=== PATIENT | male | born 1945 | race Caucasian/White ===

== ENCOUNTER 2021-11-24 12:44 | Outpatient (CLI) | payer MEDICARE, SELFPAY ==
--- NOTE | 2021-11-24 15:01 | W.ANESCHARGE ---
Anesthesia Charges Start Date/Time Anesthesia Start Date: 11/24/21 Anesthesia Start Time: 14:18 Stop Date/Time Anesthesia Stop Date: 11/24/21 Anesthesia Stop Time: 14:58 Summary Emergency: No Extremes of Age: Over 68-CPT 13149
--- NOTE | 2021-11-24 15:03 | W.ANESCHARGE ---
Anesthesia Charges Start Date/Time Anesthesia Start Date: 11/24/21 Anesthesia Start Time: 14:18 Stop Date/Time Anesthesia Stop Date: 11/24/21 Anesthesia Stop Time: 14:58 Summary Emergency: No Extremes of Age: Over 68-CPT 04116
== END 2021-11-24 12:45 | disposition home or self-care (01) ==
LOC: OP CLINIC 12:45
PROVIDERS: PCP Family Medicine; Visit Provider Surgery
DX: Z12.11 Encounter for screening for malignant neoplasm of colon (principal); C18.0 Malignant neoplasm of cecum; K63.5 Polyp of colon; Z86.010 Personal history of colon polyps
CPT/HCPCS: 00811; 45380; 81210; 88305; 88341; 88342; 99100; J2704

== ENCOUNTER 2021-12-02 10:08 | Outpatient (CLI) | payer MEDICARE, SELFPAY ==
--- NOTE | 2021-12-02 11:00 | CRLHL7_ITS ---
For Patients: As a result of the Century Cures Act, medical imaging exams and procedure reports are released immediately into your electronic medical record. You may view this report before your referring provider. If you have questions, please contact your health care provider. Indication: DISEASE OF INTESTINE. MASS SEEN ON COLONOSCOPY Technique: Postcontrast CT chest, abdomen and pelvis. 133 cc Isovue 370 intravenous contrast. Please note that all CT scans at this facility use dose modulation, iterative reconstruction, and/or weight-based dosing when appropriate to reduce radiation dose to as low as reasonably achievable. Comparison: 12/12/2020 CT chest Findings: In the chest, abdomen and right subclavian artery noted, an incidental finding. No pulmonary embolism or aortic dissection. No pleural or pericardial effusion. No enlarged mediastinal, hilar or axillary lymph nodes. Stable pulmonary nodules. In the abdomen, there is no intrahepatic mass. Focal fat deposition adjacent to the falciform ligament. Multiple bilateral simple renal cysts are present measuring up to 8.7 cm. Ectopic position of the left kidney with nonobstructing stone involving the left kidney measuring 4 millimeters. No solid renal mass. The adrenal glands are normal. Mild pancreatic atrophy. Spleen is unremarkable. Mild aneurysmal dilation of the abdominal aorta is present measuring up to 3.3 cm. No enlarged retroperitoneal or mesenteric lymph nodes. In the pelvis, bladder is normal. Prostate calcifications are present. Colonic diverticulosis. No diverticulitis. Appendix normal. No pelvic or inguinal adenopathy. Chronic hamstring calcific tendinitis. Chondrocalcinosis at the symphysis pubis and both hip joints. No fracture. Postoperative changes of posterior decompression laminectomy at L4 and L5. Impression: Colonic diverticulosis without diverticulitis. No bowel obstruction. There is stool throughout the colon which may obscure an underlying lesion. No focal colonic wall thickening or adjacent mesenteric stranding. No adenopathy. Stable benign pulmonary nodules. Multiple bilateral simple renal cysts with chronic ectasia of the left kidney and nonobstructing left renal stone. 3.3 cm abdominal aortic aneurysm. Please note that all CT scans at this facility use dose modulation, iterative reconstruction, and/or weight-based dosing when appropriate to reduce radiation dose to as low as reasonably achievable. Dictated by Dong Liu MD @ 12/02/2021 1:12:52 PM (Electronically Signed)
== END 2021-12-02 10:09 | disposition home or self-care (01) ==
LOC: CT 10:08
PROVIDERS: PCP Family Medicine; Visit Provider Surgery
DX: K63.89 Other specified diseases of intestine (principal); R91.8 Other nonspecific abnormal finding of lung field; I71.4 Abdominal aortic aneurysm, without rupture; N28.1 Cyst of kidney, acquired
CPT/HCPCS: 71260; 74177; Q9967

== ENCOUNTER 2021-12-03 14:53 | Outpatient (CLI) | payer MEDICARE, SELFPAY ==
[2021-12-05 15:23] LABS: Carcinoembryonic Antigen 4.1 ng/mL
== END 2021-12-03 14:54 | disposition home or self-care (01) ==
LOC: NFLDREF 15:00
PROVIDERS: PCP Family Medicine; Visit Provider Surgery
DX: C18.9 Malignant neoplasm of colon, unspecified (principal)
CPT/HCPCS: 82378

== ENCOUNTER 2021-12-08 12:40 | Outpatient (RCR) | payer MEDICARE, SELFPAY ==
--- NOTE | 2022-02-27 15:25 | ONC.NURNOTE ---
patient is seeing oncology at [facility] in [place] no follow up planned with [place] except pt prefers annual colonoscopy in [place]
== END 2022-06-06 23:59 | disposition home or self-care (01) ==
LOC: CCIC 12:40
PROVIDERS: PCP Family Medicine; Visit Provider Internal Medicine Medical Oncology
DX: C18.9 Malignant neoplasm of colon, unspecified (principal); K63.89 Other specified diseases of intestine
CPT/HCPCS: 99204; 99212

== ENCOUNTER 2022-01-12 11:12 | Outpatient (CLI) | payer MEDICARE, SELFPAY ==
--- OUTSIDE RECORDS SUMMARY | 2022-01-12 11:15 | XMS_ITS | Encounter Summary ---
:1945 Author Organization [place] Address [address] [place] [address]. [place] [address] Care Team Providers Name Role Phone Hawa Razo Primary Care Provider Reason for Visit Rehab Therapy Cardiac Therapy (Routine) - Closed Specialty Diagnoses / Procedures Referred By Contact Refer red To Contact CARDIAC REHAB Diagnoses COPD (chronic obstructive pulmonary disease) (H) Kelvin BAEZA [facility] [address] [place] [address] Phone: Fax: Referral ID Status Reason Start Date Expiration Date Visits Requ ested Visits Authorized [id number] Closed 07/04/2020 04/25/2021 72 72 Encounter Details Date Type Department Care Team Description 07/[facility] [facility] [address] [place] [address] Cardiac and Pulmonary 1, Rh Pul[facility] [place] [id number] [place] [address] [address] [place] [address] Social History Tobacco Use Types Packs/Day Years Used Date Current Every Day Smoker Alcohol Use Standard Drinks/Week Comments Yes 0 (1 standard drink = 0.6 oz pure alcoho l) Sex Assigned at Date Recorded Not on file COVID-19 Exposure Response Date Recorded In the last month, have you been in contact with No / Unsure 07/30/2020 10:30 AM CDT someone who was confirmed or suspected to have Coronavirus / COVID-19? documented as of this encounter Medications at Time of Discharge Medication Sig Dispensed Refills Start Date End Date ASPIRIN PO Take 81 mg by mouth 0 Cholecalciferol (VITAMIN D3 Take by mouth daily 0 PO) ciprofloxacin (CILOXAN) 0.3 Instill 1-2 drops in 1 Bottle 0 11/28/2012 % ophthalmic solution the affected eye(s) every 2 hours while awake for 2 days then 1-2 drops every 4 hours while awake for the next 5 days. LISINOPRIL PO 0 Multiple Vitamins-Minerals Take 1 tablet by 0 (CENTRUM SILVER) per tablet mouth daily [place]-3 Fatty Acids 0 (OMEGA-3 FISH OIL PO) Saw [place], [place] 0 repens, (SAW PALMETTO EXTRACT PO) SUMAtriptan (IMITREX) 50 MG Take 1 tablet (50 8 tablet 0 0 11/28/2012 tablet mg) by mouth at onset of headache for migraine May repeat dose in 2 hours. Do not exceed 200 mg in 24 hours SUMATRIPTAN SUCCINATE PO Take 50 mg by mouth 0 VITAMIN E MTC PO Take 400 Units by 0 mouth documented as of this encounter Plan of Treatment Upcoming Encounters Date Type Specialty Care Team Description 01/14/2022 Hospital Encounter Surgery Melissa Stern MD [facility] [address] [place] [id number] (Wo rk) 01/14/2022 Surgery Surgery Melissa Stern ROBOTI C RIGHT COLECTOMY [facility] [address] [place] [phone] (Wo rk) Scheduled Procedures Name Priority Associated Diagnoses Date/Time COLECTOMY, Malignant neoplasm of colon, 7:30 AM CDT ROBOT-ASSISTED unspecified part of colon (H) documented as of this encounter Visit Diagnoses Not on filedocumented in this encounter Care Teams Vp Clinical Relationship Specialty Start Date End Date Hawa Razo PCP - General Family Practice 05/04/13 12/23/21 documented as of this encounter
--- OUTSIDE RECORDS SUMMARY | 2022-01-12 11:15 | XMS_ITS | Encounter Summary ---
:1945 Author Organization [place] Address [address] [place] [address]. [place] [address] Care Team Providers Name Role Phone Hawa Razo Primary Care Provider Reason for Visit Rehab Therapy Cardiac Therapy (Routine) - Closed Specialty Diagnoses / Procedures Referred By Contact Refer red To Contact CARDIAC REHAB Diagnoses COPD (chronic obstructive pulmonary disease) (H) Kelvin BAEZA [facility] [address] [place] [address] Phone: Fax: Referral ID Status Reason Start Date Expiration Date Visits Requ ested Visits Authorized [id number] Closed 07/04/2020 04/25/2021 72 72 Encounter Details Date Type Department Care Team Description 07/18/2020 [facility] [address] [place], [place] [id number] Cardiac and Pulmonary 1, Rh Pulmonary Re[facility] [place] [id number] [place] [address] [address] [place] [address] Social History Tobacco Use Types Packs/Day Years Used Date Current Every Day Smoker Alcohol Use Standard Drinks/Week Comments Yes 0 (1 standard drink = 0.6 oz pure alcoho l) Sex Assigned at Date Recorded Not on file COVID-19 Exposure Response Date Recorded In the last month, have you been in contact with No / Unsure 07/18/2020 2:28 PM CDT someone who was confirmed or suspected [...] 0 (CENTRUM SILVER) per tablet mouth daily [place]-3 Fatty Acids 0 (OMEGA-3 FISH OIL PO) Saw [place], [place] 0 repens, (SAW PALMETTO EXTRACT PO) [...] [address] [phone] (Wo rk) 01/14/2022 Surgery Surgery Melissa Stern ROBOTI C RIGHT COLECTOMY [facility] [address] [phone] (Wo rk) Scheduled Procedures Name Priority Associated Diagnoses Date/Time COLECTOMY, Malignant neoplasm of colon, 7:30 AM CDT ROBOT-ASSISTED unspecified part of colon (H) documented as of this encounter Visit Diagnoses Not on filedocumented in this encounter Care Teams National Expansion Recruiter Relationship Specialty Start Date End Date Hawa Razo PCP - General Family Practice 05/04/13 12/23/21 documented as of this encounter
--- OUTSIDE RECORDS SUMMARY | 2022-01-12 11:15 | XMS_ITS | Encounter Summary ---
:1945 Author Organization [place] Address formerly [facility] [place] [address] Care Team Providers Name Role Phone Hawa Razo Ann Primary Care Provider Reason for Referral Rehab Therapy Cardiac Therapy (Routine) - Closed Specialty Diagnoses / Procedures Referred By Contact Refer red To Contact CARDIAC REHAB Diagnoses COPD (chronic obstructive pulmonary disease) (H) [facility] [address] [place] [address] Phone: Fax: Referral ID Status Reason Start Date Expiration Date Visits Requ ested Visits Authorized [id number] Closed 07/04/2020 04/25/2021 72 72 PULLER Reason for Visit Rehab Therapy Cardiac Therapy (Routine) - Closed Specialty Diagnoses / Procedures Referred By Contact Refer red To Contact CARDIAC REHAB Diagnoses COPD (chronic obstructive pulmonary disease) (H) [facility] [address] [place] [address] Phone: Fax: Referral ID Status Reason Start Date Expiration Date Visits Requ ested Visits Authorized [id number] Closed 07/04/2020 04/25/2021 72 72 Encounter Details Date Type Department Care Team Description 07/04/2020 [facility] CL[facility] [address] [place] [address] COPD (chronic Encounter Cardiac and Pulmonary 1, Rh Pulmonary Rehab obstructive Rehabilitation pulmonary dis ease) [place] (H) [address] [facility] [address] [place] [address] Social History Tobacco Use Types Packs/Day Years Used Date Current Every Day Smoker Alcohol Use Standard Drinks/Week Comments Yes 0 (1 standard drink = 0.6 oz pure alcoho l) Sex Assigned at Date Recorded Not on file COVID-19 Exposure Response Date Recorded In the last month, have you been in contact with No / Unsure 07/04/2020 3:51 PM SHOE PULLER someone who was confirmed or suspected to [...] 0 (CENTRUM SILVER) per tablet mouth daily [place]-3 Fatty Acids 0 (OMEGA-3 FISH OIL PO) Saw [place], [place] 0 repens, (SAW PALMETTO EXTRACT PO) [...] Stern MD [facility] [address] [phone] (Wo rk) 01/14/2022 Surgery Surgery Melissa Stern ROBOTI C RIGHT COLECTOMY [facility] [address] [phone] (Wo rk) Scheduled Procedures Name Priority Associated Diagnoses Date/Time COLECTOMY, Malignant neoplasm of colon, 7:30 AM CDT ROBOT-ASSISTED unspecified part of colon (H) Scheduled Referrals Name Type Priority Associated Diagnoses Order S chedule PULMONARY REHAB Referral Routine COPD (chronic 1 Occurrenc es starting REFERRAL obstructive pulmonary 2020 until disease) (H) 07/04/2020 documented as of this encounter Procedures Procedure Name Priority Date/Time Associated Diagnosis Comme nts OXIMETRY - HIM SCAN 07/04/2020 12:00 AM SHOE PULLER documented in this encounter Results OXIMETRY - HIM SCAN (07/04/2020 12:00 AM SHOE PULLER) Specimen (Source) Anatomical Location Collection Method / Collectio n Time Received Time / Laterality Volume 07/04/2020 Narrative This result has an attachment that is no t available. Provider Scan PFT ORDERABLES documented in this encounter Visit Diagnoses Diagnosis COPD (chronic obstructive pulmonary dise ase) (H) Chronic airway obstruction, not elsewher e classified Malignant neoplasm of colon, unspecified part of colon (H) documented in this encounter Care Teams Control Room Technician Relationship Specialty Start Date End Date Hawa Razo PCP - General Family Practice 05/04/13 12/23/21 documented as of this encounter
--- OUTSIDE RECORDS SUMMARY | 2022-01-12 11:15 | XMS_ITS | Encounter Summary ---
:1945 Author Organization [place] Address [address] [facility] [place] [address] Care Team Providers Name Role Phone Hawa Razo Primary Care Provider Encounter Details Date Type Department Care Team Description 07/30/2020 Travel Social History Tobacco Use Types Packs/Day Years [...] / COVID-19? documented as of this encounter Plan of Treatment Upcoming Encounters Date Type Specialty Care Team Description 01/14/2022 Hospital Encounter Surgery Melissa Stern MD [facility] [address] [phone] (Wo rk) 01/14/2022 Surgery Surgery Melissa Stern ROBOTI C RIGHT COLECTOMY [facility] [address] [phone] (Wo rk) Scheduled Procedures Name Priority Associated Diagnoses Date/Time COLECTOMY, Malignant neoplasm of colon, 7:30 AM CDT ROBOT-ASSISTED unspecified part of colon (H) documented as of this encounter Visit Diagnoses Not on filedocumented in this encounter Care Teams Plate Straightener Relationship Specialty Start Date End Date Hawa Razo PCP - General Family Practice 1/9/14 8/30/22 documented as of this encounter
--- OUTSIDE RECORDS SUMMARY | 2022-01-12 11:15 | XMS_ITS | Encounter Summary ---
:1945 Author Organization [place] Address [address] [place] [address]. [place] [address] Care Team Providers Name Role Phone Hawa Razo Primary Care Provider Reason for Visit Rehab Therapy Cardiac Therapy (Routine) - Closed Specialty Diagnoses / Procedures Referred By Contact Refer red To Contact CARDIAC REHAB Diagnoses COPD (chronic obstructive pulmonary disease) (H) Kelvin BAEZA [facility] [address] [place] [address] Phone: Fax: Referral ID Status Reason Start Date Expiration Date Visits Requ ested Visits Authorized [id number] Closed 07/04/2020 04/25/2021 72 72 Encounter Details Date Type Department Care Team Description 07/15/[address] [facility] [address] [place], [place] [id number] Cardiac and Pulmonary 2, Rh Pulmonary Rehab Rehabilitation [place] [id number] [place] [address] [address] [place] [address] Social History Tobacco Use Types Packs/Day Years Used Date Current Every Day Smoker Alcohol Use Standard Drinks/Week Comments Yes 0 (1 standard drink = 0.6 oz pure alcoho l) Sex Assigned at Date Recorded Not on file COVID-19 Exposure Response Date Recorded In the last month, have you been in contact with No / Unsure 07/15/2020 10:15 AM CDT someone who was confirmed or [...] 0 (CENTRUM SILVER) per tablet mouth daily [place]-3 Fatty Acids 0 (OMEGA-3 FISH OIL PO) Saw [place], [place] 0 repens, (SAW PALMETTO EXTRACT PO) [...] [address] [id number] (Wo rk) 01/14/2022 Surgery Surgery Melissa Stern ROBOTI C RIGHT COLECTOMY [facility] [address] [phone] (Wo rk) Scheduled Procedures Name Priority Associated Diagnoses Date/Time COLECTOMY, Malignant neoplasm of colon, 7:30 AM CDT ROBOT-ASSISTED unspecified part of colon (H) documented as of this encounter Visit Diagnoses Not on filedocumented in this encounter Care Teams Vb Net Developer Relationship Specialty Start Date End Date Hawa Razo PCP - General Family Practice 05/04/13 12/23/21 documented as of this encounter
--- OUTSIDE RECORDS SUMMARY | 2022-01-12 11:15 | XMS_ITS | Clinical Summary ---
:1945 Author Organization [facility] [place] [address] Care Team Providers Name Role Phone Gibson Calix MD Primary Care Provider Allergies No known active allergies Medications Medication Sig Dispensed Refills Start Date End Date Status TYLENOL ARTHRITIS ORAL Take 650 mg by 0 Active mouth every 4 hours if needed. CPAPIndications: autoCPAP, heated 1 Device 0 04/09/2014 Active Obstructive sleep apnea humidifier, mask, (adult) (pediatric) headgear, filters and tubing. Pressure: 4-15cm/H2O Length of Need: 99 aspirin (ECOTRIN) 81 mg Take 1 tablet by 0 9 Active enteric coated tablet mouth once daily with a meal. lisinopril (PRINIVIL; Take 1 tablet by 30 tablet 1 03/03/2019 Active ZESTRIL) 20 mg mouth once daily. tabletIndications: HTN (hypertension) albuterol-ipratropium USE 1 AMPULE IN 0 08/15/2019 Active (DUONEB) (2.5-0.5 mg) NEBULIZER TWICE in 3 mL NEBULIZATION DAILY TO THREE solution TIMES DAILY SPACED 4 HOURS OR MORE APART MAY USE UP TO 4 TIMES DAILY MAXIMUM NEEDED colchicine 0.6 mg Take 0.6 mg by 0 06/17/2020 Active tablet mouth once daily. cyanocobalamin (VITAMIN Take 500 mcg by 0 08/21/2020 Active B12) 500 mcg tablet mouth once daily. finasteride (PROSCAR) 5 Take 5 mg by 0 09/09/2020 Active mg tablet mouth once daily. Trelegy Ellipta INHALE 1 PUFF 0 09/09/2020 Active 200-62.5-25 mcg dsdv ONCE DAILY tadalafiL (CIALIS) 5 mg Take 5 mg by 0 09/02/2020 Active tablet mouth once daily. furosemide (LASIX) 20 Take 1 Tablet by 0 Active mg tablet mouth once daily. predniSONE (DELTASONE) Take 1 Tablet by 0 Active 10 mg tablet mouth once daily with a meal. Emqqn-0-RVN-EPA-Fish Take 1 Capsule by 0 Active Oil (Fish Oil) 1,000 mg mouth once daily. (120 mg-180 mg) cap gluc mcconnell/chondro mcconnell Take 1 Tablet by 0 Active A/vit C/Mn (GLUCOSAMINE mouth once daily. 1500 COMPLEX ORAL) Cholecalciferol, Take 400 units by 0 Active Vitamin D3, (Vitamin mouth once daily. D-3) 400 unit capsule ASCORBIC ACID MM Take 1 Tablet by 0 Active mouth once daily. polyethylene glycoL Mix 1 scoop in 0 Active (Miralax) 17 gram/dose liquid then take powder by mouth once daily. alfuzosin (UroxatraL) Take 10 mg by 0 Active 10 mg Sustained-Release mouth once daily tablet with a meal. Active Problems Problem Noted Date S/P TURP (status post transurethral resection of prost ate) 07/15/2021 BPH (benign prostatic hyperplasia) 07/15/2021 Chronic heart failure with preserved ejection fraction (HFpEF) 03/03/2019 Hypertension, essential, benign 03/03/2019 Ascending aortic aneurysm 03/03/2019 Dyslipidemia 03/03/2019 Urinary frequency 03/13/2015 Nocturia 03/13/2015 Benign prostatic hypertrophy (BPH) with nocturia 03/13 LYN 03/29/2014 AHI-5.2, 12 in REM 04/02/2014 Encounters Date Type Specialty Care Team Description 11/24/2021 Lab Requisition Roxana Mendoza MD 11/19/2021 Office Visit Mele Decker, Follow Up (Urinary MD frequency) 11/19/2021 Travel from Last 3 Months Social History Tobacco Use Types Packs/Day Years Used Date Former Smoker Cigarettes 0.75 50 Quit: 05/18/19 17 Smokeless Tobacco: Never Used Tobacco Cessation: Counseling Given: Yes Alcohol Use Standard Drinks/Week Comments Yes 1 (1 standard drink = 0.6 oz pure alcoho l) occasional Alcohol Habits Answer Date Recorded How often do you have a drink containing alcohol? Monthly or less 01/29/2020 How many drinks containing alcohol do you have on a 1 or 2 01/29/2020 typical day when you are drinking? How often do you have six or more drinks on one Never 01/29/2020 occasion? Comment: occasional 10/09/2020 Sex Assigned at Date Recorded Not on file Obstetrics History Last Filed Vital Signs Vital Sign Reading Time Taken Comments Blood Pressure 103/65 11/19/2021 10:11 AM CDT Pulse 59 11/19/2021 10:11 AM CDT Temperature 36.4 ??C (97.6 ??F) 07/17/2021 8:58 AM CDT Respiratory Rate 16 07/17/2021 8:58 AM CDT Oxygen Saturation 97% 11/19/2021 10:11 AM CDT Inhaled Oxygen Concentration - - Weight 124.9 kg (275 lb 6.4 oz) 11/19/2021 10:11 AM CDT Height 180.3 cm (5' 11) 07/15/2021 11:16 AM CDT Body Mass Index 38.41 07/15/2021 11:16 AM CDT Plan of Treatment Health Maintenance Due Date Last Done Comments Pneumococcal series for age 65+ (1 - 12/29/1949 PCV) Tdap 12/29/1954 Depression screening for age 12+ 1955 Hepatitis C screening for age 18-79 12/29/1961 Tetanus booster 1963 Zoster (shingles) series for age 50+ 12/29/1993 (1 of 2) Medicare Wellness for age 65+ 12/29/2008 BMI (ht and wt on same day) for age 0610/15/2020 10/16/2019, 02/23/2019, 18+ 08/03/2016 COVID-19 vaccine series (4 - Booster 09/20/2021 05/23/2021, 12/09/2020, for Pfizer series) 11/18/2020 Influenza for age 65+ 12/25/2021 Procedures Procedure Name Priority Date/Time Associated Diagnosis Comme nts LAB TRACKING EVENT Routine 11/24/2021 2:45 PM CDT PATH TISSUE EXAM Routine 11/24/2021 2:45 PM Resul ts for this CDT procedure are i n the results section. BRAF V600 MUTATION Routine 11/24/2021 2:45 PM Res ults for this ANALYSIS CDT procedure are i n the results section. from Last 3 Months Results LAB TRACKING EVENT (11/24/2021 2:45 PM CDT) Specimen Anatomical Collection Method Collection Time Receive d Time (Source) Location / / Volume Laterality Other (Other) Client Collect / 11/24/2021 2:45 PM 08/0 04/2021 9:46 Unknown CDT PM CDT Roxana Mendoza MD LAB BILL ONLY Performing Organization Address City/State/ZIP Code Phon e Number [facility] [address] [place] [address] LABORATORY-CENTRAL 2000 LABORATORY BRAF V600 MUTATION ANALYSIS (11/24/2021 2:45 PM CDT) Patholo gist Method Time Signature RESULT See Anatomic 12/02/2021 [facility] COMMENT Pathology 1:36 PM CDT LABORATORY-ABBY case TRAL LABORATORY Specimen Anatomical Collection Method Collection Time Receive d Time (Source) Location / / Volume Laterality Other BLOOD SPECIMEN / 11/24/2021 2:45 PM 11/26 4:00 Unknown CDT PM CDT Roxana Mendoza MD LABORATORY Performing Organization Address City/State/RUST Code Phon e Number [facility] [address] [place] [address] LABORATORY-CENTRAL 2000 LABORATORY PATH TISSUE EXAM (11/24/2021 2:45 PM CDT) Component Value Ref Test Analysis Performed Pathologis t Range Method Time At Signature Case Report Pathology Report ?Case: [id number] ? [facility] Authorizing Provider: ??Roxana Mix MD ??Collected: ? 11/24/2021 1445 ? 2 1:39 PM HEALTH Ordering Location: ? [facility] CENTRAL LAB ?Received: ?11/25/2021 0602 ? CDT [facility] BORATORY- Pathologist: ? Abiodun Vance MD ? CENTRAL Specimens: ?? A) - mass ? LABORATORY ? B) - poly p ? Amendment 11/26/2021 3 PM - Report updat ed to incorporate DNA mismatch repair enzyme immunohistochemistry and initiate BRAF testing, see final diagnosis and synoptic sections. [facility] 12/02/2021 - Report updated to incorporate BRAF testing, see synoptic section and updated diagnosis. ÁNGEL 2 1:39 PM HEALTH CDT LABORATORY- CENTRAL LABORATORY Final A) COLON, CECUM, MASS, BIOPSY: [facility] Amendment Diagnosis 1. Adenocarcinoma, low grade (moderately differentiated) 2 1:39 PM HEALTH electronically 2. Background adenoma is not present CDT LABORATORY- signed by 3. Please order CEA level an d CT imaging (chest/abdomen/pelvis) prior to treatment CENTRAL Abiodun Vance 4. Ancillary Testing: KYLAH Milner MD on ? a. 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 b. Positive for BRAF mutation 1:39 PM ? c. See comment and synoptic sections below Amendment electronic ally B) COLON, SPLENIC FLEXURE, POLYPECTOMY: signed by 1. Tubular adenoma João Godinez 2. Negative for high grade dysplasia MD Ashwin on 3. Per the colonoscopy report: 11/26/2021 at ?? a. Polyp size: 2 mm 3:03 PM ?? b. Resection: Complete Electronically ?? c. Retrieval: Complete signed by Hamzah Damico MD for João Sims Pe, MD on 2021 at 9:07 AM Comment A)Dr. Sims discussed the ca se with Dr. Roxana Mendoza on 11/26/2021 at 8:25 AM. This case was seen in consultation with Dr. Damico. [facility] 2 1:39 PM HEALTH Please contact us with any questions ([facility] GI pat hology service [phone]). CDT LABORATORY- CENTRAL Formalin-fixed, paraffin-emb edded tissue is available for ancillary studies, to request please contact the [facility] Pathology [facility] ([phone]). Neoplastic tissue available for ancillary studies: FFPE block A1. LABORATORY Ancillary Testing Comment The immunohistochemical find ings indicate defective mismatch repair enzyme function within this tumor likely due to acquired hypermethylation-related suppression of MLH1, which tends to be more common i n older individuals and serr ated neoplasia background. Microsatellite instability (MSI) is present in all such cases, so PCR testing would be redundant. Roberto Syndrome is essentially excluded; however, if there is high clinical mcconnell spicion or if patient is younger than 50, consideration should be given to additional testing for other inherited colon cancer syndromes. Please contact us if you have questions ([facility] GI Pathology Service [phone]). Clinical Mr. Curran is a 75 [facility] Information y.o. who undergoes 2 1:39 PM HEALTH surveillance CDT LABORATORY- colonoscopy which CENTRAL revealed a likely LABORATORY malignant tumor in the cecum and an additional polypectomy was performed. Gross A) Received in formalin are 7 reed mucosal fragments averaging 2 mm in greatest dimension, which are entirely submitted in one cassette. It is labeled with the patient's name and designated cecal mass biopsy. [facility] Description 2 1:39 PM HEALTH B) Received in formalin is a reed mucosal fragment measuring 3 mm in greatest dimension, which is entirely submitted in one cassette. It is labeled with the patient's name and designated splenic flexure polyp. CDT LABORATORY- CENTRAL Rose Carreno 11/25/2021 12:07 PM LABORATORY Microscopic The final diagnosis is [facility] A Description based on microscopic 2 1:39 PM HEALTH examination of CDT LABORATORY- appropriate sections CENTRAL of all specimens. LABORATORY Molecular BRAF V600 Mutation Analysis [facility] Diagnostics 2 1:39 PM HEALTH Summary Result: ?? CDT LABORATORY- Positive for BRAF V600 mutation (codon 600, exon 15) CENTRAL LABORATORY BRAF Methods: DNA is extract ed from FFPE sections using the beroncia?? DNA Sample Preparation kit after a corresponding H&E stained slide is evaluated by a pathologist. Sample is macrodissected to [facility] for tumor if section cont ains less than 50% tumor. Extracted DNA is then tested using the beronica?? 4800 BRAF V600 Test. Specimen Assessment: ?? H&E slide reviewed by Janiya Washington M.D. and determined adequate for analysis. The beronica?? 4800 BRAF V600 M utation Test is an in vitro diagnostic device intended for the qualitative detection of BRAF V600 mutation in DNA extracted from formalin-fixed, paraffin-embedded human tissu e. The beronica?? 4800 BRAF V60 0 Mutation Test is a real-time PCR test on the beronica?? 4800 systemIn addition to the most common V600E mutations, in data submitted to the FDA the BRAF V600 mutation assay wa s also able to detect V600K, V600E2, and V600D mutations (Lisset package insert BRAF V600 assay). FDA required disclaimer: ??T his test was developed and its performance characteristics determined by the [facility]. It has not been cleared or approved by the FDA. T he FDA has determined, howev er, that in most cases, such approval is not necessary. This test is used for clinical purposes. It should not be regarded as investigational or for research. SYNOPTIC Colon and Rectum Biomarker Reporting Template [facility] [email or web address].Bmk - All Specimens 2 1:39 PM HEALTH Protocol posted: 06/22/2018 CDT LAB ORATORY- CENTRAL RESULTS LABORATORY ?? Mismatch Repair: ? Immunohistochemistry (IHC) Testing for Mismatch Repair (MMR) Proteins: ? MLH1 Result: ?Loss of nuclear expression ? Immunohistochemistry (IHC) Testing for Mismatch Repair (MMR) Proteins: ? MSH2 Result: ?Intact nuclear expression ? Immunohistochemistry (IHC) Testing for Mismatch Repair (MMR) Proteins: ? MSH6 Result: ? Cannot be determined: largely intact, with focal loss ? Immunohistochemistry (IHC) Testing for Mismatch Repair (MMR) Proteins: ? PMS2 Result: ?Loss of nuclear expression ? Immunohistochemistry (IHC) Testing for Mismatch Repair (MMR) Proteins: ?Background nonneoplastic tissue / internal control with intact nuclear expression ? IHC Interpretation #: ?Loss of nuclear expression of MLH1 and PMS2: testing for methylation of the MLH1 promoter and / or mutation of BRAF is indicated (the presence of a BRAF V600E mutatio n and / or MLH1 methylation suggests that the tumor is sporadic and germline evaluation is probably not indicated; absence of both MLH1 methylation and of BRAF V600E mutation suggests the possibility of Roberto syndrome and sequenci ng and / or large deletion / duplication testing of germline MLH1 may be indicated) Colon and Rectum Biomarker Reporting Template BRAF - A Protocol posted: 06/22/2018 RESULTS ?? BRAF: ? BRAF Mutational Analysis: ?BRAF V600E (c.1799 T>A ) mutation METHODS ?? Dissection Method(s)#: ?Whole tissue section - no tumor enrichment procedure employed (test name): BRAF ?? BRAF Testing Method(s): ?Real-time PCR Additional [facility] Information Interpreted at [facility] ULTRA Testing Laboratory, Central Laboratory - [address] [place], [place] [address] 2 1:39 PM HEALTH CDT LABORATORY- CENTRAL LABORATORY Specimen Anatomical Collection Method Collection Time Receive d Time (Source) Location / / Volume Laterality Other 11/24/2021 2:45 PM 2 6:02 CDT AM CDT Specimen 11/24/2021 2:45 PM 2 6:02 (specimen) CDT AM CDT Roxana Mendoza MD PATHOLOGY/CYTOLOGY Performing Organization Address City/State/ZIP Code Phon e Number [facility] [address] [place] [address] LABORATORY-CENTRAL 2000 LABORATORY from Last 3 Months Insurance Payer Benefit Plan / Subscriber ID Effective Dates Phone Addre ss Type Group MEDICARE PART A - MEDICARE PART A [id number] 2008-Presen ATTN: CLAIMS HB USE ONLY HB ONLY t [address] [place] [address] [facility] MR [id number] 2021-Presen [address] [address] [place] [address] Advance Directives Latest Code Status on File Code Status Date Activated Date Inactivated Comments Full Code 07/16/2021 8:18 AM 07/17/2021 6:43 PM Code Status Discussion: Reviewed Preferences Full Code 07/15/2021 11:06 AM 07/16/2021 8:18 AM Code Status Discussion: Unable to Assess Preferences, Provid er to review later Full Code 03/02/2019 3:01 PM 03/02/2019 7:23 PM Full Code 01/07/2007 6:54 AM 01/07/2007 1:28 PM Care Teams Reaming Machine Operator Relationship Specialty Start Date End Date Gibson Calix MD PCP - General Family Practice 10/09/20 [address] [place] [address]
--- OUTSIDE RECORDS SUMMARY | 2022-01-12 11:15 | XMS_ITS | Encounter Summary ---
:1945 Author Organization [place] Address [address] [facility] [address] Care Team Providers Name Role Phone Hawa Razo Primary Care Provider Encounter Details Date Type Department Care Team Description 07/04/2020 Travel Social History Tobacco Use Types Packs/Day Years Used Date Current Every Day Smoker Alcohol Use Standard Drinks/Week Comments Yes 0 (1 standard drink = 0.6 oz pure alcoho l) Sex Assigned at Date Recorded Not on file COVID-19 Exposure Response Date Recorded In the last month, have you been in contact with No / Unsure 07/04/2020 3:51 PM [employer] someone who was confirmed or suspected to have Coronavirus / COVID-19? documented as of this encounter Plan of Treatment Upcoming Encounters Date Type Specialty Care Team Description 01/14/2022 Hospital Encounter Surgery Melissa Stern MD [facility] [address] [place] [phone] (Wo rk) 01/14/2022 Surgery Surgery Melissa Stern ROBOTI C RIGHT COLECTOMY [facility] [address] [place] [phone] (Wo rk) Scheduled Procedures Name Priority Associated Diagnoses Date/Time COLECTOMY, Malignant neoplasm of colon, 7:30 AM CDT ROBOT-ASSISTED unspecified part of colon (H) documented as of this encounter Visit Diagnoses Not on filedocumented in this encounter Care Teams Direct Service Professional Relationship Specialty Start Date End Date Hawa Razo PCP - General Family Practice 05/04/13 12/23/21 documented as of this encounter
--- OUTSIDE RECORDS SUMMARY | 2022-01-12 11:15 | XMS_ITS | Encounter Summary ---
:1945 Author Organization [place] Address [address] [facility] [address] Care Team Providers Name Role Phone Hawa Razo Primary Care Provider Encounter Details Date Type Department Care Team Description 07/25/2020 Travel Social History Tobacco Use Types Packs/Day Years Used Date Current Every Day Smoker Alcohol Use Standard Drinks/Week Comments Yes 0 (1 standard drink = 0.6 oz pure alcoho l) Sex Assigned at Date Recorded Not on file COVID-19 Exposure Response Date Recorded In the last month, have you been in contact with No / Unsure 07/25/2020 10:19 AM CDT someone who was confirmed or suspected to have Coronavirus / COVID-19? documented as of this encounter Plan of Treatment Upcoming Encounters Date Type Specialty Care Team Description 01/14/2022 Hospital Encounter Surgery Melissa Stern MD [facility] [address] [place] [phone] (Wo rk) 01/14/2022 Surgery Surgery Melissa Stern ROBOTI C RIGHT COLECTOMY [facility] [address] [place] [phone] (Wo rk) Scheduled Procedures Name Priority Associated Diagnoses Date/Time COLECTOMY, Malignant neoplasm of colon, 7:30 AM CDT ROBOT-ASSISTED unspecified part of colon (H) documented as of this encounter Visit Diagnoses Not on filedocumented in this encounter Care Teams Vp Ancillary Relationship Specialty Start Date End Date Hawa Razo PCP - General Family Practice 1/9/14 8/30/22 documented as of this encounter
--- OUTSIDE RECORDS SUMMARY | 2022-01-12 11:15 | XMS_ITS | Encounter Summary ---
:1945 Author Organization [place] Address [address] [facility] [place] [address] Care Team Providers Name Role Phone Hawa Razo Primary Care Provider Encounter Details Date Type Department Care Team Description 07/06/[address] [facility] Alonso Eli, Carpal t unnel syndrome, right (Primary Dx); Neurology Outreach MD Carpal tunnel syndrome, left [address] [place] [address] Social History Tobacco Use Types Packs/Day Years Used Date Current Every Day Smoker Alcohol Use Standard Drinks/Week Comments Yes 0 (1 standard drink = 0.6 oz pure alcoho l) Sex Assigned at Date Recorded Not on file documented as of this encounter Progress Notes Alonso Eli MD - 07/11/2013 6:56 AM CDT [facility] Alonso Eli MD - 07/11/2013 6:42 AM CDT [facility] [address] [address] RE: MELE HARRISON : 1945 VANITA: 07/06/2013 REFERRING: Hawa Razo MD, [facility] RIGHT AND LEFT UPPER EXTREMITY EMG EXAMINATION RIGHT UPPER EXTREMITY CONDUCTION VELOCITIES STIM. LATENCY MS AMPLITUDE DISTANCE CM NCV NORMAL Right Median Nerve Above Elbow 11.2 6 mV Record / APB 30 AE-W 50 M/sec >50 F-Wave : Wrist 5.2 6 mV Right Ulnar Nerve Above Elbow 9.3 10 mV Record / ADM 34 AE-W 55 M/sec >50 F-Wave: Below Elbow - - mV - BE-W - M/sec >50 Wrist 3.1 10 mV Right Sensory Median Nerve 4.3 10 micro Right Sensory Ulnar 3.2 15 micro NEEDLE ELECTRODE EXAMINATION (EMG) MUSCLE POS. POT. FIBS. FASCIC. MOTOR UNIT ACTION POTENTIALS Right Abductor Pollicis Brevis 0 0 0 Mild decreased recruitment Right 1st Dorsal Interosseous 0 0 0 Normal Right Pronator Teres 0 0 0 Normal Right Biceps 0 0 0 Normal LEFT UPPER EXTREMITY CONDUCTION VELOCITIES STIM. LATENCY MS AMPLITUDE DISTANCE CM NCV NORMAL Left Median Motor Nerve Above Elbow 10.2 6 mV Record / APB 29.5 AE-W 54 M/sec >50 F-Wave : Wrist 4.8 6 mV Left Sensory Median Nerve 4.0 12 micro Left Sensory Ulnar 3.1 15 micro NEEDLE ELECTRODE EXAMINATION (EMG) MUSCLE POS. POT. FIBS. FASCIC. MOTOR UNIT ACTION POTENTIALS Left Abductor Pollicis Brevis 0 0 0 Mild decreased recruitment Left 1st Dorsal Interosseous 0 0 0 Normal Left Pronator Teres 0 0 0 Normal Left Biceps 0 0 0 Normal CLINICAL NOTE: Bilateral upper extremity testing is requested for evaluation of hand numbness and paresthesias. REPORT: Right median motor terminal latency is prolonged with a normal amplitude response. Motor conduction along the forearm segment is low normal. Right median sensory terminal latency is prolonged with a reduced amplitude response. Right ulnar motor and sensory conduction velocity studies are normal. Left median motor terminal latency is prolonged with a normal amplitude response. Motor conduction velocity along the forearm segment is within normal limits. Left median sensory terminal latency is prolonged with a slightly reduced amplitude response. Left ulnar sensory response is normal. Right and left upper extremity needle electrode examination is notable for a mild decrease in motor unit potential recruitment recorded from both abductor pollicis brevis muscles. No active or chronic denervation is appreciated. IMPRESSION: 1. Moderately severe right carpal tunnel syndrome. 2. Moderately severe left carpal tunnel syndrome. Alonso Eli MD [facility] Department of Neurology Hawa Razo MD [address] [address] [place]: Name: MELE HARRISON MRN: [id number] Account: [id number] : 1945 Service Date: 07/06/2013 Document: [id number] documented in this encounter Plan of Treatment Upcoming Encounters Date Type Specialty Care Team Description 01/14/2022 Hospital Encounter Surgery Melissa Stern MD [facility] [address] [place], [place] [phone] (Wo rk) 01/14/2022 Surgery Surgery Melissa Stern ROBOTI C RIGHT COLECTOMY [facility] [address] [place], [place] [phone] (Wo rk) Scheduled Procedures Name Priority Associated Diagnoses Date/Time COLECTOMY, Malignant neoplasm of colon, 7:30 AM CDT ROBOT-ASSISTED unspecified part of colon (H) documented as of this encounter Procedures Procedure Name Priority Date/Time Associated Diagnosis Comme nts HC NCS MOTOR W OR W/O Routine 07/06/2013 12:51 PM Carpal tunne l syndrome, F-WAVE, 7 OR 8 CDT right Carpal tunnel syndrome, left HC NEEDLE EMG EA Routine 07/06/2013 12:51 PM Carpal tunnel syn drome, EXTREMITY W/PARASPINAL CDT right AREA LIMITED Carpal tunnel syndrome, left documented in this encounter Visit Diagnoses Diagnosis Carpal tunnel syndrome, right - Primary Carpal tunnel syndrome Carpal tunnel syndrome, left Carpal tunnel syndrome Malignant neoplasm of colon, unspecified part of colon (H) documented in this encounter Care Teams Physician Compensation Analyst Relationship Specialty Start Date End Date Hawa Razo PCP - General Family Practice 05/04/13 12/23/21 documented as of this encounter
--- OUTSIDE RECORDS SUMMARY | 2022-01-12 11:15 | XMS_ITS | Encounter Summary ---
:1945 Author Organization [facility] Address [address] [place] [address]. [place] [address] Care Team Providers Name Role Phone Hawa Razo Primary Care Provider Reason for Visit Rehab Therapy Cardiac Therapy (Routine) - Closed Specialty Diagnoses / Procedures Referred By Contact Refer red To Contact CARDIAC REHAB Diagnoses COPD (chronic obstructive pulmonary disease) (H) Kelvin [facility]AE[facility] [address] [place] [address] Phone: Fax: Referral ID Status Reason Start Date Expiration Date Visits Requ ested Visits Authorized [id number] Closed 07/04/2020 04/25/2021 72 72 Encounter Details Date Type Department Care Team Description 08/01/2020 [facility] [address] [place] [address] Cardiac and Pulmonary 1, [facility] [place] [id number] [place] [address] [address] [place] [address] Social History Tobacco Use Types Packs/Day Years Used Date Current Every Day Smoker Alcohol Use Standard Drinks/Week Comments Yes 0 (1 standard drink = 0.6 oz pure alcoho l) Sex Assigned at Date Recorded Not on file COVID-19 Exposure Response Date Recorded In the last month, have you been in contact with No / Unsure 08/01/2020 10:21 AM CDT someone who was confirmed or [...] 0 (CENTRUM SILVER) per tablet mouth daily [place]-3 Fatty Acids 0 (OMEGA-3 FISH OIL PO) Saw [place], [place] 0 repens, (SAW PALMETTO EXTRACT PO) [...] CEC[address] [id number] (Wo rk) 01/14/2022 Surgery Surgery Melissa Stern ROBOTI C RIGHT COLECTOMY COLO & RECTAL OSCAR RG[facility] [address] [id number] (Wo rk) Scheduled Procedures Name Priority Associated Diagnoses Date/Time COLECTOMY, Malignant neoplasm of colon, 7:30 AM CDT ROBOT-ASSISTED unspecified part of colon (H) documented as of this encounter Visit Diagnoses Not on filedocumented in this encounter Care Teams Sizing Sponger Relationship Specialty Start Date End Date Hawa Razo PCP - General Family Practice 05/04/13 12/23/21 documented as of this encounter
--- OUTSIDE RECORDS SUMMARY | 2022-01-12 11:15 | XMS_ITS | Encounter Summary ---
:1945 Author Organization [facility] Address [address] [facility] [address] Care Team Providers Name Role Phone Hawa Razo Primary Care Provider Encounter Details Date Type Department Care Team Description 07/15/2020 Travel Social History Tobacco Use Types Packs/Day [...] Stern MD [facility]O [facility] RECTAL [facility] [address] [phone] (Wo rk) 01/14/2022 Surgery Surgery Melissa Stern ROBOTI C RIGHT COLECTOMY COLO & RECTAL OSCAR RGERY [address] [id number] (Wo rk) Scheduled Procedures Name Priority Associated Diagnoses Date/Time COLECTOMY, Malignant neoplasm of colon, 7:30 AM CDT ROBOT-ASSISTED unspecified part of colon (H) documented as of this encounter Visit Diagnoses Not on filedocumented in this encounter Care Teams Assurance Services Manager Health Care Relationship Specialty Start Date End Date Hawa Razo PCP - General Family Practice 1/9/14 8/30/22 documented as of this encounter
--- OUTSIDE RECORDS SUMMARY | 2022-01-12 11:15 | XMS_ITS | Encounter Summary ---
:1945 Author Organization [facility] Address [address] [place] [address] Care Team Providers Name Role Phone Hawa Razo Primary Care Provider Encounter Details Date Type Department Care Team Description 05/23/2013 Hospital Encounter [facility] [address] [place] [phone] Social History Tobacco Use Types Packs/Day Years Used Date Current Every Day Smoker Alcohol Use Standard Drinks/Week Comments Yes 0 (1 standard drink = 0.6 oz pure alcoho l) Sex Assigned at Date Recorded Not on file documented as of this encounter Medications at [...] 0 (CENTRUM SILVER) per tablet mouth daily [place]-3 Fatty Acids 0 (OMEGA-3 FISH OIL PO) Saw [place], [place] 0 repens, (SAW PALMETTO EXTRACT PO) [...] MD COLO & RECTAL [facility]AR [facility] [address] [phone] (Wo rk) 01/14/2022 Surgery Surgery Melissa Stern ROBOTI C RIGHT COLECTOMY COLO & RECTAL OSCAR RGERY [address] [phone] (Wo rk) Scheduled Procedures Name Priority Associated Diagnoses Date/Time COLECTOMY, Malignant neoplasm of colon, 7:30 AM CDT ROBOT-ASSISTED unspecified part of colon (H) documented as of this encounter Procedures Procedure Name Priority Date/Time Associated Diagnosis Comme nts CT EXTERNAL IMAGING Routine 05/23/2013 3:25 PM Re sults for this ABDOMEN CUSTOMER ENGAGEMENT ANALYST procedure are i n the results section. documented in this encounter Results CT Digital Archive-Non [facility] (05/23/2013 3:25 PM CUSTOMER ENGAGEMENT ANALYST) Anatomical Region Laterality Modality Computed Radiography Specimen (Source) Anatomical Location Collection Method / Collectio n Time Received Time / Laterality Volume Narrative 05/23/2013 3:25 PM CUSTOMER ENGAGEMENT ANALYST <!--EPICS-->Digitized exam for comparison only; no results available<!--EPICE--> Procedure Note Sg Ignacia - 05/23/2013 <!--EPICS-->Digitized exam for compariso n only; no results available<!--EPICE--> Radiology Non-Fv Credentialed Provider IMG EXTERNAL IM AGING ORDERABLES documented in this encounter Visit Diagnoses Not on filedocumented in this encounter Care Teams Wool Hat Hydraulicker Relationship Specialty Start Date End Date Hawa Razo PCP - General Family Practice 05/04/13 12/23/21 documented as of this encounter
--- OUTSIDE RECORDS SUMMARY | 2022-01-12 11:15 | XMS_ITS | Encounter Summary ---
:1945 Author Organization [facility] Address [address] [place] [address]. [place] [address] Care Team Providers Name Role Phone Clinic, [facility] Primary Care Provider [phone] Reason for Visit Reason Comments Eye Problem Headache Encounter Details Date Type Department Care Team Description 11/28[facility]2012 [facility] Emergency Dep brian Oneal MD Chalazion of left upper eyelid [address] [facility] [id number] [address] [facility] [phone] [place], [place] [address] (Wo rk) Social History Tobacco Use Types Packs/Day Years Used Date Current Every Day Smoker Alcohol Use Standard Drinks/Week Comments Yes 0 (1 standard drink = 0.6 oz pure alcoho l) Sex Assigned at Date Recorded Not on file documented as of this encounter Last Filed Vital Signs Vital Sign Reading Time Taken Comments Blood Pressure 128/81 11/28/2012 2:30 PM CDT Pulse - - Temperature 36.3 ??C (97.3 ??F) 11/28/2012 12:29 PM CDT Respiratory Rate 16 11/28/2012 2:30 PM CDT Oxygen Saturation 96% 11/28/2012 2:30 PM CDT Inhaled Oxygen Concentration - - Weight - - Height - - Body Mass Index - - documented in this encounter Discharge Instructions Discharge InstructionsPhil Rushing MD - 11/28/2012 2:30 PM CDT Discharge Instructions Migraine You were seen today for a headache that your doctor thinks is a migraine. At this time your doctor does not find that your headache is a sign of anything dangerous or life-threatening. However, sometimes the signs of serious illness do not show up right away. If you have new or worse symptoms, you mayneed to be seen again in the emergency department or by your primary doctor. Follow up with your regular doctor as directed today, or within the next week. Return to the Emergency Department if: You get a fever of 101 F or higher. Your headache gets much worse. You get a stiff neck with your headache. You get a new headache that is different or worse than headaches you have had before. You are vomiting and can???t keep food or water down You have blurry or double vision or other problems with your eyes. You have a new weakness on one side of your body. You have difficulty with balance which is new. You or your family thinks you are confused. You have a seizure or convulsion Treatment: Often, treatment for your migraine will take some time to make you headache stop. Going home to sleep can be very effective. Use your medications as directed because overuse can actually cause headaches. Once your headache has gone away, avoid triggers such as certain foods, skipping meals, bright lights, changes in sleep, exercise and stress. Migraine headaches can have symptoms before the pain starts, like vision changes, funny smells/tastes, dizziness or other symptoms. Treating a headache as soon as the first symptoms come on is very important and gives the best chance of stopping the headache. If headaches are severe or frequent you may need to start daily medication to prevent the headaches. Carbon monoxide can cause headaches, so not burning things in your home is important. Also get a carbon monoxide detector. Some medications for migraines may raise your blood pressure, so use with caution if you have high blood pressure or heart problems. Remember that you can always come back to the Emergency Department if you are not able to see your regular doctor in the amount of time listed above, if you get any new symptoms, or if there is anything that worries you. AttachmentsThe following attachments cannot be sent through Care Everywhere. CHALAZION (CROATIAN)documented in this encounter Medications at Time of Discharge [...] 0 (CENTRUM SILVER) per tablet mouth daily [place]-3 Fatty Acids 0 (OMEGA-3 FISH OIL PO) Saw Spencer, Serenoa 0 repens, (SAW PALMETTO EXTRACT PO) [...] 0 mouth documented as of this encounter ED Notes Phil Rushing MD - 11/28/2012 12:37 PM CDT History Chief Complaint: Eye Problem and Headache HPI Siddhartha Curran is a 66 year old male with a history of migraines and hypertension who presents with headache and eye problem. The patient states that on Wednesday he began to feel as though there was sand in his L eye. 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 The patient states there was crusty, sticky discharge coming out of the L eye, especially when he would wake up in the morning for the past several days. The patient also complains of a headache with photophobia. He has a history of migraines, but the headache is now localized over the region of his L eye which he states is atypical for his migraines. The patient took sumatriptan for his headache this morning, and it is slowly fading in severity. The patient complains of some nausea. The patient presented to his primary care provider this morning who recommended presentation to the ED for further evaluation and treatment. The patient denies any fever, chills, dizziness, vision changes, speech difficulty, neck pain or stiffness, vomiting, or numbness, tingling, orweakness to the extremities. He reports no recent head trauma. Allergies: No Known Allergies Medications: Aspirin Lisinopril Vitamin D3 Multivitamins Vitamin E [place]-3 Sumatriptan Succinate Past Medical History: Hypertension Migraines Past Surgical History: Back surgery Orthopedic surgery Family History: The patient denies any relevant family history. Social History: Current everyday smoker The patient uses alcohol. Review of Systems Constitutional: Negative for fever and chills. Eyes: Positive for photophobia and discharge (L). Negative for visual disturbance. 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 Cardiovascular: Negative for chest pain. Gastrointestinal: Positive for nausea. Neurological: Positive for headaches. Negative for dizziness, syncope, weakness, light-headedness and numbness. All other systems reviewed and are negative. Physical Exam First Vitals: BP: 128/87 mmHg Heart Rate: 58 Temp: 97.3 ??F (36.3 ??C) Resp: 20 SpO2: 99 % Physical Exam Constitutional: He is oriented to person, place, and time. He appears well- developed and well-nourished. No distress. HENT: Mouth/Throat: Oropharynx is clear and moist. No obvious visible trauma Eyes: Pupils are equal, round, and reactive to light. Slit lamp exam: The left eye shows no corneal flare, no corneal ulcer, no foreign body, no hyphema, no hypopyon, nofluorescein uptake and no anterior chamber bulge. Diffusely mild injection left conjunctiva, right conjunctiva normal. 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 Pressure left eye 14,16, and 13 on 3 assessments. No FB left eye. 1 mm chalazion left upper midline eyelid palpebral conjunctiva approximately 8 mm from lid edge seen with eversion. No lesions to lower lid with eversion. No eyelid edema on left. No current discharge bilaterally. Neck: Normal range of motion. No tracheal deviation present. Cardiovascular: Normal rate, regular rhythm and normal heart sounds. Exam reveals no friction rub. No murmur heard. Pulmonary/Chest: Effort normal. No stridor. No respiratory distress. Musculoskeletal: Normal range of motion. He exhibits no edema. Neurological: He is alert and oriented to person, place, and time. No cranial nerve deficit. Normal strength and sensation all extremities Skin: Skin is warm and dry. No rash noted. No erythema. Psychiatric: He has a normal mood and affect. Judgment normal. Emergency Department Course Laboratory: CBC: WBC 5.7 (wnl), HGB 14.9 (wnl), PLT 168 (wnl), o/w WNL BMP: Creatinine: 0.99 (wnl), NA 145 (H), glucose 104 (H), o/w WNL Sed rate: 8 INR: 1.05 Interventions: Alcaine 0.5% opthalmic solution Toradol injection 20 mg Decadron injection 20 mg Imitrex injection 6 mg Compazine injection 10 mg Benadryl injection 25 mg Normal Saline 1L IV injection Emergency Department Course: I examined the patient. Plan of care discussed. The patient agrees with this plan. IV inserted and blood drawn. Recheck. I discussed the laboratory and radiology results with the patient and he understands. The patient felt improved after the above interventions. The patient will be discharged home to follow upwith primary care doctor per discharge instructions. Indications for return to the ED were discussedand the patient understands. All questions were answered prior to discharge. Impression & Plan Medical Decision Makin yo male who presents today with complaints of L eye discomfort. Found to have no evidence of optic neuritis, iritis, or definite corneal abrasion, foreign body, or glaucoma on examination at this time. Low suspicion for retinal issue as he appears to have a chalazion on the upper eyelid and will have him do warm compresses to his eye, we will start him on cipro eye drops for what appears to be a related mild conjunctivitis. No evidence for giant cell arteritis as his ESR is normal. He is otherwise neurologically intact. We will have him follow up with his primary care provider in 2-3 days, and at [facility] in 2-3 days if he continues to have symptoms. Diagnosis: 1. Migraine 2. Chalazion of upper L eyelid IClarita, am serving as a scribe at 12:37 PM on 11/28/2012 to document services personally performed by Phil Rushing MD, based on my observations and the provider's statements to me. Clarita Sal 11/28/2012 [facility] EMERGENCY DEPARTMENT Phil Rushing MD 11/30/12 0218 Juanita Leung RN - 11/28/2012 12:33 PM CDT Pt has a migraine and feels like there is something in his left eye. Sent from clinic for further work up. documented in this encounter Plan of Treatment Upcoming Encounters Date Type Specialty Care Team Description 01/14/2022 Hospital Encounter Surgery Melissa Stern MD [facility] [address] [place], [place] [phone] (Wo rk) 01/14/2022 Surgery Surgery Melissa Stern ROBOTI C RIGHT COLECTOMY [facility] [address] [place], [place] [phone] (Wo rk) Scheduled Procedures Name Priority Associated Diagnoses Date/Time COLECTOMY, Malignant neoplasm of colon, 7:30 AM CDT ROBOT-ASSISTED unspecified part of colon (H) documented as of this encounter Procedures Procedure Name Priority Date/Time Associated Comments Diagnosis CBC WITH PLATELETS & STAT 11/28/2012 1:30 PM R esults for this DIFFERENTIAL CDT procedure are i n the results section. INR STAT 11/28/2012 1:30 PM Results f or this CDT procedure are i n the results section. ERYTHROCYTE STAT 11/28/2012 1:30 PM Results f or this SEDIMENTATION RATE CDT procedure are in AUTO the results section. BASIC METABOLIC PANEL STAT 11/28/2012 1:30 PM Results for this CDT procedure are i n the results section. documented in this encounter Results INR (11/28/2012 1:30 PM CDT) P athologist Signature INR 1.05 0.86 - 1.14 [facility] Specimen Anatomical Collection Method Collection Time Receive d Time (Source) Location / / Volume Laterality Blood specimen 11/28/2012 1:30 PM 013 1:58 (specimen) CDT PM CDT Phil Rushing MD LAB - BLOOD ORDERABLES Performing Organization Address City/State/ZIP Code Phon e Number [facility] [address] [place], [place] [address] [facility] Erythrocyte sedimentation rate auto (11/28/2012 1:30 PM CDT) P athologist Signature Sed Rate 8 0 - 20 mm/h [facility] Specimen Anatomical Collection Method Collection Time Receive d Time (Source) Location / / Volume Laterality Blood specimen 11/28/2012 1:30 PM 013 1:58 (specimen) CDT PM CDT Phil Rushing MD LAB - BLOOD ORDERABLES Performing Organization Address City/State/ZIP Code Phon e Number [facility] [address] [place], [place] [address] [facility] CBC with platelets differential (11/28/2012 1:30 PM CDT) Patholo gist Method Time Signature WBC 5.7 4.0 - [place] 11.0 [facility] 10e9/[facility] RBC Count 5.03 4.4 - 5.9 [place] 10e12/L [facility] Hemoglobin 14.9 13.3 - [place] 17.7 g/dL [facility] Hematocrit 44.4 40.0 - [place] 53.0 % [facility] MCV 88 78 - 100 [facility] MCH 29.6 26.5 - [facility] 33.0 pg [facility] MCHC 33.6 31.5 - [place] 36.5 g/dL [facility] RDW 14.0 10.0 - [place] 15.0 % [facility] Platelet Count 168 150 - 450 [place] 10e9/L [facility] Diff Method Automated [facility] % Neutrophils 57.5 % [facility] % Lymphocytes 30.6 % [facility] % Monocytes 7.6 % [facility] % Eosinophils 3.7 % [facility] % Basophils 0.4 % [facility] % Immature 0.2 % [place] Granulocytes [facility] Absolute 3.3 1.6 - 8.3 [place] Neutrophil 10e9/L [facility] Absolute 1.7 0.8 - 5.3 [facility] Lymphocytes 10e9/L [facility] Absolute 0.4 0.0 - 1.3 [place] Monocytes 10e9/L [facility] Absolute 0.2 0.0 - 0.7 [place] Eosinophils 10e9/L [facility] Absolute 0.0 0.0 - 0.2 [place] Basophils 10e9/L [facility] Abs Immature 0.0 0 - 0.4 [place] Granulocytes 10e9/L [facility] Specimen Anatomical Collection Method Collection Time Receive d Time (Source) Location / / Volume Laterality Blood specimen 11/28/2012 1:30 PM 013 1:58 (specimen) CDT PM CDT Phil Rushing MD LAB - BLOOD ORDERABLES Performing Organization Address City/State/ZIP Code Phon e Number [place] [address], [place] [address] [facility] (ABNORMAL) Basic metabolic panel (11/28/2012 1:30 PM CDT) [facility] gist Method Time Signature Sodium 145 (H) 133 - 144 [place] mmol/L [facility] Potassium 4.3 3.4 - 5.3 [place] mmol/L [facility] Chloride 107 94 - 109 [place] mmol/L [facility] Carbon Dioxide 25 20 - 32 [place] mmol/L [facility] Anion Gap 13 6 - 17 [place] mmol/L [facility] Glucose 104 (H) 60 - 99 [place] mg/dL [facility] Urea Nitrogen 16 7 - 30 [place] mg/dL [facility] Creatinine 0.99 0.66 - [facility] 1.25 [facility] mg/dL [facility] GFR Estimate Not Calculated >60 [place] mL/min/[address] [place] [address] LAB GFR Estimate Not Calculated >60 [place] If Black mL/min/[address] LAB Calcium 9.6 8.5 - [facility] 10.4 [facility] mg/dL [facility] Specimen Anatomical Collection Method Collection Time Receive d Time (Source) Location / / Volume Laterality Blood specimen 11/28/2012 1:30 PM 013 1:58 (specimen) CDT PM CDT Phil Rushing MD LAB - BLOOD ORDERABLES Performing Organization Address City/State/ZIP Code Phon e Number M [facility] [address] [place], [place] [address] [facility] documented in this encounter Visit Diagnoses Diagnosis Migraine - Primary Chalazion of left upper eyelid Chalazion Malignant neoplasm of colon, unspecified part of colon (H) documented in this encounter Administered Medications Inactive Administered Medications - up to 3 most recent administrations Medication Order MAR Action Action Date Dose Rate Site 0.9 % sodium chloride IV New Bag 11/28/2012 2:10 PM CDT 1,000 mLs 125 mL/hr solution at 125 mL/hr, Intravenous, CONTINUOUS, Administer after the bolus., Starting on Wed11/28/12 at 1315, Until Wed11/28/12 at 1641 dexamethasone (DECADRON) injection 20 mg Given 11/28/2012 1:47 PM CDT 20 mg 20 mg, Intravenous, ONCE, On Wed11/28/12 at 1315, For 1 dose, Give IV Push over 2 to 4 minutes. diphenhydrAMINE (BENADRYL) injection 25 mg Given 11/28/2012 1:41 PM CDT 25 mg 25 mg, Intravenous, ONCE, On Wed11/28/12 at 1315, For 1 dose ketorolac (TORADOL) injection 15 mg Given 11/28/2012 1:44 PM CDT 15 mg 15 mg, Intravenous, ONCE, On Wed11/28/12 at 1315, For 1 dose, Do not give within 6 hours of Ibuprofen. prochlorperazine (COMPAZINE) injection 1 0 mg Given 11/28/2012 1:52 PM CDT 10 mg 10 mg, Intravenous, ONCE, On Wed11/28/12 at 1315, For 1 dose, Give IV push over 5 minutes. sodium chloride 0.9 % BOLUS 500 mL New Bag 11/28/2012 1:40 PM CDT 500 mLs 500 mL/hr Intravenous, 500 mL, ONCE, at 500 mL/hr, Administer over 1 Hours, On Wed11/28/12 at 1315, For 1 dose SUMAtriptan (IMITREX) injection 6 mg Given 11/28/2012 1:58 PM CDT 6 mg Right Arm 6 mg, Subcutaneous, ONCE, On Wed11/28/12 at 1315, For 1 dose, Do NOT give within 24 hours of DHE or another triptan medication.) documented in this encounter Active and Recently Administered Medications Times are shown in CDT. Scheduled Medication Order 11/26/2012 11/27/2012 11/28/2012 dexamethasone (DECADRON) injection 20 mg (COMPLETED) 1347 (Given - Provider: Hortencia Boerne) 20 mg, Intravenous, ONCE, 11/28/12 at 1315, For 1 dose, Give IV Push over 2 to 4 minutes. diphenhydrAMINE (BENADRYL) injection 25 mg (COMPLETED) 1341 (Given - Provider: Hortencia Boerne) 25 mg, Intravenous, ONCE, 11/28/12 at 1315, For 1 dose ketorolac (TORADOL) injection 15 mg (COMPLETED) 1344 (Given - Provider: Hortencia Boerne) 15 mg, Intravenous, ONCE, 11/28/12 at 1315, For 1 dose, Do not give within 6 hours of Ibuprofen. prochlorperazine (COMPAZINE) injection 10 mg (COMPLETED) 1352 (Given - Provider: Hortencia Boerne) 10 mg, Intravenous, ONCE, 11/28/12 at 1315, For 1 dose, Give IV push over 5 minutes. sodium chloride 0.9 % BOLUS 500 mL (COMPLETED) 1340 (New Bag - Provider: Hortencia Boerne)1410 (Stopped - Provider: Hortencia Boerne) Intravenous, 500 mL, ONCE, at 500 mL/hr, for 1 Hours, 11/28/12 at 1315, For 1 dose SUMAtriptan (IMITREX) injection 6 mg (COMPLETED) 1358 (Given - Provider: Hortencia Boerne) 6 mg, Subcutaneous, ONCE, 11/28/12 at 1315, For 1 dose, Do NOT give within 24 hours of DHE or another triptan medication.) Continuous Medication Order 11/26/2012 11/27/2012 11/28/2012 0.9 % sodium chloride IV solution (CANCELED) 1410 (New Bag - Provider: Hortencia Boerne) at 125 mL/hr, Intravenous, CONTINUOUS, Administer after the bolu s. documented in this encounter Care Teams Abattoir Supervisor Relationship Specialty Start Date End Date [facility], [facility] PCP - General 11/28/12 05/03/[id number] [place] [id number] documented as of this encounter
--- OUTSIDE RECORDS SUMMARY | 2022-01-12 11:15 | XMS_ITS | Encounter Summary ---
:1945 Author Organization [facility] Address [address] [place] [address]. [place] [address] Care Team Providers Name Role Phone Hawa Razo Primary Care Provider Reason for Visit Rehab Therapy Cardiac Therapy (Routine) - Closed Specialty Diagnoses / Procedures Referred By Contact Refer red To Contact CARDIAC REHAB Diagnoses COPD (chronic obstructive pulmonary disease) (H) Kelvin [facility] [address] [place] [address] Phone: Fax: Referral ID Status Reason Start Date Expiration Date Visits Requ ested Visits Authorized [id number] Closed 07/04/2020 04/25/2021 72 72 Encounter Details Date Type Department Care Team Description [facility] [address] [place] [address] Cardiac and Pulmonary 1, Rh [facility] [place] [id number] [place] [address] [address] [place] [address] Social History Tobacco Use Types [...] 0 (CENTRUM SILVER) per tablet mouth daily [place]-3 Fatty Acids 0 (OME[place]-3 FISH OIL PO) Saw [place], Seren[place] 0 repens, (SAW [place]METTO EXTRACT PO) [...] [address] [place] [id number] (Wo rk) 01/14/2022 Surgery Surgery Melissa Stern ROBOTI C RIGHT COLECTOMY COLO & RECTAL [facility]SC[facility] [address] [place] [id number] (Wo rk) Scheduled Procedures Name Priority Associated Diagnoses Date/Time COLECTOMY, Malignant neoplasm of colon, 7:30 AM CDT ROBOT-ASSISTED unspecified part of colon (H) documented as of this encounter Visit Diagnoses Not on filedocumented in this encounter Care Teams Wellness Coach Relationship Specialty Start Date End Date Hawa Razo PCP - General Family Practice 05/04/13 12/23/21 documented as of this encounter
--- OUTSIDE RECORDS SUMMARY | 2022-01-12 11:15 | XMS_ITS | Clinical Summary ---
:1945 Author Organization [place] Address [address] [place] [address] Care Team Providers Name Role Phone Clinic, [facility] Primary Care Provider [phone] Allergies No known active allergies Medications Medication Sig Dispensed Refills Start Date End Date Status ASPIRIN PO Take 81 mg by 0 Activ e mouth LISINOPRIL PO 0 Active Saw [place], [place] 0 Active repens, (SAW PALMETTO EXTRACT PO) Cholecalciferol (VITAMIN Take by mouth 0 Active D3 PO) daily Multiple Take 1 tablet by 0 Act zack Vitamins-Minerals mouth daily (CENTRUM SILVER) per tablet VITAMIN E MTC PO Take 400 Units 0 Active by mouth [place]-3 Fatty Acids 0 Active (OMEGA-3 FISH OIL PO) SUMATRIPTAN SUCCINATE PO Take 50 mg by 0 Active mouth SUMAtriptan (IMITREX) 50 Take 1 tablet 8 tablet 0 11/28/2012 Active MG tablet (50 mg) by mouth at onset of headache for migraine May repeat dose in 2 hours. Do not exceed 200 mg in 24 hours ciprofloxacin (CILOXAN) Instill 1-2 1 Bottle 0 11/28/2012 Active 0.3 % ophthalmic drops in the solution affected eye(s) every 2 hours while awake for 2 days then 1-2 drops every 4 hours while awake for the next 5 days. Social History Tobacco Use Types Packs/Day Years Used Date Current Every Day Smoker Alcohol Use Standard Drinks/Week Comments Yes 0 (1 standard drink = 0.6 oz pure alcoho l) Sex Assigned at Date Recorded Not on file Last Filed Vital Signs Vital Sign Reading Time Taken Comments Blood Pressure 128/81 11/28/2012 2:30 PM CDT Pulse - - Temperature 36.3 ??C (97.3 ??F) 11/28/2012 12:29 PM CDT Respiratory Rate 16 11/28/2012 2:30 PM CDT Oxygen Saturation 96% 11/28/2012 2:30 PM CDT Inhaled Oxygen Concentration - - Weight - - Height - - Body Mass Index - - Plan of Treatment Upcoming Encounters Date Type Specialty Care Team Description 01/14/2022 Hospital Encounter Surgery Melissa Stern MD [facility] [address] [place], [place] [id number] (Wo rk) 01/14/2022 Surgery Surgery Melissa Stern ROBOTI C RIGHT COLECTOMY [facility] [address] [place] [id number] (Wo rk) Scheduled Procedures Name Priority Associated Diagnoses Date/Time COLECTOMY, Malignant neoplasm of colon, 7:30 AM CDT ROBOT-ASSISTED unspecified part of colon (H) Health Maintenance Due Date Last Done Comments ADVANCE CARE PLANNING 1945 ANNUAL REVIEW OF HM ORDERS 1945 COVID-19 Vaccine (#1) 06/28/1944 HEPATITIS C SCREENING 12/29/1961 LIPID 12/29/1978 LUNG CANCER SCREENING 12/29/1993 ZOSTER IMMUNIZATION (1 of 2) 12/29/1993 FALL RISK ASSESSMENT 12/29/2008 MEDICARE ANNUAL WELLNESS 12/29/2008 VISIT DTAP/TDAP/TD IMMUNIZATION (1 04/23/2011 04/22/2011, - Tdap) 12/10/2000, 05/19/1996 PHQ-2 (once per calendar 04/26/2021 year) INFLUENZA VACCINE (#1) 2021 03/16/2013, 05/12/2012 Pneumococcal Vaccine: 65+ Completed 05/13/2016, Years 12/07/2014, 11/11/2009 HEPATITIS B IMMUNIZATION Aged Out No long er eligible based on patient's age to complete this to pic IPV IMMUNIZATION Aged Out No longer eligi ble based on patient's age to complete this to pic MENINGITIS IMMUNIZATION Aged Out No longe r eligible based on patient's age to complete this to pic Insurance Payer Benefit Plan / Subscriber ID Effective Phone Address T ype Group Dates [employer] [id number] 2021-Pres [phone] [facility] [facility] HE[facility]ARE ent [phone] [place] [address] MEDICARE MEDICARE [id number] 2008-Pres [phone] ATTN CLAIM S Medicare ent 340 [address] [place] [address] Care Teams Manager Corporate Responsibility Relationship Specialty Start Date End Date Clinic, [facility] PCP - General 12/24/[address] [place] [id number]
--- OUTSIDE RECORDS SUMMARY | 2022-01-12 11:15 | XMS_ITS | Encounter Summary ---
:1945 Author Organization [place] Address [address] [facility] [place] [address] Care Team Providers Name Role Phone Hawa Razo Primary Care Provider Encounter Details Date Type Department Care Team Description 07/18/2020 Travel Social History Tobacco Use Types Packs/Day [...] Stern MD [facility] [address] [place] [id number] (Wo rk) 01/14/2022 Surgery Surgery Melissa Stern ROBOTI C RIGHT COLECTOMY [facility] [address] [place] [id number] (Wo rk) Scheduled Procedures Name Priority Associated Diagnoses Date/Time COLECTOMY, Malignant neoplasm of colon, 7:30 AM CDT ROBOT-ASSISTED unspecified part of colon (H) documented as of this encounter Visit Diagnoses Not on filedocumented in this encounter Care Teams Engineer Technical Staff Relationship Specialty Start Date End Date Hawa Razo PCP - General Family Practice 1/9/14 8/30/22 documented as of this encounter
--- OUTSIDE RECORDS SUMMARY | 2022-01-12 11:15 | XMS_ITS | Encounter Summary ---
:1945 Author Organization [place] Address [address] [facility] [place] [address] Care Team Providers Name Role Phone Hawa Razo Ann Primary Care Provider [facility] Primary Care Provider [phone] Reason for Referral Rehab Therapy Cardiac Therapy (Routine) - Closed Specialty Diagnoses / Procedures Referred By Contact Refer red To Contact CARDIAC REHAB Diagnoses COPD (chronic obstructive pulmonary disease) (H) [facility]vin [facility] [address] [place] [address] Phone: Fax: Referral ID Status Reason Start Date Expiration Date Visits Requ ested Visits Authorized [id number] Closed 07/04/2020 04/25/2021 72 72 H SCIENTIST Encounter Details Date Type Department Care Team Description 06/17/2020 Transcribe Orders GENERIC EXTERNAL DATA Gibson Calix COPD (chronic [facility] [place] [facility]) (H) (Primary [id number] [place] [address] Social History Tobacco Use Types Packs/Day Years Used Date Current Every Day Smoker Alcohol Use Standard Drinks/Week Comments Yes 0 (1 standard drink = 0.6 oz pure alcoho l) Sex Assigned at Date Recorded Not on file documented as of this encounter Plan of Treatment Upcoming Encounters Date Type Specialty Care Team Description 01/14/2022 Hospital Encounter Surgery Melissa Stern MD [facility] [address] [place] [id number] (Wo rk) 01/14/2022 Surgery Surgery Melissa Stern ROBOTI C RIGHT COLECTOMY [facility] [address] [place] [phone] (Wo rk) Scheduled Procedures Name Priority Associated Diagnoses Date/Time COLECTOMY, Malignant neoplasm of colon, 7:30 AM CDT ROBOT-ASSISTED unspecified part of colon (H) Scheduled Referrals Name Type Priority Associated Diagnoses Order S chedule PULMONARY REHAB Referral Routine COPD (chronic Expected: 0 06/17/2020, REFERRAL obstructive pulmonary s: 06/17/2021 disease) (H) documented as of this encounter Visit Diagnoses Diagnosis COPD (chronic obstructive pulmonary dise ase) (H) - Primary Chronic airway obstruction, not elsewher e classified Malignant neoplasm of colon, unspecified part of colon (H) documented in this encounter Care Teams Parts Analyst Relationship Specialty Start Date End Date Hawa Razo PCP - General Family Practice 05/04/13 12/23/21 [facility] PCP - General 12/24/[address] [place] [id number] documented as of this encounter
--- OUTSIDE RECORDS SUMMARY | 2022-01-12 11:16 | XMS_ITS ---
:1945 Author Care Team Providers Name Role Phone Mele Decker Primary Care Provider Unavailable Allergies Code Code System Name Reaction Severity Status Onset NKDA ? Medications Name Status Start Date Stop Date ? ? acetaminophen 300 mg-codeine 30 mg tablet Completed ? 08/28/2021 TAKE 1 TO 2 TABLETS BY MOUTH EVERY 6 HOURS NEEDED alfuzosin ER 10 mg tablet,extended release 24 hr Completed ? 08/28/2021 TAKE 1 TABLET BY MOUTH ONCE DAILY AFTER THE SAME MEAL EACH DAY. betamethasone, augmented 0.05 % topical ointment Active ? Not available APPLY OINTMENT TOPICALLY TWICE DAILY FOR 2 4 WEEKS cephalexin 500 mg capsule Completed ? 2021 colchicine 0.6 mg tablet Active ? Not ainsley ilable TAKE 1 TABLET BY MOUTH ONCE DAILY cyanocobalamin (vit B-12) 500 mcg tablet Active ? Not available TAKE 1 TABLET BY MOUTH ONCE DAILY doxycycline hyclate 100 mg capsule Completed ? 08/28/2021 TAKE 1 CAPSULE BY MOUTH TWICE DAILY finasteride 5 mg tablet Completed ? 08/29/19 TAKE 1 TABLET BY MOUTH ONCE DAILY furosemide 20 mg tablet Active ? Not avai lable TAKE 1 TABLET BY MOUTH ONCE DAILY NEEDED hydrocodone 5 mg-acetaminophen 325 mg tablet Completed ? 01/07/2021 TAKE 1 TO 2 TABLETS BY MOUTH EVERY 6 HOURS NEEDED ipratropium 0.5 mg-albuterol 3 mg (2.5 mg base)/3 mL nebulizatio n soln Active ? Not available USE 1 VIAL IN NEBULIZER TWICE DAILY lisinopril 20 mg tablet Active ? Not avai lable TAKE 1 TABLET BY MOUTH ONCE DAILY mometasone 0.1 % topical cream Active ? N ot available APPLY CREAM TOPICALLY TWICE DAILY TO HANDS nabumetone 500 mg tablet Active ? Not ainsley ilable TAKE 1 TABLET BY MOUTH TWICE DAILY NEEDED oxybutynin chloride ER 10 mg tablet,extended release 24 Active ? Not available hr prednisone 10 mg tablet Active ? Not avai lable TAKE 1 TABLET BY MOUTH ONCE DAILY prednisone 20 mg tablet Completed ? 08/29/19 22 TAKE 2 TABLETS BY MOUTH DAILY FOR 3 DAY S THEN 1 TABLET DAILY FOR 3 DAYS AND THEN RESUME 10 MG TABLETS prednisone 50 mg tablet Completed ? 08/29/19 22 TAKE 1 TABLET BY MOUTH ONCE DAILY sulfamethoxazole 800 mg-trimethoprim 160 mg tablet Completed ? 01/07/2021 TAKE 1 TABLET BY MOUTH TWICE DAILY tadalafil 5 mg tablet Active ? Not availa ble TAKE 1 TABLET BY MOUTH ONCE DAILY tizanidine 4 mg tablet Active ? Not avail able TAKE 1 TABLET BY MOUTH EVERY 8 HOURS NEEDED Trelegy Ellipta 200 mcg-62.5 mcg-25 mcg powder for inhalation Ac tive ? Not available INHALE 1 PUFF INTO LUNGS ONCE DAILY triamcinolone acetonide 0.1 % topical cream Active ? Not available APPLY CREAM EXTERNALLY TO AFFECTED AREA TWICE DAILY NEEDED Problems None recorded. Procedures Date Name Performed by ? 07/15/2021 Transurethral Resection of Prostate (Ruby g) Information not available ? Orthopedic Surgery Information not avai trevon Notes: KNEES ? Primary Laminectomy Excision of Lumbar I ntervertebral Disc Information not available Notes: 2002 Results Lab Results Date Name Specimen Result Interpretation Description Value Range Status Address ? ? Urinalysis, Dipstick ? Color-Status Yellow ? Clarity-Status Clear ? pH-Status 5.0 ? ? Past Encounters 08/28/2021 Lower Urinary Tract Symptoms Due to [place] Prostatic Hypertrophy; Nocturia; Increased Frequency of Urination; Urgent Desire to Urinate Mele Decker MD: [address] [place] [address], Ph. 01/07/2021 Lower Urinary Tract Symptoms Due to [place] Prostatic Hypertrophy; Nocturia; Increased Frequency of Urination; Urgent Desire to Urinate Mele Decker MD: [address] [place] [address], Ph. 12/19/2020 Increased Frequency of Urination Mele Decker MD: [address] [place] [address], Ph. Social History Tobacco Smoking Status Former Smoker Notes: QUIT: Vaccine List None recorded. Plan of Care Reminders Provider Appointments None recorded. ? ? Lab None recorded. ? ? Referral None recorded. ? ? Procedures None recorded. ? ? Surgeries None recorded. ? ? Imaging None recorded. ? ? Vitals 08/28/2021 01:20PM POST OP 10 Height Weight BMI 5 ft 11 in 260 lbs 36.3 kg/m2 01/07/2021 09:10AM ESTABLISHED PHONE VISIT 20 Height Weight BMI 5 ft 11 in 260 lbs 36.3 kg/m2
[2022-01-12 22:08] LABS: Chloride* 110 mmol/L (96-114)
[2022-01-12 22:09] LABS: Sodium* 142 mmol/L (135-149)
[2022-01-12 22:11] LABS: Aspartate Amino Transferase* 28 U/L (12-35); Bilirubin Total* 0.7 mg/dL (0.1-1.5); Carbon Dioxide* 26 mmol/L (20-32); Creatinine* 1.3 mg/dL (0.5-1.5); Estimated Glomerular Filt Rate 56 ml/min; Total Protein* 6.4 g/dL (6.0-8.3)
[2022-01-12 22:12] LABS: Alanine Aminotransferase* 29 U/L (4-50); Alkaline Phosphatase* 78 U/L (40-150); Blood Urea Nitrogen* 24 mg/dL (7-30); Calcium* 9.9 mg/dL (8.4-10.6); Glucose* 107 mg/dL (60-115); Potassium* 3.9 mmol/L (3.6-5.1)
== END 2022-01-12 11:13 | disposition home or self-care (01) ==
LOC: LKVREF 11:13
PROVIDERS: PCP Family Medicine; Visit Provider Family Medicine
DX: Z01.818 Encounter for other preprocedural examination (principal); C18.9 Malignant neoplasm of colon, unspecified; G47.33 Obstructive sleep apnea (adult) (pediatric); I10 Essential (primary) hypertension; N28.9 Disorder of kidney and ureter, unspecified
CPT/HCPCS: 80053

== ENCOUNTER 2022-03-17 10:29 | Outpatient (CLI) | payer MEDICARE, SELFPAY ==
--- OUTSIDE RECORDS SUMMARY | 2022-03-17 11:46 | XMS_ITS | Encounter Summary ---
:1945 Author Organization [facility] Address [address] [place] [address] Care Team Providers Name Role Phone Clinic, [facility] Primary Care Provider [phone] Reason for Referral Genomics (Routine) - Authorized Specialty Diagnoses / Procedures Referred By Contact Refer red To Contact Procedures Melissa Bustos MD [id number] Promoter Methylation COLO & RECTAL SURGERY Tumor [address] [facility] [address] [place] [id number] Referral ID Status Reason Start Date Expiration Date Visits V isits Requested Authorized [id number] Authorized 01/20/2022 01/20/2023 1 1 Reason for Visit Auth/Cert Specialty Diagnoses / Procedures Referred By Contact Refer red To Contact Surgery Diagnoses Malignant neoplasm of colon, unspecified part of colon (H) Malignant neoplasm of colon, unspecified part of colon (H) [C18.9] Periop Services Procedures [facility] LAP,SURG,COLECTOMY, PARTIAL, W/ANAST [facility] LAP,SURG,COLECTOMY,W/END COLOST & CLOSUR [facility] LAP,SURG,COLECTOMY,W/ANAST [facility] LAP,SURG,COLECTOMY,W/ANAST,W/COLOSTOMY [facility] LAP,SURG,COLECTOMY,TOTAL,W/O PROCTECTOMY [address] [facility] LAP,SURG,COLECTOMY,TOTAL ,W/PROCTECTOMY [facility] LAP,SURG,COLECT,TOT,W/PROCTECT,W/ILEOST ROBOTIC RIGHT COLECTOMY LL2 [place], [place] [address] Phone: Referral ID Status Reason Start Date Expiration Date Visits Requ ested Visits Authorized [id number] 1 1 Encounter Details Date Type Department Care Team Description 01/14/2022 - Hospital Encounter [facility] Aleta Bustos MD COLO & RECTAL SURGERY [address] [place] [address] Malignant [facility] [address] [address] of ascending colon Surgery (H) (Primary Dx) [address] [address] Social History Tobacco Use Types Packs/Day Years Used Date Smoking Tobacco: Former Alcohol Use Standard Drinks/Week Comments Yes 0 (1 standard drink = 0.6 oz pure alcoho l) rare Sex Assigned at Date Recorded Not on file COVID-19 Exposure Response Date Recorded In the last 10 days, have you been in contact with No / Unsu re 01/14/2022 5:39 AM CDT someone who was confirmed or suspected to have Coronavirus/COVID-19? documented as of this encounter Last Filed Vital Signs Vital Sign Reading Time Taken Comments Blood Pressure 118/55 01/19/2022 7:46 AM CDT Pulse 73 01/19/2022 7:46 AM CDT Temperature 36.4 ??C (97.5 ??F) 01/19/2022 7:46 AM CDT Respiratory Rate 16 01/19/2022 7:46 AM CDT Oxygen Saturation 94% 01/19/2022 7:46 AM CDT Inhaled Oxygen Concentration - - Weight 120.1 kg (264 lb 11.2 oz) 01/14/2022 7:00 AM CDT Height 180.3 cm (5' 11) 01/14/2022 7:00 AM CDT Body Mass Index 36.92 01/14/2022 7:00 AM CDT documented in this encounter Discharge Summaries Jason VillarealRUBY - 01/19/2022 12:19 PM CDT Images from the original note were not included. [facility] Discharge Summary Mele Curran Age: [age] year old Date of : 1945 Date of Admission: 01/14/2022 Date of Discharge:: 01/19/2022 Admitting Physician: Melissa Bustos MD Discharge Physician: Melissa Bustos MD [facility] Disposition: Patient discharged from [facility] to home in stable condition. Primary Diagnosis: Colon cancer Discharge Medications: Current Discharge Medication List START taking these medications Details enoxaparin ANTICOAGULANT (LOVENOX) 40 MG/0.4ML syringe Inject 0.4 mLs (40 mg) Subcutaneous daily for26 days Qty: 10.4 mL, Refills: 0 Associated Diagnoses: Malignant neoplasm of ascending colon (H) CONTINUE these medications which have NOT CHANGED Details acetaminophen (TYLENOL 8 HOUR ARTHRITIS PAIN) 650 MG CR tablet Take 650 mg by mouth 2 times daily asneeded for mild pain or fever alfuzosin ER (UROXATRAL) 10 MG 24 hr tablet Take 10 mg by mouth daily aspirin 81 MG EC tablet Take 81 mg by mouth daily atorvastatin (LIPITOR) 40 MG tablet Take 40 mg by mouth daily ciprofloxacin (CILOXAN) 0.3 % ophthalmic solution Instill 1-2 drops in the affected eye(s) every 2 hours while awake for 2 days then 1-2 drops every 4 hours while awake for the next 5 days. Qty: 1 Bottle, Refills: 0 fish oil-omega-3 fatty acids 1000 MG capsule Take 1 g by mouth daily Nmclqtnnsau-Qmvfbptpl-Ogtgzbdhrg (TRELEGY ELLIPTA) 100-62.5-25 MCG/INH oral inhaler Inhale 1 puff into the lungs daily ipratropium - albuterol 0.5 mg/2.5 mg/3 mL (DUONEB) 0.5-2.5 (3) MG/3ML neb solution Take 1 vial by nebulization every 6 hours as needed for shortness of breath / dyspnea or wheezing lisinopril (ZESTRIL) 20 MG tablet Take 20 mg by mouth daily [place], [place]renoa repens, (SAW PALMETTO EXTRACT PO) Take 450 mg by mouth daily SUMAtriptan (IMITREX) 50 MG tablet Take 50 mg by mouth at onset of headache for migraine triamcinolone (KENALOG) 0.1 % external cream Apply topically 2 times daily vitamin D3 (CHOLECALCIFEROL) 50 mcg (2000 units) tablet Take 1 tablet by mouth daily vitamin E (TOCOPHEROL) 400 units (180 mg) capsule Take 400 Units by mouth daily Follow Up, Special Instructions: Discharge diet: Low residue Discharge activity: Lifting restricted to <15 pounds for 6 weeks Discharge follow-up: Follow up with Dr. Bustos in 4 weeks Wound care: May get incision wet in shower but do not soak or scrub Procedures: Procedure(s): Robotic right colectomy Consultations: [facility] health, PT Brief Hospital Summary: Patient is a 76 year old male who underwent a Robotic right colectomy on 01/14/[address] Busots. There were no immediate complications during this procedure. Please refer to the full operative summary for details. He did have a postoperative ileus that resolved with bowel rest. He had some musculoskeletal pain in the lower extremities and transient right thigh numbness. Symptoms and exam were not consistent with DVT so US was not done. The patient's hospital course was otherwise unremarkable. Pain was controlled on oral pain regimen. He was tolerating a low fiber diet. Bowel function had returned prior to discharge. He recovered as anticipated and experienced no post-operative complications. Attestation: I have reviewed today's vital signs, notes, medications, labs and imaging. Jason Villareal PA-C Colorectal Physician American History Teacher [facility] [address] [address] T: [phone] F: [phone] ADDENDUM: Length of stay: 5 days Indicate Y or N for the following: UTI No C diff No PNA No SSI No DVT No PE No CVA No NV No Enterocutaneous fistula No Peripheral nerve injury No Abscess (not adjacent to anastomosis) No Leak No within 30 days No Reintubation No Reoperation No FOR CANCER CASES: T stage: 2 N stage: 0 Total number of nodes: 12 Total positive: 0 M stage: 0 R: Negative TME grade, if known (1,2,3): Unknown MSI (pos, neg): Positive Associated attestation - Melissa Bustos MD - 01/20/2022 7:08 AM CDT Physician Attestation I personally saw and evaluated Mele Curran as part of a shared visit. I have reviewed and discussed with the advanced practice provider their discharge plan. My holloway history or physical exam findings from the day of discharge: Doing well. Has had return of bowel function. Pain controlled. Holloway management decisions made by me: Discharge to home. Melissa Bustos MD Date of Service (when I saw the patient): 01/19/22 documented in this encounter Medications at Time of Discharge Medication Sig Dispensed Refills Start Date End Date acetaminophen (TYLENOL Take 650 mg by mouth 2 0 8 HOUR ARTHRITIS PAIN) times daily as needed 650 MG CR tablet for mild pain or fever alfuzosin ER Take 10 mg by mouth 0 (UROXATRAL) 10 MG 24 hr daily tablet aspirin 81 MG EC tablet Take 81 mg by mouth 0 daily atorvastatin (LIPITOR) Take 40 mg by mouth 0 40 MG tablet daily ciprofloxacin (CILOXAN) Instill 1-2 drops in 1 Bottle 0 0.3 % ophthalmic the affected eye(s) solution every 2 hours while awake for 2 days then 1-2 drops every 4 hours while awake for the next 5 days. fish oil-omega-3 fatty Take 1 g by mouth 0 acids 1000 MG capsule daily Jzaifriumfb-Vkncztoyn-T Inhale 1 puff into the 0 ilanterol (TRELEGY lungs daily ELLIPTA) 100-62.5-25 MCG/INH oral inhaler ipratropium - albuterol Take 1 vial by 0 0.5 mg/2.5 mg/3 mL nebulization every 6 (DUONEB) 0.5-2.5 (3) hours as needed for MG/3ML neb solution shortness of breath / dyspnea or wheezing lisinopril (ZESTRIL) 20 Take 20 mg by mouth 0 MG tablet daily [place], [place]renoa Take 450 mg by mouth 0 repens, (SAW PALMETTO daily EXTRACT PO) SUMAtriptan (IMITREX) Take 50 mg by mouth at 0 50 MG tablet onset of headache for migraine triamcinolone (KENALOG) Apply topically 2 0 0.1 % external cream times daily vitamin D3 Take 1 tablet by mouth 0 (CHOLECALCIFEROL) 50 daily mcg (2000 units) tablet vitamin E (TOCOPHEROL) Take 400 Units by 0 400 units (180 mg) mouth daily capsule enoxaparin Inject 0.4 mLs (40 mg) 10.4 mL 0 01/16/2022 ANTICOAGULANT (LOVENOX) Subcutaneous daily for 40 MG/0.4ML 26 days syringeIndications: Malignant neoplasm of ascending colon (H) documented as of this encounter Progress Notes Andrea York RN - 01/19/2022 2:47 PM CDT Discharge criteria met. Discharge order received. All discharge instructions reviewed with pt. Pt verbalized understanding. All questions answered. PIVs removed. Rx filled and given to pt. All personalbelongs returned to pt. Pt left the unit via W/C in stable condition accompanied with staff. Eben Salazar, PT - 01/19/2022 2:47 PM CDT 01/19/22 1600 Quick Adds Type of Visit Initial PT Evaluation Living Environment People in Home spouse Current Living Arrangements house Home Accessibility stairs within home Number of Stairs, Main Entrance none Stair Railings, Main Entrance railings safe and in good condition Number of Stairs, Within Home, Primary greater than 10 stairs Stair Railings, Within Home, Primary railing on left side (ascending) Transportation Anticipated car, drives self Living Environment Comments pt lives in house with . IND with all mobility and ADLs at baseline Self-Care Usual Activity Tolerance good Current Activity Tolerance good Regular Exercise No Equipment Currently Used at Home none Fall history within last six months no Activity/Exercise/Self-Care Comment has FWW at home he can use General Information Onset of Illness/Injury or Date of Surgery 01/18/22 Referring Physician Isabell Azar PA-C Patient/Family Therapy Goals Statement (PT) return home Pertinent History of Current Problem (include personal factors and/or comorbidities that impact the POC) 76 yo M s/p robotic right colectomy for cecal cancer. AVSS. Having bowel function. Existing Precautions/Restrictions abdominal Cognition Affect/Mental Status (Cognition) WNL Orientation Status (Cognition) oriented x 4 Posture Posture Kyphosis Range of Motion (ROM) Range of Motion ROM is WNL Strength (Manual Muscle Testing) Strength (Manual Muscle Testing) strength is WNL Bed Mobility Comment, (Bed Mobility) not assessed Transfers Comment, (Transfers) STS with FWW and SBAx1 Gait/Stairs (Locomotion) Comment, (Gait/Stairs) Ambulates 10 ft with CGAx1 and FWW Clinical Impression Criteria for Skilled Therapeutic Intervention Yes, treatment indicated PT Diagnosis (PT) impaired gait Influenced by the following impairments B thigh burning pain, R ankle pain Clinical Presentation (PT Evaluation Complexity) Stable/Uncomplicated Clinical Presentation Rationale clinical judgement Clinical Decision Making (Complexity) low complexity Planned Therapy Interventions (PT) balance training;gait training;stair training Risk & Benefits of therapy have been explained evaluation/treatment results reviewed;care plan/treatment goals reviewed;risks/benefits reviewed;current/potential barriers reviewed;participants voiced agreement with care plan;participants included;patient PT Discharge Planning PT Discharge Recommendation (DC Rec) home PT Rationale for DC Rec Pt safe to d/c home at baseline PLOF. 2/2 impaired gait, pt will need OP PT in order to improve balance despite R ankle pain and B thigh pain. PT Brief overview of current status SBA for all gait with FWW Plan of Care Review Plan of Care Reviewed With patient Physical Therapy Goals PT Frequency 5x/week PT Predicted Duration/Target Date for Goal Attainment 01/21/22 PT Goals Gait;Stairs PT: Gait Modified independent;Rolling walker;150 feet PT: Stairs Modified independent;Greater than 10 stairs Chelsea Angela - 01/19/2022 10:52 AM CDT [facility] Progress Note [facility] General Surgery Saw ptnt per follow-up request. Visit was short; he's hoping to be discharged soon. services remain available. [facility] Work[facility] [phone] Maia, Isabell Zapata PA-C - 01/19/2022 8:46 AM CDT Images from the original note were not included. COLON & RECTAL SURGERY PROGRESS NOTE January 19, 2022 Post-op Day #5 SUBJECTIVE: Complains of bilateral hip pain and right ankle pain. Icing right ankle currently. Denies fall or trauma. Passing flatus and tolerating low fiber diet. Minimal pain. Abdominal binder in place. OBJECTIVE: Temp: [97.5 ??F (36.4 ??C)-97.9 ??F (36.6 ??C)] 97.5 ??F (36.4 ??C) Pulse: [73-96] 73 Resp: [16] 16 BP: (118-133)/(55-76) 118/55 SpO2: [93 %-97 %] 94 % Intake/Output Summary (Last 24 hours) at 01/19/2022 0846 Last data filed at 01/18/2022 1815 Gross per 24 hour Intake 600 ml Output 50 ml Net 550 ml GENERAL: Awake, alert, no acute distress HEAD: Normocephalic atraumatic SCLERA: Anicteric EXTREMITIES: Warm and well perfused ABDOMEN: Soft, appropriately tender, non-distended. No guarding, rigidity, or peritoneal signs. INCISION: C/d/i LABS: Lab Results Component Value Date WBC 7.4 01/15/2022 WBC 5.7 11/28/2012 Lab Results Component Value Date HGB 12.5 01/15/2022 HGB 14.9 11/28/2012 Lab Results Component Value Date HCT 39.0 01/15/2022 HCT 44.4 11/28/2012 Lab Results Component Value Date PLT 141 01/17/2022 PLT 168 11/28/2012 Last Basic Metabolic Panel: Lab Results Component Value Date NA 141 01/18/2022 NA 145 11/28/2012 Lab Results Component Value Date POTASSIUM 3.8 01/18/2022 POTASSIUM 4.3 11/28/2012 Lab Results Component Value Date CHLORIDE 109 01/18/2022 CHLORIDE 107 11/28/2012 Lab Results Component Value Date HORACIO 9.6 01/18/2022 HORACIO 9.6 11/28/2012 Lab Results Component Value Date CO2 26 01/18/2022 CO2 25 11/28/2012 Lab Results Component Value Date BUN 14 01/18/2022 BUN 16 11/28/2012 Lab Results Component Value Date CR 1.34 01/18/2022 CR 0.99 11/28/2012 Lab Results Component Value Date GLC 105 01/19/2022 GLC 112 01/18/2022 GLC 104 11/28/2012 ASSESSMENT/PLAN: 76 yo M s/p robotic right colectomy for cecal cancer. AVSS. Having bowel function. 1. Low fiber diet 2. PRN PO pain meds 3. OOB, ambulate 4. PT - consult for assessment for ambulation given hip and ankle pain 5. Dr. Bustos will review final path with patient this afternoon 6. Lovenox for ppx at discharge 7. Plan for discharge this afternoon after discussion with Dr. Bustos and PT assessment For questions/paging, please contact the CRS office at [phone]. Isabell Azar PA-C Colorectal Physician American History Teacher [facility] [address] [address] T: [phone] F: [phone] Andrea York RN - 01/18/2022 10:32 PM CDT A&Ox4. Pleasant. Slightly LIME. Pain well managed with PRN PO APAP. Ph 2.6. K 3.8. Ambulated multiple times in the halls. Steady with a walker. Voiding. Tolerated LFD well. No N/V/D. Hoping to discharge to home in the morning. No fever. AVSS. Latest Vitals: Blood pressure 124/76, pulse 96, temperature 97.8 ??F (36.6 ??C), temperature source Oral, resp. rate 16, height 1.803 m (5' 11), weight 120.1 kg (264 lb 11.2 oz), SpO2 97 %. Phil Whitten MD - 01/18/2022 8:22 AM CDT Colon and Rectal Surgery Note Assessment and Plan: POD#4 Rt gissell Interval History: Bryan is doing much better today and started passing gas and some stool late yesterday. He is still somewhat bloated however anxious to advance his diet. No other new concerns. Physical Exam: Temp: [97.5 ??F (36.4 ??C)-98.3 ??F (36.8 ??C)] 97.5 ??F (36.4 ??C) Pulse: [77-90] 77 Resp: [16-18] 18 BP: (102-129)/(56-69) 114/69 SpO2: [92 %-94 %] 92 % General: Pleasant, alert. In no acute distress. Chest clear CV reg Abdomen: less distended,wounds dry, BS+ Data: I/O last 3 completed shifts: In: - Out: 650 [Urine:650] Lab Results Component Value Date WBC 7.4 01/15/2022 WBC 5.7 11/28/2012 Lab Results Component Value Date HGB 12.5 01/15/2022 HGB 14.9 11/28/2012 Lab Results Component Value Date NA 141 01/18/2022 NA 145 11/28/2012 Lab Results Component Value Date POTASSIUM 3.8 01/18/2022 POTASSIUM 4.3 11/28/2012 Lab Results Component Value Date CHLORIDE 109 01/18/2022 CHLORIDE 107 11/28/2012 Lab Results Component Value Date CO2 26 01/18/2022 CO2 25 11/28/2012 Lab Results Component Value Date GLC 109 01/18/2022 GLC 112 01/18/2022 GLC 104 11/28/2012 Lab Results Component Value Date BUN 14 01/18/2022 BUN 16 11/28/2012 Lab Results Component Value Date CR 1.34 01/18/2022 CR 0.99 11/28/2012 Lab Results Component Value Date HORACIO 9.6 01/18/2022 HORACIO 9.6 11/28/2012 Imp/plan Ileus resolving, will advance his diet and look to discontinue Wednesday. Phil Whitten MD Phil Whitten MD - 01/17/2022 7:35 AM CDT Colon and Rectal Surgery Note Assessment and Plan: POD#3 Rt Gissell Interval History: Patient is feeling even more bloated this morning and does not feel like taking anything PO. Good pain control but some nausea and no bowel function as yet. Physical Exam: Temp: [98 ??F (36.7 ??C)-99.7 ??F (37.6 ??C)] 99 ??F (37.2 ??C) Pulse: [69-80] 80 Resp: [16-18] 16 BP: (137-160)/(75-96) 137/96 SpO2: [93 %-94 %] 93 % General: Pleasant, alert. In no acute distress. Chest clear CV reg Abdomen distended with few BS, wounds fine minimal tenderness Data: I/O last 3 completed shifts: In: 720 [P.O.:720] Out: 850 [Urine:850] Lab Results Component Value Date WBC 7.4 01/15/2022 WBC 5.7 11/28/2012 Lab Results Component Value Date HGB 12.5 01/15/2022 HGB 14.9 11/28/2012 Lab Results Component Value Date NA 140 01/16/2022 NA 145 11/28/2012 Lab Results Component Value Date POTASSIUM 3.6 01/16/2022 POTASSIUM 4.3 11/28/2012 Lab Results Component Value Date CHLORIDE 109 01/16/2022 CHLORIDE 107 11/28/2012 Lab Results Component Value Date CO2 24 01/16/2022 CO2 25 11/28/2012 Lab Results Component Value Date GLC 113 01/16/2022 GLC 115 01/16/2022 GLC 104 11/28/2012 Lab Results Component Value Date BUN 13 01/16/2022 BUN 16 11/28/2012 Lab Results Component Value Date CR 1.23 01/16/2022 CR 0.99 11/28/2012 Lab Results Component Value Date HORACIO 9.5 01/16/2022 HORACIO 9.6 11/28/2012 Imp/plan 76 yr old status post Rt hemicolectomy, no bowel function as yet patient advised to hold POintake this morning (sips&chips) and see if the bloating and nausea resolve. If the ileus continues we will need to restart his IV fluids. Phil Whitten MD Chelsea Angela - 01/16/2022 11:43 AM CDT SPIRITUAL HEALTH SERVICES Progress Note [facility] General Surgery Saw pt per epic request. Ptnt expressed interest in watching a Gnosticist mass, asked for what channels to find them on. I got a list of channels for him frm the nurse's station and highlighted which ones have mass. He did not have any other spiritual health requests. SH remain available. [facility] Worker [phone] Isabell Azar PA-C - 01/16/2022 9:02 AM CDT Images from the original note were not included. COLON & RECTAL SURGERY PROGRESS NOTE January 16, 2022 Post-op Day # 2 SUBJECTIVE: No flatus yet, up in chair. Tolerating fulls. No n/v. Ambulating. Pain controlled with Tylenol. OBJECTIVE: Temp: [98 ??F (36.7 ??C)-98.3 ??F (36.8 ??C)] 98 ??F (36.7 ??C) Pulse: [65-69] 69 Resp: [16-18] 18 BP: (135-153)/(76-79) 153/79 SpO2: [94 %] 94 % Intake/Output Summary (Last 24 hours) at 01/16/2022 0902 Last data filed at 01/16/2022 0700 Gross per 24 hour Intake 360 ml Output 1425 ml Net -1065 ml GENERAL: Awake, alert, no acute distress HEAD: Normocephalic atraumatic SCLERA: Anicteric EXTREMITIES: Warm and well perfused ABDOMEN: Soft, appropriately tender, non-distended. No guarding, rigidity, or peritoneal signs. INCISION: C/d/i, abdominal binder in place LABS: Lab Results Component Value Date WBC 7.4 01/15/2022 WBC 5.7 11/28/2012 Lab Results Component Value Date HGB 12.5 01/15/2022 HGB 14.9 11/28/2012 Lab Results Component Value Date HCT 39.0 01/15/2022 HCT 44.4 11/28/2012 Lab Results Component Value Date PLT 152 01/15/2022 PLT 168 11/28/2012 Last Basic Metabolic Panel: Lab Results Component Value Date NA 140 01/16/2022 NA 145 11/28/2012 Lab Results Component Value Date POTASSIUM 3.6 01/16/2022 POTASSIUM 4.3 11/28/2012 Lab Results Component Value Date CHLORIDE 109 01/16/2022 CHLORIDE 107 11/28/2012 Lab Results Component Value Date HORACIO 9.5 01/16/2022 HORACIO 9.6 11/28/2012 Lab Results Component Value Date CO2 24 01/16/2022 CO2 25 11/28/2012 Lab Results Component Value Date BUN 13 01/16/2022 BUN 16 11/28/2012 Lab Results Component Value Date CR 1.23 01/16/2022 CR 0.99 11/28/2012 Lab Results Component Value Date GLC 115 01/16/2022 GLC 121 01/16/2022 GLC 104 11/28/2012 ASSESSMENT/PLAN: 76 yo M with cecal cancer s/p robotic right colectomy. AVSS. Awaiting return of bowel function. 1. Full liquid diet, advance to low fiber once passing flatus. 2. PRN PO pain meds 3. Discontinue IVF 4. OOB, ambulate 5. Await path 6. SQH for ppx, will need Lovenox for 28 days post op at discharge. Will discuss with Dr. Bustos. For questions/paging, please contact the CRS office at [phone]. Isabell Azar PA-C Colorectal Physician American History Teacher [facility] [address] [address] T: [phone] F: [phone] Norm Valentin RN - 01/15/2022 6:02 PM CDT Reason for admission: ROBOTIC RIGHT COLECTOMY Dx: Malignant neoplasm of colon POD#: 1 Mental Status: x4 Activity: SBA Diet: FLD Pain: Controlled w/t Dilaudid and Tylenol Urination: Continent, uses the urinal Tele/Restraints/Iso: NA LDA: PIV SL Expected D/C Date: Pending meeting discharge criteria Other Info: Ambulated today and tolerated. Uses abd binder for comfort. Complaint of Intermittent right thigh pain after receiving heparin shot on the abdomen. Tenderness focal in lateral right thigh, no edema or erythema. Per provider low suspicion for DVT, and would hold off on US. Await pathology re sult. ?? Melissa Bustos MD - 01/15/2022 8:26 AM CDT Images from the original note were not included. COLON & RECTAL SURGERY PROGRESS NOTE January 15, 2022 Post-op Day # 1 robotic right colectomy SUBJECTIVE: Pain minimal at rest but has a lot of pain with movement. Small amount of flatus, no BM.Tolerating CLD. Ambulated to bathroom. Good UOP. Reports feeling warm and lightheaded after lovenox shot. Has a fear of needles. Also having some intermittent right thigh pain, feels like he is being stabbed by a hot poker. Bradycardic overnight, HTN, otherwise AVSS. Cr 1.26 (1.3 on preop labs). Hgb12.5. OBJECTIVE: Temp: [97.2 ??F (36.2 ??C)-98.4 ??F (36.9 ??C)] 98.4 ??F (36.9 ??C) Pulse: [43-419] 53 Resp: [10-24] 16 BP: (138-160)/(70-94) 156/76 SpO2: [94 %-99 %] 96 % Intake/Output Summary (Last 24 hours) at 01/15/2022 0830 Last data filed at 01/15/2022 0349 Gross per 24 hour Intake 1700 ml Output 1665 ml Net 35 ml GENERAL: Awake, alert, no acute distress HEAD: Normocephalic atraumatic SCLERA: Anicteric EXTREMITIES: Warm and well perfused. Some tenderness to lateral right thigh. Muscles feel tight. No erythema or edema. ABDOMEN: Soft, appropriately tender, mildly distended. No guarding, rigidity, or peritoneal signs. INCISION: C/d/i LABS: Lab Results Component Value Date WBC 7.4 01/15/2022 WBC 5.7 11/28/2012 Lab Results Component Value Date HGB 12.5 01/15/2022 HGB 14.9 11/28/2012 Lab Results Component Value Date HCT 39.0 01/15/2022 HCT 44.4 11/28/2012 Lab Results Component Value Date PLT 152 01/15/2022 PLT 168 11/28/2012 Last Basic Metabolic Panel: Lab Results Component Value Date NA 139 01/15/2022 NA 145 11/28/2012 Lab Results Component Value Date POTASSIUM 3.8 01/15/2022 POTASSIUM 4.3 11/28/2012 Lab Results Component Value Date CHLORIDE 109 01/15/2022 CHLORIDE 107 11/28/2012 Lab Results Component Value Date HORACIO 9.5 01/15/2022 HORACIO 9.6 11/28/2012 Lab Results Component Value Date CO2 25 01/15/2022 CO2 25 11/28/2012 Lab Results Component Value Date BUN 14 01/15/2022 BUN 16 11/28/2012 Lab Results Component Value Date CR 1.26 01/15/2022 CR 0.99 11/28/2012 Lab Results Component Value Date GLC 98 01/15/2022 GLC 100 01/15/2022 GLC 104 11/28/2012 ASSESSMENT/PLAN: 76 yo M with colon cancer now POD#1 s/p robotic right colectomy. Stable. 1. Full liquid diet 2. PRN pain meds 3. Continue IVF 4. Remove Sanon today 5. OOB, ambulate. Please give pt an abdominal binder to wear when getting in/out of bed. 6. Intermittent right thigh pain - Focal tenderness in lateral right thigh, muscles feel tight, no edema or erythema. Sounds like cramping. Low suspicion for DVT, will hold off on US. 7. Await pathology 8. SQH for ppx. Will need to transition to Lovenox at discharge for total of 28 days post op. May have had vasovagal response to shot this morning. Monitor. Will discuss with Dr. Bustos. For questions/paging, please contact the CRS office at [phone]. Jason Villareal PA-C Colorectal Physician American History Teacher [facility] [address] [place] [address] T: F: [phone] Colon [facility] Rect[facility] Surgery Staff I performed a history and physical examination of the patient and discussed their management with the physician special ed assistant. I reviewed the physician assistants note and agree with the documented findings and plan of care. Overall doing well. Reports new right lateral thigh pain after receiving heparin injection this am. Tolerating diet. Denies n/v. abd soft, distended, ttp per incisons Incisions c/d/i Plan: Ok for fulls Cont IVFs IV/PO pain meds Heparin for DVT ppx Monitor leg pain. Joanne Bsutos MD, FACS [facility] [address] [place] [id number] T: F: Shiloh Garner M - 01/13/2022 11:55 AM CDT INFANT ROOM TEACHER medications updated by Medication Scribe prior to surgery via phone call with patient??(last doses completed by Nurse) Medication history sources: Patient, Patient's family/friend (SPOUSE) and H&P In the past week, patient estimated taking medication this percent of the time: Greater than 90% Adherence assessment: N/A Not Observed Significant changes made to the medication list: Patient reports no longer taking the following meds (med scribe removed from INFANT ROOM TEACHER med list): CHLORTHALIDONE 25MG QD Additional medication history information: Patient was advised to bring: ALEXA GUO & JAVI RENDON SOLCaroline Medication reconciliation completed by provider prior to medication history? No Time spent in this activity: 35 MINUTES The information provided in this note is only as accurate as the sources available at the time of update(s) Prior to Admission medications Medication Sig Last Dose Taking? Auth Provider Driver Trainee End Date acetaminophen (TYLENOL 8 HOUR ARTHRITIS PAIN) 650 MG CR tablet Take 650 mg by mouth 2 times daily asneeded for mild pain or fever at PM Yes Reported, Patient alfuzosin ER (UROXATRAL) 10 MG 24 hr tablet Take 10 mg by mouth daily at AM Yes Reported, Patient aspirin 81 MG EC tablet Take 81 mg by mouth daily at AM Yes Reported, Patient atorvastatin (LIPITOR) 40 MG tablet Take 40 mg by mouth daily at AM Yes Reported, Patient Yes ciprofloxacin (CILOXAN) 0.3 % ophthalmic solution Instill 1-2 drops in the affected eye(s) every 2 hours while awake for 2 days then 1-2 drops every 4 hours while awake for the next 5 days. at PM Yes Phil Rushing MD fish oil-omega-3 fatty acids 1000 MG capsule Take 1 g by mouth daily at AM Yes Reported, Patient Rnhwarxfxfy-Ibivrwxyb-Tvhohwbpmu (TRELEGY ELLIPTA) 100-62.5-25 MCG/INH oral inhaler Inhale 1 puff into the lungs daily at AM Yes Reported, Patient ipratropium - albuterol 0.5 mg/2.5 mg/3 mL (DUONEB) 0.5-2.5 (3) MG/3ML neb solution Take 1 vial by nebulization every 6 hours as needed for shortness of breath / dyspnea or wheezing at PRN Yes Reported, Patient Yes lisinopril (ZESTRIL) 20 MG tablet Take 20 mg by mouth daily at AM Yes Reported, Patient Yes [place], Serenoa repens, (SAW PALMETTO EXTRACT PO) Take 450 mg by mouth daily at AM Yes Reported, Patient SUMAtriptan (IMITREX) 50 MG tablet Take 50 mg by mouth at onset of headache for migraine at PRN Yes Reported, Patient triamcinolone (KENALOG) 0.1 % external cream Apply topically 2 times daily at PRN Yes Reported, Patient vitamin D3 (CHOLECALCIFEROL) 50 mcg (2000 units) tablet Take 1 tablet by mouth daily at AM Yes Reported, Patient vitamin E (TOCOPHEROL) 400 units (180 mg) capsule Take 400 Units by mouth daily at AM Yes Reported, Patient documented in this encounter H&P Notes Phil Jenkins MD - 01/14/2022 7:24 AM CDT I have reviewed the surgical (or preoperative) H&P that is linked to this encounter, and examined the patient. There are no significant changes Source Note - Christopher, Provider - 01/13/2022 11:40 AM CDT documented in this encounter Consult Notes Lin Ladd - 01/16/2022 3:12 PM CDTAssociated Order(s): PHARMACY LIAISON FOR MEDICATION COVERAGE CONSULT Summary: Lovenox coverage check Patient has Medicare D through [employer]. Enoxaparin 40mg x 28 syringes: $40. -Neal Ladd, Molding Machine Operator Helper/Liaison, Discharge Pharmacy [phone] documented in this encounter Miscellaneous Notes Plan of Care - Judie Teresa RN - 01/19/2022 6:54 AM CDT A&Ox4, VSS on CPAP overnight, tolerating full liquid diet, up SBA/GB/W. PIV SL. denies nausea. Pain managed with tylenol. Abd lap sites DCI. Pt passing gas, BS audible. Abd binder on for comfort. Voiding in BR. Possibly go home today. Plan of Care - Aida Ly RN - 01/18/2022 6:30 AM CDT Goal Outcome Evaluation: Plan of Care Reviewed With: patient A&Ox4, VSS on CPAP overnight, tolerating full liquid diet, up SBA/GB/W. PIV w/ Lrs @50mL/hr. Denies pain, no nausea. R thigh numbness, MD aware. Abd lap sites w/ some erythema, CDI. Pt passing gas,BS audible. Abd binder on for comfort. Voiding in BR. Continue plan of care. Plan of Care - Charu Garcia RN - 01/17/2022 6:21 PM CDT Goal Outcome Evaluation: Plan of Care Reviewed With: patient, spouse VSS. Pt's abdominal lap sites are C/D/I with skin glue. Pt ambulating in the hallways with a gait belt, walker and staff multiple times this shift. This evening pt passed a lot of gas and a small stool. Pt stated his abdomen felt a lot better now and he didn't feel as bloated now. Pt c/o of abdominal discomfort, Tylenol was administered per MD orders and relief noted. Pt tolerating a full liquid diet s nausea. Plan of Care - Francia Thompson RN - 01/17/2022 6:22 AM CDT A&O x4. VSS. Up with SBA/GB/W. Tolerating full liquid diet. IV SL. Dressing CDI. Pt denies pain.Pt denies passing gas overnight. Plan to continue to wait for bowel function to return. Continue to monitor. Plan of Care - Destiny Sheffield RN - 01/16/2022 11:01 PM CDT Pt A&OX4 on RA. Pt is AX1 w/walker and gait belt. Pt still not passing gas or having BM, voidingadequately in bedside urinal. Pt denies SOB, took tylenol for pain. Pt has abdominal binder for comfort. Pt tolerating full liquid diet. Pt continues to report right thigh numbness. Will continue to monitor. Plan of Care - Charu Garcia RN - 01/16/2022 3:49 PM CDT Goal Outcome Evaluation: Plan of Care Reviewed With: patient VSS. Pt's lap sites to his abdomen are C/D/I with skin glue. Positive BS noted, pt denies passing gas, pt denies having a BM. Pt tolerating a full liquid diet s nausea or vomiting. Pt ambulating in thehallways SBA x 1 with gait belt and a walker. Pt c/o (R) thigh numbness, Jason SIERRA aware and no new orders received or noted. Provider Notification - Charu Garcia RN - 01/16/2022 1:31 PM CDT Call placed to Isabell SIERRA regarding the pt's numb (R) thigh, pt denies (R) foot numbness and (R) foot pedal pulse intact. Jason SIERRA called back no new orders received or noted. Will continue to monitor. Plan of Care - GREG WILLS - 01/16/2022 4:24 AM CDT Goal Outcome Evaluation: POD#2 ROBOTIC RIGHT COLECTOMY. Pt is A&Ox4, SBA, VSS on RA, tolerating full liquid diet, pain managed with scheduled tylenol, abdominal binder in place for comfort, reports that R thigh pain is improving, hypoactive BS, denies passing flatus, abd is distended, using home c-pap, voiding adequately in bedside urinal, discharge pending. Plan of Care - Bita Delong RN - 01/15/2022 6:36 AM CDT POD 1 robotic R colectomy. A&Ox4, VSS on CPAP to sleep. PIV infusing LR at 100 ml/hr with int abx. Tolerating clear liquid diet. SBA, up to the bathroom. Abd and lower, transverse incisions site CDI. Sanon intact with adequate yellow clear output. Pain managed with scheduled tylenol x2 and PRN PO dilaudid x1. Denies N/V. Discharge pending. Continue plan of care. Plan of Care - Kike Ceballos RN - 01/14/2022 7:14 PM CDT Goal Outcome Evaluation: Pt came up from PACU around 1500. POD #0 of robotic right colectomy, incision sites CDI. Pt is A/O x4. VSS, on 2L NC, using home cpap when sleeping. C/o abdominal/incisional pain, prn IV dilaudid givenwith relied. Had a small emesis and c/o nausea afterwards, prn IV zofran given with relief. Tolerating sips of CLD. BS active, passing flatus, no BM. Sanon patent with adequate clear yellow OP. Plan toget pt up and ambulate this evening when nausea/pain is under control. Brief Op Note - Isabell Azar PA-C - 01/14/2022 12:06 PM CDT [facility] Brief Operative Note Pre-operative diagnosis: Malignant neoplasm of colon, unspecified part of colon (H) [C18.9] Post-operative diagnosis Same as pre-operative diagnosis Procedure: Procedure(s): ROBOTIC RIGHT COLECTOMY Surgeon: Surgeon(s) and Role: * Melissa Bustos MD - Primary * Isabell Azar PA-C - Assisting * Hussain Barney MD - Assisting Anesthesia: General Estimated Blood Loss: 20mL Drains: None Specimens: ID Type Source Tests Collected by Time Destination 1 : RIGHT COLON AND TERMINAL ILEUM Tissue Large Intestine, Colon SURGICAL PATHOLOGY EXAM Melissa Bustos MD 01/14/2022 11:21 AM Findings: tumor in cecum. Complications: None. Implants: * No implants in log * Condition on discharge from OR: Satisfactory ISABELL AZAR PA-C [facility] [phone]. ADDENDUM: PATIENT DATA Indicate Y or N: Home O2 No Hemodialysis No Transplant patient No Cirrhosis No Steroids in last 30 days No Immunomodulators in last 30 days No Anticoagulation at time of surgery No List medication n/a Prior abdominal surgery No Pelvic irradiation No Albumin within 30 days if known No results found for: ALBUMIN Hgb within 30 days if known Hemoglobin Date Value Ref Range Status 11/28/2012 14.9 13.3 - 17.7 g/dL Final ] Cr within 30 days if known Creatinine Date Value Ref Range Status 11/28/2012 0.99 0.66 - 1.25 mg/dL Final ] Body mass index is 36.92 kg/m??. OR DATA Emergent No <24 hours No <1 week No Bowel Prep Yes Antibiotics Yes DVT prophylaxis Heparin Yes SCD Yes None No Drain No ASA (1,2,3,4) 3 OR time (min) 215 Stents No Transfuse >/= 2U No Anastomosis Stapled Yes Handsewn No Leak Test Positive No Negative No Not done Yes FOR CANCER ALSO COMPLETE: Preoperative treatment (Y or N) Chemo No Radiation No Diversion No Preoperative Stage CT Yes MRI No US No Clinical Yes Unknown Yes T stage (1,2,3,4) 5 N stage (0,1,2) 3 M stage (0,1) 0 CEA unknown Metastatic disease at time of operation No Op Note - Melissa Bustos MD - 01/14/2022 8:24 AM CDT PREOPERATIVE DIAGNOSIS: Cecal colon cancer POSTOPERATIVE DIAGNOSIS: same PROCEDURE: 1. Robotic assisted laparoscopic right hemicolectomy with intracorporeal anastomosis SURGEON: Joanne Bustos MD BLEDSOE: Hussain Barney MD CONFLICT RESOLUTION PROFESSIONAL: Isabell Azar PA-C [place] COUNSEL: Elke Wyatt MD, [facility] Colorectal Surgery Fellow ANESTHESIA: General. ESTIMATED BLOOD LOSS: 20 mL. SPECIMENS: Right colon. INDICATIONS: Mele Curran is a 76 year old male who has a history of a recently diagnosed with acecal colon cancer. He has undergone a colonoscopy with biopsy. Workup included a colonoscopy and CTscan of the chest abdomen and pelvis and there is no evidence of metastatic disease. He was advised of the risks and benefits or surgery. The risks discussed include but are not limited to the risk of bleeding, anastomotic leak, wound infection, injury to adjacent structures, development of a hernia, need for further surgery including creating a stoma, and even more serious complications. We discussed expectations regarding recovery. He wishes to proceed. FINDINGS: There was a mass in the cecum near the appendix. There was no evidence of metastatic disease. A side to side isoperistaltic ileocolic anastomosis was created without tension and with excellent blood supply. DESCRIPTION OF PROCEDURE: After obtaining informed consent, the patient was brought to the operatingroom, general anesthesia was induced and the patient intubated by the Anesthesia service without difficulty. He was placed in the supine position on the operating table. His arms were tucked at his side. A Sanon catheter was placed under sterile conditions. He was secured to the table with tape acrossthe chest and straps across the legs. The abdomen was shaved, prepped and draped in the usual sterile fashion. A timeout was undertaken, which identified the patient and correct procedure. We began by making a stab incision in the left upper quadrant. A Veress needle was used to establishpneumoperitoneum. We then planned out our robotic trocars from the pubic symphysis to the left upperquadrant. We placed an 8 mm trocar in the left upper quadrant and then surveyed the abdomen with a robotic camera. There was no evidence of injury to underlying viscera. The Veress needle was removed. We performed a laparoscopic-assisted tap block with a total of 30 mL of 0.5% Marcaine with dilute epinephrine. This was injected as four aliquots injected into the four quadrants of the abdomen. We placed a 8 mm trocar in the left upper quadrant for robotic arm number 4, an 8 mm trocar in the left lower abdomen for robotic arm number 2 and an 8 mm trocar just above the pubic symphysis at the spot where we planned to perform a Pfannenstiel incision for extraction site for robotic arm number 1.We switched our camera trocar to a 12 mm trocar for robotic arm number 3. We then placed a 5 mm AirSeal trocar in the left lower quadrant. The patient was placed with his right side up slightly and in slight Trendelenburg position. The small bowel was identified utilizing the robotic camera as a laparoscope. The abdomen was surveyed and there was no evidence of metastatic disease. Therefore, the robot was docked over the patient's right side and centered on the ileocolic pedicle. With the robot docked, we utilized the tip up grasper in arm #1, a camera in arm #2, the monopolar scissors in arm #3, which was changed out to a vessel sealing, a herbie SutureCut, or a robotic stapler device when needed. A small grasping retractor wasplaced in arm #4. Through this instrumentation, we performed a medial to lateral mobilization of theright colon. The ileocolic pedicle was placed on stretch. The peritoneum was incised medial to elevate the ileocolic pedicle off of the retroperitoneum. The duodenum was identified and swept posteriorly. We continued in a medial to lateral fashion out to the lateral sidewall up to the hepatic flexure and then to the iliac fossa. The ileocolic pedicle was then isolated with a combination of the monopolar scissors and the vessel sealing device. The pedicle was sealed and transected with the vessel sealing device. We then turned our attention to mobilize laterally. The peritoneum was incised laterallyto connect our inferior mobilization and our lateral mobilization to our medial mobilization, up to the level of the hepatic flexure. We then turned our attention to the transverse colon. The omentum was retracted cephalad and the omentum was liberated off the transverse colon utilizing a combination of sharp and blunt dissection. This allowed us to use the vessel sealing device to transect the attachments of the hepatic flexure to expose the duodenum. The remaining attachments were also taken with the vessel sealing device to openup the lesser sac. The posterior wall of the stomach was identified. A point for proximal and distal transection was chosen. The mesentery of the terminal ileum was sealed and transected with the vessel sealing device along the ileocolic pedical up to the level of the small bowel. We then transected the terminal ileum a few centimeters proximal to the ileocecal valve with a single firing of a blue load robotic 60 mm SLIM stapler. The transverse mesocolon was then exposed and the right branch of the middle colic artery was ligated and transected with the vessel sealingdevice. The remaining mesentery was ligated and transected up to the level of the transverse colon to isolate the bowel. With the bowel isolated, it was then transected with a single firing of a blue load robotic 60 mmGIA stapler. The specimen was placed up over the liver. We then lined up the small bowel for anastomosis. The cut edge of the mesentery was inspected in itsentirety and found to be fully hemostatic. The bowel was then lined up for a smfr-yr-kahe zhdekihbmbogv-kj-hwe isoperistaltic anastomosis. A stay suture of 3-0 Vicryl was placed on the proximal colon side. Antimesenteric enterotomies were made. This allowed us to fashion a 60 mm blue load robotic GIAstapler within the lumen to create a uazk-wn-xczn functional end-to-end anastomosis. The common enterotomy was then closed with a 2-0 suture of Stratafix as a self-retaining suture, which was secured to itself. A second layer of the anastomosis was placed with interrupted 3-0 Vicryl sutures. The anastomosis was found to be widely patent, fully intact and without any tension and with excellent blood supply. I elected to perform the fluorescence angiography. Three mL of dilute indocyanine green was injectedby the Anesthesia Service and we utilized the Firefly technology and assessed the bowel and found itto be well perfused throughout the anastomosis. We then closed the 12 mm trocar site after the instruments were fully removed and the robot was undocked. We utilized the robotic camera as a laparoscope. We closed the 12 mm trocar site with a Zaki-Jeanne device with 0 Vicryl tie. Pneumoperitoneum was evacuated. I should note that a grasper had been placed on the specimen through one of the 8 mm trocar sites. The suprapubic incision was extendedand dissection was taken down with electrocautery. The fascia was incised in a transverse fashion, elevated up off the rectus muscles superiorly and inferiorly. The peritoneum was incised in the midline with great care to avoid injury to the bladder. A medium Yovany wound retractor was placed here for excellent exposure and allowed us to extract the specimen. We then copiously irrigated out the abdomen. I inspected the specimen on the back table. The specimen was then sent off in formalin to Pathology for routine examination. We then closed the abdomen by closing the peritoneum with a running suture of 2- 0 Vicryl. The fasciawas closed with 2 running sutures of looped 0 PDS. Skin and subcutaneous fat was irrigated at all sites and closed with 4-0 Monocryl in a subcuticular fashion. Dermabond was placed as a dressing. Lap, sponge and needle counts correct at the end of the case x2. JOANNE BUSTOS MD documented in this encounter Plan of Treatment Not on filedocumented as of this encounter Procedures Procedure Name Priority Date/Time Associated Diagnosis Comme nts MLH1 PROMOTER Routine 01/20/2022 9:30 AM Results for this METHYLATION TUMOR CDT procedure are in the results section. PHOSPHORUS Routine 01/19/2022 7:05 AM Results f or this CDT procedure are i n the results section. GLUCOSE BY METER Routine 01/19/2022 5:56 AM Resul ts for this CDT procedure are i n the results section. GLUCOSE BY METER Routine 01/18/2022 8:03 AM Resul ts for this CDT procedure are i n the results section. RENAL PANEL Routine 01/18/2022 6:01 AM Results f or this CDT procedure are i n the results section. MAGNESIUM Routine 01/18/2022 6:01 AM Results f or this CDT procedure are i n the results section. PLATELET COUNT Routine 01/17/2022 6:17 AM Results for this CDT procedure are i n the results section. PHOSPHORUS Timed 01/17/2022 12:33 Results for this AM CDT procedure are i n the results section. GLUCOSE BY METER Routine 01/16/2022 5:19 PM Resul ts for this CDT procedure are i n the results section. PHOSPHORUS Timed 01/16/2022 4:21 PM Results f or this CDT procedure are i n the results section. PHOSPHORUS Routine 01/16/2022 6:52 AM Results f or this CDT procedure are i n the results section. BASIC METABOLIC Routine 01/16/2022 6:52 AM Result s for this PANEL CDT procedure are i n the results section. GLUCOSE BY METER Routine 01/16/2022 6:03 AM Resul ts for this CDT procedure are i n the results section. GLUCOSE BY METER Routine 01/15/2022 5:51 PM Resul ts for this CDT procedure are i n the results section. PHOSPHORUS Routine 01/15/2022 7:05 AM Results f or this CDT procedure are i n the results section. MAGNESIUM Routine 01/15/2022 7:05 AM Results f or this CDT procedure are i n the results section. BASIC METABOLIC Routine 01/15/2022 7:05 AM Result s for this PANEL CDT procedure are i n the results section. CBC WITH PLATELETS Routine 01/15/2022 7:05 AM Res ults for this CDT procedure are i n the results section. GLUCOSE BY METER Routine 01/15/2022 5:50 AM Resul ts for this CDT procedure are i n the results section. PLATELET COUNT Routine 01/14/2022 6:01 PM Results for this CDT procedure are i n the results section. SURGICAL PATHOLOGY Routine 01/14/2022 11:21 Resul ts for this EXAM AM CDT procedure are i n the results section. COLECTOMY, 01/14/2022 7:40 AM Malignant neoplasm ROBOT-ASSISTED CDT of colon, unspecified part of colon (H) POTASSIUM STAT 01/14/2022 6:28 AM Results f or this CDT procedure are i n the results section. EKG C[facility]AC - [facility] 01/12/2022 12:07 SCAN PM CDT EKG CARDIAC - [facility] 01/12/2022 12:07 SCAN PM CDT LAB RESULT - [facility] 01/12/2022 11:34 SCAN AM CDT LAB RESULT - [facility] 01/12/2022 11:34 SCAN AM CDT LAB RESULT - [facility] 01/12/2022 11:09 SCAN AM CDT LAB RESULT - [facility] 01/12/2022 11:09 SCAN AM CDT documented in this encounter Results (ABNORMAL) MLH1 Promoter Methylation Tumor (01/20/2022 9:30 AM CDT) Component Value Ref Test Analysis Performed At [facility] gist Range Method Time Signature RESULTS MLH1 promoter 01/20/2022 [facility] methylation: 9:30 AM DIAGNOSTICS POSITIVE (A) CDT (LDL) METHODOLOGY Tumor is macroenriched from paraffin slides, DNA is extracted, quantitated, and treated with bisulfite. Quantitative PCR amplification of MLH1 is compared to the internal control COL2A1 in the patient's 01/20/2022 [facility] sample and a known methylat ed DNA control. Quantification of methylated MLH1 is accomplished through generation of a standard curve and calculation of a Percent Methylation Ratio (PMR) following the pu 9:30 AM DIAGNOSTICS blished MethyLight procedure . PMR values greater than or equal to 4 are interpreted as positive, and PMR = 0 is interpreted as negative. PMR values of 0.1-3.9 are equivocal and require further workup. CDT (LDL) LIMITATIONS: The test is designed to dete ct methylation only in the areas covered by the primers utilized in this assay. Adjacent genomic regions may contain abnormalities that would not be detected. The assay requi res 10-20% tumor cellularity and the analytic sensitivity will be diminished in cases with suboptimal tumor percentage. Tumor heterogeneity may contribute to variability in the detected methylation stat us, and non-tumor cellular c omponents may falsely depress the methylation status results. This test does not define malignancy nor can it be used as a means to detect minimal residual disease. 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 01/20/2022 MOLECULAR (Electronically signed by: Berny Arauz MD January 27, 2022 2:19 PM) 9:30 AM DIAGNOSTICS CDT (LDL) COMMENTS MLH1 promoter 01/20/2022 MOLECULAR methylation is 9:30 AM DIAGNOSTICS typically CDT (LDL) associated with sporadic microsatellite unstable tumors of the colon/rectum or endometrium. MLH1 promoter methylation is distinctly uncommon in Roberto Syndrome-associate d cancers, although rare cases of MLH1 methylation in patients with Roberto Syndrome have been reported. Therefore, the diagnosis of Roberto syndrome cannot be entirely excluded by the presence of MLH1 promoter hypermethylation in an individual meeting stringent [place] criteria. Clinical correlation is recommended. DISCLAIMER This test was developed and its performance characteristics determined by [facility]. It has not been cleared or approved by the FDA. The laboratory is regulated 01/20/2022 MOLECULAR under CLIA as qualified to perform high-complexity testing. This test is used for clinical purposes. It should not be regarded as investigational or for research. 9:30 AM DIAGNOSTICS CDT (LDL) A resident/fellow in an accr edited training program was involved in the selection of testing, review of laboratory data, and/or interpretation of this case. I, as the senior physician, attest that I: (i ) confirmed appropriate test ing, (ii) examined the relevant raw data for the specimen(s); and (iii) rendered or confirmed the interpretation(s). Specimen Tissue: Fixed slides-Collect ed 01/14/22, Large Intestine, Colon, [id number] 01/20/2022 MOLECULAR Description [id number] 9:30 AM DIAGNOSTICS CDT (LDL) Specimen Anatomical Collection Method Collection Time Receive d Time (Source) Location / / Volume Laterality Fixed Tissue TOPOGRAPHY UNKNOWN Non-blood 01/20/2022 9:30 AM 4:05 / Unknown Collection / CDT PM CDT Unknown Melissa Bustos MD LAB - GENOMICS Performing Organization Address City/State/ZIP Code Phon e Number MOLECULAR [place] [address] (LDL) Diagnostics [address], Room 3-580 (ABNORMAL) Phosphorus (01/19/2022 7:05 AM CDT) athologist Signature Phosphorus 2.0 (L) 2.5 - 4.5 01/19/2022 LABORATORY mg/dL 7:48 AM CDT Specimen Anatomical Collection Method / Collection Time Recei richard Time (Source) Location / Volume Laterality Blood STRUCTURE OF RIGHT Venipuncture / 01/19/2022 7:05 12/26 7:17 UPPER LIMB / Unknown AM CDT AM CDT Unknown Melissa Bustos MD LAB - BLOOD ORDERABLES Performing Organization Address City/State/ZIP Code Phon e Number LABORATORY [facility] [place] [address] Care Lab [address] 1[address] floor, Room 20B (ABNORMAL) Glucose by meter (01/19/2022 5:56 AM CDT) athologist Signature GLUCOSE BY 105 (H) 70 - 99 01/19/2022 LABORATORY METER POCT mg/dL 6:03 AM CDT POC Specimen (Source) Anatomical Collection Method Collection Time Re ceived Time Location / / Volume Laterality Blood, Capillary BLOOD SPECIMEN / 01/19/2022 5:56 /09/2021 6:03 Unknown AM CDT AM CDT Melissa Bustos MD LAB - BEAKER POCT Performing Organization Address City/State/ZIP Code Phon e Number LABORATORY POC [facility] [place] [phone] Care Lab [address] 1[address] floor, Room 20B (ABNORMAL) Glucose by meter (01/18/2022 8:03 AM CDT) athologist Signature GLUCOSE BY 109 (H) 70 - 99 01/18/2022 LABORATORY METER POCT mg/dL 8:15 AM CDT POC Specimen (Source) Anatomical Collection Method Collection Time Re ceived Time Location / / Volume Laterality Blood, Capillary BLOOD SPECIMEN / 01/18/2022 8:03 09/2 08/2021 8:15 Unknown AM CDT AM CDT Melissa Bustos MD LAB - BEAKER POCT Performing Organization Address City/State/ZIP Code Phon e Number LABORATORY POC [facility] [place] [address] Care Lab [address] 1[address] floor, Room [address]B Magnesium (01/18/2022 6:01 AM CDT) athologist Signature Magnesium 1.9 1.6 - 2.3 01/18/2022 LABORATORY mg/dL 7:03 AM CDT Specimen Anatomical Collection Method / Collection Time Recei richard Time (Source) Location / Volume Laterality Blood STRUCTURE OF LEFT Venipuncture / 01/18/2022 6:01 01/18 6:33 UPPER LIMB / Unknown AM CDT AM CDT Unknown Zahira Wyatt MD LAB - BLOOD ORDERABLES Performing Organization Address City/[facility]/ZIP Code Phon e Number LABORATORY [place] [address] Care Lab [address], Room 20B (ABNORMAL) Renal panel (01/18/2022 6:01 AM CDT) [facility] gist Method Time Signature Sodium 141 133 - 144 01/18/2022 LABORATORY mmol/L 7:03 AM CDT Potassium 3.8 3.4 - 5.3 01/18/2022 LABORATORY mmol/L 7:03 AM CDT Chloride 109 94 - 109 01/18/2022 LABORATORY mmol/L 7:03 AM CDT Carbon Dioxide 26 20 - 32 01/18/2022 LABORATORY (CO2) mmol/L 7:03 AM CDT Anion Gap 6 3 - 14 01/18/2022 LABORATORY mmol/L 7:03 AM CDT Urea Nitrogen 14 7 - 30 01/18/2022 LABORATORY mg/dL 7:03 AM CDT Creatinine 1.34 (H) 0.66 - 01/18/2022 LABORATORY 1.25 mg/dL 7:03 AM CDT Calcium 9.6 8.5 - 10.1 01/18/2022 LABORATORY mg/dL 7:03 AM CDT Glucose 112 (H) 70 - 99 01/18/2022 LABORATORY mg/dL 7:03 AM CDT Albumin 2.9 (L) 3.4 - 5.0 01/18/2022 LABORATORY g/dL 7:03 AM CDT Phosphorus 2.6 2.5 - 4.5 01/18/2022 LABORATORY mg/dL 7:03 AM CDT GFR Estimate 54 (L) >60 01/18/2022 LABORATORY mL/min/1.7 7:03 AM CDT 3m2 Comment: Effective April 15, 2021 eGF Rcr in adults is calculated using the 2020 CKD-EPI creatinine equation which includ es age and gender (Yamilex et al., NEJM, DOI: 10.1056/XMLJwb2990388) Specimen Anatomical Collection Method / Collection Time Recei richard Time (Source) Location / Volume Laterality Blood STRUCTURE OF LEFT Venipuncture / 01/18/2022 6:01 01/18 6:33 UPPER LIMB / Unknown AM CDT AM CDT Unknown Zahira Wyatt MD LAB - BLOOD ORDERABLES Performing Organization Address City/State/ZIP Code Phon e Number LABORATORY [facility] [place] [address] Care Lab [address] 1[address], Room 20B (ABNORMAL) Platelet count (01/17/2022 6:17 AM CDT) athologist Signature Platelet Count 141 (L) 150 - 450 01/17/2022 LABORATORY 10e3/uL 6:47 AM CDT Specimen Anatomical Collection Method / Collection Time Recei richard Time (Source) Location / Volume Laterality Blood STRUCTURE OF RIGHT Venipuncture / 01/17/2022 6:17 12/26 6:30 UPPER LIMB / Unknown AM CDT AM CDT Unknown Melissa Bustos MD LAB - BLOOD ORDERABLES Performing Organization Address City/State/ZIP Code Phon e Number LABORATORY [facility] [place] [address] [phone] Care Lab [address] 1[address], Room 20B (ABNORMAL) Phosphorus (01/17/2022 12:33 AM CDT) athologist Signature Phosphorus 2.0 (L) 2.5 - 4.5 01/17/2022 LABORATORY mg/dL 2:18 AM CDT Specimen Anatomical Collection Method / Collection Time Recei richard Time (Source) Location / Volume Laterality Blood STRUCTURE OF RIGHT Venipuncture / 01/17/2022 12:33 1:59 UPPER LIMB / Unknown AM CDT AM CDT Unknown Melissa Bustos MD LAB - BLOOD ORDERABLES Performing Organization Address City/[facility]/ZIP Code Phon e Number LABORATORY [facility] [place] [address] Care Lab [address] 1[address], Room 20B (ABNORMAL) Glucose by meter (01/16/2022 5:19 PM CDT) athologist Signature GLUCOSE BY 113 (H) 70 - 99 01/16/2022 LABORATORY METER POCT mg/dL 5:26 PM CDT POC Comment: /RN Notified Specimen (Source) Anatomical Collection Method Collection Time Re ceived Time Location / / Volume Laterality Blood, Capillary BLOOD SPECIMEN / 01/16/2022 5:19 12/26 5:26 Unknown PM CDT PM CDT Melissa Bustos MD LAB - BEAKER POCT Performing Organization Address City/State/ZIP Code Phon e Number LABORATORY [place] [facility] [place] [address] Care Lab [address] 1[address], Room 20B (ABNORMAL) Phosphorus (01/16/2022 4:21 PM CDT) athologist Signature Phosphorus 2.2 (L) 2.5 - 4.5 01/16/2022 LABORATORY mg/dL 4:49 PM CDT Specimen Anatomical Collection Method / Collection Time Recei richard Time (Source) Location / Volume Laterality Blood STRUCTURE OF RIGHT Venipuncture / 01/16/2022 4:21 09/2 06/2021 4:25 UPPER LIMB / Unknown PM CDT PM CDT Unknown Melissa Bustos MD LAB - BLOOD ORDERABLES Performing Organization Address City/State/ZIP Code Phon e Number LABORATORY [facility] [place] [address] Care Lab [address] 1[address], Room 20B (ABNORMAL) Phosphorus (01/16/2022 6:52 AM CDT) athologist Signature Phosphorus 2.4 (L) 2.5 - 4.5 01/16/2022 LABORATORY mg/dL 7:43 AM CDT Specimen Anatomical Collection Method / Collection Time Recei richard Time (Source) Location / Volume Laterality Blood STRUCTURE OF LEFT Venipuncture / 01/16/2022 6:52 01/16 7:12 UPPER LIMB / Unknown AM CDT AM CDT Unknown Ras Flores MD LAB - BLOOD ORDERABLES Performing Organization Address City/State/ZIP Code Phon e Number LABORATORY [facility] [place] [address] Care Lab [address] 1[address], Room 20B (ABNORMAL) Basic metabolic panel (01/16/2022 6:52 AM CDT) Analysis Performed At Patho logist Time Signature Sodium 140 133 - 144 01/16/2022 LABORATORY mmol/L 7:43 AM CDT Potassium 3.6 3.4 - 5.3 01/16/2022 LABORATORY mmol/L 7:43 AM CDT Chloride 109 94 - 109 01/16/2022 LABORATORY mmol/L 7:43 AM CDT Carbon Dioxide 24 20 - 32 01/16/2022 LABORATORY (CO2) mmol/L 7:43 AM CDT Anion Gap 7 3 - 14 01/16/2022 LABORATORY mmol/L 7:43 AM CDT Urea Nitrogen 13 7 - 30 01/16/2022 LABORATORY mg/dL 7:43 AM CDT Creatinine 1.23 0.66 - 01/16/2022 LABORATORY 1.25 mg/dL 7:43 AM CDT Calcium 9.5 8.5 - 10.1 01/16/2022 LABORATORY mg/dL 7:43 AM CDT Glucose 115 (H) 70 - 99 01/16/2022 LABORATORY mg/dL 7:43 AM CDT GFR Estimate 60 (L) >60 01/16/2022 LABORATORY mL/min/1.7 7:43 AM CDT 3m2 Comment: Effective April 15, 2021 eGF Rcr in adults is calculated using the 2020 CKD-EPI creatinine equation which includ es age and gender (Yamilex et al., NE, DOI: 10.1056/TUHNys2982320) Specimen Anatomical Collection Method / Collection Time Recei richard Time (Source) Location / Volume Laterality Blood STRUCTURE OF LEFT Venipuncture / 01/16/2022 6:52 01/16 7:12 UPPER LIMB / Unknown AM CDT AM CDT Unknown Jason Villareal PA-C LAB - BLOOD ORDERABLES Performing Organization Address City/State/ZIP Code Phon e Number LABORATORY [facility] [place] [phone] Care Lab [address], Room 20B (ABNORMAL) Glucose by meter (01/16/2022 6:03 AM CDT) P athologist Signature GLUCOSE BY 121 (H) 70 - 99 01/16/2022 LABORATORY METER POCT mg/dL 6:10 AM CDT POC Specimen (Source) Anatomical Collection Method Collection Time Re ceived Time Location / / Volume Laterality Blood, Capillary BLOOD SPECIMEN / 01/16/2022 6:03 09/06/2021 6:10 Unknown AM CDT AM CDT Melissa Bustos MD LAB - BEAKER POCT Performing Organization Address City/State/ZIP Code Phon e Number LABORATORY [place] [facility] [place] [phone] Care Lab [address] 1[address], Room 20B (ABNORMAL) Glucose by meter (01/15/2022 5:51 PM CDT) athologist Signature GLUCOSE BY 109 (H) 70 - 99 01/15/2022 LABORATORY METER POCT mg/dL 5:58 PM CDT POC Specimen (Source) Anatomical Collection Method Collection Time Re ceived Time Location / / Volume Laterality Blood, Capillary BLOOD SPECIMEN / 01/15/2022 5:51 092 05/2021 5:58 Unknown PM CDT PM CDT Melissa Bustos MD LAB - BEAKER POCT Performing Organization Address City/State/ZIP Code Phon e Number LABORATORY [place] [facility] [place] [phone] Care Lab [address] 1[address], Room 20B Magnesium (01/15/2022 7:05 AM CDT) athologist Signature Magnesium 2.0 1.6 - 2.3 01/15/2022 LABORATORY mg/dL 8:10 AM CDT Specimen Anatomical Collection Method / Collection Time Recei richard Time (Source) Location / Volume Laterality Blood STRUCTURE OF LEFT Venipuncture / 01/15/2022 7:05 01/15 7:48 UPPER LIMB / Unknown AM CDT AM CDT Unknown Melissa Bustos MD LAB - BLOOD ORDERABLES Performing Organization Address City/State/ZIP Code Phon e Number LABORATORY [facility] [place] [address] Care Lab [address] 1[address], Room 20B (ABNORMAL) Phosphorus (01/15/2022 7:05 AM CDT) athologist Signature Phosphorus 2.3 (L) 2.5 - 4.5 01/15/2022 LABORATORY mg/dL 8:10 AM CDT Specimen Anatomical Collection Method / Collection Time Recei richard Time (Source) Location / Volume Laterality Blood STRUCTURE OF LEFT Venipuncture / 01/15/2022 7:05 01/15 7:48 UPPER LIMB / Unknown AM CDT AM CDT Unknown Melissa Bustos MD LAB - BLOOD ORDERABLES Performing Organization Address City/State/ZIP Code Phon e Number LABORATORY [facility] [place] [address] [phone] Care Lab [address], Room 20B (ABNORMAL) CBC with platelets (01/15/2022 7:05 AM CDT) [facility] Method Time Signature WBC Count 7.4 4.0 - 11.0 01/15/2022 LABORATORY 10e3/uL 7:53 AM CDT RBC Count 4.31 (L) 4.40 - 01/15/2022 LABORATORY 5.90 7:53 AM CDT 10e6/uL Hemoglobin 12.5 (L) 13.3 - 01/15/2022 LABORATORY 17.7 g/dL 7:53 AM CDT Hematocrit 39.0 (L) 40.0 - 01/15/2022 LABORATORY 53.0 % 7:53 AM CDT MCV 91 78 - 100 01/15/2022 LABORATORY fL 7:53 AM CDT MCH 29.0 26.5 - 01/15/2022 LABORATORY 33.0 pg 7:53 AM CDT MCHC 32.1 31.5 - 01/15/2022 LABORATORY 36.5 g/dL 7:53 AM CDT RDW 13.7 10.0 - 01/15/2022 LABORATORY 15.0 % 7:53 AM CDT Platelet Count 152 150 - 450 01/15/2022 LABORATORY 10e3/uL 7:53 AM CDT Specimen Anatomical Collection Method / Collection Time Recei richard Time (Source) Location / Volume Laterality Blood STRUCTURE OF LEFT Venipuncture / 01/15/2022 7:05 01/15 7:48 UPPER LIMB / Unknown AM CDT AM CDT Unknown Melissa Bustos MD LAB - BLOOD ORDERABLES Performing Organization Address City/State/ZIP Code Phon e Number LABORATORY [facility] [place] [phone] Care Lab [address], Room [address]B (ABNORMAL) Basic metabolic panel (01/15/2022 7:05 AM CDT) [facility] Method Time Signature Sodium 139 133 - 144 01/15/2022 LABORATORY mmol/L 8:10 AM CDT Potassium 3.8 3.4 - 5.3 01/15/2022 LABORATORY mmol/L 8:10 AM CDT Chloride 109 94 - 109 01/15/2022 LABORATORY mmol/L 8:10 AM CDT Carbon Dioxide 25 20 - 32 01/15/2022 LABORATORY (CO2) mmol/L 8:10 AM CDT Anion Gap 5 3 - 14 01/15/2022 LABORATORY mmol/L 8:10 AM CDT Urea Nitrogen 14 7 - 30 01/15/2022 LABORATORY mg/dL 8:10 AM CDT Creatinine 1.26 (H) 0.66 - 01/15/2022 LABORATORY 1.25 mg/dL 8:10 AM CDT Calcium 9.5 8.5 - 10.1 01/15/2022 LABORATORY mg/dL 8:10 AM CDT Glucose 98 70 - 99 01/15/2022 LABORATORY mg/dL 8:10 AM CDT GFR Estimate 58 (L) >60 01/15/2022 LABORATORY mL/min/1.7 8:10 AM CDT 3m2 Comment: Effective April 15, 2021 eGF Rcr in adults is calculated using the 2020 CKD-EPI creatinine equation which includ es age and gender (Yamilex et al., NEJ, DOI: 10.1056/KBXAph4840676) Specimen Anatomical Collection Method / Collection Time Recei richard Time (Source) Location / Volume Laterality Blood STRUCTURE OF LEFT Venipuncture / 01/15/2022 7:05 01/15 7:48 UPPER LIMB / Unknown AM CDT AM CDT Unknown Melissa Bustos MD LAB - BLOOD ORDERABLES Performing Organization Address City/State/ZIP Code Phon e Number [facility] [phone] Care Lab [address] 1[address] floor, Room 20B (ABNORMAL) Glucose by meter (01/15/2022 5:50 AM CDT) athologist Signature GLUCOSE BY 100 (H) 70 - 99 01/15/2022 LABORATORY METER POCT mg/dL 5:57 AM CDT POC Specimen (Source) Anatomical Collection Method Collection Time Re ceived Time Location / / Volume Laterality Blood, Capillary BLOOD SPECIMEN / 01/15/2022 5:50 12/26 5:57 Unknown AM CDT AM CDT Melissa Bustos MD LAB - BEAKER POCT Performing Organization Address City/State/ZIP Code Phon e Number LABORATORY [place] [facility] [address] Care Lab [address] 1[address], Room 20B (ABNORMAL) Platelet count (01/14/2022 6:01 PM CDT) athologist Signature Platelet Count 147 (L) 150 - 450 01/14/2022 LABORATORY 10e3/uL 6:31 PM CDT Specimen Anatomical Collection Method / Collection Time Recei richard Time (Source) Location / Volume Laterality Blood STRUCTURE OF RIGHT Venipuncture / 01/14/2022 6:01 12/26 6:21 UPPER LIMB / Unknown PM CDT PM CDT Unknown Melissa Bustos MD LAB - BLOOD ORDERABLES Performing Organization Address City/[facility]/ZIP Code Phon e Number LABORATORY [place] [phone] Care Lab [address] 1[address], Room 20B (ABNORMAL) Surgical Pathology Exam (01/14/2022 11:21 AM CDT) Component Value Ref Test Analysis Performed Pathologis t Range Method Time At Signature Case Report Surgical Pathology Report ? Case: [id number] ? Authorizing Provider: ??Melissa Luo MD ?? Collected: ? 01/14/2022 11:21 AM ? 2 9:12 AM LABORATOR Y Ordering Location: ? [facility] [place] ?Received: ?01/14/2022 12:24 PM ? CDT ? [facility] ? Pathologist: ? Mary Vegas MD PhD ? Specimen: ?Large Intesti ne, Colon, RIGHT COLON AND TERMINAL ILEUM ? Final A(1). 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 CDT signed by -See synoptic report for further details Mary Vegas MD PhD on 01/20/2022 at 9:12 AM Electronic ally signed by Freddy Vegas MD PhD on 01/17/2022 at 7:00 PM Synoptic COLON AND RECTUM: Resection, Including Transanal Disk Excision of Rectal Neoplasms RH Checklist COLON AND RECTUM: RESECTION - All Specimens 2 9:12 AM LABORATORY 8th Edition - Protocol posted: 04/11/2021 CDT SPECIMEN ?? Procedure: ?Right hemicolectomy TUMOR ?? Tumor Site: ?Cecum ?? Histologic Type: ?Adenocarcinoma ?? Histologic Grade: ?G2, moderately differentiated ?? Tumor Size: ?Greatest dimension (Centimeters): 4.5 c m ?? Tumor Extent: ?Invades into muscularis propria ?? Macroscopic Tumor Perforation: ?Not identified ?? Lymphovascular Invasion: ?Not identified ?? Perineural Invasion: ?Present ?? Number of Tumor Buds: ?11 per 'hotspot' field ?? Tumor Chandler Score: ?High (10 or more) ?? Type of Polyp in which Invasive Carcinoma Arose: ?Tu bular adenoma ?? Treatment Effect: ?No known presurgical therapy MARGINS ?? Margin Status for Invasi ve Carcinoma: ?All margins negative for invasive carcinoma ? Closest Margin(s) to Invasive Carcinoma: ?Proxima l ? Distance from Invasive Carcinoma to Closest Margin: ?6 cm ?? Margin Status for Non-In vasive Tumor: ?All margins negative for high- grade dysplasia / intramucosal carcinoma and low-grade dysplasia REGIONAL LYMPH NODES ?? Regional Lymph Node Status: ? : ?All regional lymph nodes negative for tumor ? Number of Lymph Nodes Examined: ?12 ?? Tumor Deposits: ?Not identified PATHOLOGIC STAGE CLASSIFICATION (pTNM, AJCC 8th Edition) ?? Reporting of pT, pN, and (when applicable) pM categories is based on information available to the pathologist at the time the report is issued. As per the AJCC (Chapter 1, 8th Ed.) it is the managin g physician? s responsibility to establish the final pathologic stage based upon all pertinent information, including but potentially not limited to this pathology report. ?? pT Category: ?pT2 ?? pN Category: ?pN0 Colon and Rectum Biomarker Reporting Template (Added in Addendum) COLON AN D RECTUM: BIOMARKER REPORTING TEMPLATE - All Specimens Protocol posted: 10/23/2020 RESULTS ?? Mismatch Repair: ? Immunohistochemistry (IHC) Testing for Mismatch Repair (MMR) Proteins: ? MLH1 Result: ?Loss of nuclear expression ? Immunohistochemistry (IHC) Testing for Mismatch Repair (MMR) Proteins: ? MSH2 Result: ?Intact nuclear expression ? Immunohistochemistry (IHC) Testing for Mismatch Repair (MMR) Proteins: ? MSH6 Result: ?Intact nuclear expression ? Immunohistochemistry (IHC) Testing for Mismatch Repair (MMR) Proteins: ? PMS2 Result: ?Loss of nuclear expression ? Immunohistochemistry (IHC) Testing for Mismatch Repair (MMR) Proteins: ?Background nonneoplastic tissue / internal control with intact nuclear expression ? IHC Interpretation : ?Loss of nuclear expression of MLH1 and PMS2: testing for methylation of the MLH1 promoter and / or mutation of BRAF is indicated (the presence of a BRAF V600E mutation and / or MLH1 methylation s uggests that the tumor is sporadic and germline evaluation is probably not indicated; absence of both MLH1 methylation and of BRAF V600E mutation suggests the possibility of Roberto syndrome and sequencin g and / or large deletion / duplication testing of germline MLH1 may be indicated) Clinical Procedure: Information ROBOTIC RIGHT COLECTOMY - Right 2 9:12 AM LABORATORY Pre-op Diagnosis: Malignant neoplasm of colon, unspecified part of colon (H) [C18.9] CDT Post-op Diagnosis: C18.9 - M alignant neoplasm of colon, unspecified part of colon (H) [ICD-10-CM] Gross A(1). Large Intestine, Colon, RIGHT COLON AND TERMINAL ILE UM: Description The specimen is received in formalin, labeled with the patient's name, medical record number and other identifying information designated right colon and terminal ileum. It consists of a 5.0 x 2.0 cm 2 9:12 AM LABORATORY portion of distal ileum whic h attached to a 16.5 x 3.0 cm portion of cecum and ascending colon with surrounding pericolonic fat with an attached 11.5 x 0.1-0.4 cm appendix. The serosa is reed-pink, predo CDT minantly smooth with a focal area of disruption (inked black). The specimen is opened, displays a 4.5 x 3.0 cm reed-pink, annular mass located adjacent to the cecum (near the focal area of disruption (in ked black)) which is 6.0 cm from proximal resection margin, 16.0 cm from the distal resection margin, and 12.0 cm from the mesenteric margin (inked blue). Sectioning the mass reveals it focally blurs, p ossibly obliterates the musc ularis propria, overlies an intact serosa without extension into the pericolonic fat. The remainder of the specimen displays a pale-reed, redundantly folded mucosa without obv ious nodularities. Sectionin g the appendix reveals a pale-reed mucosa, and a pinpoint lumen. Sectioning of the pericolonic fat reveals 8, 0.2-1.0 x 0.7 x 0.5 cm pale-reed possible lymph nodes. The specimens is representatively sampled as follows: A1-proximal resection margin A2-distal resection margin A3-mesenteric margin (inked blue) [id number]-tibu, submitted entirely A 13-parts sales representative sections of appendix A 14-3 possible lymph nodes, intact A 15-1 possible lymph node, bisected A 16-1 possible lymph node, bisected A 17-1 possible lymph node, bisected A18-1 possible lymph node, bisected A 19-A 20-1 possible lymph node, bisected A 21-A 35-adipose tissue ([place]) Microscopic Microscopic Description examination was 2 9:12 AM LABORATORY performed. CDT MCRS Yes (A) N/A 2 9:12 AM LABORATORY CDT Performing The technical Labs component of this 2 9:12 AM LABORATORY testing was completed CDT at [facility] Case Images 2 9:12 AM LABORATORY CDT Specimen Anatomical Collection Method Collection Time Receive d Time (Source) Location / / Volume Laterality Tissue COLON STRUCTURE / 01/14/2022 11:21 2021 Unknown AM CDT 12:24 PM CDT Melissa HERNANDEZ - GUIDO MCPHERSON Performing Organization Address City/State/ZIP Code Phon [place] [phone] [facility] Lab [address] [facility] Lab (1st floor, no room number) [place] [address], [facility] [phone] Acute Care Lab [address], Room [address] Potassium (01/14/2022 6:28 AM CDT) P athologist Signature Potassium 3.7 3.4 - 5.3 01/14/2022 LABORATORY mmol/L 7:04 AM CDT Comment: Specimen slightly hemolyzed, po tassium may be falsely elevated. Specimen Anatomical Collection Method / Collection Time Recei richard Time (Source) Location / Volume Laterality Blood BLOOD SPECIMEN / Venipuncture / 01/14/2022 6:28 2021 6:36 Unknown Unknown AM CDT AM CDT Xochitl Benton LAB - BLOOD ORDERABLES Performing Organization Address City/State/ZIP Code Phon e Number LABORATORY [facility] [phone] [facility] [address] 1st floor, Room 20B EKG CARDIAC - HIM SCAN (01/12/2022 12:07 PM CDT) Specimen (Source) Anatomical Collection Method Collection Time Re ceived Time Location / / Volume Laterality 01/12/2022 12:07 PM CDT Narrative This result has an attachment that is no t available. Provider Outside ECG ORDERABLES EKG CARDIAC - HIM SCAN (01/12/2022 12:07 PM CDT) Specimen (Source) Anatomical Collection Method Collection Time Re ceived Time Location / / Volume Laterality 01/12/2022 12:07 PM CDT Narrative This result has an attachment that is no t available. Provider Outside ECG ORDERABLES LAB RESULT - HIM SCAN (01/12/2022 11:34 AM CDT) Specimen (Source) Anatomical Collection Method Collection Time Re ceived Time Location / / Volume Laterality 01/12/2022 11:34 AM CDT Narrative This result has an attachment that is no t available. Provider Outside [facility] NON-BEAKER LAB TESTING LAB RESULT - HIM SCAN (01/12/2022 11:34 AM CDT) Specimen (Source) Anatomical Collection Method Collection Time Re ceived Time Location / / Volume Laterality 01/12/2022 11:34 AM CDT Narrative This result has an attachment that is no t available. Provider Outside NON-BEAKER LAB TESTING LAB RESULT - HIM SCAN (01/12/2022 11:09 AM CDT) Specimen (Source) Anatomical Collection Method Collection Time Re ceived Time Location / / Volume Laterality 01/12/2022 11:09 AM CDT Narrative This result has an attachment that is no t available. Provider Outside NON-BEAKER LAB TESTING LAB RESULT - HIM SCAN (01/12/2022 11:09 AM CDT) Specimen (Source) Anatomical Collection Method Collection Time Re ceived Time Location / / Volume Laterality 01/12/2022 11:09 AM CDT Narrative This result has an attachment that is no t available. Provider Outside NON-BEAKER LAB TESTING documented in this encounter Visit Diagnoses Diagnosis Malignant neoplasm of ascending colon (H ) - Primary Malignant neoplasm of ascending colon Colon cancer (H) Malignant neoplasm of colon, unspecified site documented in this encounter Admitting Diagnoses Diagnosis Colon cancer (H) Malignant neoplasm of colon, unspecified site documented in this encounter Administered Medications Inactive Administered Medications - up to 3 most recent administrations Medication Order MAR Action Action Date Dose Rate Site acetaminophen (TYLENOL) tablet Given 01/19/2022 10:40 AM CDT 650 mg 650 mg 650 mg, Oral, EVERY 4 HOURS PRN, other, For optimal non-opioid multimodal pain management to improve pain control., Starting on 01/17/22 at 0000, May give first dose 4 hours after last scheduled dose of acetaminophen (TYLENOL). Maximum acetaminophen dose from all sources = 75 mg/kg/day not to exceed 4 grams/day. Given 01/19/2022 6:15 AM CDT 650 mg Given 01/18/2022 8:26 PM CDT 650 mg acetaminophen (TYLENOL) tablet 975 mg Given 01/14/2022 6:32 AM CDT 975 mg 975 mg, Oral, ONCE, On Wed01/14/22 at 0600, For 1 dose, IF acetaminophen (TYLENOL) not already order by Anesthesia. Maximum acetaminophen dose from all sources = 75 mg/kg/day not to exceed 4 grams/day., Pre-procedure acetaminophen (TYLENOL) tablet 975 mg Given 01/17/2022 6:47 AM CDT 975 mg 975 mg, Oral, EVERY 8 HOURS, First dose on Wed01/14/22 at 1430, For 3 days, Administer for multimodal surgical pain management. Maximum acetaminophen dose from all sources = 75 mg/kg/day not to exceed 4 grams/day. Given 01/16/2022 7:50 PM CDT 975 mg Given 01/16/2022 2:18 PM CDT 975 mg alfuzosin ER (UROXATRAL) 24 hr tablet 10 mg Given 01/19/2022 8:24 AM CDT 10 mg 10 mg, Oral, DAILY, First dose on Trinity 01/15/22 at 0900, DO NOT CRUSH. Given 01/18/2022 8:12 AM CDT 10 mg Given 01/17/2022 7:53 AM CDT 10 mg atorvastatin (LIPITOR) tablet 40 mg Given 01/19/2022 8:24 AM CDT 40 mg 40 mg, Oral, DAILY, First dose on Trinity 01/15/22 at 0900 Given 01/18/2022 8:12 AM CDT 40 mg Given 01/17/2022 7:53 AM CDT 40 mg ceFAZolin (ANCEF) intermittent New Bag 01/15/2022 1:43 PM CDT 2 g 200 mL/hr infusion 2 g in 100 mL dextrose PRE-MIX Routine, 2 g, Intravenous, EVERY 8 HOURS, First dose on Wed01/14/22 at 2000, For 3 doses, Indications: Perioperative Pharmacoprophylaxis New Bag 01/15/2022 3:33 AM CDT 2 g 200 mL/hr New Bag 01/14/2022 8:07 PM CDT 2 g 200 mL/hr fentaNYL (PF) (SUBLIMAZE) injection 25 m cg Given 01/14/2022 1:41 PM CDT 25 mcg 25 mcg, Intravenous, EVERY 5 MIN PRN, moderate to severe pain, Starting on Wed01/14/22 at 1157, Administer fentaNYL (SUBLIMAZE) for acute pain control. Move to HYDROmorphone (DILAUDID): - IF patient has received up to 4 doses (100 mcg) of fentaNYL (SUBLIMAZE), OR - IF severe pain (pain score greater than or equal to seven (7) or inability of patient to participate in post op recovery due to pain) AFTER 2 doses fentaNYL (SUBLIMAZE). WAIT 5 minutes AFTER last fentaNYL (SUBLIMAZE) dose before administering HYDROmorphone (DILAUDID). Postop Anesthesia Phase I only. Notify Provider to assess for uncontrolled pain or analgesic side effects. Do NOT revert back to fentanyl (SUBLIMAZE) after moving to HYDROmorphone (DILAUDID)., PACU Given 01/14/2022 1:34 PM CDT 25 mcg fluticasone-vilanterol (BREO ELLIPTA) 100-25 Given 8:24 AM CDT 1 puff MCG/INH inhaler 1 puff 1 puff, Inhalation, DAILY, First dose on Wed01/14/22 at 1500, *Do not use more frequently than once daily.* Rinse mouth after use. Therapeutic interchange for Trelegy Ellipta 100/62.5/25 mcg 1 puff daily when given w/ Inruse Ellipta 62.6 mcg 1 puff daily. Check the dose counter on the inhaler to ensure there are doses remaining before administering. Given 01/18/2022 8:13 AM CDT 1 puff Given 01/17/2022 7:57 AM CDT 1 puff heparin ANTICOAGULANT injection 5,000 Given 01/14/2022 7:08 AM C DT 5,000 Units Units 5,000 Units, Subcutaneous, PRE-OP/PRE-PROCEDURE, Starting on Wed01/14/22 at 0558, For 1 dose, IF Nerve Block is planned, DELAY SubQ Heparin administration until AFTER Block is placed. IMPORTANT: IF Patient ONLY receiving a TAP Block, Nursing does NOT need to verify order with Anesthesia, and can proceed with medication administration. High concentration heparin. Not for line flush or cath care., Pre-procedure heparin ANTICOAGULANT injection 5,000 Given 01/19/2022 1:10 PM C DT 5,000 Units Units 5,000 Units, Subcutaneous, EVERY 8 HOURS, First dose on Trinity 01/15/22 at 0600, Check to make sure start date/time is 12-24 hours post op unless documented complication. Continue until discharge to home. HOLD if platelet count falls below 50% of baseline or less than 100,000/??L and notify provider. High concentration heparin. Not for line flush or cath care. Given 01/19/2022 6:15 AM CDT 5,000 Units Given 01/18/2022 8:27 PM CDT 5,000 Units HYDROmorphone (DILAUDID) injection 0.2 m g Given 01/14/2022 2:39 PM CDT 0.2 mg 0.2 mg, Intravenous, EVERY 2 HOURS PRN, other, moderate pain (pain rating 4-6) IF patient unable to take oral pain medication or pain not controlled with oral analgesics, Starting on Wed01/14/22 at 1416, Hold IV PRN opioid dose for analgesic side effects. Notify provider to assess for uncontrolled pain or analgesic side effects. HYDROmorphone (DILAUDID) injection 0.4 m g 0.4 mg, Intravenous, EVERY 2 HOURS PRN, other, severe pain (pain rating 7-10) IF patient unable to take oral pain medication or pain no t controlled with oral analgesics, Starting on Wed01/14/22 at 1 416, Hold IV PRN opioid dose for analgesic side effects. Notify provider to assess for uncontroll ed pain or analgesic side effects. HYDROmorphone (DILAUDID) tablet 2 mg Given 01/19/2022 1:08 PM CDT 2 mg 2 mg, Oral, EVERY 4 HOURS PRN, other, moderate pain (pain rating 4-6)., Starting on Wed01/14/22 at 1416, Hold oral PRN dose for analgesic side effects. Notify provider to assess for uncontrolled pain or analgesic side effects. Hold while on IV TOBACCO CUTTER or with regular IV opioid dosing. Given 01/19/2022 8:45 AM CDT 2 mg Given 01/15/2022 3:38 AM CDT 2 mg HYDROmorphone (DILAUDID) tablet 4 mg Given 01/15/2022 8:52 AM CDT 4 mg 4 mg, Oral, EVERY 4 HOURS PRN, severe pain (7-10), (pain rating 7-10)., Starting on Wed01/14/22 at 1416, Hold oral PRN dose for analgesic side effects. Notify provider to assess for uncontrolled pain or analgesic side effects. Hold while on IV TOBACCO CUTTER or with regular IV opioid dosing. ipratropium - albuterol 0.5 mg/2.5 mg/3 mL Given 01/14/2022 7:08 AM CDT 3 mLs (DUONEB) neb solution 3 mL 3 mL, Nebulization, ONCE, On Wed01/14/22 at 0730, For 1 dose lactated ringers infusion Restarted 01/14/2022 10:34 AM CDT at 25 mL/hr, Intravenous, CONTINUOUS, IF patient NOT on dialysis., Starting on Wed01/14/22 at 0600, Until Wed01/14/22 at 1426 New Bag 01/14/2022 9:47 AM CDT 1000 mL/hr Restarted 01/14/2022 7:40 AM CDT lactated ringers infusion Rate/Dose Verify 01/14/2022 1:37 PM CDT 100 mL/hr at 100 mL/hr, Intravenous, CONTINUOUS, Continue until IV catheter is weaned, PACU, Starting on Wed01/14/22 at 1200, Until Wed01/14/22 at 1401 lactated ringers infusion New Bag 01/14/2022 6:23 PM CDT 100 mL/hr at 100 mL/hr, Intravenous, CONTINUOUS, Change to saline lock when well tolerated., Starting on Wed01/14/22 at 1430, Until Wed01/15/22 at 1250 New Bag 01/14/2022 2:40 PM CDT 100 mL/hr lactated ringers infusion Rate/Dose Verify 01/17/2022 8:56 PM CDT 50 mL/hr at 50 mL/hr, Intravenous, CONTINUOUS, Starting on Wed01/17/22 at 1300, Until Wed01/18/22 at 0949 New Bag 01/17/2022 1:07 PM CDT 50 mL/hr lisinopril (ZESTRIL) tablet 20 mg Given 01/19/2022 8:24 AM CDT 20 mg 20 mg, Oral, DAILY, First dose on Wed01/15/22 at 0900 Given 01/18/2022 8:12 AM CDT 20 mg Given 01/17/2022 7:54 AM CDT 20 mg metroNIDAZOLE (FLAGYL) infusion 500 mg New Bag 01/14/2022 6:32 AM CDT 500 mg Routine, 500 mg, Intravenous, PRE-OP/PRE-PROCEDURE, Starting on Wed01/14/22 at 0558, For 1 dose, Do not refrigerate., Indications: Perioperative Pharmacoprophylaxis, Pre-procedure metroNIDAZOLE (FLAGYL) infusion 500 mg New Bag 01/15/2022 5:41 AM CDT 500 mg Routine, 500 mg, Intravenous, EVERY 12 HOURS, First dose on Wed01/14/22 at 1830, For 2 doses, Do not refrigerate., Indications: Perioperative Pharmacoprophylaxis New Bag 01/14/2022 6:22 PM CDT 500 mg naloxone (NARCAN) injection 0.2 mg 0.2 mg, Intravenous, EVERY 2 MIN PRN, op ioid reversal, Starting on Wed01/14/22 at 1427, Administer intravenous route when available and notify provider when administered. For unintended sedation or respiratory depression if all of the below criteria are met: ~ respiratory rate LES S than or EQUAL to 8. ~SaO2 less than 92% and or/end-tidal CO2 is greater than 50. ~ the patient is receiving an opioid, has unintended sedations assessed as RASS (-3), and is cur rently not on mechanical ventilation. RASS scale moderate (-3) is movement or eye opening to voice but no eye contact. Patient Monitoring Once the patient has demonstrated a response to the naloxone, continue to monitor respiratory rate, depth, oxygen saturation and end-tidal CO2 (if available) every 15 mi nutes x 2, then every 30 minutes x 2, then every 1 hour x 1 after each naloxone dose. Consider tr ansfer to ICU if patient respiratory parameters have not improved after 4 nalox one doses. naloxone (NARCAN) injection 0.2 mg 0.2 mg, Intramuscular, EVERY 2 MIN PRN, opioid reversal, Starting on Wed01/14/22 at 1427, Administer intramuscular if an int ravenous route is not available and notify provider when administered. For unintend ed sedation or respiratory depression if all of the below criteria are met: ~ respiratory rate LESS than or EQUAL to 8. ~SaO2 less than 92% and or/end-tidal CO2 is greater th an 50. ~ the patient is receiving an opioid, has unintended sedations assessed as RASS (-3), and is currently not on mechanical ventilation. RASS scale moderate (-3) is movement or eye opening to voice but no eye contact. Patient Monitoring Once the patient has demonstrated a response to the naloxone, continue to m onitor respiratory rate, depth, oxygen saturation and end-tidal CO2 (if availab le) every 15 minutes x 2, then every 30 minutes x 2, then every 1 hour x 1 after each naloxone dose. Consider transfer to ICU if patient respiratory parameters have not improved after 4 naloxone doses. naloxone (NARCAN) injection 0.4 mg 0.4 mg, Intravenous, EVERY 2 MIN PRN, op ioid reversal, Starting on Wed01/14/22 at 1427, Administer intravenous route when available and notify provider when administered. For unintended sedation or respiratory depression if all of the below criteria are met: ~ respiratory rate LES S than or EQUAL to 8. ~ SaO2 less than 92% and or/end-tidal CO2 is greater than 50. ~ the patient is receiving an opioid, has unintended sedation assessed as RASS (-4 ) or (-5) and patient is currently not on mechanical ventilation. RASS scale (-4) is deep sedation with no response to voice but movement or eye opening to physical stimulation. R ASS scale (-5) is unarousable. Patient Monitoring Once the patient has demonstrated a response to the naloxone, continue to monitor respiratory rate, depth, oxygen saturation and end-tidal CO2 (if available) every 15 mi nutes x 2, then every 30 minutes x 2, then every 1 hour x 1 after each naloxone dose. Consider tr ansfer to ICU if patient respiratory parameters have not improved after 4 nalox one doses. naloxone (NARCAN) injection 0.4 mg 0.4 mg, Intramuscular, EVERY 2 MIN PRN, opioid reversal, Starting on Wed01/14/22 at 1427, Administer intramuscular if an int ravenous route is not available and notify provider when administered. For unintend ed sedation or respiratory depression if all of the below criteria are met: ~ res piratory rate LESS than or EQUAL to 8. ~ SaO2 less than 92% and or/end-tidal CO2 is greater shankar n 50. ~ the patient is receiving an opioid, has unintended sedation assessed as RASS (-4) or (-5) and patient is currently not on mechanical ventilation. RA SS scale (-4) is deep sedation with no response to voice but movement or eye opening to physical stimulation. RASS scale (-5) is unarousa ble. Patient Monitoring Once the patient has demonstrated a response to the nalox one, continue to monitor respiratory rate, depth, oxygen saturation and end-tidal CO2 (if availab le) every 15 minutes x 2, then every 30 minutes x 2, then every 1 hour x 1 after each naloxone dose. Consider transfer to ICU if patient respiratory parameters have not improved after 4 naloxone doses. ondansetron (ZOFRAN ODT) ODT tab 4 mg 4 mg, Oral, EVERY 6 HOURS PRN, nausea, v omiting, Starting on Wed01/14/22 at 1416, This is Step 1 of nausea and vomiting management. If n ausea not resolved in 15 minutes, go to Step 2 prochlorperazine ( COMPAZINE). Do NOT administer if patient received granisetron (KYTRIL) pre-operatively. With dr coronel hands, peel back foil backing and gently remove tablet. Do not push oral disintegrating tablet through foil backing. Administer immediately on tongue and ora l disintegrating tablet dissolves in seconds, then swallow with saliva. Liquid not required. ondansetron (ZOFRAN) injection 4 mg Given 01/14/2022 4:07 PM CDT 4 mg 4 mg, Intravenous, EVERY 6 HOURS PRN, nausea, vomiting, Administer over 2-5 Minutes, Starting on Wed01/14/22 at 1416, Give IF patient unable to tolerate oral medication. This is Step 1 of nausea and vomiting management. If nausea not resolved in 15 minutes, go to Step 2 prochlorperazine (COMPAZINE). Do NOT administer if patient received granisetron (KYTRIL) pre-operatively. Irritant. potassium & sodium phosphates Given 01/16/2022 12:53 AM CDT 1 pa cket (NEUTRA-PHOS) Packet 1 packet 1 packet, Oral or Feeding Tube, EVERY 4 HOURS, First dose on Trinity 01/15/22 at 1630, For 3 doses, Phosphorus level 2-2.4 mg/dL Administer 1 packet of oral or feeding tubephosphorus replacement x 3 doses and recheck phosphorus level next AM. Ordered from the Phosphorus replacement order set., Phosphorus Replacement: Phosphorus level 2-2.4 mg/dL and Creatinine Clearance GREATER than or EQUAL to 30 mL/min, Recheck: Phosphorus level next AM Given 01/15/2022 8:24 PM CDT 1 packet Given 01/15/2022 4:40 PM CDT 1 packet potassium & sodium phosphates Given 01/17/2022 12:57 PM CDT 1 pa cket (NEUTRA-PHOS) Packet 1 packet 1 packet, Oral or Feeding Tube, EVERY 4 HOURS, First dose on 01/17/22 at 0400, For 3 doses, Phosphorus level 2-2.4 mg/dL Administer 1 packet of oral or feeding tubephosphorus replacement x 3 doses and recheck phosphorus level next AM. Ordered from the Phosphorus replacement order set., Phosphorus Replacement: Phosphorus level 2-2.4 mg/dL and Creatinine Clearance GREATER than or EQUAL to 30 mL/min, Recheck: Phosphorus level next AM Given 01/17/2022 7:53 AM CDT 1 packet Given 01/17/2022 4:35 AM CDT 1 packet potassium & sodium phosphates (NEUTRA-PHOS) Given 12/26 1:10 PM CDT 1 packet Packet 1 packet 1 packet, Oral or Feeding Tube, EVERY 4 HOURS, First dose on Wed01/19/22 at 0800, For 3 doses, Phosphorus level 2-2.4 mg/dL Administer 1 packet of oral or feeding tubephosphorus replacement x 3 doses and recheck phosphorus level next AM. Ordered from the Phosphorus replacement order set., Phosphorus Replacement: Phosphorus level 2-2.4 mg/dL and Creatinine Clearance GREATER than or EQUAL to 30 mL/min, Recheck: Phosphorus level next AM Given 01/19/2022 8:24 AM CDT 1 packet sodium chloride (PF) 0.9% PF flush 3 mL Given 01/17/2022 1:10 PM CDT 3 mLs 3 mL, Intracatheter, EVERY 8 HOURS, First dose on Wed01/14/22 at 1430, to lock peripheral IV dormant line Given 01/17/2022 7:59 AM CDT 3 mLs Given 01/17/2022 6:54 AM CDT 3 mLs umeclidinium (INCRUSE ELLIPTA) 62.5 MCG/ INH inhaler 1 puff 1 puff, Inhalation, DAILY, First dose on Wed01/14/22 a t 1500, Therapeutic interchange for Trelegy Ellipta 100/62.5/25 mcg 1 puff daily when given w/ Breo Ellipta 100/25 mcg 1 puff daily. Check t he dose counter on the inhaler to ensure there are doses remaining before administering. documented in this encounter Active and Recently Administered Medications Times are shown in CDT. Scheduled Medication Order 01/17/2022 01/18/2022 01/19/2022 acetaminophen (TYLENOL) tablet 975 mg () 0647 ( Given - Provider: Francia Thompson RN) 975 mg, Oral, EVERY 8 HOURS, First dose on Wed01/14/22 at 1430, For 3 days, Administer for multimodal surgical pain management. Maximum acetaminophen dose from all sources = 75 mg/kg/day not to exceed 4 grams/day. alfuzosin ER (UROXATRAL) 24 hr tablet 10 mg 0753 (Give n - Provider: Charu Garcia RN)0900 (Canceled Entry - Provider: Charu Garcia RN) 0812 (Given - Provider: Andrea York RN) 0824 (Given - Provider: Daniel Gavin) 10 mg, Oral, DAILY, First dose on Wed01/15/22 at 0900, DO NOT CR [facility]. atorvastatin (LIPITOR) tablet 40 mg 0753 (Given - Prov ider: Charu Garcia RN)0900 (Canceled Entry - Provider: Charu Garcia RN) 0812 (Given - Provider: Andrea York RN) 0824 (Given - Provider: Daniel Gavin) 40 mg, Oral, DAILY, First dose on Wed01/15/22 at 0900 fluticasone-vilanterol (BREO ELLIPTA) 10 0-25 MCG/INH inhaler 1 puff(Linked Group 1) 0757 (Given - Provider: Charu vincent RN)0900 (Canceled Entry - Provider: Charu Garcia RN) 0813 (Given - Provider: Andrea York RN) 0824 (Given - Provider: Andrea York RN) 1 puff, Inhalation, DAILY, First dose on Wed01/14/22 at 1500, *Do not use more frequently than once daily.* Rinse mouth after use. Therapeutic interchange for Trelegy Ellipta 100/62.5/25 mcg 1 puff matt y when given w/ Inruse Ellipta 62.6 mcg 1 puff daily. Check the dose counter on the inhaler to ensure there are doses remaining before administering. heparin ANTICOAGULANT injection 5,000 Units 0648 (Give n - Provider: Francia Thompson RN)1257 (Given - Provider: Charu Garcia RN)1301 (Canceled Entry - Provider: Charu Garcia RN)2100 (Given - Provider: Aida Ly, RN) 0621 (Given - Provider: Aida Ly , RN)1329 (Given - Provider: Andrea York RN)2027 (Given - Provider: Andrea York RN) 0615 (Given - Provider: Judie Teresa, RN)1310 (Given - Provider: Andrea York, ANA MARIA) 5,000 Units, Subcutaneous, EVERY 8 HOURS , First dose on Trinity 01/15/22 at 0600, Check to make sure start date/time is 12-24 hours post op unless documented complication. Continue until discharge to home. H OLD if platelet count falls below 50% of baseline or less than 100,000/??L and notify provider. High concentration heparin. Not for line flush or cath care. lisinopril (ZESTRIL) tablet 20 mg 0754 (Given - Provid er: Charu Garcia RN)0900 (Canceled Entry - Provider: Charu Garcia RN) 0812 (Given - Provider: Andrea York RN) 0824 (Given - Provider: Daniel Gavin) 20 mg, Oral, DAILY, First dose on Trinity 01/15/22 at 0900 potassium & sodium phosphates (NEUTRA-PHOS) Packet 1 p acket (COMPLETED) 0435 (Given - Provider: Francia Thompson RN)0753 (Given - Provider: Charu Garcia, ANA MARIA)1257 (Given - Provider: Charu Garcia RN) 1 packet, Oral or Feeding Tube, EVERY 4 HOURS, First dose on 01/17/22 at 0400, For 3 doses, Phosphorus level 2-2.4 mg/dL Administer 1 packet of oral or feeding tubephosphorus replacement x 3 doses an d recheck phosphorus level next AM. Orde red from the Phosphorus replacement order set., Phosphorus Replacement: Phosphorus level 2-2.4 mg/dL and Creatinine Clearance GREATER than or EQUAL to 30 mL/min, Recheck: Phosphorus level next AM potassium & sodium phosphates (NEUTRA-PHOS) Packet 1 packet 0824 (Given - Provider: Andrea York RN)1310 (Given - Provider: Andrea York RN)1600 (Canceled Entry - Provider: Orders Generic Provider - Comment: Automatically canceled at discontinue of medication order) 1 packet, Oral or Feeding Tube, EVERY 4 HOURS, First dose on Wed01/19/22 at 0800, For 3 doses, Phosphorus level 2-2.4 mg/dL Administer 1 packet of oral or feeding tubephosphorus replacement x 3 doses an d recheck phosphorus level next AM. Orde red from the Phosphorus replacement order set., Phosphorus Replacement: Phosphorus level 2-2.4 mg/dL and Creatinine Clearance GREATER than or EQUAL to 30 mL/min, Recheck: Phosphorus level next AM sodium chloride (PF) 0.9% PF flush 3 mL (CANCELED) 065 4 (Given - Provider: Francia Thompson RN)0759 (Given - Provider: Charu Garcia, ANA MARIA)1310 (Given - Provider: Charu Garcia, RN)2099 (Not Given - Provider: Aida Ly RN - Reason: IV Infusing) 06 (Not Given - Provider: Aida petersen RN - Reason: IV Infusing) 3 mL, Intracatheter, EVERY 8 HOURS, Firs t dose on Wed01/14/22 at 1430, to lock peripheral IV dormant line umeclidinium (INCRUSE ELLIPTA) 62.5 MCG/INH inhaler 1 puff(Linked Group 1) 2099 (Not Given - Provider: Aida Ly RN - Reason: Patient/family refused) 2026 (Not Given - Provider: Andrea York RN - Reason: Patient/family refused) 1 puff, Inhalation, DAILY, First dose on Wed01/14/22 at 1500, Therapeutic interchange for Trelegy Ellipta 100/62.5/25 mcg 1 puff daily when given w/ Breo Ellipta 100/25 mcg 1 puff daily. Check the dose counter on the inhaler to ensure there a re doses remaining before administering. Continuous Medication Order 01/17/2022 01/18/2022 01/19/2022 lactated ringers infusion (CANCELED) 1307 (New Bag - P rovider: Charu Garcia, ANA MARIA)2055 (Rate/Dose Verify - Provider: Aida Ly RN) at 50 mL/hr, Intravenous, CONTINUOUS, St arting on 01/17/22 at 1300, Until 01/18/22 at 0949 PRN Medication Order 01/17/2022 01/18/2022 01/19/2022 acetaminophen (TYLENOL) tablet 650 mg 1611 (Given - Pr ovider: Charu Garcia RN) 0818 (Given - Provider: Daniel Gavin)1329 (Given - Provider: Andrea York RN)202 (Given - Provider: Andrea York RN) 0615 (Given - Provider: Judie Teresa RN)1040 (Given - Provider: Andrea York RN) 650 mg, Oral, EVERY 4 HOURS PRN, other, For optimal non-opioid multimodal pain management to improve pain control., Starting on 01/17/22 at 0000, May give first dose 4 hours after last scheduled dose of acetaminophen (TYLENOL). Maximum jennifer taminophen dose from all sources = 75 mg/kg/day not to exceed 4 grams/day. HYDROmorphone (DILAUDID) injection 0.2 mg(Linked Group 2) 0.2 mg, Intravenous, EVERY 2 HOURS PRN, other, moderate pain (pain rating 4-6) IF patient unable to take oral pain medication or pain not controlled with oral analgesics, Starting on Wed01/14/22 at 1416 , Hold IV PRN opioid dose for analgesic side effects. Notify provider to assess for uncontrolled pain or analgesic side effects. HYDROmorphone (DILAUDID) injection 0.4 mg(Linked Group 2) 0.4 mg, Intravenous, EVERY 2 HOURS PRN, other, severe pain (pain rating 7-10) IF patient unable to take oral pain medication or pain not controlled with oral analgesics, Starting on Wed01/14/22 at 1416, Hold IV PRN opioid dose for analgesic s ngoc effects. Notify provider to assess for uncontrolled pain or analgesic side effects. HYDROmorphone (DILAUDID) tablet 2 mg(Linked Group 3) 0837 (Given - Provider: Andrea York RN)1308 (Given - Provider: Andrea York RN) 2 mg, Oral, EVERY 4 HOURS PRN, other, mo derate pain (pain rating 4-6)., Starting on Wed01/14/22 at 1416, Hold oral PRN dose for analgesic side effects. Notify provider to assess for uncontrolled pain or analgesic side effects. Hold while on IV TOBACCO CUTTER or with regular IV opioid dosing. HYDROmorphone (DILAUDID) tablet 4 mg(Linked Group 3) 8405 (See Alternative - Provider: Andrea York, ANA MARIA)1308 (See Alternative - Provider: Andrea York RN) 4 mg, Oral, EVERY 4 HOURS PRN, severe pa in (7-10), (pain rating 7-10)., Starting on Wed01/14/22 at 1416, Hold oral PRN dose for analgesic side effects. Notify provider to assess for uncontrolled pain or analgesic side effects. Hold while on IV TOBACCO CUTTER or with regular IV opioid dosing. ipratropium - albuterol 0.5 mg/2.5 mg/3 mL (DUONEB) neb solution 3 mL 3 mL (1 vial), Nebulization, EVERY 6 NICK RS PRN, shortness of breath / dyspnea, wheezing, Starting on Wed01/14/22 at 1417 lidocaine (LMX4) cream Topical, EVERY 1 HOUR PRN, pain, with VA D insertion, Starting on Wed01/14/22 at 1416, Apply at least 30 minutes prior to VAD insertion in divided doses as needed for size of site for insertion. MAX Dose : 2.5 g (?? of 5 g tube) Do NOT give if patient has a history of allergy to any local anesthetic or any heidi product. Do NOT use both lidocaine intradermal/subcutaneous injection and the lidocaine cream on the same site. lidocaine 1 % 0.1-1 mL 0.1-1 mL, Other, EVERY 1 HOUR PRN, mild pain with VAD insertion, Starting on Wed01/14/22 at 1416, MAX dose 1 mL subcutaneous OR intradermal along the side of the vein in divided doses as needed for VAD insertion. Do NOT give if patient has a history of allergy to any local anesthetic or any heidi product. Do NOT use both lidocaine intradermal/subcutaneous injection and the lidocaine cream on the same site. naloxone (NARCAN) injection 0.2 mg(Linked Group 4) 0.2 mg, Intravenous, EVERY 2 MIN PRN, op ioid reversal, Starting on Wed01/14/22 at 1427, Administer intravenous route when available and notify provider when administered. For unintended sedation or resp iratory depression if all of the below c riteria are met: ~ respiratory rate LESS than or EQUAL to 8. ~SaO2 less than 92% and or/end-tidal CO2 is greater than 50. ~ the patient is receiving an opioid, romero s unintended sedations assessed as RASS (-3), and is currently not on mechanical ventilation. RASS scale moderate (-3) is movement or eye opening to voice but no eye contact. Patient Monitoring Once the patient has demonstrated a response to the naloxone, continue to monitor respiratory rate, depth, oxygen saturation and end-tidal CO2 (if available) every 15 minutes x 2, then every 30 minutes x 2, the n every 1 hour x 1 after each naloxone d ose. Consider transfer to ICU if patient respiratory parameters have not improved after 4 naloxone doses. naloxone (NARCAN) injection 0.2 mg(Linked Group 4) 0.2 mg, Intramuscular, EVERY 2 MIN PRN, opioid reversal, Starting on Wed01/14/22 at 1427, Administer intramuscular if an intravenous route is not available and notify provider when administered. For uni ntended sedation or respiratory depressi on if all of the below criteria are met: ~ respiratory rate LESS than or EQUAL to 8. ~SaO2 less than 92% and or/end- tidal CO2 is greater than 50. ~ the patient is receiving an opioid, has unintended sed ations assessed as RASS (-3), and is currently not on mechanical ventilation. RASS scale moderate (-3) is movement or eye opening to voice but no eye contact. Pat ient Monitoring Once the patient has dem onstrated a response to the naloxone, continue to monitor respiratory rate, depth, oxygen saturation and end-tidal CO2 (if available) every 15 minutes x 2, then e very 30 minutes x 2, then every 1 hour x 1 after each naloxone dose. Consider transfer to ICU if patient respiratory parameters have not improved after 4 naloxone doses. naloxone (NARCAN) injection 0.4 mg(Linked Group 4) 0.4 mg, Intravenous, EVERY 2 MIN PRN, op ioid reversal, Starting on Wed01/14/22 at 1427, Administer intravenous route when available and notify provider when administered. For unintended sedation or resp iratory depression if all of the below c riteria are met: ~ respiratory rate LESS than or EQUAL to 8. ~ SaO2 less than 92% and or/end-tidal CO2 is greater than 50. ~ the patient is receiving an opioid, h as unintended sedation assessed as RASS (-4) or (-5) and patient is currently not on mechanical ventilation. RASS scale (-4) is deep sedation with no response to voice but movement or eye opening to phy sical stimulation. RASS scale (-5) is un arousable. Patient Monitoring Once the patient has demonstrated a response to the naloxone, continue to monitor respiratory rate, depth, oxygen saturation and end -tidal CO2 (if available) every 15 minut es x 2, then every 30 minutes x 2, then every 1 hour x 1 after each naloxone dose. Consider transfer to ICU if patient respiratory parameters have not improved after 4 naloxone doses. naloxone (NARCAN) injection 0.4 mg(Linked Group 4) 0.4 mg, Intramuscular, EVERY 2 MIN PRN, opioid reversal, Starting on Wed01/14/22 at 1427, Administer intramuscular if an intravenous route is not available and notify provider when administered. For uni ntended sedation or respiratory depressi on if all of the below criteria are met: ~ respiratory rate LESS than or EQUAL to 8. ~ SaO2 less than 92% and or/end- tidal CO2 is greater than 50. ~ the patient i s receiving an opioid, has unintended se dation assessed as RASS (-4) or (-5) and patient is currently not on mechanical ventilation. RASS scale (-4) is deep sedation with no response to voice but moveme nt or eye opening to physical stimulatio n. RASS scale (-5) is unarousable. Patient Monitoring Once the patient has demonstrated a response to the naloxone, continue to monitor respiratory rate, depth, o xygen saturation and end-tidal CO2 (if a vailable) every 15 minutes x 2, then every 30 minutes x 2, then every 1 hour x 1 after each naloxone dose. Consider transfer to ICU if patient respiratory parameters have not improved after 4 naloxone doses. ondansetron (ZOFRAN ODT) ODT tab 4 mg(Linked Group 5) 4 mg, Oral, EVERY 6 HOURS PRN, nausea, v omiting, Starting on Wed01/14/22 at 1416, This is Step 1 of nausea and vomiting management. If nausea not resolved in 15 minutes, go to Step 2 prochlorperazine (C OMPAZINE). Do NOT administer if patient received granisetron (KYTRIL) pre- operatively. With dry hands, peel back foil backing and gently remove tablet. Do not push oral disintegrating tablet through foi l backing. Administer immediately on ton heather and oral disintegrating tablet dissolves in seconds, then swallow with saliva. Liquid not required. ondansetron (ZOFRAN) injection 4 mg(Linked Group 5) 4 mg, Intravenous, EVERY 6 HOURS PRN, na usea, vomiting, Administer over 2-5 Minutes, Starting on Wed01/14/22 at 1416, Give IF patient unable to tolerate oral medication. This is Step 1 of nausea and vom iting management. If nausea not resolved in 15 minutes, go to Step 2 prochlorperazine (COMPAZINE). Do NOT administer if patient received granisetron (KYTRIL) pre-operatively. Irritant. sodium chloride (PF) 0.9% PF flush 3 mL 3 mL, Intracatheter, EVERY 1 MIN PRN, li ne flush, other, to ensure patency or to lock dormant line, Starting on Wed01/14/22 at 1416 Linked Groups Order Group 1: fluticasone-vilanterol (BREO ELLIPTA) 100-25 MCG/INH inhaler 1 puffJump to med 1 puff, Inhalation, DAILY, First dose on Wed01/14/22 at 1500
*Do not use more frequently than once daily.* Rinse mouth after use. Therapeutic interchange for Trelegy Ellipta 100/62.5/25 mcg 1 puff daily wh en given w/ Inruse Ellipta 62.6 mcg 1 puff daily. Check the dose counter on the inhaler to ensure there are doses remaining before administering.
And umeclidinium (INCRUSE ELLIPTA) 62.5 MCG/INH inhaler 1 puffJump to med 1 puff, Inhalation, DAILY, First dose on Wed01/14/22 at 1500
Therapeutic interchange for Trelegy Ellipta 100/62.5/25 mcg 1 puff daily when given w/ Breo Ellipta 100/25 mcg 1 puff daily.&nbs p;Check the dose counter on the inhaler to ensure there are doses remaining before administering.
Group 2: HYDROmorphone (DILAUDID) injection 0.2 mgJump to med 0.2 mg, Intravenous, EVERY 2 HOURS PRN, other, moderate pain (pain rating 4-6) IF patient unable to take oral pain medication or pain not controlled with oral analgesics, Starting on Wed01/14/22 at 1416
Hold IV PRN opioid dose for analgesi c side effects. Notify provider to assess for uncontrolled pain or analgesic side effects.
Or HYDROmorphone (DILAUDID) injection 0.4 mgJump to med 0.4 mg, Intravenous, EVERY 2 HOURS PRN, other, severe pain (pain rating 7-10) IF patient unable to take oral pain medication or pain not controlled with oral analgesics, Starting on Wed01/14/22 at 1416& lt;br>Hold IV PRN opioid dose for analge sic side effects. Notify provider to assess for uncontrolled pain or analgesic side effects.
Group 3: HYDROmorphone (DILAUDID) tablet 2 mgJump to med 2 mg, Oral, EVERY 4 HOURS PRN, other, mo derate pain (pain rating 4-6)., Starting on Wed01/14/22 at 1416
Hold oral PRN dose for analgesic side effects. Notify provider to assess for uncontrolled pain or analgesic side effects. Hold wh ile on IV TOBACCO CUTTER or with regular IV opioid dosing.
Or HYDROmorphone (DILAUDID) tablet 4 mgJump to med 4 mg, Oral, EVERY 4 HOURS PRN, severe pa in (7-10), (pain rating 7-10)., Starting on Wed01/14/22 at 1416
Hold oral PRN dose for analgesic side effects. Notify provider to assess for uncontrolled pain or analgesic side effects. Hold wh ile on IV TOBACCO CUTTER or with regular IV opioid dosing.
Group 4: naloxone (NARCAN) injection 0.2 mgJump to med 0.2 mg, Intravenous, EVERY 2 MIN PRN, op ioid reversal, Starting on Wed01/14/22 at 1427
Administer intravenous route when available and notify provider when administered. For unintended sedation or respiratory depression if a ll of the below criteria are met: ~ respiratory rate LESS than or EQUAL to 8. ~SaO2 less than 92% and or/end- tidal CO2 is greater than 50.& nbsp;~ the patient is receiving an opioi d, has unintended sedations assessed as RASS (-3), and is currently not on mechanical ventilation. RASS scale moderate (-3) is movement or eye opening to voice but no eye contact.&nbs p; Patient Monitoring Once the patient has demonstrated a response to the naloxone, continue to monitor respiratory rate, depth, oxygen satu ration and end-tidal CO2 (if available) every 15 minutes x 2, then every 30 minutes x 2, then every 1 hour x 1 after each naloxone dose. Consider transfer to ICU if patient respirator y parameters have not improved after 4 n aloxone doses.
Or naloxone (NARCAN) injection 0.4 mgJump to med 0.4 mg, Intravenous, EVERY 2 MIN PRN, op ioid reversal, Starting on Wed01/14/22 at 1427
Administer intravenous route when available and notify provider when administered. For unintended sedation or respiratory depression if a ll of the below criteria are met: ~ respiratory rate LESS than or EQUAL to 8. ~ SaO2 less than 92% and or/end- tidal CO2 is greater than 50.& nbsp;~ the patient is receiving an opioi d, has unintended sedation assessed as RASS (-4) or (-5) and patient is currently not on mechanical ventilation. RASS scale (-4) is deep sedati on with no response to voice but movemen t or eye opening to physical stimulation. RASS scale (-5) is unarousable. Patient Monitoring On ce the patient has demonstrated a respon se to the naloxone, continue to monitor respiratory rate, depth, oxygen saturation and end-tidal CO2 (if available) every 15 minutes x 2, then every 30 minutes x 2, then every 1 hour x 1 after each nalo xone dose. Consider transfer to ICU if patient respiratory parameters have not improved after 4 naloxone doses.
Or naloxone (NARCAN) injection 0.2 mgJump to med 0.2 mg, Intramuscular, EVERY 2 MIN PRN, opioid reversal, Starting on Wed01/14/22 at 1427
Administer intramuscular if an intravenous route is not available and notify provider when administered. For unintended sedation or respira tory depression if all of the below criteria are met: ~ respiratory rate LESS than or EQUAL to 8. ~SaO2 less than 92% and or/end-tidal CO2 is greater than 50. ~ the patient i s receiving an opioid, has unintended sedations assessed as RASS (-3), and is currently not on mechanical ventilation. RASS scale moderate (-3) is movement or eye opening to voice but no eye contact. Patient Monitoring Once the patient has demonstrated a response to the naloxone, continue to monitor respiratory rate, depth, oxygen saturation and end-t idal CO2 (if available) every 15 minutes x 2, then every 30 minutes x 2, then every 1 hour x 1 after each naloxone dose. Consider transfer to [facility] if patient respiratory parameters hav e not improved after 4 naloxone doses.
Or naloxone (NARCAN) injection 0.4 mgJump to med 0.4 mg, Intramuscular, EVERY 2 MIN PRN, opioid reversal, Starting on Wed01/14/22 at 1427
Administer intramuscular if an intravenous route is not available and notify provider when administered. For unintended sedation or respira tory depression if all of the below criteria are met: ~ respiratory rate LESS than or EQUAL to 8. ~ SaO2 less than 92% and or/end-tidal CO2 is greater than 50. ~ the patient i s receiving an opioid, has unintended sedation assessed as RASS (-4) or (-5) and patient is currently not on mechanical ventilation. RASS s obie (-4) is deep sedation with no respo nse to voice but movement or eye opening to physical stimulation. RASS scale (-5) is unarousable. Patien t Monitoring Once the patient has d emonstrated a response to the naloxone, continue to monitor respiratory rate, depth, oxygen saturation and end-tidal CO2 (if available) every 15 minutes x 2, then every 30 minutes x 2, then every 1 hour x 1 after each naloxone dose. Consider transfer to ICU if patient respiratory parameters have not improved after 4 naloxone doses.
Group 5: ondansetron (ZOFRAN ODT) ODT tab 4 mgJump to med 4 mg, Oral, EVERY 6 HOURS PRN, nausea, v omiting, Starting on Wed01/14/22 at 1416
This is Step 1 of nausea and vomiting management. If nausea not resolved in 15 minutes, go to Step 2 prochlorperazine (COMPAZINE). Do NOT administer if patient received granisetron (KYTRIL) pre-operatively. With dry hands, peel back foil backing and gently remove tablet. Do not push or al disintegrating tablet through foil ba cking. Administer immediately on tongue and oral disintegrating tablet dissolves in seconds, then swallow with saliva. Liquid not required.
Or ondansetron (ZOFRAN) injection 4 mgJump to med 4 mg, Intravenous, EVERY 6 HOURS PRN, na usea, vomiting, Administer over 2-5 Minutes, Starting on Wed01/14/22 at 1416
Give IF patient unable to tolerate oral medication. This is Step 1 of nausea and vomiting management. If na usea not resolved in 15 minutes, go to Step 2 prochlorperazine (COMPAZINE). Do NOT administer if patient received granisetron (KYTRIL) pre-operatively. Irritant.
documented in this encounter Care Teams [employer] Feedback Relationship Specialty Start Date End Date [facility], [facility] PCP - General 12/24/[address] [place] [id number] documented as of this encounter
--- OUTSIDE RECORDS SUMMARY | 2022-03-17 11:46 | XMS_ITS | Encounter Summary ---
:1945 Author Organization [facility] Address [address] [place] [id number] Care Team Providers Name Role Phone [facility], [facility] Primary Care Provider [phone] Encounter Details Date Type Department Care Team Description 01/14/2022 Travel Social History Tobacco Use Types Packs/Day [...] have Coronavirus/COVID-19? documented as of this encounter Plan of Treatment Not on filedocumented as of this encounter Visit Diagnoses Not on filedocumented in this encounter Care Teams Busser Relationship Specialty Start Date End Date [facility], [facility] PCP - General 12/24/[address] [place] [id number] documented as of this encounter
--- OUTSIDE RECORDS SUMMARY | 2022-03-17 11:46 | XMS_ITS | Clinical Summary ---
:1945 Author Organization [place] Address [address] [place] [address] Care Team Providers Name Role Phone Clinic, [facility] Primary Care Provider [phone] Allergies No known active allergies Medications Medication Sig Dispensed Refills Start Date End Date Status lisinopril (ZESTRIL) Take 20 mg by mouth 0 Active 20 MG tablet daily [place], Serenoa Take 450 mg by 0 Active repens, (SAW PALMETTO mouth daily EXTRACT PO) fish oil-omega-3 Take 1 g by mouth 0 Active fatty acids 1000 MG daily capsule SUMAtriptan (IMITREX) Take 50 mg by mouth 0 Active 50 MG tablet at onset of headache for migraine ciprofloxacin Instill 1-2 drops 1 Bottle 0 11/28/2012 Active (CILOXAN) 0.3 % in the affected ophthalmic solution eye(s) every 2 hours while awake for 2 days then 1-2 drops every 4 hours while awake for the next 5 days. aspirin 81 MG EC Take 81 mg by mouth 0 Active tablet daily vitamin D3 Take 1 tablet by 0 Ac tive (CHOLECALCIFEROL) 50 mouth daily mcg (2000 units) tablet vitamin E Take 400 Units by 0 Ac tive (TOCOPHEROL) 400 mouth daily units (180 mg) capsule ipratropium - Take 1 vial by 0 A ctive albuterol 0.5 mg/2.5 nebulization every mg/3 mL (DUONEB) 6 hours as needed 0.5-2.5 (3) MG/3ML for shortness of neb solution breath / dyspnea or wheezing alfuzosin ER Take 10 mg by mouth 0 Active (UROXATRAL) 10 MG 24 daily hr tablet atorvastatin Take 40 mg by mouth 0 Active (LIPITOR) 40 MG daily tablet triamcinolone Apply topically 2 0 Active (KENALOG) 0.1 % times daily external cream acetaminophen Take 650 mg by 0 A ctive (TYLENOL 8 HOUR mouth 2 times daily ARTHRITIS PAIN) 650 as needed for mild MG CR tablet pain or fever Fluticasone-Umeclidin Inhale 1 puff into 0 Active -Vilanterol (TRELEGY the lungs daily ELLIPTA) 100-62.5-25 MCG/INH oral inhaler Active Problems Problem Noted Date Colon cancer 01/14/2022 Encounters Date Type Specialty Care Team Description 01/14/2022 Anesthesia Event Surgery Phil Jenkins MD 01/14/2022 Surgery Surgery Melissa Stern ROBOTIC R IGHT MD [place] COLECTOMY 01/14/2022 - Hospital Encounter Med Surg Melissa Stern Mal ignant neoplasm of 01/19/2022 MD Bozena ascending colon (H) Brandon Gonzalez (Primary Dx) MD Bert 01/14/2022 Travel 01/12/2022 External Order Lab Outside, Provider Results from Last 3 Months Social History Tobacco [...] Mass Index 36.92 01/14/2022 7:00 AM CDT Plan of Treatment Health Maintenance Due Date Last Done Comments ADVANCE CARE PLANNING 1945 ANNUAL REVIEW OF HM ORDERS 1945 HEPATITIS B IMMUNIZATION (1 1945 of 3 - 3-dose series) HEPATITIS C SCREENING 12/29/1961 LIPID 12/29/1978 LUNG CANCER SCREENING 12/29/1993 ZOSTER IMMUNIZATION (1 of 12/29/1993 2) FALL RISK ASSESSMENT 12/29/2008 MEDICARE ANNUAL WELLNESS 12/29/2008 VISIT PHQ-2 (once per calendar 04/26/2021 year) COVID-19 Vaccine (4 - 07/18/2021 05/23/2021, 12/09/2020, Booster for Pfizer series) 11/18/2020 INFLUENZA VACCINE (#1) 2021 03/16/2013, 05/12/2012 DTAP/TDAP/TD IMMUNIZATION 12/07/2024 12/07/2014, 04/22/2011 , (2 - Td or Tdap) 12/10/2000, Additional history exists Pneumococcal Vaccine: 65+ Completed 05/13/2016, 12/07/2014 , Years 11/11/2009 IPV IMMUNIZATION Aged Out No longer eligi ble based on patient 's age to complete this topic MENINGITIS IMMUNIZATION Aged Out No longe r eligible based on patient 's age to complete this topic Procedures Procedure Name Priority Date/Time Associated Diagnosis [...] procedure are i n the results section. ANE AIRWAY ETT Routine 01/14/2022 7:56 AM Results for this PERFORMABLE CDT procedure are i n the results section. COLECTOMY, 01/14/2022 7:40 AM Malignant neoplasm ROBOT-ASSISTED CDT of colon, unspecified part of colon (H) POTASSIUM STAT 01/14/2022 6:28 AM Results f or this CDT procedure are i n the results section. EKG CARDIAC - HIM 01/12/2022 12:07 SCAN PM CDT EKG CARDIAC - HIM 01/12/2022 12:07 SCAN PM CDT ALT (EXTERNAL Routine 01/12/2022 11:35 Results fo r this RESULT) AM CDT procedure are i n the results section. AST (EXTERNAL Routine 01/12/2022 11:35 Results fo r this RESULT) AM CDT procedure are i n the results section. GLUCOSE (EXTERNAL Routine 01/12/2022 11:35 Result s for this RESULT) AM CDT procedure are i n the results section. CREATININE (EXTERNAL Routine 01/12/2022 11:35 Res ults for this RESULT) AM CDT procedure are i n the results section. POTASSIUM (EXTERNAL Routine 01/12/2022 11:35 Resu lts for this RESULT) AM CDT procedure are i n the results section. LAB RESULT - [facility] 01/12/2022 11:34 SCAN AM CDT LAB RESULT - [facility] 01/12/2022 11:34 SCAN AM CDT LAB RESULT - [facility] 01/12/2022 11:09 SCAN AM CDT LAB RESULT - [facility] 01/12/2022 11:09 SCAN AM CDT COVID-19 VIRUS Routine 01/12/2022 11:09 Results f or this (CORONAVIRUS) BY PCR AM CDT procedu re are in (EXTERNAL RESULT) the result s section. from Last 3 Months Results (ABNORMAL) MLH1 Promoter Methylation Tumor (01/20/2022 9:30 AM CDT) Component Value Ref Test Analysis Performed At [facility] gist Range Method Time Signature RESULTS [...] promoter hypermethylation in an individual meeting stringent [place] criteria. Clinical correlation is recommended. DISCLAIMER This test was developed and its performance characteristics determined by [facility]. It has not been cleared or [...] slides-Collect ed 01/14/22, Large Intestine, Colon, [id number] 01/20/2022 MOLECULAR Description [id number] A5 9:30 AM DIAGNOSTICS CDT (LDL) Specimen Anatomical Collection Method Collection Time Receive d Time (Source) Location / / Volume Laterality Fixed Tissue TOPOGRAPHY UNKNOWN Non-blood 01/20/2022 9:30 AM 4:05 / Unknown Collection / CDT PM CDT Unknown Melissa Stern MD LAB - GENOMICS Performing Organization Address City/State/ZIP Code Phon e Number MOLEC[place] [address] (LDL) Diagnostics [address] [facility] [address], Room 3-580 (ABNORMAL) Phosphorus (01/19/2022 7:05 AM CDT)Only the most recent of5 results within the time period is included. athologist Signature Phosphorus 2.0 (L) 2.5 - 4.5 01/19/2022 LABORATORY mg/dL 7:48 AM CDT Specimen Anatomical Collection Method / Collection Time Recei richard Time (Source) Location / Volume Laterality Blood STRUCTURE OF RIGHT Venipuncture / 01/19/2022 7:05 12/26 7:17 UPPER LIMB / Unknown AM CDT AM CDT Unknown Melissa Stern MD LAB - BLOOD ORDERABLES Performing Organization Address City/State/ZIP Code Phon e Number LABORATORY [facility] [place] [address] Care Lab [address] 1[address] floor, Room [address]B (ABNORMAL) Glucose by meter (01/19/2022 5:56 AM CDT)Only the most recent of6 resultswithin the time period is included. athologist Signature GLUCOSE BY 105 (H) 70 - 99 01/19/2022 LABORATORY METER POCT mg/dL 6:03 AM CDT POC Specimen (Source) Anatomical Collection Method Collection Time Re ceived Time Location / / Volume Laterality Blood, Capillary BLOOD SPECIMEN / 01/19/2022 5:56 12/26 6:03 Unknown AM CDT AM CDT Melissa Stern MD LAB - BEAKER POCT Performing Organization Address City/State/ZIP Code Phon e Number LABORATORY [place] [facility] [place] [phone] Care Lab [address] 1[address] floor, Room 20B (ABNORMAL) Renal panel (01/18/2022 6:01 AM CDT) [facility] gist Method Time Signature Sodium 141 [...] and gender (Yamilex et al., NEJM, DOI: 10.1056/[id number]) Specimen Anatomical Collection Method / Collection Time Recei richard Time (Source) Location / Volume Laterality Blood STRUCTURE OF LEFT Venipuncture / 01/18/2022 6:01 01/18 6:33 UPPER LIMB / Unknown AM CDT AM CDT Unknown Zahira Wyatt MD LAB - BLOOD ORDERABLES Performing Organization Address City/State/ZIP Code Phon e Number LABORATORY [facility] [phone] [facility] Lab [address] 1[address] floor, Room 20B Magnesium (01/18/2022 6:01 AM CDT)Only the most recent of2 resultswithin the time period is included. athologist Signature Magnesium 1.9 1.6 - 2.3 01/18/2022 LABORATORY mg/dL 7:03 AM CDT Specimen Anatomical Collection Method / Collection Time Recei richard Time (Source) Location / Volume Laterality Blood STRUCTURE OF LEFT Venipuncture / 01/18/2022 6:01 01/18 6:33 UPPER LIMB / Unknown AM CDT AM CDT Unknown Zahira Wyatt MD LAB - BLOOD ORDERABLES Performing Organization Address City/State/ZIP Code Phon e Number LABORATORY [facility] [address] [phone] Care Lab [address] 1[address], Room 20B (ABNORMAL) Platelet count (01/17/2022 6:17 AM CDT)Only the most recent of2 resultswithin the time period is included. P athologist Signature Platelet Count 141 (L) 150 - 450 01/17/2022 LABORATORY 10e3/uL 6:47 AM CDT Specimen Anatomical Collection Method / Collection Time Recei richard Time (Source) Location / Volume Laterality Blood STRUCTURE OF RIGHT Venipuncture / 01/17/2022 6:17 09/07/2021 6:30 UPPER LIMB / Unknown AM CDT AM CDT Unknown Melissa Stern MD LAB - BLOOD ORDERABLES Performing Organization Address City/State/ZIP Code Phon e Number LABORATORY [facility] [address] Care Lab [address] 1[address] floor, Room 20B (ABNORMAL) Basic metabolic panel (01/16/2022 6:52 AM CDT)Only the most recent of 2 resultswithin the time period is included. Analysis Performed At Patho logist Time Signature [...] and gender (Yamilex et al., NE, DOI: 10.1056/[id number]) Specimen Anatomical Collection Method / Collection Time Recei richard Time (Source) Location / Volume Laterality Blood STRUCTURE OF LEFT Venipuncture / 01/16/2022 6:52 01/16 7:12 UPPER LIMB / Unknown AM CDT AM CDT Unknown Jason Villareal PA-C LAB - BLOOD ORDERABLES Performing Organization Address City/State/ZIP Code [place] [address] [facility] Lab [address] 1[address] floor, Room 20B (ABNORMAL) CBC with platelets (01/15/2022 7:05 AM CDT) [facility] Method Time Signature WBC Count 7.4 [...] Unknown AM CDT AM CDT Unknown Melissa Stern MD LAB - BLOOD ORDERABLES Performing Organization Address City/State/ZIP Code [place] [address] [phone] [facility] Lab [address] 1[address] floor, Room 20B (ABNORMAL) Surgical Pathology Exam (01/14/2022 11:21 AM CDT) Component Value Ref Test Analysis Performed Pathologis t Range Method Time At Signature Case Report Surgical Pathology Report ? Case: [id number] ? Authorizing Provider: ??Melissa Luo MD ?? Collected: ? 01/14/2022 11:21 AM ? 2 9:12 AM LABORATOR Y Ordering Location: ? [facility] [place] ?Received: ?01/14/2022 12:24 PM ? CDT ? [facility] OR ? Pathologist: ? Mary Vegas MD [...] Buds: ?11 per 'hotspot' field ?? Tumor [place] Score: ?High (10 or more) ?? Type [...] Colon, RIGHT COLON AND TERMINAL ILE UM: RH Description The specimen is received in formalin, [...] A2-distal resection margin A3-mesenteric margin (inked blue) [id number]-cqha, submitted entirely A 13-entry level account representative sections of appendix A 14-3 possible [...] AM LABORATORY testing was completed CDT at [facility] Laboratory Case Images 2 9:12 AM LABORATORY CDT Specimen Anatomical Collection Method Collection Time Receive d Time (Source) Location / / Volume Laterality Tissue COLON STRUCTURE / 01/14/2022 11:21 2021 Unknown AM CDT 12:24 PM CDT Melissa Stern MD LAB - GUIDO MCPHERSON Performing Organization Address City/State/ZIP Code Phon e [place] [address] Care Lab [address] Lab (1st floor, no room number) [place] [address], [facility] Acute Care Lab [address] 1[address] floor, Room 20B ANE AIRWAY ETT PERFORMABLE (01/14/2022 7:56 AM CDT) Narrative Augustin Bruno APRN MANAGER MBA - 2 7:56 AM CDT Augustin Bruno APRN MANAGER MBA ? 01/14/2022 ??8:33 AM Airway ? Patient location during procedure : OR ? Procedure Start/Stop Times: 2021 7:56 AM Staff - ? Performed By: CRNAIndications and Patient Condition ? Indications for airway management : avtar-procedural ? Mask difficulty assessment: 2 - v ent by mask + OA or adjuvant +/- NMBA Final Airway Details ? Final airway type: endotracheal a irway ? Successful airway: ETT - single a nd Oral Endotracheal Airway Details ? ETT size (mm): 8.0 ? Cuffed: yes ? Successful intubation technique: video laryngoscopy ? Grade View of Cords: 1 ? Adjucts: stylet ? Position: Right ? Measured from: lips ? Secured at (cm): 24 ? Bite block used: None Post intubation assessment ? Placement verified by: capnometry and equal breath sounds ? Number of attempts at approach: 1 ? Number of other approaches attemp marty: 0 ? Secured with: pink tape ? Ease of procedure: easy ? Dentition: Unchanged (dentures re moved prior to OR) Medication(s) Administered Medication Administration Time: 7:56 AM Phil Jenkins MD [place] ANESTHESIA Potassium (01/14/2022 6:28 AM CDT) P athologist [...] Address City/State/ZIP Code [place] [address] Care Lab [address] 1[address] floor, Room 20B EKG CARDIAC - HIM SCAN (01/12/2022 12:07 PM CDT)Only the most recent of2 results within the time period is included. Specimen (Source) Anatomical Collection Method Collection Time Re ceived Time Location / / Volume Laterality 01/12/2022 12:07 PM CDT Narrative This result has an attachment that is no t available. Provider Outside ECG ORDERABLES Potassium (External Result) (01/12/2022 11:35 AM CDT) athologist Signature Potassium 3.9 3.6 - 5.1 BRYAN (External) mmol/L [facility] Specimen (Source) Anatomical Collection Method Collection Time Re ceived Time Location / / Volume Laterality Blood 01/12/2022 11:35 AM CDT [facility] - 01/12/2022 11:35 A M CDT LAB RESULT [facility] Provider Outside LAB - HIM EXTERNAL RESULT Performing Organization Address [facility]/ZIP [facility] Phon e Number [address] [address] Glucose (External Result) (01/12/2022 11:35 AM CDT) athologist Signature Glucose 107 60 - 115 BRYAN (External) mg/dL [facility] Specimen (Source) Anatomical Collection Method Collection Time Re ceived Time Location / / Volume Laterality Blood 01/12/2022 11:35 AM CDT [facility] - 01/12/2022 11:35 A M CDT LAB RESULT [facility] Provider Outside LAB - HIM EXTERNAL RESULT Performing Organization Address City/[facility] Phon e Number [address] [address] Creatinine (External Result) (01/12/2022 11:35 AM CDT) athologist Signature Creatinine 1.3 0.5 - 1.5 BRYAN (External) mg/dL [facility] Specimen (Source) Anatomical Collection Method Collection Time Re ceived Time Location / / Volume Laterality Blood 01/12/2022 11:35 AM CDT [facility] - 01/12/2022 11:35 A M CDT LAB RESULT [facility] Provider Outside LAB - HIM EXTERNAL RESULT Performing Organization Address City/[facility]/ZIP Code Phon e Number [address] [address] AST (External Result) (01/12/2022 11:35 AM CDT) athologist Signature AST (External) 28 12 - 35 [facility] Specimen (Source) Anatomical Collection Method Collection Time Re ceived Time Location / / Volume Laterality Blood 01/12/2022 11:35 AM CDT [facility] - 01/12/2022 11:35 A M CDT LAB RESULT [facility] Provider Outside LAB - HIM EXTERNAL RESULT Performing Organization Address City/[facility]/ZIP Code Phon e Number [address] [address] ALT (External Result) (01/12/2022 11:35 AM CDT) athologist [facility] ALT (External) 29 4 - 50 U/L [facility] Specimen (Source) Anatomical Collection Method Collection Time Re ceived Time Location / / Volume Laterality Blood 01/12/2022 11:35 AM CDT [facility] - 01/12/2022 11:35 A M CDT LAB RESULT [facility] Provider Outside LAB - HIM EXTERNAL RESULT Performing Organization Address City/[facility]/ZIP Code Phon e Number [address] [address] LAB RESULT - HIM SCAN (01/12/2022 11:34 AM CDT)Only the most recent of4 results within the time period is included. Specimen (Source) Anatomical Collection Method Collection Time Re ceived Time Location / / Volume Laterality 01/12/2022 11:34 AM CDT Narrative This result has an attachment that is no t available. Provider Outside NON-BEAKER LAB TESTING COVID-19 Virus (Coronavirus) by PCR (External Result) (01/12/2022 11:09 AM CDT) athologist Signature COVID-19 Virus Negative Negative NON-INTERFACE by PCR D (ONBASE (External SCANS) Result) Specimen (Source) Anatomical Collection Method Collection Time Re ceived Time Location / / Volume Laterality 01/12/2022 11:09 AM CDT Narrative [facility] - 01/23/2022 12:31 PM CDT Verified by Angie Harper on 01/23/2022. Provider Outside LABORATORY Performing Organization Address City/State/ZIP Code Phon e Number [facility] NON-INTERFACED (ONBASE SCANS) from Last 3 Months Insurance Payer Benefit Plan / Subscriber ID Effective Phone Address T ype Group Dates [facility] [id number] 2021-Prese [phone] [address] [facility] [address] [place] [phone] Advance Directives For more information, please contact: [phone] Latest Code Status on File Code Status Date Activated Date Inactivated Comments Full Code 01/14/2022 2:17 PM 01/19/2022 4:53 PM All basic an d advanced life-sustaining interventions are performed as ayse ropriate Question Answer Comments Code status determined by: Discussion with patient/ legal de cision maker Care Teams [facility] Manager Relationship Specialty Start Date End Date Clinic, [facility] PCP - General 12/24/[address] [place] [address]
--- OUTSIDE RECORDS SUMMARY | 2022-03-17 11:46 | XMS_ITS | Clinical Summary ---
:1945 Author Organization [employer] [facility] [place] [address] Care Team Providers Name Role Phone Gibson [...] tablet mouth once daily with a meal. Zqlar-1-YQE-EPA-Fish Take 1 Capsule by 0 Active Oil [...] LYN 03/29/2014 AHI-5.2, 12 in REM 04/02/2014 Social History Tobacco Use Types Packs/Day Years [...] 08/03/2016 COVID-19 vaccine series (4 - Booster 07/18/2021 05/23/2021, 12/09/2020, for Pfizer series) 11/18/2020 Influenza for age 65+ 12/25/2021 Results Not on filefrom Last 3 Months Insurance Payer Benefit Plan / Subscriber ID Effective Dates Phone Addre ss Type Group MEDICARE PART A - MEDICARE PART A [id number] 2008-Presen ATTN: CLAIMS HB USE ONLY HB ONLY t [address] [facility] [place] [address] [facility] MR [id number] 2021-Presen [address] [address] [place] [address] Advance Directives Latest Code Status on File [...] 6:54 AM 01/07/2007 1:28 PM Care Teams Sales Service Coordinator Relationship Specialty Start Date End Date Gibson Calix MD PCP - General Family Practice 10/09/20 9974 [address], [place] [address]
--- OUTSIDE RECORDS SUMMARY | 2022-03-17 11:47 | XMS_ITS | Encounter Summary ---
:1945 Author Organization [facility] Address [address] [place] [address] Care Team Providers Name Role Phone Clinic, [facility] Primary Care Provider [phone] Reason for Visit Auth/Cert Specialty Diagnoses / Procedures Referred By Contact Refer red To Contact Surgery Diagnoses Malignant neoplasm of colon, unspecified part of colon (H) Malignant neoplasm of colon, unspecified part of colon (H) [C18.9] Periop Services Procedures [facility] LAP,SURG,COLECTOMY, PARTIAL, W/ANAST [facility] LAP,SURG,COLECTOMY,W/END COLOST & CLOSUR [facility] LAP,SURG,COLECTOMY,W/ANAST [facility] LAP,SURG,COLECTOMY,W/ANAST,W/COLOSTOMY [facility] LAP,SURG,COLECTOMY,TOTAL,W/O PROCTECTOMY [address] [facility] LAP,SURG,COLECTOMY,TOTAL ,W/PROCTECTOMY [facility] LAP,SURG,COLECT,TOT,W/PROCTECT,W/ILEOST ROBOTIC RIGHT COLECTOMY LL[address] [place] [address] Phone: Referral ID Status Reason Start Date Expiration Date Visits Requ ested Visits Authorized [id number] 1 1 Encounter Details Date Type Department Care Team Description 01/14/2022 Anesthesia Event [facility] Seferino Jenkins MD [facility] PeriOP ASSOCIATED Services ANESTHESIOLOGISTS [address] , [address] [facility] [address] [place] [id number] IS[place]EL MUNOZ [id number] (Wo rk) Anesthesia Record Procedure Summary Procedure Name Responsible Anesthesia Start Anesthesia Stop Time Anesthesiologist Time ROBOTIC RIGHT Phil Jenkins MD 01/14/22 0740 01/14/22 1 221 COLECTOMY (Right: Abdomen) Events Date Time Event Comment 01/14/2022 0740 An Start 0740 An Start Data 0741 AN REASSESS I attest that I have identified and re-evaluated the patient immediat emma before the induction of anesthesia and I am satisfi ed that the anesthetic plan is suitable for the patient' s condition and procedure. The first vital signs benji rded are pre- induction. JATINDER Mello RNA 0750 An Induction 0756 An Intubation 0758 MD Present 0824 AN INCISION 0901 MD Present 1019 MD Present 1211 AN Extubation All extubation c paddy met prior to removal. 1213 Present 1215 an stop data 1221 An Stop Electronically s igned by Augustin Bruno APRN GROUND CREW CHIEF on January 14 12:21 PM Name Total dexamethasone 4mg/mL 4 mg ePHEDrine 5 mg/mL 10 mg fentaNYL (SUBLIMAZE) injection 100 mcg glycopyrrolate 0.2mg/mL 0.2 mg lidocaine 2% 100 mg ondansetron 2mg/mL 4 mg phenylephrine (RADHA-SYNEPHRINE) injection 150 mcg propofol (DIPRIVAN) injection 10 mg/mL vial 200 mg propofol infusion (mcg/kg/min) 717 mg rocuronium 10mg/mL 150 mg metroNIDAZOLE (FLAGYL) infusion 500 mg 0 mg ceFAZolin Sodium (ANCEF) injection 2 g 4 g phenylephrine 0.2 mg/mL (mcg/kg/min) drip 2.54 mg HYDROmorphone (DILAUDID) (PF) injection 0.5 mg/0.5 mL 1 mg dexmedetomidine (PRECEDEX) in NS syringe (4 mcg/mL) 20 mcg indocyanine green 25 mg 7.5 mg sugammadex (BRIDION) 200mg/2mL 400 mg lactated ringers infusion 1,700 mL Agents Name NO HELIOX O2 N2O Air Exp Sevoflurane Exp Isoflurane Exp Desflurane Exp N2O Ins Sevoflurane Ins Isoflurane Ins Desflurane O2 Auxiliary Blood No blood administrations on file. Lines, Drains, and Airways Type Details Placement Removal Peripheral IV 01/14/22; 0632; 18 G; 01/14/22 0632 by 01/16/22 0811 by BD; Anterior, Right; Gui Guerrier Lundquis t, Michelle Hand; Tolerated well ANA MARIA Warren, RN ETT Placement Date: 01/14/22 0756 by 01/14/22 1214 b y 01/14/22; Placement Augustin Bruno, Augustin Bruno, Time: 755 (created via LETTUCE CUTTER GROUND CREW CHIEF LETTUCE CUTTER CRN A procedure documentation); Mask Ventilation: 2; Ease of Intubation: Easy; Technique: Video laryngoscopy; ETT Type: Single, Oral; Tube Size: 8 mm; Grade View: 1; Adjucts: Stylet; Placement Person: GROUND CREW CHIEF; Attempts: 1; Depth: 24 cm Peripheral IV 01/14/22; 0758; 20 G; 01/14/22 0758 by 01/19/22 1302 by Left; Hand; Alcohol; Augustin Bruno, Riley York RN Tolerated well LETTUCE CUTTER GROUND CREW CHIEF Gastric Tube 01/14/22; 0801; 01/14/22 0801 by 01/14/22 1218 b y Decompression; 18 fr Augustin Bruno, Caroline Vázquez, ANA MARIA LETTUCE CUTTER GROUND CREW CHIEF Urethral Catheter 01/14/22; 1100; No 01/14/22 1100 by 01/15/22 1 030 by Kike Ceballos RN Prado, Norm B, R N Incision/Surgical Site 01/14/22; 1134; Abdomen; 01/14/22 1134 by 01/19/22 1302 by LAPAROSCOPIC PORT SITES Sierra Muñoz RN Mog es, Yonas W RN X 4; 01/19/22; 1302 Incision/Surgical Site 01/14/22; 1135; Lower, 01/14/22 1135 by 0 01/19/22 1302 by Transverse; 01/19/22; Sierra Muñoz RN Moges, Yonas W RN 1302 documented in this encounter Social History Tobacco Use Types Packs/Day Years [...] have Coronavirus/COVID-19? documented as of this encounter OR Notes Anesthesia Postprocedure Evaluation - Phil Jenkins MD - 01/14/2022 1:43 PM CDT Patient: Mele Curran Procedure: Procedure(s): ROBOTIC RIGHT COLECTOMY Anesthesia Type: General Note: Disposition: Admission Postop Pain Control: Uneventful Sign Out: Well controlled pain PONV: No Neuro/Psych: Uneventful Sign Out: Acceptable/Baseline neuro status Airway/Respiratory: Uneventful Sign Out: Acceptable/Baseline resp. status CV/Hemodynamics: Uneventful Sign Out: Acceptable CV status Other NRE: NONE DID A NON-ROUTINE EVENT OCCUR? No Event details/Postop Comments: Orders written for his CPAP to wear with sleep post-op. Last vitals: Vitals Value Taken Time BP 155/86 01/14/22 1340 Temp 36.2 ??C (97.2 ??F) 01/14/22 1218 Pulse 43 01/14/22 1342 Resp 17 01/14/22 1342 SpO2 98 % 01/14/22 1342 Vitals shown include unvalidated device data. Electronically Signed By: Phil Jenkins MD January 14, 2022 1:43 PM Anesthesia Procedure Notes - Augustin Bruno APRN GROUND CREW CHIEF - 01/14/2022 8:32 AM CDTAssociated Order(s): Airway Airway Patient location during procedure: OR Procedure Start/Stop Times: 01/14/2022 7:56 AM Staff - Performed By: VALERYIndications and Patient Condition Indications for airway management: avtar-procedural Mask difficulty assessment: 2 - vent by mask + OA or adjuvant +/- NMBA Final Airway Details Final airway type: endotracheal airway Successful airway: ETT - single and Oral Endotracheal Airway Details ETT size (mm): 8.0 Cuffed: yes Successful intubation technique: video laryngoscopy Grade View of Cords: 1 Adjucts: stylet Position: Right Measured from: lips Secured at (cm): 24 Bite block used: None Post intubation assessment Placement verified by: capnometry and equal breath sounds Number of attempts at approach: 1 Number of other approaches attempted: 0 Secured with: pink tape Ease of procedure: easy Dentition: Unchanged (dentures removed prior to OR) Medication(s) Administered Medication Administration Time: 01/14/2022 7:56 AM Anesthesia Preprocedure Evaluation - Phil Jenkins MD - 01/13/2022 11:17 AM CDT Anesthesia Pre-Procedure Evaluation Patient: Mele Curran : 1945 Procedure : Procedure(s): ROBOTIC RIGHT COLECTOMY Past Medical History: Diagnosis Date ??? Hypertension Past Surgical History: Procedure Laterality Date ??? BACK SURGERY ??? ORTHOPEDIC SURGERY No Known Allergies Social History Tobacco Use ??? Smoking status: Current Every Day Smoker ??? Smokeless tobacco: Not on file Substance Use Topics ??? 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 Technically limited exam. ??2. Echo contrast was administrered to enhance visualization of all left ventricular segments. ??3. Normal left ventricular size, mildly increased wall thickness, normal global systolic function,calculated EF of 67 %. ??4. Right ventricular cavity size is normal, global systolic RV function is normal. ??5. Mildly enlarged left atrium. ??6. The aortic valve is trileaflet and sclerotic, no stenosis and no regurgitation. ??7. Tricuspid regurgitation is mild regurgitation, the estimated right ventricular systolic pressure is 19 mmHg plus right atrial pressure. ??8. The inferior vena cava is dilated, respiratory size variation greater than 50%. ??9. The ascending aorta is normal for age/sex/bsa with a maximal diameter of 4.2 cm. 10. Trivial pericardial effusion. Chamber Sizes and Function Normal left ventricular size, mildly increased wall thickness, normal global systolic function, calculated EF of 67 %. Left atrial size is mildly enlarged. Right ventricular cavity size is normal, global systolic RV function is normal. RV wall thickness is normal. The right atrium is normal. Right atrial volume index is 14 ml/m?. Right atrial area is 15 cm?. The pulmonary artery is of normal size and origin. The sinus of Valsalva is normal sized. The ascending aorta is normal for age/sex/bsa. Valves, RV Pressures and Diastolic Function The aortic valve is trileaflet and sclerotic, no stenosis and no regurgitation. The mitral valve is normal in structure, no mitral regurgitation. Mild LV diastolic dysfunction. The tricuspid valve is normal in structure. Tricuspid regurgitation is mild regurgitation. The tricuspid regurgitant velocityis 2.2 m/s, the estimated right ventricular systolic pressure is 19 mmHg plus right atrial pressure.The pulmonic valve is normal. Trace pulmonary regurgitation. Masses, Effusion, Shunts There is trivial pericardial effusion. The inferior vena cava is dilated, respiratory size variationgreater than 50%. Interatrial septum is not well visualized. 05/17 Cardiology note He had an invasive coronary angiogram and a right heart catheterization in February of 2019 showingonly trivial coronary artery disease. (+) hypertension--CAD ---SOUSA. METS/Exercise Tolerance: Hematologic: Comments: Hgb 12.7 (+) anemia, Musculoskeletal: (+) arthritis, GI/Hepatic: (+) GERD, Renal/Genitourinary: Comment: Nocturia S/p TURP (+) renal disease, type: CRI, BPH, Endo: (+) Obesity, Psychiatric/Substance Use: - neg psychiatric ROS Infectious Disease: - neg infectious disease ROS Malignancy: Comment: Adeno Ca of Colon Other: Physical Exam Airway airway exam normal Mallampati: II TM distance: > 3 FB Neck ROM: full Mouth opening: > 3 cm Respiratory Devices and Support Dental (+) upper dentures and lower dentures Cardiovascular cardiovascular exam normal Rhythm and rate: regular and normal Pulmonary (+) decreased breath sounds OUTSIDE LABS: CBC: Lab Results Component Value Date WBC 5.7 11/28/2012 HGB 14.9 11/28/2012 HCT 44.4 11/28/2012 PLT 168 11/28/2012 BMP: Lab Results Component Value Date NA 145 (H) 11/28/2012 POTASSIUM 4.3 11/28/2012 CHLORIDE 107 11/28/2012 CO2 25 11/28/2012 BUN 16 11/28/2012 CR 0.99 11/28/2012 GLC 104 (H) 11/28/2012 COAGS: Lab Results Component Value Date INR 1.05 11/28/2012 POC: No results found for: BGM, HCG, HCGS HEPATIC: No results found for: ALBUMIN, PROTTOTAL, ALT, AST, GGT, ALKPHOS, BILITOTAL, BILIDIRECT, LITO OTHER: Lab Results Component Value Date HORACIO 9.6 11/28/2012 SED 8 11/28/2012 Anesthesia Plan ASA Status: 3 Anesthesia Type: General. - Airway: ETT Induction: Intravenous, Propofol. Maintenance: Balanced. Techniques and Equipment: - Airway: Video-Laryngoscope Consents Anesthesia Plan(s) and associated risks, benefits, and realistic alternatives discussed. Questions answered and patient/fulfillment representative(s) expressed understanding. - Discussed: - Discussed with: Patient - Extended Intubation/Ventilatory Support Discussed: Yes (Possible with COPD.). Postoperative Care Pain management: IV analgesics, Multi-modal analgesia. PONV prophylaxis: Ondansetron (or other 5HT-3), Dexamethasone or Solumedrol Comments: Phil Jenkins MD documented in this encounter Miscellaneous Notes Anesthesia Care Transfer Note - Augustin Bruno APRN CRNA - 01/14/2022 12:21 PM CDT Patient: Mele Curran Procedure: Procedure(s): ROBOTIC RIGHT COLECTOMY Diagnosis: Malignant neoplasm of colon, unspecified part of colon (H) [C18.9] Diagnosis Additional Information: No value filed. Anesthesia Type: General Note: Oropharynx: oropharynx clear of all foreign objects Level of Consciousness: awake Oxygen Supplementation: face mask Independent Airway: airway patency satisfactory and stable Vital Signs Stable: post-procedure vital signs reviewed and stable Report to RN Given: handoff report given Patient transferred to: PACU Handoff Report: Identifed the Patient, Identified the Reponsible Provider, Reviewed the pertinent medical history, Discussed the surgical course, Reviewed Intra-OP anesthesia mangement and issues during anesthesia, Set expectations for post-procedure period and Allowed opportunity for questions and acknowledgement of understanding Vitals: Vitals Value Taken Time BP Temp Pulse Resp 24 01/14/22 1218 SpO2 97 % 01/14/22 1218 Vitals shown include unvalidated device data. Electronically Signed By: Augustin Bruno APRN CRNA January 14, 2022 12:21 PM documented in this encounter Plan of Treatment Not on filedocumented as of this encounter Procedures Procedure Name Priority Date/Time Associated Comments Diagnosis ANE AIRWAY ETT Routine 01/14/2022 7:56 AM Results for this PERFORMABLE CDT procedure are i n the results section. documented in this encounter Results ANE AIRWAY ETT PERFORMABLE (01/14/2022 7:56 AM CDT) Narrative Augustin Bruno APRN CRNA - 7:56 AM CDT Augustin Bruno APRN CRNA ? 01/14/2022 ??8:33 AM Airway ? Patient [...] Administration Time: 7:56 AM Phil Jenkins MD [place] ANESTHESIA documented in this encounter Visit Diagnoses Not on filedocumented in this encounter Administered Medications Inactive Administered Medications - up to 3 most recent administrations Medication Order MAR Action Action Date Dose Rate Site ceFAZolin Sodium (ANCEF) injection Given 01/14/2022 12:00 PM CDT 2 g 2 g Routine, 2 g, Intravenous, PRE-OP/PRE-PROCEDURE, Starting on Wed01/14/22 at 0558, For 1 dose, Give first dose within 1 hour PRIOR to incision. If patient weight is greater than or equal to 120 kg increase dose to 3 g., Indications: Perioperative Pharmacoprophylaxis, Pre-procedure Given 01/14/2022 8:00 AM CDT 2 g dexamethasone (DECADRON) injection Given 01/14/2022 8:08 AM CDT 4 mg Intravenous, PRN, Administer over 1 Minutes, Starting on Wed01/14/22 at 0808, Anesthesia Intra-op dexmedetomidine (PRECEDEX) 4 mcg/mL in NS Given 01/14/2022 11:49 AM CDT 8 mcg PRE-MIX Intravenous, PRN, Starting on Wed01/14/22 at 0831, Anesthesia Intra-op Given 01/14/2022 8:31 AM CDT 12 mcg ePHEDrine injection Given 01/14/2022 9:07 AM CDT 5 mg Intravenous, PRN, Starting on Wed01/14/22 at 0812, Anesthesia Intra-op Given 01/14/2022 8:12 AM CDT 5 mg fentaNYL (PF) (SUBLIMAZE) injection Given 01/14/2022 7:51 AM CDT 100 mcg Intravenous, PRN, Administer over 3-5 Minutes, Starting on Wed01/14/22 at 0751, Anesthesia Intra-op glycopyrrolate (ROBINUL) injection Given 01/14/2022 8:16 AM CDT 0.2 mg Intravenous, PRN, Administer over 1-2 Minutes, Starting on Wed01/14/22 at 0816, Anesthesia Intra-op HYDROmorphone (PF) (DILAUDID) injection Given 01/14/2022 9:53 AM CDT 0.5 mg Intravenous, PRN, Administer over 2-10 Minutes, Starting on Wed01/14/22 at 0826, Anesthesia Intra-op Given 01/14/2022 8:26 AM CDT 0.5 mg indocyanine green (IC-GREEN) injection Given 01/14/2022 10:32 AM CDT 7.5 mg Intravenous, PRN, Starting on Wed01/14/22 at 1032, Anesthesia Intra-op lactated ringers infusion Restarted 01/14/2022 10:34 AM CDT at 25 mL/hr, Intravenous, CONTINUOUS, IF patient NOT on dialysis., Starting on Wed01/14/22 at 0600, Until Wed01/14/22 at 1426 New Bag 01/14/2022 9:47 AM CDT 1000 mL/hr Restarted 01/14/2022 7:40 AM CDT lidocaine 2% injection (MDV) Given 01/14/2022 7:53 AM CDT 100 mg Other, PRN, Starting on Wed01/14/22 at 0753, Anesthesia Intra-op ondansetron (ZOFRAN) injection Given 01/14/2022 11:21 AM CDT 4 mg Intravenous, PRN, Administer over 2-5 Minutes, Starting on Wed01/14/22 at 1121, Anesthesia Intra-op phenylephrine (RADHA-SYNEPHRINE) injection Bolus 01/14/2022 9:07 AM CDT 50 mcg Intravenous, CONTINUOUS PRN, Starting on Wed01/14/22 at 0812, Anesthesia Intra-op New Bag 01/14/2022 8:12 AM CDT 100 mcg phenylephrine 0.2 mg/mL Rate/Dose Change 01/14/2022 11:05 0.1 mcg/k g/min 3.603 mL/hr (mcg/kg/min) drip AM CDT Intravenous, CONTINUOUS PRN, Starting on Wed01/14/22 at 0811, Anesthesia Intra-op Restarted 01/14/2022 10:38 AM CDT 0.15 mcg/kg/min 5.405 mL/hr Rate/Dose Change 01/14/2022 9:52 AM CDT 0.15 mcg/kg/min 5.405 mL/hr propofol (DIPRIVAN) New Bag 01/14/2022 8:00 AM 30 mcg/kg/min 21.61 8 mL/hr injection 10 mg/mL vial CDT Intravenous, CONTINUOUS PRN, Starting on Wed01/14/22 at 0800, Anesthesia Intra-op propofol (DIPRIVAN) injection 10 mg/mL v ial Given 01/14/2022 7:53 AM CDT 200 mg Intravenous, PRN, Starting on Wed01/14/22 at 0753, Anesthesia Intra-op rocuronium injection Given 01/14/2022 10:26 AM CDT 20 mg Intravenous, PRN, Starting on Wed01/14/22 at 0818, Anesthesia Intra-op Given 01/14/2022 9:52 AM CDT 20 mg Given 01/14/2022 9:34 AM CDT 20 mg sugammadex (BRIDION) injection Given 01/14/2022 12:09 PM CDT 100 mg Intravenous, PRN, Starting on Wed01/14/22 at 1207, Anesthesia Intra-op Given 01/14/2022 12:07 PM CDT 300 mg documented in this encounter Care Teams Wholesale Buyer Relationship Specialty Start Date End Date [facility] PCP - General 12/24/[address] [place] [id number] documented as of this encounter
--- OUTSIDE RECORDS SUMMARY | 2022-03-17 11:47 | XMS_ITS | Encounter Summary ---
:1945 Author Organization [facility] Address [address] [place] [address] Care Team Providers Name Role Phone Hawa Razo Primary Care Provider Encounter Details Date Type Department Care Team Description 08/01/2020 Travel Social History Tobacco Use Types Packs/Day Years Used Date Smoking Tobacco: Every Day Alcohol Use Standard Drinks/Week Comments Yes 0 [...] on filedocumented in this encounter Care Teams Lead Recreation Assistant Relationship Specialty Start Date End Date Hawa Razo PCP - General Family Practice 05/04/13 12/23/21 documented as of this encounter
--- OUTSIDE RECORDS SUMMARY | 2022-03-17 11:47 | XMS_ITS | Encounter Summary ---
:1945 Author Organization [facility] Address [address] [place] [address] Care Team Providers Name Role Phone Hawa [...] on filedocumented in this encounter Care Teams Cork Tipper Relationship Specialty Start Date End Date Hawa Razo PCP - General Family Practice 05/04/13 12/23/21 documented as of this encounter
--- OUTSIDE RECORDS SUMMARY | 2022-03-17 11:47 | XMS_ITS | Encounter Summary ---
:1945 Author Organization [facility] Address [address] [place] [address] Care Team Providers Name Role Phone ShawnHawa terry Ann Primary Care Provider Reason for Visit Rehab Therapy Cardiac Therapy (Routine) - Closed Specialty Diagnoses / Procedures Referred By Contact Refer red To Contact CARDIAC REHAB Diagnoses COPD (chronic obstructive pulmonary disease) (H) Kelvin BAEZA [facility] [address] [place] [address] Phone: Fax: Referral ID Status Reason Start Date Expiration Date Visits Requ ested Visits Authorized [id number] Closed 07/04/2020 04/25/2021 72 72 Encounter Details Date Type Department Care Team Description 08/01/2020 Hospital Encounter [facility] [address] [place], [place] [id number] Cardiac and Pulmonary 1, Rh [facility] [id number] [place] [address] [address] [place] [address] Social History Tobacco Use Types [...] Sig Dispensed Refills Start Date End Date ciprofloxacin (CILOXAN) Instill 1-2 drops 1 Bottle 0 11/28 0.3 % ophthalmic solution in the affected eye(s) every 2 hours while awake for 2 days then 1-2 drops every 4 hours while awake for the next 5 days. fish oil-omega-3 fatty Take 1 g by mouth 0 acids 1000 MG capsule daily lisinopril (ZESTRIL) 20 MG Take 20 mg by mouth 0 tablet daily Saw [place], [place] Take 450 mg by 0 repens, (SAW PALMETTO mouth daily EXTRACT PO) SUMAtriptan (IMITREX) 50 Take 50 mg by mouth 0 MG tablet at onset of headache for migraine ASPIRIN PO Take 81 mg by mouth 0 01/13 Cholecalciferol (VITAMIN Take by mouth daily 0 01/13/2022 D3 PO) Multiple Vitamins-Minerals Take 1 tablet by 0 01/13/2022 (CENTRUM SILVER) per mouth daily tablet SUMAtriptan (IMITREX) 50 Take 1 tablet (50 8 tablet 0 08/201201/13/2022 MG tablet mg) by mouth at onset of headache for migraine May repeat dose in 2 hours. Do not exceed 200 mg in 24 hours VITAMIN E MTC PO Take 400 Units by 0 0 01/13/2022 mouth documented as of this encounter Plan of Treatment Not on filedocumented as of this encounter Visit Diagnoses Not on filedocumented in this encounter Care Teams Derrick Engineer Relationship Specialty Start Date End Date Hawa Razo PCP - General Family Practice 05/04/13 12/23/21 documented as of this encounter
--- OUTSIDE RECORDS SUMMARY | 2022-03-17 11:47 | XMS_ITS | Encounter Summary ---
:1945 Author Organization [facility] Address [address] [place] [address] Care Team Providers Name Role Phone ShawnHawa terry Ann Primary Care Provider Reason for Visit Rehab Therapy Cardiac Therapy (Routine) - Closed Specialty Diagnoses / Procedures Referred By Contact Refer red To Contact CARDIAC REHAB Diagnoses COPD (chronic obstructive pulmonary disease) (H) Kelvin BAEZA [facility] [address] [place] [address] Phone: Fax: Referral ID Status Reason Start Date Expiration Date Visits Requ ested Visits Authorized [id number] Closed 07/04/2020 04/25/2021 72 72 Encounter Details Date Type Department Care Team Description 07/30/2020 Hospital Encounter [facility] [address] [place], [place] [id number] Cardiac and Pulmonary 1, Rh Pulmonary Re[facility] [place] [id number] [place] [address] [address] [place] [address] Social History Tobacco Use Types [...] mg by mouth 0 tablet daily Saw [place], [place] Take 450 mg by 0 repens, [...] on filedocumented in this encounter Care Teams Culinary Chef Relationship Specialty Start Date End Date Hawa Razo PCP - General Family Practice 05/04/13 12/23/21 documented as of this encounter
--- OUTSIDE RECORDS SUMMARY | 2022-03-17 11:47 | XMS_ITS | Encounter Summary ---
:1945 Author Organization [facility] Address [address] [place] [address] Care Team Providers Name Role Phone Clinic, [facility] Primary Care Provider [phone] Encounter Details Date Type Department Care Team Description 01/12/2022 External Order [facility] Outside, Provide r Results Molecular Diagnostic s [address] [place] [address] Social History Tobacco Use Types Packs/Day Years [...] Name Priority Date/Time Associated Diagnosis Comme nts COVID-19 VIRUS Routine 01/12/2022 11:09 AM Result s for this (CORONAVIRUS) BY CDT procedure a re in PCR (EXTERNAL the results RESULT) section. documented in this encounter Results COVID-19 Virus (Coronavirus) by PCR (External Result) (01/12/2022 11:09 AM CDT) P athologist Signature COVID-19 Virus Negative Negative NON-INTERFACE by PCR D (ONBASE (External SCANS) Result) Specimen (Source) Anatomical Collection Method Collection Time Re ceived Time Location / / Volume Laterality 01/12/2022 11:09 AM CDT Narrative [facility]FT - 01/23/2022 12:31 PM CDT Verified by Angie Harper on 01/23/2022. Provider Outside LABORATORY Performing Organization Address City/State/ZIP Code Phon e Number [facility] NON-INTERFACED (ONBASE SCANS) documented in this encounter Visit Diagnoses Not on filedocumented in this encounter Care Teams Cable Maintainer Relationship Specialty Start Date End Date Clinic, [facility] PCP - General 12/24/[address] [place] [address] documented as of this encounter
--- OUTSIDE RECORDS SUMMARY | 2022-03-17 11:47 | XMS_ITS | Encounter Summary ---
:1945 Author Organization [place] Address [address] [place] [address]. [place] [address] Care Team Providers Name Role Phone Clinic, [facility] Primary Care Provider [phone] Reason for Visit Reason Comments Eye Problem Headache Encounter Details Date Type Department Care Team Description 11/28[facility]2012 [facility] Emergency Dep t MD Jm Chalazion of left upper eyelid [address] [facility] [place] [address] 54[address] [facility] [phone] [place], [place] [address] (Wo rk) Social History [...] cannot be sent through Care Everywhere. CHALAZION (INDONESIAN)documented in this encounter Medications at Time of [...] mg by mouth 0 tablet daily Saw [place], [place] Take 450 mg by 0 repens, [...] 01/13/2022 mouth documented as of this encounter ED [...] Aspirin Lisinopril Vitamin D3 Multivitamins Vitamin E [place]-3 Sumatriptan Succinate Past Medical History: Hypertension Migraines [...] care provider in 2-3 days, and at [facility] in 2-3 days if he continues to have symptoms. Diagnosis: 1. Migraine 2. Chalazion of upper L eyelid Clarita Boyd, am serving as a scribe at 12:37 PM on 11/28/2012 to document services personally performed by Phil Rushing MD, based on my observations and the provider's statements to me. Clarita Sal 11/28/2012 [facility] EMERGENCY DEPARTMENT Phil Rushing MD 11/30/12 0218 Juanita Leung, RN - 11/28/2012 12:33 PM CDT Pt [...] athologist Signature INR 1.05 0.86 - 1.14 [facility] Specimen Anatomical Collection Method Collection Time Receive d Time (Source) Location / / Volume Laterality Blood specimen 11/28/2012 1:30 PM 013 1:58 (specimen) CDT PM CDT Phil Rushing MD LAB - BLOOD ORDERABLES Performing Organization Address City/State/ZIP Code Phon e Number M [facility] [address] [address] [facility] Erythrocyte sedimentation rate auto (11/28/2012 1:30 PM CDT) P athologist Signature Sed Rate 8 0 - 20 mm/h [facility] Specimen Anatomical Collection Method Collection Time Receive d Time (Source) Location / / Volume Laterality Blood specimen 11/28/2012 1:30 PM 013 1:58 (specimen) CDT PM CDT Phil Rushing MD LAB - BLOOD ORDERABLES Performing Organization Address City/State/ZIP Code Phon e Augusto [facility] [address] [place], [place] [address] [facility] CBC with platelets differential (11/28/2012 1:30 PM CDT) [facility] gist Method Time Signature WBC 5.7 4.0 - [place] 11.0 [facility] 10e9/[facility] RBC Count 5.03 4.4 - 5.9 [place] 10e12/L [facility] Hemoglobin 14.9 13.3 - [place] 17.7 g/dL [facility] Hematocrit 44.4 40.0 - [place] 53.0 % [facility] MCV 88 78 - 100 [place] fl [facility] MCH 29.6 26.5 - [place] 33.0 pg [facility] MCHC 33.6 31.5 - [place] 36.5 g/dL [facility] RDW 14.0 10.0 - [place] 15.0 % [facility] Platelet Count 168 150 - 450 [place] 10e9/[facility] Diff Method Automated [facility] % Neutrophils 57.5 % [facility] % Lymphocytes 30.6 % [facility] % Monocytes 7.6 % [facility] % Eosinophils 3.7 % [facility] % Basophils 0.4 % [facility] % Immature 0.2 % [place] Granulocytes [facility] Absolute 3.3 1.6 - 8.3 [place] Neutrophil 10e9/L [facility] Absolute 1.7 0.8 - 5.3 [place] Lymphocytes 10e9/L [facility] Absolute 0.4 0.0 - 1.3 [place] Monocytes 10e9/L [facility] Absolute 0.2 0.0 - 0.7 [place] Eosinophils 10e9/L [facility] Absolute 0.0 0.0 - 0.2 [place] Basophils 10e9/L [facility] Abs Immature 0.0 0 - 0.4 [place] Granulocytes 10e9L [facility] Specimen Anatomical Collection Method Collection Time Receive d Time (Source) Location / / Volume Laterality Blood specimen 11/28/2012 1:30 PM 013 1:58 (specimen) CDT PM CDT Phil Rushing MD LAB - BLOOD ORDERABLES Performing Organization Address City/State/ZIP Code Phon hayes [place] [facility] [address] [place], [place] [address] [facility] (ABNORMAL) Basic metabolic panel (11/28/2012 1:30 PM CDT) [facility] Method Time Signature Sodium 145 (H) 133 - 144 [place] mmol/L [facility] Potassium 4.3 3.4 - 5.3 [place] mmol/L [facility] Chloride 107 94 - 109 [place] mmol/L [facility] Carbon Dioxide 25 20 - 32 [place] mmol/L [facility] Anion Gap 13 6 - 17 [place] mmol/L [facility] Glucose 104 (H) 60 - 99 [place] mg/dL [facility] Urea Nitrogen 16 7 - 30 [place] mg/dL [facility] Creatinine 0.99 0.66 - [facility] 1.25 [facility] mg/dL [facility] GFR Estimate Not Calculated >60 [place] mL/min/[address] [place] [address] LAB GFR Estimate Not Calculated >60 [place] If Black mL/min/[address] [place] [address] LAB Calcium 9.6 8.5 - [facility] 10.4 [facility] mg/dL [facility] Specimen Anatomical Collection Method Collection Time Receive d Time (Source) Location / / Volume Laterality Blood specimen 11/28/2012 1:30 PM 013 1:58 (specimen) CDT PM CDT Phil Rushing MD LAB - BLOOD ORDERABLES Performing Organization Address City/Special Care Hospital/ZIP Code Phon hayes [place] [facility] [address] [place], [place] [address] [facility] documented in this encounter Visit Diagnoses Diagnosis Migraine - Primary Chalazion of left upper eyelid Chalazion documented in this encounter Administered Medications Inactive [...] mg (COMPLETED) 1347 (Given - Provider: Hortencia [place]) 20 mg, Intravenous, ONCE, Wed11/28/12 at 1315, For 1 dose, Give IV Push over 2 to 4 minutes. diphenhydrAMINE (BENADRYL) injection 25 mg (COMPLETED) 1341 (Given - Provider: Hortencia [place]) 25 mg, Intravenous, ONCE, 11/28/12 at 1315, For 1 dose ketorolac (TORADOL) injection 15 mg (COMPLETED) 1344 (Given - Provider: Hortencia [place]) 15 mg, Intravenous, ONCE, 11/28/12 at 1315, For 1 dose, Do not give within 6 hours of Ibuprofen. prochlorperazine (COMPAZINE) injection 10 mg (COMPLETED) 1352 (Given - Provider: Hortencia [place]) 10 mg, Intravenous, ONCE, 11/28/12 at 1315, For 1 dose, Give IV push over 5 minutes. sodium chloride 0.9 % BOLUS 500 mL (COMPLETED) 1340 (New Bag - Provider: Hortencia [place])1410 (Stopped - Provider: Hortencia [place]) Intravenous, 500 mL, ONCE, at 500 mL/hr, for 1 Hours, 11/28/12 at 1315, For 1 dose SUMAtriptan (IMITREX) injection 6 mg (COMPLETED) 1358 (Given - Provider: Hortencia [place]) 6 mg, Subcutaneous, ONCE, 11/28/12 at 1315, For 1 dose, Do NOT give within 24 hours of DHE or another triptan medication.) Continuous Medication Order 11/26/2012 11/27/2012 11/28/2012 0.9 % sodium chloride IV solution (CANCELED) 1410 (New Bag - Provider: Hortencia [place]) at 125 mL/hr, Intravenous, CONTINUOUS, Administer after the bolu s. documented in this encounter Care Teams Crab Meat Processor Relationship Specialty Start Date End Date [facility] PCP - General 11/28/12 05/03/[address] [place] [address] documented as of this encounter
--- OUTSIDE RECORDS SUMMARY | 2022-03-17 11:47 | XMS_ITS | Encounter Summary ---
:1945 Author Organization [place] Address [address] [place] [address] Care Team Providers Name Role Phone Hawa [...] on filedocumented in this encounter Care Teams Sales Donor Recruitment Representative Relationship Specialty Start Date End Date Hawa Razo PCP - General Family Practice 05/04/13 12/23/21 documented as of this encounter
--- OUTSIDE RECORDS SUMMARY | 2022-03-17 11:47 | XMS_ITS | Encounter Summary ---
:1945 Author Organization [place] Address [address] [place] [address] Care Team Providers Name Role Phone Hawa Razo Primary Care Provider [facility] Primary Care Provider [phone] Reason for Referral Rehab Therapy Cardiac Therapy (Routine) - Closed Specialty Diagnoses / Procedures Referred By Contact Refer red To Contact CARDIAC REHAB Diagnoses COPD (chronic obstructive pulmonary disease) (H) Kelvin BAEZA [facility] [address] [place] [address] Phone: Fax: Referral ID Status Reason Start Date Expiration Date Visits Requ ested Visits Authorized [id number] Closed 07/04/2020 04/25/2021 72 72 NESS SUPPORT LIAISON Encounter Details Date Type Department Care Team Description 06/17/2020 Transcribe Orders GENERIC EXTERNAL DATA [facility] COPD (chronic [facility] obstructive pul monary CLINIC disease) (H) (Primary [address] Dx) [place] [address] Social History Tobacco Use Types Packs/Day Years Used Date Smoking Tobacco: Every Day Alcohol Use Standard Drinks/Week Comments Yes 0 (1 standard drink = 0.6 oz pure alcoho l) Sex Assigned at Date Recorded Not on file documented as of this encounter Plan of Treatment Scheduled Referrals Name Type Priority Associated Diagnoses Order S chedule PULMONARY REHAB Referral Routine COPD (chronic Expected: 0 06/17/2020, REFERRAL obstructive pulmonary s: 06/17/2021 disease) (H) documented as of this encounter Visit Diagnoses Diagnosis COPD (chronic obstructive pulmonary dise ase) (H) - Primary Chronic airway obstruction, not elsewher e classified documented in this encounter Care Teams Agronomy Specialist Relationship Specialty Start Date End Date Hawa Razo PCP - General Family Practice 05/04/13 12/23/21 [facility] PCP - General 12/24/[address] [place] [address] documented as of this encounter
--- OUTSIDE RECORDS SUMMARY | 2022-03-17 11:47 | XMS_ITS | Encounter Summary ---
:1945 Author Organization [place] Address [address] [place] [address] Care Team Providers Name Role Phone ShawnHawa terry Ann Primary Care Provider Reason for Visit Rehab Therapy Cardiac Therapy (Routine) - Closed Specialty Diagnoses / Procedures Referred By Contact Refer red To Contact CARDIAC REHAB Diagnoses COPD (chronic obstructive pulmonary disease) (H) Kelvin BAEZA [facility] [address] [place] [address] Phone: Fax: Referral ID Status Reason Start Date Expiration Date Visits Requ ested Visits Authorized [id number] Closed 07/04/2020 04/25/2021 72 72 Encounter Details Date Type Department Care Team Description 07/25/2020 Hospital Encounter [facility] [address] [place], [place] [id number] Cardiac and Pulmonary 1, Rh Pulmonary Rehab [facility] [address] [place] [address] [address] [place] [address] Social History Tobacco Use Types [...] mg by mouth 0 tablet daily Saw [place], [place] Take 450 mg by 0 repens, [...] on filedocumented in this encounter Care Teams Networks Software Consultant Relationship Specialty Start Date End Date Hawa Razo PCP - General Family Practice 05/04/13 12/23/21 documented as of this encounter
--- OUTSIDE RECORDS SUMMARY | 2022-03-17 11:47 | XMS_ITS | Encounter Summary ---
:1945 Author Organization [place] Address [address] [place] [address] Care Team Providers Name Role Phone Hawa [...] on filedocumented in this encounter Care Teams Golf Caddy Relationship Specialty Start Date End Date Hawa Razo PCP - General Family Practice 05/04/13 12/23/21 documented as of this encounter
--- OUTSIDE RECORDS SUMMARY | 2022-03-17 11:47 | XMS_ITS | Encounter Summary ---
:1945 Author Organization [place] Address [address] [place] [address] Care Team Providers Name Role Phone Hawa [...] on filedocumented in this encounter Care Teams Textile Coating Machine Operator Relationship Specialty Start Date End Date Hawa Razo PCP - General Family Practice 05/04/13 12/23/21 documented as of this encounter
--- OUTSIDE RECORDS SUMMARY | 2022-03-17 11:47 | XMS_ITS | Encounter Summary ---
:1945 Author Organization [place] Address [address] [place] [address] Care Team Providers Name Role Phone Hawa [...] with No / Unsure 07/04/2020 3:51 PM MEDICARE SALES EXECUTIVE someone who was confirmed or suspected to have Coronavirus / COVID-19? documented as of this encounter Plan of Treatment Not on filedocumented as of this encounter Visit Diagnoses Not on filedocumented in this encounter Care Teams Market Sales Manager Relationship Specialty Start Date End Date Hawa Razo PCP - General Family Practice 05/04/13 12/23/21 documented as of this encounter
--- OUTSIDE RECORDS SUMMARY | 2022-03-17 11:47 | XMS_ITS | Encounter Summary ---
:1945 Author Organization [place] Address [address] [place] [address]. [place] [address] Care Team Providers Name Role Phone Hawa Razo Primary Care Provider Encounter Details Date Type Department Care Team Description 07/06/2013 Office Visit [facility] Alonso Eli, Carpal t unnel syndrome, right (Primary Dx); Neurology Outreach Carpal tunnel syndrome, left [address] [place] [address] Social History Tobacco Use Types Packs/Day Years Used Date Smoking Tobacco: Every Day Alcohol Use Standard Drinks/Week Comments Yes 0 (1 standard drink = 0.6 oz pure alcoho l) Sex Assigned at Date Recorded Not on file documented as of this encounter Progress Notes Alonso Eli - 07/11/2013 6:56 AM CDT [facility] Alonso Eli - 07/11/2013 6:42 AM CDT [facility] [address] [address] RE: MELE HARRISON : 1945 VANITA: 07/06/2013 REFERRING: Hawa Razo MD, [facility] RIGHT AND LEFT UPPER EXTREMITY EMG EXAMINATION [...] left carpal tunnel syndrome. Alonso Eli MD [facility] Department of Neurology Hawa Razo MD [address] [address] [place]: Name: MELE HARRISON MRN: [id number] Account: [id number] : 1945 Service Date: 07/06/2013 Document: [id number] documented in this encounter Plan of Treatment [...] Carpal tunnel syndrome, left Carpal tunnel syndrome documented in this encounter Care Teams Bunch Trimmer Mold Relationship Specialty Start Date End Date Hawa Razo PCP - General Family Practice 05/04/13 12/23/21 documented as of this encounter
--- OUTSIDE RECORDS SUMMARY | 2022-03-17 11:47 | XMS_ITS | Encounter Summary ---
:1945 Author Organization [place] Address [address] [place] [address] Care Team Providers Name Role Phone ShawnHawa terry Ann Primary Care Provider Reason for Visit Rehab Therapy Cardiac Therapy (Routine) - Closed Specialty Diagnoses / Procedures Referred By Contact Refer red To Contact CARDIAC REHAB Diagnoses COPD (chronic obstructive pulmonary disease) (H) Kelvin BAEZA [facility] [address] [place] [address] Phone: Fax: Referral ID Status Reason Start Date Expiration Date Visits Requ ested Visits Authorized [id number] Closed 07/04/2020 04/25/2021 72 72 Encounter Details Date Type Department Care Team Description 07/18/2020 Hospital Encounter [facility] [address] [place], [place] [id number] Cardiac and Pulmonary 1, Rh Pulmonary Rehab Rehabilitation [place] [address] [place] [address] [address] [place] [address] Social History Tobacco Use Types [...] mg by mouth 0 tablet daily Saw [place], [place] Take 450 mg by 0 repens, [...] on filedocumented in this encounter Care Teams Preschool Assistant Director Relationship Specialty Start Date End Date Hawa Razo PCP - General Family Practice 05/04/13 12/23/21 documented as of this encounter
--- OUTSIDE RECORDS SUMMARY | 2022-03-17 11:47 | XMS_ITS | Encounter Summary ---
:1945 Author Organization [place] Address [facility] [place] [address] Care Team Providers Name Role Phone Hawa Razo Primary Care Provider Encounter Details Date Type Department Care Team Description 05/23/2013 Hospital Encounter [facility] [address] [place] [phone] Social History Tobacco Use Types Packs/Day Years [...] mg by mouth 0 tablet daily Saw [place], [place] Take 450 mg by 0 repens, [...] Take 1 tablet (50 8 tablet 0 08/08/201201/13/2022 MG tablet mg) by mouth at onset [...] 3:25 PM Re sults for this ABDOMEN CHILLING HOOD OPERATOR procedure are i n the results section. documented in this encounter Results CT Digital Archive-Non [place] (05/23/2013 3:25 PM CHILLING HOOD OPERATOR) Anatomical Region Laterality Modality Computed Radiography Specimen (Source) Anatomical Location Collection Method / Collectio n Time Received Time / Laterality Volume Narrative 05/23/2013 3:25 PM CHILLING HOOD OPERATOR <!--EPICS-->Digitized exam for comparison only; no results available<!--EPICE--> Procedure Note Ignacia Bettencourt - 05/23/2013 <!--EPICS-->Digitized exam for compariso n only; no results available<!--EPICE--> Radiology Non-Fv Credentialed Provider IMG EXTERNAL IM AGING ORDERABLES documented in this encounter Visit Diagnoses Not on filedocumented in this encounter Care Teams Stock Broker Relationship Specialty Start Date End Date Hawa Razo PCP - General Family Practice 05/04/13 12/23/21 documented as of this encounter
--- OUTSIDE RECORDS SUMMARY | 2022-03-17 11:47 | XMS_ITS | Encounter Summary ---
:1945 Author Organization [place] Address [address] [place] [address] Care Team Providers Name Role Phone ShawnHawa terry Ann Primary Care Provider Reason for Visit Rehab Therapy Cardiac Therapy (Routine) - Closed Specialty Diagnoses / Procedures Referred By Contact Refer red To Contact CARDIAC REHAB Diagnoses COPD (chronic obstructive pulmonary disease) (H) Kelvin BAEZA [facility] [address] [place] [address] Phone: Fax: Referral ID Status Reason Start Date Expiration Date Visits Requ ested Visits Authorized [id number] Closed 07/04/2020 04/25/2021 72 72 Encounter Details Date Type Department Care Team Description 07/15/[facility] [address] [place], [place] [id number] Cardiac and Pulmonary 2, Rh Pulmonary Rehab Rehabilitation [place] [address] [place] [address] [address] [place] [address] Social History Tobacco Use Types [...] mg by mouth 0 tablet daily Saw [place], [place] Take 450 mg by 0 repens, [...] on filedocumented in this encounter Care Teams Mother'S Helper Relationship Specialty Start Date End Date Hawa Razo PCP - General Family Practice 05/04/13 12/23/21 documented as of this encounter
--- OUTSIDE RECORDS SUMMARY | 2022-03-17 11:47 | XMS_ITS | Encounter Summary ---
:1945 Author Organization [place] Address [address] [place] [address] Care Team Providers Name Role Phone Hawa Razo Primary Care Provider Reason for Referral Rehab Therapy Cardiac Therapy (Routine) - Closed Specialty Diagnoses / Procedures Referred By Contact Refer red To Contact CARDIAC REHAB Diagnoses COPD (chronic obstructive pulmonary disease) (H) [facility] [address] [place] [address] Phone: Fax: Referral ID Status Reason Start Date Expiration Date Visits Requ ested Visits Authorized [id number] Closed 07/04/2020 04/25/2021 72 72 PRODUCTION SUPERVISOR Reason for Visit Rehab Therapy Cardiac Therapy (Routine) - Closed Specialty Diagnoses / Procedures Referred By Contact Refer red To Contact CARDIAC REHAB Diagnoses COPD (chronic obstructive pulmonary disease) (H) [facility] [address] [place] [address] Phone: Fax: Referral ID Status Reason Start Date Expiration Date Visits Requ ested Visits Authorized [id number] Closed 07/04/2020 04/25/2021 72 72 Encounter Details Date Type Department Care Team Description 07/04/2020 [facility] [address] [place] [address] COPD (chronic Encounter Cardiac and Pulmonary 1, Rh Pulmonary Rehab obstructive Rehabilitation pulmonary dis ease) [place] (H) [address] [facility] [address] [place] [address] Social History Tobacco Use Types Packs/Day Years Used Date Smoking Tobacco: Every Day Alcohol Use Standard Drinks/Week Comments Yes 0 (1 standard drink = 0.6 oz pure alcoho l) Sex Assigned at Date Recorded Not on file COVID-19 Exposure Response Date Recorded In the last month, have you been in contact with No / Unsure 07/04/2020 3:51 PM SKI PRODUCTION SUPERVISOR someone who was confirmed or suspected to [...] mg by mouth 0 tablet daily Saw [place], [place] Take 450 mg by 0 repens, [...] Take 1 tablet (50 8 tablet 0 /08/201201/13/2022 MG tablet mg) by mouth at onset [...] OXIMETRY - HIM SCAN 07/04/2020 12:00 AM SKI PRODUCTION SUPERVISOR documented in this encounter Results OXIMETRY - HIM SCAN (07/04/2020 12:00 AM SKI PRODUCTION SUPERVISOR) Specimen (Source) Anatomical Location Collection Method / Collectio n Time Received Time / Laterality Volume 07/04/2020 Narrative This result has an attachment that is no t available. Provider Scan PFT ORDERABLES documented in this encounter Visit Diagnoses Diagnosis COPD (chronic obstructive pulmonary dise ase) (H) Chronic airway obstruction, not elsewher e classified documented in this encounter Care Teams Construction Flagger Relationship Specialty Start Date End Date Hawa Razo PCP - General Family Practice 05/04/13 12/23/21 documented as of this encounter
--- OUTSIDE RECORDS SUMMARY | 2022-03-17 11:47 | XMS_ITS | Encounter Summary ---
:1945 Author Organization [facility] Address [address] [place] [address] Care Team Providers Name Role Phone Clinic, [facility] Primary Care Provider [phone] Reason for Visit Auth/Cert Specialty Diagnoses / Procedures Referred By Contact Refer red To Contact Surgery Diagnoses Malignant neoplasm of colon, unspecified part of colon (H) Malignant neoplasm of colon, unspecified part of colon (H) [C18.9] Periop Services Procedures [facility] LAP,SURG,COLECTOMY, PARTIAL, W/ANAST [facility] LAP,SURG,COLECTOMY,W/END COLOST & CLOSUR [facility] LAP,SURG,COLECTOMY,W/ANAST [facility] LAP,SURG,COLECTOMY,W/ANAST,W/COLOSTOMY [facility] LAP,SURG,COLECTOMY,TOTAL,W/O PROCTECTOMY [address], [address] [facility] LAP,SURG,COLECTOMY,TOTAL ,W/PROCTECTOMY ZZ[facility] LAP,SURG,COLECT,TOT,W/PROCTECT,W/ILEOST ROBOTIC RIGHT COLECTOMY [address] [address] Phone: Referral ID Status Reason Start Date Expiration Date Visits Requ ested Visits Authorized [id number] 1 1 Encounter Details Date Type Department Care Team Description 01/14/2022 Surgery [facility] Melissa Bustos TIC RIGHT COLECTOMY Vasu Seals MD Services COLO & RECTAL [address], [address] SURGERY [address] [address] [place] [address] [place] [id number] (Wo rk) Surgery Details Date/Time Status Location OR Service Patient Case Case Traum a Class Class Type Case? 01/14/22 7:30 Posted SH OR R 02 [place] AM Admit Panel 1 Procedure LRB Anes Op Region Wound Class Commen ts ROBOTIC RIGHT COLECTOMY Right General Abdomen II-Clean Con taminated Surgeon Surgeon Role Service Panel Melissa Bustos MD Primary [place] 1 Hussain Barney MD Assisting [facility] General 1 Hussain Barney MD Assisting [facility] General 1 Maia, Isabell Zapata PA-C Assisting 1 documented in this encounter Social History Tobacco [...] Sign Reading Time Taken Comments Blood Pressure 149/89 01/14/2022 7:00 AM CDT Pulse 57 01/14/2022 7:00 AM CDT Temperature 36.2 ??C (97.1 ??F) 01/14/2022 7:00 AM CDT Respiratory Rate - - Oxygen Saturation 100% 01/14/2022 7:00 AM CDT Inhaled Oxygen Concentration - - Weight 120.1 kg (264 lb 11.2 oz) 01/14/2022 7:00 AM CDT Height 180.3 cm (5' 11) 01/14/2022 7:00 AM CDT Body Mass Index 36.92 01/14/2022 7:00 AM CDT documented in this encounter Discharge Summaries Jason Villareal PA-C - 01/19/2022 12:19 PM CDT Images from the original note were not included. [facility] Discharge Summary Mele Curran Age: [age] year old Date of : 1945 Date of Admission: 01/14/2022 Date of Discharge:: 01/19/2022 Admitting Physician: Melissa Bustos MD Discharge Physician: Melissa Bustos MD PCP: Namita, [facility] Disposition: Patient discharged from [facility] to home in stable condition. Primary Diagnosis: [...] capsule Take 1 g by mouth daily Agumznrqzxd-Xncdsjois-Fapkgpcxsn (TRELEGY ELLIPTA) 100-62.5-25 MCG/INH oral inhaler Inhale 1 puff into the lungs daily ipratropium - albuterol 0.5 mg/2.5 mg/3 mL (DUONEB) 0.5-2.5 (3) MG/3ML neb solution Take 1 vial by nebulization every 6 hours as needed for shortness of breath / dyspnea or wheezing lisinopril (ZESTRIL) 20 MG tablet Take 20 mg by mouth daily Saw [place], Serenoa repens, (SAW PALMETTO EXTRACT PO) Take [...] scrub Procedures: Procedure(s): Robotic right colectomy Consultations: Spiritual health, PT Brief Hospital Summary: Patient is a 76 year old male who underwent a Robotic right colectomy on 01/14/[address] Bustos. There were no immediate complications during this [...] and imaging. Jason Villareal PA-C Colorectal Physician [employer] Corrosion Proofer [facility] [address] [address] T: [phone] F: [phone] ADDENDUM: Length of stay: 5 days Indicate Y or N for the following: UTI No C diff No PNA No SSI No DVT No PE No CVA No CO No Enterocutaneous fistula No Peripheral nerve injury [...] mouth 0 acids 1000 MG capsule daily Pfmzzvxvnop-Brbifmaoq-L Inhale 1 puff into the 0 ilanterol (TRELEGY lungs daily ELLIPTA) 100-62.5-25 MCG/INH oral inhaler ipratropium - albuterol Take 1 vial by 0 0.5 mg/2.5 mg/3 mL nebulization every 6 (DUONEB) 0.5-2.5 (3) hours as needed for MG/3ML neb solution shortness of breath / dyspnea or wheezing lisinopril (ZESTRIL) 20 Take 20 mg by mouth 0 MG tablet daily Saw [place], Serenoa Take 450 mg by mouth 0 [...] Chelsea Angela - 01/19/2022 10:52 AM CDT [facility] Progress Note [facility] General Surgery Saw ptnt per follow-up request. Visit was short; he's hoping to be discharged soon. services remain available. Shelli OlivaDiv Land Inspector [phone] Isabell Azar PA-C - 01/19/2022 8:46 AM CDT Images [...] questions/paging, please contact the CRS office at [phone]. Isabell Azar PA-C Colorectal Physician [employer] [facility] [address] [address] T: [phone] F: [phone] Andrea York RN - 01/18/2022 10:32 PM CDT A&Ox4. Pleasant. Slightly [place]. Pain well managed with PRN PO APAP. [...] Surgery Note Assessment and Plan: POD#4 Rt ravi Interval History: Bryan is doing much better [...] Surgery Note Assessment and Plan: POD#3 Rt Ravi Interval History: Patient is feeling even more [...] AM CDT SPIRITUAL HEALTH SERVICES Progress Note [facility] General Surgery Saw pt per epic request. Ptnt expressed interest in watching a L[employer] Day mass, asked for what channels to find them on. I got a list of channels for him frm the nurse's station and highlighted which ones have mass. He did not have any other spiritual health requests. SH remain available. [facility] Land Inspector Eexhe-[phone] Isabell Azar PA-C - 01/16/2022 9:02 AM [...] questions/paging, please contact the CRS office at [phone]. Isabell Azar PA-C Colorectal Physician [employer] [facility] [address] [address] T: [phone] F: [phone] Norm Recinos RN - 01/15/2022 6:02 PM CDT Reason [...] questions/paging, please contact the CRS office at [phone]. Jason Villareal PA-C Colorectal Physician [employer] [facility] [address] [facility] [address] [address] T: F: Colon and Rectal Surgery Staff I performed a history and physical examination of the patient and discussed their management with the physician trust manager assistant. I reviewed the physician assistants note and agree with the documented findings and plan of care. Overall doing well. Reports new right lateral thigh pain after receiving heparin injection this am. Tolerating diet. Denies n/v. abd soft, distended, ttp per incisons Incisions c/d/i Plan: Ok for fulls Cont IVFs IV/PO pain meds Heparin for DVT ppx Monitor leg pain. Justin Bustos MD, FACS [facility] [address] [facility] [address] [address] T: F: Shiloh Garner - 01/13/2022 11:55 AM CDT [employer] medications updated by Medication Scribe prior to [...] the following meds (med scribe removed from [employer] med list): CHLORTHALIDONE 25MG QD Additional medication [...] Medication Sig Last Dose Taking? Auth Provider Prison End Date acetaminophen (TYLENOL 8 HOUR ARTHRITIS [...] mouth daily at AM Yes Reported, Patient Igjaxxpzlcy-Plrsdpxbu-Arbbutmcsw (TRELEGY ELLIPTA) 100-62.5-25 MCG/INH oral inhaler Inhale [...] at AM Yes Reported, Patient Yes Saw [place], Serenoa repens, (SAW PALMETTO EXTRACT PO) Take [...] AAR. Enoxaparin 40mg x 28 syringes: $40. -S. Wilberto, Director Food And Beverage/Liaison, Discharge Pharmacy [phone] documented in this encounter Miscellaneous Notes Plan [...] Azar PA-C - 01/14/2022 12:06 PM CDT [facility] Brief Operative Note Pre-operative diagnosis: Malignant [...] PA-C [facility] [phone]. ADDENDUM: PATIENT DATA Indicate Y or N: [...] laparoscopic right hemicolectomy with intracorporeal anastomosis SURGEON: Justin Bustos MD BLEDSOE: Hussain Barney MD MILL ROLL OPERATOR: Isabell Azar PA-C SECOND WRINKLE CHASER: Elke Wyatt MD, [facility] Colorectal Surgery Fellow ANESTHESIA: General. ESTIMATED BLOOD [...] bowel was then lined up for a gtkf-dj-azva gjietszbfbazc-eu-wbn isoperistaltic anastomosis. A stay suture of 3-0 Vicryl was placed on the proximal colon side. Antimesenteric enterotomies were made. This allowed us to fashion a 60 mm blue load robotic GIAstapler within the lumen to create a wnzp-qt-nldf functional end-to-end anastomosis. The common enterotomy was [...] at the end of the case x2. JUSTIN BUSTOS MD documented in this encounter Plan [...] n the results section. EKG CARDIAC - [facility] 01/12/2022 12:07 SCAN PM CDT EKG CARDIAC - [facility] 01/12/2022 12:07 SCAN PM CDT LAB RESULT - [facility] 01/12/2022 11:34 SCAN AM CDT LAB RESULT - [facility] 01/12/2022 11:34 SCAN AM CDT LAB RESULT - [facility] 01/12/2022 11:09 SCAN AM CDT LAB RESULT - [facility] 01/12/2022 11:09 SCAN AM CDT documented in this encounter Results (ABNORMAL) MLH1 Promoter Methylation Tumor (01/20/2022 9:30 AM CDT) Component Value Ref Test Analysis Performed At [facility] gist Range Method Time Signature RESULTS MLH1 [...] Positive for ML H1 promoter methylation. 01/20/2022 [facility] (Electronically signed by: Berny Arauz MD January 27, 2022 2:19 PM) 9:30 AM DIAGNOSTICS CDT (LDL) COMMENTS MLH1 promoter 01/20/2022 [facility] methylation is 9:30 AM DIAGNOSTICS typically [...] promoter hypermethylation in an individual meeting stringent [place] criteria. Clinical correlation is recommended. DISCLAIMER This test was developed and its performance characteristics determined by [facility]. It has not been cleared or [...] slides-Collect ed 01/14/22, Large Intestine, Colon, [id number] 01/20/2022 [facility] Description [id number] A5 9:30 AM DIAGNOSTICS CDT (LDL) Specimen Anatomical Collection Method Collection Time Receive d Time (Source) Location / / Volume Laterality Fixed Tissue TOPOGRAPHY UNKNOWN Non-blood 01/20/2022 9:30 AM 4:05 / Unknown Collection / CDT PM CDT Unknown Melissa Bustos MD LAB - GENOMICS Performing Organization Address City/State/ZIP Code Phon e Number MOLECULAR [place] [address] (LDL) Diagnostics [address] [facility] [address], Room 3-580 (ABNORMAL) Phosphorus (01/19/2022 7:05 AM CDT) P athologist Signature Phosphorus 2.0 (L) 2.5 - 4.5 01/19/2022 LABORATORY mg/dL 7:48 AM CDT Specimen Anatomical Collection Method / Collection Time Recei richard Time (Source) Location / Volume Laterality Blood STRUCTURE OF RIGHT Venipuncture / 01/19/2022 7:05 0909/2021 7:17 UPPER LIMB / Unknown AM CDT AM CDT Unknown Melissa Bustos MD LAB - BLOOD ORDERABLES Performing Organization Address City/Va Hospital/ZIP Code Phon e Number LABORATORY [facility] [place] [address] Care Lab [address]st [...] City/State/ZIP Code Phon e Number LABORATORY [place] [facility] [place] [address] Care Lab [address] 1st [...] LAB - BEAKER POCT Performing Organization Address City/Va Hospital/ZIP Code Phon e Number LABORATORY [place] [facility] [place] [address] Care Lab [address] 1[address] floor, Room 20B Magnesium (01/18/2022 6:01 AM CDT) P athologist Signature Magnesium 1.9 1.6 - 2.3 01/18/2022 LABORATORY mg/dL 7:03 AM CDT Specimen Anatomical Collection Method / Collection Time Recei richard Time (Source) Location / Volume Laterality Blood STRUCTURE OF LEFT Venipuncture / 01/18/2022 6:01 01/18 6:33 UPPER LIMB / Unknown AM CDT AM CDT Unknown Zahira Wyatt MD LAB - BLOOD ORDERABLES Performing Organization Address City/Va Hospital/ZIP Code Phon e Number LABORATORY [facility] [place] [address] Care Lab [address] 1[address] floor, Room 20B (ABNORMAL) Renal panel (01/18/2022 6:01 AM CDT) Patholo gist Method Time Signature Sodium 141 133 [...] and gender (Yamilex et al., NEJ, DOI: 10.1056/[id number]) Specimen Anatomical Collection Method / Collection Time Recei richard Time (Source) Location / Volume Laterality Blood STRUCTURE OF LEFT Venipuncture / 01/18/2022 6:01 01/18 6:33 UPPER LIMB / Unknown AM CDT AM CDT Unknown Zahira Wyatt MD LAB - BLOOD ORDERABLES Performing Organization Address City/State/ZIP Code Phon e Number [facility] [place] [address] [phone] [facility] Lab [address] floor, Room 20B (ABNORMAL) Platelet count (01/17/2022 6:17 AM CDT) P athologist Signature Platelet Count 141 (L) [...] Address City/State/ZIP Code Phon e Number LABORATORY [facility] [place] [address] Care Lab [address] 1st [...] Address City/State/ZIP Code Phon e Number LABORATORY [facility] [place] [address] [phone] Care Lab [address] 1[address] floor, Room 20B (ABNORMAL) Glucose by meter (01/16/2022 5:19 PM CDT) athologist Signature GLUCOSE BY 113 (H) 70 - 99 01/16/2022 LABORATORY METER POCT mg/dL 5:26 PM CDT POC Comment: /RN Notified Specimen (Source) Anatomical Collection Method Collection Time Re ceived Time Location / / Volume Laterality Blood, Capillary BLOOD SPECIMEN / 01/16/2022 5:19 09/06/2021 5:26 Unknown PM CDT PM CDT Melissa Bustos MD LAB - BEAKER POCT Performing Organization Address City/State/ZIP Code Phon e Number LABORATORY [place] [facility] [place] [address] Care Lab [address] 1st [...] Address City/State/ZIP Code Phon e Number LABORATORY [facility] [place] [address] [phone] Care Lab [address] 1[address] floor, Room 20B (ABNORMAL) Phosphorus (01/16/2022 6:52 AM CDT) P athologist Signature Phosphorus 2.4 (L) 2.5 - [...] Address City/State/ZIP Code Phon e Number LABORATORY [facility] [address] Care Lab [address] 1[address] [...] and gender (Yamilex et al., NE, DOI: 10.1056/[id number]) Specimen Anatomical Collection Method / Collection Time Recei richard Time (Source) Location / Volume Laterality Blood STRUCTURE OF LEFT Venipuncture / 01/16/2022 6:52 01/16 7:12 UPPER LIMB / Unknown AM CDT AM CDT Unknown Jason Villareal PA-C LAB - BLOOD ORDERABLES Performing Organization Address City/State/ZIP Code Phon e Number LABORATORY [facility] [place] [address] Care Lab [address] 1[address] floor, Room 20B (ABNORMAL) Glucose by meter (01/16/2022 6:03 AM CDT) athologist Signature GLUCOSE BY 121 (H) 70 [...] City/State/ZIP Code Phon e Number LABORATORY [place] [facility] [place] [address] Care Lab [address] 1[address] floor, Room 20B (ABNORMAL) Glucose by meter (01/15/2022 5:51 PM CDT) P athologist Signature GLUCOSE BY 109 (H) 70 - 99 01/15/2022 LABORATORY METER POCT mg/dL 5:58 PM CDT POC Specimen (Source) Anatomical Collection Method Collection Time Re ceived Time Location / / Volume Laterality Blood, Capillary BLOOD SPECIMEN / 01/15/2022 5:51 09/2 05/2021 5:58 Unknown PM CDT PM CDT Melissa Bustos MD LAB - BEAKER POCT Performing Organization Address City/State/ZIP Code Phon e Number LABORATORY [place] [facility] [place] [address] Care Lab [address] 1st [...] Address City/State/ZIP Code Phon e Number LABORATORY [facility] [address] Care Lab [address] 1st [...] Address City/State/ZIP Code Phon e Number LABORATORY [facility] [address] Care Lab [address] 1[address] floor, Room 20B (ABNORMAL) CBC with platelets (01/15/2022 7:05 AM CDT) [facility] Method Time Signature WBC Count 7.4 [...] Address City/State/ZIP Code Phon e Number LABORATORY [facility] [place] [address] Care Lab [address] 1[address] floor, Room 20B (ABNORMAL) Basic metabolic panel (01/15/2022 7:05 AM CDT) [facility] Method Time Signature Sodium 139 133 [...] and gender (Yamilex et al., NEJM, DOI: 10.1056/[id number]) Specimen Anatomical Collection Method / Collection Time Recei richard Time (Source) Location / Volume Laterality Blood STRUCTURE OF LEFT Venipuncture / 01/15/2022 7:05 01/15 7:48 UPPER LIMB / Unknown AM CDT AM CDT Unknown Melissa Bustos MD LAB - BLOOD ORDERABLES Performing Organization Address City/State/ZIP Code Phon e Number LABORATORY [facility] [address] Care Lab [address] 1[address] floor, Room 20B (ABNORMAL) Glucose by meter (01/15/2022 5:50 AM CDT) P athologist Signature GLUCOSE BY 100 (H) 70 - 99 01/15/2022 LABORATORY METER POCT mg/dL 5:57 AM CDT POC Specimen (Source) Anatomical Collection Method Collection Time Re ceived Time Location / / Volume Laterality Blood, Capillary BLOOD SPECIMEN / 01/15/2022 5:50 12/26 5:57 Unknown AM CDT AM CDT Melissa Bustos MD LAB - BEAKER POCT Performing Organization Address City/Va Hospital/ZIP Code Phon e Number LABORATORY [place] [facility] [place] [address] Care Lab [address] 1[address] floor, Room 20B (ABNORMAL) Platelet count (01/14/2022 6:01 PM CDT) P athologist Signature Platelet Count 147 (L) 150 [...] Address City/State/ZIP Code Phon e Number LABORATORY [facility] [address] Care Lab [address] floor, Room 20B (ABNORMAL) Surgical Pathology Exam (01/14/2022 11:21 AM CDT) Component Value Ref Test Analysis Performed Pathologis t Range Method Time At Signature Case Report Surgical Pathology Report ? Case: [id number] ? Authorizing Provider: ??Melissa Luo MD ?? Collected: ? 01/14/2022 11:21 AM ? 2 9:12 AM LABORATOR Y Ordering Location: ? [facility] ?Received: ?01/14/2022 12:24 PM ? CDT ? [...] Buds: ?11 per 'hotspot' field ?? Tumor [place] Score: ?High (10 or more) ?? Type [...] A2-distal resection margin A3-mesenteric margin (inked blue) A4-R04-qnuq, submitted entirely A 13-employee's representative sections of appendix A 14-3 possible [...] AM LABORATORY testing was completed CDT at [facility] Case Images 2 9:12 AM LABORATORY CDT Specimen Anatomical Collection Method Collection Time Receive d Time (Source) Location / / Volume Laterality Tissue COLON STRUCTURE / 01/14/2022 11:21 2021 Unknown AM CDT 12:24 PM CDT Melissa Bustos MD LAB - GUIDO MCPHERSON Performing Organization Address City/State/ZIP Code Phon [place] [phone] Care Lab [address] (1st floor, no room number) [place] [address], [facility] Acute Care Lab [address] 1[address] floor, Room 20B Potassium (01/14/2022 6:28 AM CDT) athologist Signature Potassium 3.7 3.4 - 5.3 [...] Address City/State/ZIP Code Phon e Number LABORATORY [facility] [address] Care Lab [address] 1st floor, Room 20B EKG CARDIAC - [...] - Primary Malignant neoplasm of ascending colon Malignant neoplasm of colon, unspecified part of colon (H) documented in this encounter Admitting Diagnoses Diagnosis [...] Given 01/18/2022 8:26 PM CDT 650 mg alfuzosin ER (UROXATRAL) 24 hr tablet [...] Given 01/17/2022 7:53 AM CDT 40 mg bupivacaine (MARCAINE) Given 01/14/2022 8:28 AM 30 mLs Operative Site/Surgical 0.5% injection MDV CDT Site PRN, Starting on Wed01/14/22 at 0828, Intra-procedure fluticasone-vilanterol (BREO ELLIPTA) 100-25 Given 8:24 AM [...] 1 puff heparin ANTICOAGULANT injection 5,000 Given 01/19/2022 1:10 PM C DT 5,000 Units Units 5,000 Units, Subcutaneous, EVERY 8 HOURS, First dose on Wed01/15/22 at 0600, Check to make sure start [...] analgesic side effects. Hold while on IV MEDICAL COLLECTIONS or with regular IV opioid dosing. Given [...] analgesic side effects. Hold while on IV MEDICAL COLLECTIONS or with regular IV opioid dosing. lisinopril (ZESTRIL) tablet 20 mg Given 01/19/2022 8:24 AM CDT 20 mg 20 mg, Oral, DAILY, First dose on [facility] 01/15/22 at 0900 Given 01/18/2022 8:12 AM CDT 20 mg Given 01/17/2022 7:54 AM CDT 20 mg naloxone (NARCAN) injection 0.2 mg 0.2 [...] (KYTRIL) pre-operatively. Irritant. potassium & sodium phosphates (NEUTRA-PHOS) Given 12/26 1:10 PM CDT 1 packet Packet 1 packet 1 packet, Oral or Feeding Tube, EVERY 4 HOURS, First dose on 01/19/22 at 0800, For 3 doses, Phosphorus level [...] 8:24 AM CDT 1 packet sodium chloride 0.9% (bag) Given 01/14/2022 8:24 AM 1,000 mLs Operative irrigation CDT Site/Surgical S ite PRN, Starting on Wed01/14/22 at 0824, Intra-procedure sodium chloride 0.9% Given 01/14/2022 11:41 AM 1,000 mLs Operative (bottle) irrigation CDT Site/Surgical S ite PRN, Starting on Wed01/14/22 at 0824, Intra-procedure Given 01/14/2022 8:24 AM CDT 1,000 mLs Opera tive Site/Surgical Site umeclidinium (INCRUSE ELLIPTA) 62.5 MCG/ INH inhaler [...] on Wed01/15/22 at 0900, DO NOT CR [facility]. atorvastatin (LIPITOR) tablet 40 mg 0753 (Given [...] Francia Thompson RN)1257 (Given - Provider: Charu M Radha, RN)1301 (Canceled Entry - Provider: Charu Garcia RN)2100 (Given - Provider: Aida Ly, ANA MARIA) 0621 (Given - Provider: Aida Ly RN)1329 (Given - Provider: Andrea York, ANA MARIA)2027 (Given - Provider: Andrea York, ANA MARIA) 0615 (Given - Provider: Judie Teresa RN)1310 (Given - Provider: Andrea York, ANA [...] Provider: Francia Thompson RN)0753 (Given - Provider: Cahru Garcia RN)1257 (Given - Provider: Charu Garcia RN) 1 packet, Oral or Feeding Tube, EVERY 4 HOURS, First dose on [facility] 01/17/22 at 0400, For 3 doses, Phosphorus [...] HYDROmorphone (DILAUDID) tablet 2 mg(Linked Group 3) 2014 (Given - Provider: Andrea York RN)1308 (Given - Provider: Andrea York RN) 2 mg, Oral, EVERY 4 HOURS PRN, other, mo derate pain (pain rating 4-6)., Starting on Wed01/14/22 at 1416, Hold oral PRN dose for analgesic side effects. Notify provider to assess for uncontrolled pain or analgesic side effects. Hold while on IV MEDICAL COLLECTIONS or with regular IV opioid dosing. HYDROmorphone (DILAUDID) tablet 4 mg(Linked Group 3) 1365 (See Alternative - Provider: Andrea York, ANA MARIA)1308 (See Alternative - Provider: Andrea York RN) 4 mg, Oral, EVERY 4 HOURS PRN, severe pa in (7-10), (pain rating 7-10)., Starting on Wed01/14/22 at 1416, Hold oral PRN dose for analgesic side effects. Notify provider to assess for uncontrolled pain or analgesic side effects. Hold while on IV MEDICAL COLLECTIONS or with regular IV opioid dosing. ipratropium [...] side effects. Hold wh ile on IV MEDICAL COLLECTIONS or with regular IV opioid dosing.
Or HYDROmorphone (DILAUDID) tablet 4 mgJump to med 4 mg, Oral, EVERY 4 HOURS PRN, severe pa in (7-10), (pain rating 7-10)., Starting on Wed01/14/22 at 1416
Hold oral PRN dose for analgesic side effects. Notify provider to assess for uncontrolled pain or analgesic side effects. Hold wh ile on IV MEDICAL COLLECTIONS or with regular IV opioid dosing.
Group [...] after each naloxone dose. Consider transfer to [facility] if patient respiratory parameters hav e not [...] Irritant.
documented in this encounter Care Teams Pie Dough Roller Relationship Specialty Start Date End Date [facility], [facility] PCP - General 12/24/[address] [place] [phone] documented as of this encounter
--- OUTSIDE RECORDS SUMMARY | 2022-03-17 11:50 | XMS_ITS ---
[...] to Urinate Mele Decker MD: [address] [place] [address], Ph. 01/07/2021 Lower Urinary Tract Symptoms Due to Kyaw gn Prostatic Hypertrophy; Nocturia; Increased Frequency of Urination; Urgent Desire to Urinate Mele Decker MD: [address] [place] [address], Ph. 12/19/2020 Increased Frequency of Urination Mele Decker MD: [address] [place] [address], Ph. Social History Tobacco Smoking Status Former [...]
== END 2022-03-17 10:30 | disposition home or self-care (01) ==
PROVIDERS: PCP Family Medicine; Visit Provider Family Medicine
DX: C18.9 Malignant neoplasm of colon, unspecified (principal); G62.9 Polyneuropathy, unspecified; I50.20 Unspecified systolic (congestive) heart failure; M47.812 Spondylosis without myelopathy or radiculopathy, cervical region; M47.816 Spondylosis without myelopathy or radiculopathy, lumbar region; M10.9 Gout, unspecified
CPT/HCPCS: 84443; 84550

== ENCOUNTER 2022-07-14 10:36 | Outpatient (CLI) | payer MEDICARE, SELFPAY | END 2022-07-14 10:37 | disposition home or self-care (01) | PROVIDERS: PCP Family Medicine; Visit Provider Family Medicine | DX: D64.9 Anemia, unspecified (principal); E53.8 Deficiency of other specified B group vitamins; I10 Essential (primary) hypertension; G62.9 Polyneuropathy, unspecified | CPT/HCPCS: 82607; 82728; 84146; 84550 ==

== ENCOUNTER 2022-07-21 09:42 | Outpatient (CLI) | payer MEDICARE, SELFPAY ==
--- NOTE | 2022-07-21 09:45 | CRLHL7_ITS ---
For Patients: As a result of the Cures Act, medical imaging exams and procedure reports are released immediately into your electronic medical record. You may view this report before your referring provider. If you have questions, please contact your health care provider. BILATERAL DIAGNOSTIC MAMMOGRAM WITH COMPUTER-AIDED DETECTION AND TOMOSYNTHESIS CLINICAL HISTORY: LEFT lump in the nipple region. TECHNIQUE: These mammographic images have been obtained using full-field digital technique. These mammographic images were interpreted with the benefit of computer-aided detection. Breast Tomosynthesis was used in this interpretation. COMPARISON FILM: No comparison available. BREAST COMPOSITION: The breasts are almost entirely fatty. FINDINGS: BILATERAL retroglandular flame-shaped density compatible with benign gynecomastia. IMPRESSION: BILATERAL gynecomastia. ASSESSMENT: BI-RADS Category 2: Benign A lay language report of this examination will be provided to the patient. Suzanne Pro M.D. Diagnostic/Breast Radiologist [email or web address] TALHA/jovan aldana/Dictated by: Suzanne Pro MD @ 07/21/2022 10:37:00 AM (Electronically Signed)
== END 2022-07-21 09:43 | disposition home or self-care (01) ==
LOC: MAMMO 09:44
PROVIDERS: PCP Family Medicine; Visit Provider Family Medicine
DX: N63.20 Unspecified lump in the left breast, unspecified quadrant (principal)
CPT/HCPCS: 77066; G0279

== ENCOUNTER 2022-08-05 06:07 | Day surgery (SDC) | payer MEDICARE, SELFPAY ==
[2022-08-05] VITALS (8 sets, daily range): BP systolic 165–219; BP diastolic 72–100; PULSE 45–53; RESP 16; TEMP 36.4–36.5; O2SAT 95–97; BMI 33.5
[2022-08-05] MEDS: BUPIVACAINE 0.5% 30 ML INJECTION (07:00)
--- NOTE | 2022-08-05 07:11 | SUR.PREOP ---
SAME DAY SURGERY LOCAL INJECTION SITE VERIFICATION WAS PERFORMED BY SURGEON/PA AND PATIENT PRIOR TO LOCAL ANESTHETIC BEING INJECTED TO OPERATIVE SITE.
[2022-08-05] MEDS: ETHYL CHLORIDE 1 APPLICATION 1 APPLIC TOPICAL (07:12)
--- NOTE | 2022-08-05 07:24 | PC.NURSE ---
Provider and PA notified of initial elevated BP
--- NOTE | 2022-08-05 07:30 | PC.NURSE ---
Patient was educated on elevated BP. Patient has not taken his BP medications today. He denies any symptoms at this time.
--- NOTE | 2022-08-05 07:35 | PC.NURSE ---
ANA MARIA Santoyo in OR reporting off to [facility] about Bradycardia and Hypertension to [facility].
--- NOTE | 2022-08-05 07:37 | PM.ORPRC ---
Procedure Note Date of procedure: 08/05/22 Procedure: PREOPERATIVE DIAGNOSIS: 1. Left small finger flexor tenosynovitis - trigger finger POSTOPERATIVE DIAGNOSIS: 1. Left small finger flexor tenosynovitis - trigger finger PROCEDURE: 1. Left small finger flexor tendon sheath open release (A1 ezra) SURGEON: Andre Rojas MD. RESTAURANT CREW MEMBER: Kan Rosenthal PA-C ANESTHESIA: Local anesthetic via 50:50 mixture of 1% Lidocaine with epi and 0.5% marcaine plain - 4ml totaL EBL: 2ml IMPLANTS: None TOURNIQUET: None COMPLICATIONS: None evident INDICATIONS: The patient is a pleasant 76yo Male who has experienced left small finger catching/triggering for number of months. It has progressively gotten worse. Given the failure of nonoperative management, and how this affects daily life, surgery was recommended. DESCRIPTION OF PROCEDURE: Following a thorough discussion of risks, benefits, and alternatives consent was obtained and the operative digit(s) was marked. The patient was brought to the operating room and placed supine on the operating table. Local anesthesia induction was undertaken in preop holding. No antibiotics were administered as this was planned to be a local case only. Proper time-out was performed identifying proper patient, site, and procedure. The operative extremity was prepped and draped in the appropriate sterile fashion using ChloraPrep. A incision was made on the palmar surface of the hand overlying the MCP joint region of the appropriate digit(s) respecting the palmar creases being cautious not to cross these perpendicularly. Sharp incision through the skin, and blunt dissection through subcutaneous tissue allowing protection of crossing neurologic structures. The A1 ezra was visualized directly. It was incised sharply with a 15 blade. It was released completely from its distal to proximal extent under direct visualization. The tendon was inspected and found to be mildly striated consistent with some friction. Otherwise, it was intact. The tendon was removed out of the wound, and further inspected. The patient was asked to manually flex and extend the digits and showed no further catching. The catching which was visualized after tourniquet inflation, was no longer evident with reproduction of a manual fist and relaxation. Closure was performed with 4-O nylon in interrupted fashion. Soft dressings were applied, and the patient was transferred to the recovery room in stable condition. PLAN: 1. Encourage elevation of the operative extremity. 2. Range of motion and icing of the fingers and hand/wrist as tolerated/needed. 3. Ibuprofen/acetaminophen and/or Percocet as needed for pain control. 4. Follow up with PA visit in 12-16 days for wound check and suture removal.
--- NOTE | 2022-08-05 07:44 | SUR.OPER ---
Pt was informed about his elevated blood pressure during case. Educated pt that it was be best if he went home and takes his prescribed medications and to recheck blood pressure. Educated pt that if he has any symptoms such as headache, diaphoresis or nausea/vomiting that he should seek medical attention and follow up with PCP. Update given to AUDRA RN and pt's , Jen.
== END 2022-08-05 08:05 | disposition home or self-care (01) ==
PROVIDERS: PCP Family Medicine; Visit Provider Orthopaedic Surgery Sports Medicine
PROC: (CPT 26055; principal; 2022-08-05 07:15)
DX: M65.352 Trigger finger, left little finger (principal); M65.842 Other synovitis and tenosynovitis, left hand
CPT/HCPCS: 26055; J3490

== ENCOUNTER 2022-10-22 10:43 | Outpatient (CLI) | payer MEDICARE, SELFPAY ==
--- OUTSIDE RECORDS SUMMARY | 2022-10-22 10:47 | XMS_ITS | Continuity of Care Document ---
Author Name Unknown Organization [facility] Address [address] [place] [address] Phone Care Team Providers Care Automated Cutting Machine Operator Name Role Phone Melinda BRAGA, PhD, Dejan Unavailable Unavai lable Allergies, Adverse Reactions, Alerts Substance Reaction Status Criticality No Known Allergies Active No Inform ation Medications Medication Instructions Dosage Effective Dates (start - stop) Status Comments ASPIRIN (unknown strength) Not Available - Active ALFUZOSIN HCL ER (unknown strength) Not Available - Active CHLORTHALIDONE (unknown strength) Not Available - Active FISH OIL (unknown strength) Not Available - Active LISINOPRIL (unknown strength) Not Available - Active POTASSIUM ACETATE (unknown strength) Not Available - Active Procedures Procedure Date Office/Outpatient Visit,[facility] 2019 Advance Directives Directive Yes / No Effective Date File Name No Information Encounters Encounter Description Practice Location Reason(s) For Visit Diagnoses Date Provider Providers Copied on Encounter [facility], [address], [place], [place], [id number], [place] tel:[phone] [facility] No Information 0 Melinda Wylie. [facility] [place], [address], [place], [address], [place]. tel: [phone] Office/Outpat ient Visit,[facility], [address], [place], [place], [id number], [place] tel:[phone] [facility] No Information 0 Melinda Wylie. [facility] [place], [address], [place], [address], [place]. tel: [phone] Referring Provider: [place], [facility] [address] [place], [address]. tel:[phone] [facility], [address], [place], [place], [id number], [place] tel:[phone] [facility] Sep-[phone] Melinda Wylie. [facility] [place], [address], [place], [address], [place]. tel:[phone] Family History Family Member Type Diagnosis Age At Onset No Information Payers Payer name Insurance type Covered democrat ID Authoriza tion(s) Medicare [id number] AARP CI [id number] Social History Type Description Quantity Date Captured Comments Sex Male Smoking Status No Information Chief Complaint And Reason For Visit No Information Reason For Referral Reason For Referral No Information Plan Of Treatment Date Type Action Status No Information History Of Present Illness Encounter Date Complaint History Of Prese nt Illness No Information Functional Status Date Functional Assessmen t No Information Instructions Date Instruction Additional Infor mation No Information Assessments Type Assessment Date No Information Patient Care Teams Name Effective Dates (start - stop) Status Members No Information
== END 2022-10-22 10:44 | disposition home or self-care (01) ==
PROVIDERS: PCP Family Medicine; Visit Provider Family Medicine
DX: Z00.00 Encounter for general adult medical examination without abnormal findings (principal); E53.8 Deficiency of other specified B group vitamins; I10 Essential (primary) hypertension; M10.9 Gout, unspecified; R79.82 Elevated C-reactive protein (CRP); D64.9 Anemia, unspecified; N28.9 Disorder of kidney and ureter, unspecified; Z12.5 Encounter for screening for malignant neoplasm of prostate; N52.9 Male erectile dysfunction, unspecified
CPT/HCPCS: 80053; 80061; 82607; 84153; 84550

== ENCOUNTER 2023-02-04 10:48 | Outpatient (CLI) | payer MEDICARE, SELFPAY ==
--- OUTSIDE RECORDS SUMMARY | 2023-02-04 11:01 | XMS_ITS | Continuity of Care Document ---
Author Name Unknown Organization [facility] Address [address] [place] [address] Phone Care Team Providers Care Superintendent Commissary Name Role Phone Melinda BRAGA, PhD, Dejan [...] - Active Procedures Procedure Date Office/Outpatient Visit,[facility] 2019 Advance Directives Directive Yes / No Effective Date File Name No Information Encounters Encounter Description Practice Location Reason(s) For Visit Diagnoses Date Provider Providers Copied on Encounter [facility], [address], [place], [place], [id number], [place] tel:[phone] [facility] No Information 0 Melinda Wylie. [facility] [place], [address], [place], [address], [place]. tel: [phone] Office/Outpat ient Visit,[facility], [address], [place], [place], [id number], [place] tel:[phone] [facility] No Information 0 Melinda Wylie. [facility] [place], [address], [place], [address], [place]. tel: [phone] Referring Provider: [place], [facility] [address] [place], [address]. tel:[phone] [facility], [address], [place], [place], [id number], [place] tel:[phone] [facility] Sep-[phone] Melinda Wylie. [facility] [place], [address], [place], [address], [place]. tel:[phone] Family History Family Member Type Diagnosis Age At Onset No Information Payers Payer name Insurance type Covered alliance party ID Authoriza tion(s) Medicare [id number] AARP CI [id number] Social History Type Description Quantity Date Captured Comments Sex Male Smoking Status No Information Chief Complaint And Reason For Visit No Information Reason For Referral Reason For Referral No Information History Of Present Illness Encounter Date Complaint History Of Prese nt Illness No Information Functional Status Date Functional Assessmen t No Information Instructions Date Instruction Additional Infor mation No Information Assessments Type Assessment Date No Information Patient Care Teams Name Effective Dates (start - stop) Status Members No Information
--- NOTE | 2023-02-04 11:43 | W.ANESCHARGE ---
Anesthesia Charges Start Date/Time Anesthesia Start Date: 02/04/23 Anesthesia Start Time: 12:50 Stop Date/Time Anesthesia Stop Date: 02/04/23 Anesthesia Stop Time: 13:07 Summary Extremes of Age - Over 70 or under 1: MDA
--- NOTE | 2023-02-04 13:08 | P.ANES_ITS ---
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
--- NOTE | 2023-02-04 13:21 | W.ANESCHARGE ---
Anesthesia Charges Start Date/Time Anesthesia Start Date: 02/04/23 Anesthesia Start Time: 12:30 Stop Date/Time Anesthesia Stop Date: 02/04/23 Anesthesia Stop Time: 13:07 Summary Extremes of Age - Over 70 or under 1: MDA
== END 2023-02-04 10:49 | disposition home or self-care (01) ==
LOC: OP CLINIC 10:48
PROVIDERS: PCP Family Medicine; Visit Provider Surgery
DX: Z85.038 Personal history of other malignant neoplasm of large intestine (principal); K63.5 Polyp of colon; K57.30 Diverticulosis of large intestine without perforation or abscess without bleeding; Z98.0 Intestinal bypass and anastomosis status
CPT/HCPCS: 00811; 45385; 88305; 99100; J2704

== ENCOUNTER 2023-08-13 11:12 | Outpatient (CLI) | payer MEDICARE, SELFPAY ==
--- OUTSIDE RECORDS SUMMARY | 2023-08-13 11:15 | XMS_ITS | Encounter Summary ---
Author Name Unknown Organization [facility] Address [address] [place] [address] Care Team Providers Care Drill Sharpener Name Role Phone Hawa Razo Primary Care Provider [facility] Primary Care Provider Reason for Referral * Rehab Therapy Cardiac Therapy (Routine) - Closed Specialty Diagnoses / Procedures Referred By Contac t Referred To Contact CARDIAC REHAB Diagnoses COPD (chronic obstructive pulmonary disease) (H) [facility] [address] [place] [address] Referral ID Status Reason Start Date Expiration Date Visits Re quested Visits Authorized [id number] Closed 07/04/2020 04/25/2021 72 72 Question Answer Preferred Location: [facility] Reason for Referral COPD - Severe Additional Information: Severe COPD, evaluate for home oxygen; optimize care Comments If you have not heard from the scheduling office within 2 business days, please call [phone] for all locations, with the exception of [place], please call [phone] and [facility], please call [phone]. Please be aware that coverage of these services is subject to the terms and limitations of your health insurance plan. Call member services at your health plan with any benefit or coverage questions. RIM CONTROLLER Encounter Details Date Type Department Care Team (Latest Contact Info) Description 06/17/2020 Transcribe Orders GENERIC EXTERNAL DATA DEPARTMENT Gibson Calix MD [facility] [address] [address] COPD (chronic obstructive pulmonary disease) (H) (Primary Dx) Social History Tobacco Use Types Packs/Day Years Used Date Smoking Tobacco: Every Day Alcohol Use Standard Drinks/Week Comments Yes 0 (1 standard drink = 0.6 oz pur e alcohol) Sex and Gender Information Value Date Recorded Sex Assigned at Not on file Gender Identity Not on file Sexual Orientation Not on file documented as of this encounter Plan of Treatment Scheduled Referrals Name Type Priority Associated Diagnoses Orde r Schedule PULMONARY REHAB REFERRAL Referral Routine COPD (chronic obstructive pulmonary disease) (H) Expected: 06/17/2020, Expires: 06/17/2021 documented as of this encounter Visit Diagnoses Diagnosis COPD (chronic obstructive pulmonary disease) (H)- Primary Chronic airway obstruction, not elsewhere classified documented in this encounter Care Teams Drill Sharpener Relationship Specialty Start Date End Date Hawa Razo PCP - General Family Practice 05/04/13 12/23/[address] [address] PCP - General 12/24/21 documented as of this encounter
--- OUTSIDE RECORDS SUMMARY | 2023-08-13 11:15 | XMS_ITS | Continuity of Care Document ---
Author Name Unknown Organization [facility] Address [address] [place] [address] Phone Care Team Providers Care Development And Planning Engineer Name Role Phone Melinda BRAGA, PhD, Deajn Unavailable Unavai lable Allergies, Adverse Reactions, Alerts [...] - Active Procedures Procedure Date Office/Outpatient Visit,[facility] [place] [facility] 2019 Advance Directives Directive Yes / No Effective Date File Name No Information Encounters Encounter Description Practice Location Reason(s) For Visit Diagnoses Date Provider Providers Copied on Encounter [facility], [address], [place], [place], [id number], [place] tel:[phone] [facility] No Information 0 Melinda Wylie. [facility] [place], [address], [place], [address], [place]. tel: [phone] Office/Outpat ient Visit,[facility], [address], [place], [place], [id number], [place] tel:[phone] [facility] No Information 0 Melinda Wylie. [facility] [place], [address], [place], [address], [place]. tel: [phone] Referring Provider: [place], [facility] [address] [place], [address]. tel:[phone] [facility], [address], [place], [place], [id number], [place] tel:[phone] [facility] Sep-[phone] Melinda Wylie. [facility] [place], [address], [place], [address], [place]. tel:[phone] Family History Family Member Type Diagnosis Age At Onset No Information Payers Payer name Insurance type Covered democrat ID Authoriza tion(s) Medicare [id number] AARP CI [id number] Social History Type Description Quantity Date Captured [...]
--- OUTSIDE RECORDS SUMMARY | 2023-08-13 11:15 | XMS_ITS | Clinical Summary ---
Author Name Unknown Organization [facility] Address [address] [place] [address] Care Team Providers Care Mechanical Engineering Lecturer Name Role Phone Clinic, [facility] Primary Care Provider Allergies No known active allergies Medications Medication Sig Dispensed Refills Start Date End Date Status lisinopril (ZESTRIL) 20 MG tablet Take 20 mg by mouth daily Active [place], Serenoa repens, (SAW PALMETTO EXTRACT PO) Take 450 mg by mouth daily Active fish oil-omega-3 fatty acids 1000 MG capsule Take 1 g by mouth daily Active SUMAtriptan (IMITREX) 50 MG tablet Take 50 mg by mouth at onset of headache for migraine Active ciprofloxacin (CILOXAN) 0.3 % ophthalmic solution Instill 1-2 drops in the affected eye(s) every 2 hours while awake for 2 days then 1-2 drops every 4 hours while awake for the next 5 days. 1 Bottle 0 11/28/2012 Active aspirin 81 MG EC tablet Take 81 mg by mouth daily Active vitamin D3 (CHOLECALCIFEROL) 50 mcg (2000 units) tablet Take 1 tablet by mouth daily Active vitamin E (TOCOPHEROL) 400 units (180 mg) capsule Take 400 Units by mouth daily Active ipratropium - albuterol 0.5 mg/2.5 mg/3 mL (DUONEB) 0.5-2.5 (3) MG/3ML neb solution Take 1 vial by nebulization every 6 hours as needed for shortness of breath / dyspnea or wheezing Active alfuzosin ER (UROXATRAL) 10 MG 24 hr tablet Take 10 mg by mouth daily Active atorvastatin (LIPITOR) 40 MG tablet Take 40 mg by mouth daily Active triamcinolone (KENALOG) 0.1 % external cream Apply topically 2 times daily Active acetaminophen (TYLENOL 8 HOUR ARTHRITIS PAIN) 650 MG CR tablet Take 650 mg by mouth 2 times daily as needed for mild pain or fever Active Fluticasone-Umeclid in-Vilanterol (TRELEGY ELLIPTA) 100-62.5-25 MCG/INH oral inhaler Inhale 1 puff into the lungs daily Active Active Problems Problem Noted Date Diagnosed Date Colon cancer 01/14/2022 Social History Tobacco Use Types Packs/Day Years Used Date Smoking Tobacco: Former Alcohol Use Standard Drinks/Week Comments Yes 0 (1 standard drink = 0.6 oz pur e alcohol) rare Adolescent Education Answer Date Record ed Getting School Help Needed Not on file 02/07 Sex and Gender Information Value Date Recorded Sex Assigned at Not on file Gender Identity Not on file Sexual Orientation Not on file Last Filed Vital Signs Vital Sign Reading Time Taken Comments Blood Pressure 118/55 01/19/2022 7:46 AM CDT Pulse 73 01/19/2022 7:46 AM CDT Temperature 36.4 ??C (97.5 ??F) 01/19/2022 7:46 AM CD T Respiratory Rate 16 01/19/2022 7:46 AM CDT [...] 1945 ANNUAL REVIEW OF HM ORDERS 1943 LIPID 1943 HEPATITIS C SCREENING 12/29/1961 ZOSTER IMMUNIZATION (1 of 2) 12/29/1993 RSV VACCINE ( & 60+) (1 - 1-dose 60+ series) 2003 FALL RISK ASSESSMENT 12/29/2008 MEDICARE ANNUAL WELLNESS VISIT 12/29/2008 COVID-19 Vaccine ( season) 2022 05/23/2021, 05/23/2021, 12/09/2020, Additional history exists INFLUENZA VACCINE (#1) 2022 3, 03/16/2013, 05/12/2012, Additional history exists PHQ-2 (once per calendar year) 2023 LUNG CANCER SCREENING 07/13/2023 07/12/2022 , 05/19/2012, 06/08/2011 DTAP/TDAP/TD IMMUNIZATION (2 - Td or Tdap) 12/07/2024 12/07/2014, 04/22/2011, 12/10/2000, Additional history exists GLUCOSE 01/19/2025 01/19/2022, 12/26, 01/18/2022, Additional history exists Pneumococcal Vaccine: 65+ Years Completed 05/13/2016, 12/07/2014, 11/11/2009 HPV IMMUNIZATION Aged Out No longer e ligible based on patient's age to complete this topic IPV IMMUNIZATION Aged Out No longer e ligible based on patient's age to complete this topic MENINGITIS IMMUNIZATION Aged Out No l onger eligible based on patient's age to complete this topic RSV MONOCLONAL ANTIBODY Aged Out No l onger eligible based on patient's age to complete this topic Procedures Procedure Name Priority Date/Time Associated Diagnosis Comments CT CHEST W CONTRAST Routine 07/12/2022 5 :50 AM CDT GLUCOSE BY METER Routine 01/19/2022 5:56 AM CDT from Last 3 Months or Most Recently Relevant to Health Maintenance Results * (ABNORMAL) Glucose by meter (01/19/2022 5:56 AM CDT) GLUCOSE BY METER POCT 105(H) 70 - 99 mg/dL 01/19/2022 6:03 AM CDT LABORATORY POC Blood, Capillary BLOOD SPECIMEN / Unknown 01/19/2022 5:56 AM CDT 01/19/2022 6:03 AM CDT Melissa HERNANDEZ - [facility] PO[facility] LABORATORY POC [facility] [address] floor, [address] [place] [address], [facility] [phone] from Last 3 Months or Most Recently Relevant to Health Maintenance Advance Directives For more information, please contact: [phone] * Full Code (Latest Code Status on File) Date Activated Date Inactivated Comments 01/14/2022 2:17 PM 01/19/2022 4:53 PM All basic an d advanced life-sustaining interventions are performed as appropriate Question Answer Comments Code status determined by: Discussion with reynold corbin/ legal decision maker Care Teams Mechanical Engineering Lecturer Relationship Specialty Start Date End Date Clinic, [facility] [address] [place] [address] PCP - General 12/24/21
--- OUTSIDE RECORDS SUMMARY | 2023-08-13 11:15 | XMS_ITS | Encounter Summary ---
Author Name Unknown Organization [facility] Address [address] [place] [address]. [place] [address] Care Team Providers Care Electrophysiology Technologist Name Role Phone Clinic, [facility] Primary Care Provider Encounter Details Date Type Department Care Team (Late st Contact Info) Description 01/12/2022 External Order Results [facility] [address] [place] [address] Outside, Provider Social History Tobacco Use Types Packs/Day Years Used Date Smoking Tobacco: Every Day Alcohol Use Standard Drinks/Week Comments Yes 0 (1 standard drink = 0.6 oz pur e alcohol) Sex and Gender Information Value Date Recorded Sex Assigned at Not on file Gender Identity Not on file Sexual Orientation Not on file COVID-19 Exposure Response Date Recorded In the last 10 days, have yo u been in contact with someone who was confirmed or suspected to have Coronavirus/COVID-19? No / Unsure 01/14/2022 5:39 AM CDT documented as of this encounter Plan of Treatment Not on file documented as of this encounter Procedures Procedure Name Priority Date/Time Associated Diagnosis Comments COVID-19 VIRUS (CORONAVIRUS) BY PCR (EXTERNAL RESULT) Routine 01/12/2022 11:09 AM CDT documented in this encounter Results * COVID-19 Virus (Coronavirus) by PCR (External Result) (01/12/2022 11:09 AM CDT) COVID-19 Virus by PCR (External Result) Negative Negative NON-INTERFACE D (ONBASE SCANS) 01/12/2022 11:0 9 AM CDT Narrative [facility] - 01/23/2022 12:31 PM CDT Verified by Angie Harper on 01/23/2022. Provider Outside LABORATORY [facility] NON-INTERFACED (ONBASE SCANS) documented in this encounter Visit Diagnoses Not on filedocumented in this encounter Care Teams Electrophysiology Technologist Relationship Specialty Start Date End Date [facility], [place] [id number] PCP - General 12/24/21 documented as of this encounter
--- OUTSIDE RECORDS SUMMARY | 2023-08-13 11:15 | XMS_ITS | Clinical Summary ---
Author Name Unknown Organization [facility] [employer] [facility] Address [place], [place] [address] Care Team Providers Care Civil Engineer Name Role Phone Gibson Calix MD Primary Care Provider [phone] Allergies No known active allergies Medications Medication Sig Dispensed Refills Start Date End Date Status TYLENOL ARTHRITIS ORAL Take 650 mg by mouth every 4 hours if needed. 0 Active CPAPIndications:Obstr uctive sleep apnea (adult) (pediatric) autoCPAP, heated humidifier, mask, headgear, filters and tubing. Pressure: 4-15cm/H2O Length of Need: 99 1 Device 0 04/09/2014 Active aspirin (ECOTRIN) 81 mg enteric coated tablet Take 1 tablet by mouth once daily with a meal. 0 02/23/2019 Active lisinopril (PRINIVIL; ZESTRIL) 20 mg tabletIndications:HTN (hypertension) Take 1 tablet by mouth once daily. 30 tablet 1 03/03/2019 Active albuterol-ipratropium (DUONEB) (2.5-0.5 mg) in 3 mL NEBULIZATION solution USE 1 AMPULE IN NEBULIZER TWICE DAILY TO THREE TIMES DAILY SPACED 4 HOURS OR MORE APART MAY USE UP TO 4 TIMES DAILY MAXIMUM NEEDED 08/15/2019 Active colchicine 0.6 mg tablet Take 0.6 mg by mouth once daily. 06/17/2020 Active cyanocobalamin (VITAMIN B12) 500 mcg tablet Take 500 mcg by mouth once daily. 08/21/2020 Active finasteride (PROSCAR) 5 mg tablet Take 5 mg by mouth once daily. 09/09/2020 Active Trelegy Ellipta 200-62.5-25 mcg dsdv INHALE 1 PUFF ONCE DAILY 09/09/2020 Active tadalafiL (CIALIS) 5 mg tablet Take 5 mg by mouth once daily. 09/02/2020 Active furosemide (LASIX) 20 mg tablet Take 1 Tablet by mouth once daily. Active predniSONE (DELTASONE) 10 mg tablet Take 1 Tablet by mouth once daily with a meal. Active Ckuey-0-GSO-EPA-Fish Oil (Fish Oil) 1,000 mg (120 mg-180 mg) cap Take 1 Capsule by mouth once daily. Active gluc mcconnell/chondro mcconnell A/vit C/Mn (GLUCOSAMINE 1500 COMPLEX ORAL) Take 1 Tablet by mouth once daily. Active Cholecalciferol, Vitamin D3, (Vitamin D-3) 400 unit capsule Take 400 units by mouth once daily. Active ASCORBIC ACID MM Take 1 Tablet by mouth once daily. Active polyethylene glycoL (Miralax) 17 gram/dose powder Mix 1 scoop in liquid then take by mouth once daily. Active alfuzosin (UroxatraL) 10 mg Sustained-Release tablet Take 10 mg by mouth once daily with a meal. Active Active Problems Problem Noted Date Diagnosed Date S/P TURP (status post transurethral resection of prostate) 07/15/2021 BPH (benign prostatic hyperplasia) 07/15/2021 Chronic heart failure with p reserved ejection fraction (HFpEF) 03/03/2019 Hypertension, essential, benign 03/03/2019 Ascending aortic aneurysm 03/03/2019 Dyslipidemia 03/03/2019 Urinary frequency 03/13/2015 Nocturia 03/13/2015 Benign prostatic hypertrophy (BPH) with nocturia 03/13/2015 LYN 03/29/2014 AHI-5.2, 12 in REM 04/02/2014 Encounters Date Type Department Care Team Description 08/05/2023 2:00 PM CDT Office Visit [facility] [address] [place] [address] Amrit Islas MD Arrived 08/05/2023 Telephone [employer] [facility] [place] [address] [facility] [address] [place] [address] Amrit Islas MD Appointment Request (Zio to be sent to patients home) from Last 3 Months Social History Tobacco Use Types Packs/Day Years Used Date Smoking Tobacco: Former Cigarettes 0.8 50 0 05/18/1966 - 05/18/2016 Smokeless Tobacco: Never Tobacco Cessation:Counseling Given: Yes Alcohol Use Standard Drinks/Week Comments Yes 1 (1 standard drink = 0.6 oz pur e alcohol) occasional Social Connections Answer Date Recorded Frequency of Communication with Friends and Fami ly Not on file 04/26/2021 Financial Resource Strain Answer Date R ecorded Difficulty of Paying Living Expenses Not on file 04/26/2021 Difficulty of Paying Living Expenses Not on file 04/26/2021 Sex and Gender Information Value Date Recorded Sex Assigned at Not on file Gender Identity Not on file Sexual Orientation Not on file Obstetrics History Last Filed Vital Signs Vital Sign Reading Time Taken Comments Blood Pressure 103/65 11/19/2021 10:11 AM CDT Pulse 59 11/19/2021 10:11 AM CDT Temperature 36.4 ??C (97.6 ??F) 07/17/2021 8:58 AM CD T Respiratory Rate 16 07/17/2021 8:58 AM CDT Oxygen Saturation 97% 11/19/2021 10: 11 AM CDT Inhaled Oxygen Concentration - - Weight 124.9 kg (275 lb 6.4 oz) 022 10:11 AM CDT Height 180.3 cm (5' 11) 07/15/2021 11: 16 AM CDT Body Mass Index 38.41 07/15/2021 11:16 AM CDT Plan of Treatment Health Maintenance Due Date Last Done Comments Pneumococcal series for age 65+ (1 of 2 - PCV) 12/29/1949 Tdap 12/29/1954 Depression screening for age 12+ 1955 Hepatitis C screening for age 18-79 12/29/1961 Tetanus booster 1963 Zoster (shingles) series for age 50+ (1 of 2) 12/29/1993 Medicare Wellness for age 65+ 12/29/2008 BMI (ht and wt on same day) for age 18+ 10/15/2020 10/16/2019, 02/23/2019, 08/03/2016 COVID-19 vaccine series ( season) 2022 05/23/2021, 12/09/2020, 11/18/2020 Influenza for age 65+ 12/26/2023 Advance Directives * Full Code (Latest Code Status on File) Date Activated Date Inactivated Comments 07/16/2021 8:18 AM 07/17/2021 6:43 PM Question Answer Comments Code Status Discussion: Reviewed Preferences * Full Code Date Activated Date Inactivated Comments 07/15/2021 11:06 AM 07/16/2021 8:18 AM Question Answer Comments Code Status Discussion: Unable to Assess Preferences, Provider to review later * Full Code Date Activated Date Inactivated Comments 03/02/2019 3:01 PM 03/02/2019 7:23 PM * Full Code Date Activated Date Inactivated Comments 01/07/2007 6:54 AM 01/07/2007 1:28 PM Care Teams Civil Engineer Relationship Specialty Start Date End Date Gibson Calix MD [address] [place] [address] PCP - General Family Practice 10/09/20
--- OUTSIDE RECORDS SUMMARY | 2023-08-13 11:15 | XMS_ITS | Referral Summary ---
Author Name Unknown Organization [place] [facility] Address [address] [place] [address] Care Team Providers Care Packing And Stamping Machine Operator Name Role Phone Clinic, [facility] Primary Care Provider Allergies No known active allergies Medications Medication Sig Dispensed Refills Start Date End Date Status lisinopril (ZESTRIL) 20 MG tablet Take 20 mg by mouth daily Active Saw [place], Serenoa repens, (SAW PALMETTO EXTRACT PO) Take [...] 01/14/2022 7:00 AM CDT Plan of Treatment Not on file Procedures Procedure Name Priority Date/Time Associated Diagnosis Comments CT CHEST W CONTRAST Routine 07/12/2022 5 :50 AM CDT GLUCOSE BY METER Routine 01/19/2022 5:56 AM CDT from Last 3 Months or Most Recently Relevant to Health Maintenance Results * (ABNORMAL) Glucose by meter (01/19/2022 5:56 AM CDT) [facility] GLUCOSE BY METER POCT 105(H) 70 - 99 mg/dL 01/19/2022 6:03 AM CDT LABORATORY POC Blood, Capillary BLOOD SPECIMEN / Unknown 01/19/2022 5:56 AM CDT 01/19/2022 6:03 AM CDT Melissa HERNANDEZ - [place] POCT LABORATORY POC [facility] Acute Care Lab [address] floor, [address] [place] [address], [facility] [phone] from Last 3 Months or Most Recently Relevant to Health Maintenance Advance Directives For more information, please contact: [phone] * Full Code (Latest Code Status on File) Date Activated Date Inactivated Comments 01/14/2022 2:17 PM 01/19/2022 4:53 PM All basic an d advanced life-sustaining interventions are performed as appropriate Question Answer Comments Code status determined by: Discussion with reynold corbin/ legal decision maker Care Teams Packing And Stamping Machine Operator Relationship Specialty Start Date End Date Clinic, [address] [address] PCP - General 12/24/21
== END 2023-08-13 11:13 | disposition home or self-care (01) ==
PROVIDERS: PCP Family Medicine; Visit Provider Family Medicine
DX: M79.671 Pain in right foot (principal); M79.672 Pain in left foot
CPT/HCPCS: 82607; 82728; 84550

== ENCOUNTER 2024-02-04 08:40 | Outpatient (CLI) | payer MEDICARE, SELFPAY ==
--- OUTSIDE RECORDS SUMMARY | 2024-02-04 08:43 | XMS_ITS | Continuity of Care Document ---
Author Organization [facility] Address [address] [place] [address] Phone Care Team Providers Care Biodiesel Production Technician Name Role Phone Melinda BRAGA, PhD, Dejan Unavailable Unavai lable Allergies, Adverse Reactions, Alerts Substance Reaction Status Criticality No Known Allergies Active No Inform ation Medications Medication Instructions Dosage Effective Dates (start - stop) Status Comments POTASSIUM ACETATE (unknown strength) Not Available - Active LISINOPRIL (unknown strength) Not Available - Active FISH OIL (unknown strength) Not Available - Active CHLORTHALIDONE (unknown strength) Not Available - Active ALFUZOSIN HCL ER (unknown strength) Not Available - Active ASPIRIN (unknown strength) Not Available - Active Procedures Procedure Date Office/Outpatient Visit,[facility] 2019 Advance Directives Directive Yes / No Effective Date File Name No Information Encounters Encounter Description Practice Location Reason(s) For Visit Diagnoses Date Provider Providers Copied on Encounter [facility], [address], [place], [place], [id number], [place] tel:[phone] [facility] No Information 0 Melinda Wylie. [facility] [place], [address], [place], [address], [place]. tel: [phone] Office/Outpat ient Visit,[facility], [address], [place], [place], [id number], [place] tel:[phone] [facility] No Information 0 Melinda Wylie. [facility] [place], [address], [place], [address], [place]. tel: [phone] Referring Provider: [facility] [address] [place], [address]. tel:[phone] [facility], [address], [place], [place], [id number], [place] tel:[phone] [facility] Sep-0 [phone] 0 Melinda Wylie. [facility] [place], [address], [place], [address], [place]. tel:[phone] Family History Family Member Type Diagnosis Age At Onset No Information Payers Payer name Insurance type Covered constitution party ID Authoriza tion(s) Medicare [id number] AARP CI [id number] Social History Type Description Quantity Date Captured [...]
--- OUTSIDE RECORDS SUMMARY | 2024-02-04 08:43 | XMS_ITS | Encounter Summary ---
Author Organization [facility] Address [address] [place] [address]. [place] [address] Care Team Providers Care Sustainability Project Manager Name Role Phone Hawa Razo Primary Care Provider [facility] Primary Care Provider Reason for Referral * Rehab Therapy Cardiac Therapy (Routine) - Closed Specialty Diagnoses / Procedures Referred By Contac t Referred To Contact CARDIAC REHAB Diagnoses COPD (chronic obstructive pulmonary disease) (H) [facility] [address] [place] [address] Referral ID Status Reason Start Date Expiration Date Visits Re quested Visits Authorized [id number] Closed 07/04/2020 04/25/2021 72 72 Question Answer Preferred Location: [facility] Reason for Referral COPD - Severe Additional Information: Severe COPD, evaluate for home oxygen; optimize care Comments If you have not heard from the scheduling office within 2 business days, please call [phone] for all locations, with the exception of [place], please call [phone] and [facility], please call [phone]. Please be aware that coverage of these services is subject to the terms and limitations of your health insurance plan. Call member services at your health plan with any benefit or coverage questions. ICAL EDITOR Encounter Details Date Type Department Care Team (Latest Contact Info) Description 06/17/2020 Transcribe Orders GENERIC EXTERNAL DATA DEPARTMENT Gibson Calix MD [facility] [address] [place], [place] [id number] COPD (chronic obstructive pulmonary disease) (H) (Primary [...] classified documented in this encounter Care Teams Sustainability Project Manager Relationship Specialty Start Date End Date Hawa Razo PCP - General Family Practice 05/04/13 12/23/[address] [address] PCP - General 12/24/21 documented as of this encounter
--- OUTSIDE RECORDS SUMMARY | 2024-02-04 08:43 | XMS_ITS | Clinical Summary ---
Author Organization [facility] Address [place], [place] [address] Care Team Providers Care In Room Dining Server Name Role Phone Gibson Calix MD Primary Care Provider [phone] Allergies No known active allergies Medications Medication [...] mouth once daily with a meal. Active Odqcx-1-MDZ-EPA-Fish Oil (Fish Oil) 1,000 mg (120 mg-180 [...] 07/15/2021 11:16 AM CDT Plan of Treatment Upcoming Encounters Date Type Department Care Team (Late st Contact Info) Description 02/04/2024 9:00 AM CDT Ancillary Procedure [facility] [address] [place] [address] Health Maintenance Due Date Last Done Comments Pneumococcal series for age 65+ (1 of 2 - PCV) 12/29/1949 Tdap 12/29/1954 Depression screening for age 12+ 1955 Tetanus booster 1963 Zoster (shingles) series for age 50+ (1 of 2) 12/29/1993 Medicare Wellness for age 65+ 12/29/2008 RSV vaccine for adults or pr egnancy (1 - 1-dose 75+ series) 12/29/2018 BMI (ht and wt on same day) for age 18+ 10/15/2020 10/16/2019, 02/23/2019, 08/03/2016 COVID-19 vaccine series ( season) 2023 05/23/2021, 12/09/2020, 11/18/2020 Influenza for age 65+ [...] 6:54 AM 01/07/2007 1:28 PM Care Teams In Room Dining Server Relationship Specialty Start Date End Date Gibson Calix MD [address] [place] [address] PCP - General Family Practice 10/09/20
--- OUTSIDE RECORDS SUMMARY | 2024-02-04 08:43 | XMS_ITS | Clinical Summary ---
Author Organization [facility] Address [address] [place] [address]. [place] [address] Care Team Providers Care Email Production Consultant Name Role Phone Clinic, [facility] Primary Care Provider Allergies No known active allergies Medications Medication Sig Dispensed Refills Start Date End Date Status lisinopril (ZESTRIL) 20 MG tablet Take 20 mg by mouth daily Active Saw [place], Serenoa repens, (SAW PALMETTO EXTRACT PO) Take [...] REVIEW OF HM ORDERS 1943 LIPID 1943 ZOSTER IMMUNIZATION (1 of 2) 12/29/1993 FALL RISK ASSESSMENT 12/29/2008 MEDICARE ANNUAL WELLNESS VISIT 12/29/2008 RSV VACCINE (1 - 1-dose 75+ series) 12/29/2018 PHQ-2 (once per calendar year) 2023 COVID-19 Vaccine ( - 2023- season) 2023 05/23/2021, 12/09/2020, 11/18/2020 INFLUENZA VACCINE (#1) 2023 03/16/2013, 2012 DTAP/TDAP/TD IMMUNIZATION (2 - Td or Tdap) 12/07/2024 12/07/2014, 04/22/2011, 12/10/2000, Additional history exists GLUCOSE 01/19/2025 01/19/2022, 12/26, 01/18/2022, Additional history exists Pneumococcal Vaccine: 65+ Years Completed 05/13/2016, 12/07/2014, 11/11/2009 LUNG CANCER SCREENING Discontinued 07/12/2022 , 05/19/2012, 06/08/2011 HPV IMMUNIZATION Aged Out No longer e ligible based on patient's age to complete this topic MENINGITIS IMMUNIZATION Aged Out No l onger eligible based on patient's age to complete this topic RSV MONOCLONAL ANTIBODY Aged Out No l onger eligible based on patient's age to complete this topic Procedures Procedure Name Priority Date/Time Associated Diagnosis Comments GLUCOSE BY METER Routine 01/19/2022 5:56 AM CDT from Last 3 Months or Most Recently Relevant to Health Maintenance Results * (ABNORMAL) Glucose by meter (01/19/2022 5:56 AM CDT) GLUCOSE BY METER POCT 105(H) 70 - 99 mg/dL 01/19/2022 6:03 AM CDT LABORATORY POC Blood, Capillary BLOOD SPECIMEN / Unknown 01/19/2022 5:56 AM CDT 01/19/2022 6:03 AM CDT Melissa [facility] - [facility] POCT LABORATORY POC [facility] Acute Care Lab [address], [address] [place] [address], [place] [phone] from Last 3 Months or Most Recently Relevant to Health Maintenance Advance Directives For more information, please contact: [phone] * Full Code (Latest Code Status on File) Date Activated Date Inactivated Comments 01/14/2022 2:17 PM 01/19/2022 4:53 PM All basic an d advanced life-sustaining interventions are performed as appropriate Question Answer Comments Code status determined by: Discussion with reynold nt/ legal decision maker Care Teams Email Production Consultant Relationship Specialty Start Date End Date [facility], [address] [address] PCP - General 12/24/21
--- OUTSIDE RECORDS SUMMARY | 2024-02-04 08:43 | XMS_ITS | Encounter Summary ---
Author Organization [facility] Address [address] [place] [address]. [place] [address] Care Team Providers Care Outside Cutter Hand Name Role Phone Clinic, [facility] Primary Care Provider Encounter Details Date Type Department Care Team (Late st Contact Info) Description 01/12/2022 External Order Results [facility] [address] [place] [address] Outside, Provider Social History Tobacco Use Types [...] on filedocumented in this encounter Care Teams Outside Cutter Hand Relationship Specialty Start Date End Date [facility], [place] [id number] PCP - General 12/24/21 documented as of this encounter
--- OUTSIDE RECORDS SUMMARY | 2024-02-04 08:43 | XMS_ITS | Referral Summary ---
Author Organization [facility] Address [address] [place] [address]. [place] [address] Care Team Providers Care Stockfeed Miller Name Role Phone Clinic, [facility] Primary Care Provider Allergies No known active allergies Medications Medication Sig Dispensed Refills Start Date End Date Status lisinopril (ZESTRIL) 20 MG tablet Take 20 mg by mouth daily Active Saw [place], Serenoa repens, (SAW PALMETTO EXTRACT PO) Take [...] AM CDT 01/19/2022 6:03 AM CDT Melissa Stern MD LAB - [place] POCT LABORATORY POC [facility] Acute Care Lab [address] 1[address] floor, [address] [place] [address], [place] [phone] from Last 3 Months or Most Recently Relevant to Health Maintenance Advance Directives For more information, please contact: [phone] * Full Code (Latest Code Status on File) Date Activated Date Inactivated Comments 01/14/2022 2:17 PM 01/19/2022 4:53 PM All basic an d advanced life-sustaining interventions are performed as appropriate Question Answer Comments Code status determined by: Discussion with reynold corbin/ legal decision maker Care Teams Stockfeed Miller Relationship Specialty Start Date End Date Clinic, [address] [address] PCP - General 12/24/21
== END 2024-02-04 08:41 | disposition home or self-care (01) ==
LOC: RAD 08:40
PROVIDERS: PCP Family Medicine; Visit Provider Internal Medicine
DX: R94.31 Abnormal electrocardiogram [ECG] [EKG] (principal)
CPT/HCPCS: 93306

== ENCOUNTER 2024-02-22 09:54 | Outpatient (CLI) | payer MEDICARE, SELFPAY ==
--- OUTSIDE RECORDS SUMMARY | 2024-02-22 09:56 | XMS_ITS | Encounter Summary ---
Author Organization [facility] [facility] Address [address] [place] [address]. [place] [address] Care Team Providers Care Plant Pathologist Name Role Phone [facility] Primary Care Provider Encounter Details Date Type Department Care Team (Late st Contact Info) Description 01/12/2022 External Order Results [facility] [address] [place] [address] Outside, Provider Social History Tobacco Use Types Packs/Day Years Used Date Smoking Tobacco: Every Day Alcohol Use Standard Drinks/Week Comments Yes 0 (1 standard drink = 0.6 oz pur e alcohol) Sex and Gender Information Value Date Recorded Sex Assigned at Not on file Legal Sex Male 3:13 AM CORRECTIONAL FACILITY NURSE Gender Identity Not on file Sexual Orientation [...] SCANS) 01/12/2022 11:0 9 AM CDT Narrative [facility] PFT - 01/23/2022 12:31 PM CDT Verified by Angie Harper on 01/23/2022. us Provider Outside LABORATORY Edited Result - Final [facility] PFT NON-INTERFACED (ONBASE SCANS) documented in this encounter Visit Diagnoses Not on filedocumented in this encounter Care Teams Plant Pathologist Relationship Specialty Start Date End Date [facility], [address] [address] PCP - General 12/24/21 documented as of this encounter
--- OUTSIDE RECORDS SUMMARY | 2024-02-22 09:56 | XMS_ITS | Referral Summary ---
Author Organization [facility] Address [address] [place] [address]. [place] [address] Care Team Providers Care Cognos Analyst Name Role Phone Clinic, [facility] Primary Care Provider Allergies No known active allergies Medications lisinopril (ZESTRIL) 20 MG tablet Take 20 mg by mouth daily Active Saw [place], Serenoa repens, (SAW PALMETTO EXTRACT PO) Take [...] the next 5 days. 1 Bottle 0 3 Active aspirin 81 MG EC tablet Take 81 mg by mouth daily Active vitamin D3 (CHOLECALCIFERO L) 50 mcg (2000 units) tablet Take 1 [...] needed for mild pain or fever Active Fluticasone-Ume clidin-Vilanter ol (TRELEGY ELLIPTA) 100-62.5-25 MCG/INH oral inhaler Inhale [...] on file Legal Sex Male 3:13 AM INSOLE BUFFER Gender Identity Not on file Sexual Orientation [...] Glucose by meter (01/19/2022 5:56 AM CDT) [facility] GLUCOSE BY METER POCT 105(H) 70 - 99 mg/dL 01/19/2022 6:03 AM CDT LABORATORY POC Blood, Capillary BLOOD SPECIMEN / Unknown 01/19/2022 5:56 AM CDT 01/19/2022 6:03 AM CDT us Melissa Stern MD LAB - BEAKER POCT Final R esult LABORATORY POC [facility] Acute Care Lab [address] 1[address], [address] [place] [address], [facility] [phone] from Last 3 Months or Most Recently Relevant to Health Maintenance Insurance [employer] MEDICARE ADVANTAGE Advance Directives For more information, please contact: [phone] * Full Code (Latest Code Status on File) Date Activated Date Inactivated Comments 01/14/2022 2:17 PM 01/19/2022 4:53 PM All basic an d advanced life-sustaining interventions are performed as appropriate Question Answer Comments Code status determined by: Discussion with reynold corbin/ legal decision maker Care Teams Cognos Analyst Relationship Specialty Start Date End Date Clinic, [facility] [address] [place] [address] PCP - General 12/24/21
--- OUTSIDE RECORDS SUMMARY | 2024-02-22 09:56 | XMS_ITS | Data Portability ---
Author Organization ID - [facility], [facility] Address [address] [place] [address] [address] [place] [address] Assessment Encounter Date Assessment Date Assessment LastModified by Organization Details LastModified Time 01/07/2021 01/07/2021 75 year old male with decreased bladder capacity, BPH with lower urinary tract symptoms refractory to all medications. Of note a total of 30 minutes was spent: preparing to see the patient by reviewing records, images, and laboratory data; obtaining/revie wing separately obtained history; performing physical examination, counseling and educating patient/family/ caregiver; ordering appropriate medications, labs, imaging or procedures; documenting the clinical encounter; and coordination of care. Not available 01/07/2021 10:33:37 08/28/2021 08/28/2021 75 year old male with decreased bladder capacity, BPH with lower urinary tract symptoms refractory to all medications. Now s/p TURP Not available 08/28/2021 09:10:22 07/28/2023 07/28/2023 77 year old male with decreased bladder capacity, BPH with lower urinary tract symptoms refractory to all medications. Now s/p TURP [email or web address] Not available 07/27/2023 09:42:51 Plan of Treatment Reminders Order Date Submit Date Provider Last Modified By Organization Details Last Modified Time Details Appointments None recorded . Lab urinalys is, dipstick 2020 021 [email or web address] Not available 12:26:44 Referral None recorded . Procedures None recorded . Surgeries transure thral resectio n of prostate (SURG) 2020 021 [email or web address] Not available 15:45:45 Imaging None recorded . Medication Orders oxybutyn in chloride ER 10 mg tablet,e xtended release 24 hr 2021 022 jenni [facility], [address] [place], [address], 4 12:48:53 oxybutyn in chloride ER 15 mg tablet,e xtended release 24 hr 2023 024 MARLA [facility] [address], [address] [place], [address], 4 16:18:04 Gemtesa 75 mg tablet 2023 024 [facility] [employer] ([facility]), [facility], [place], [address], 14:43:27 Patient TargetsNo targets recorded. Patient Instructions Encounter Date Encounter Id Patient Instructions Last Modified By Organization Details Last Modified Time 01/07/2021 [id number] Bipolar TURP Discussion We discussed prostate (TURP) surgery and detailed that it is used to relieve moderate to severe urinary symptoms caused by an enlarged prostate, a condition known as benign prostatic hyperplasia (BPH). During prostate surgery we insert a scope through the tip of the penis into the tube that carries urine from the bladder. A electrode is passed through the scope. The electrode delivers energy that is used to vaproize the excess tissue that is blocking the urethra and preventing urine flow. Improvements in urinary symptoms from TURP surgery are noticeable right away, while it can take several weeks to months to see noticeable improvement with medications.of laser surgery can include: Temporary difficulty urinating. Patients may have trouble urinating for a few days after the procedure. Until one can urinate on his own, he will need to have a catheter. Urinary tract infection. Urinary tract infections are a possible complication after any prostate procedure. An infection is increasingly likely to occur the longer one has a catheter in place, and may require antibiotics or other treatment. Narrowing (stricture) of the urethra. Just as one can form scars on the outside of your body, you can form scars on the inside after prostate surgery. These scars can block urine flow, requiring additional treatment. Dry orgasm (retrograde ejaculation). Any prostate surgery can cause retrograde ejaculation, Retrograde ejaculation isn't harmful, and generally doesn't affect sexual pleasure. But it can interfere with your ability to father a child. This is a common long-term side effect of procedures to treat an enlarged prostate. Erectile dysfunction. There is a small risk that ablative procedures could cause erectile dysfunction. This is generally less of a risk with laser surgery compared with traditional surgery. Need for pretreatment. Some men require follow-up treatment after ablative surgery because not all of the tissue is removed or it may grow back over time. Not available 01/07/2021 10:33:16 Reason for Referral None Reported. Results Created Date Observation Date Name Description Value Unit Range Abnormal Flag Note LastModifiedBy Organization Detail LastModifiedTime 12/19/2020 urina lysis , dipst ick Color-Status Yellow Not Available [facility] [address], [place], [address], 12/19/2020 12:26:07 12/19/2020 urina lysis , dipst ick Clarity-Stat us Clear Not Available [facility] [address], [place], [address], 12/19/2020 12:26:07 12/19/2020 urina lysis , dipst ick pH-Status 5.0 Not Available [facility] [address], [place], [address], 12/19/2020 12:26:07 09/03/19 22 08/28/2021 bladd er scan (PROC ) No observ ation record ed. Not Available 2023 14:41:11 Result Notes None recorded. Procedures Surgical History Date Name Laterality Status Provider Name and Address Organization Details Recorded Time 07/28/19 24 Bladder Scan completed Pily Menjivar [facility] 07/28/2023 12:41:12 08/29/19 22 Bladder Scan completed Xochitl Ortez [facility] 08/28/2021 14:36:18 07/16/19 22 TRANSURETHRAL RESECTION OF PROSTATE (SURG) completed Mele Decker MD [address] [facility],[address], [place], [address], [facility] 08/28/2021 17:48:09 12/20/19 21 Urodynamic Studies completed Xochitl Ortez [facility] 12/19/2020 12:07:47 primary laminectomy excision of lumbar intervertebral disc completed Sophia Borges [facility] 01/07/2021 09:23:07 Orthopedic Surgery completed Sophia Borges [facility] 01/07/2021 09:23:31 Imaging Results Imaging Date Name Status LastModified by [facility] Details LastModified Time 08/28/2021 bladder scan (PROC) completed Information not available 07/28/2023 14:41:11 Procedure Notes None recorded. Medical Equipment None Reported. Allergies No known drug allergies Medications Name Sig Start Date Stop Date Status Note LastModified by Organization Details LastModified Time prednisone 10 mg tablet TAKE 6 TABLETS BY MOUTH ONCE DAILY FOR 2 DAYS, THEN 5 TABS ONCE DAILY FOR 2 DAYS, THEN 4 TABS ONCE DAILY FOR 1 DAY, THEN 3 TABS ONCE DAILY FOR 4 DAYS, THEN 2 TABS ONCE DAILY FOR 3 DAYS, THEN 1 TAB ONCE DAILY FOR 2 DAYS active Not Available Not Available No t Available oxybutynin chloride ER 15 mg tablet,exte nded release 24 hr TAKE 1 TABLET BY MOUTH ONCE DAILY active Not Available Not Available No t Available doxycycline hyclate 100 mg capsule TAKE 1 CAPSULE BY MOUTH TWICE DAILY 08/28 completed Not Available Not Available Not Available ipratropium 0.5 mg-albutero l 3 mg (2.5 mg base)/3 mL nebulizatio n soln USE 3 ML IN NEBULIZER TWICE DAILY active Not Available Not Available No t Available oxybutynin chloride ER 10 mg tablet,exte nded release 24 hr TAKE 1 TABLET BY MOUTH ONCE DAILY . APPOINTME NT REQUIRED FOR FUTURE REFILLS 07/27 completed Not Available Not Available Not Available tizanidine 4 mg tablet TAKE 1 TABLET BY MOUTH EVERY 8 HOURS NEEDED active Not Available Not Available No t Available hydrocodone 5 mg-acetamin ophen 325 mg tablet TAKE 1 TO 2 TABLETS BY MOUTH EVERY 6 HOURS NEEDED 01/07 completed Not Available Not Available Not Available lisinopril 20 mg tablet TAKE 1/2 (ONE-HALF ) TABLET BY MOUTH ONCE DAILY active Not Available Not Available No t Available prednisone 20 mg tablet TAKE 2 TABLETS BY MOUTH DAILY FOR 3 DAYS THEN 1 TABLET DAILY FOR 3 DAYS AND THEN RESUME 10 MG TABLETS 08/28 completed Not Available Not Available Not Available acetaminoph en 300 mg-codeine 30 mg tablet TAKE 1 TO 2 TABLETS BY MOUTH EVERY 6 HOURS NEEDED 08/28 completed Not Available Not Available Not Available sulfamethox azole 800 mg-trimetho prim 160 mg tablet TAKE 1 TABLET BY MOUTH TWICE DAILY 01/07 completed Not Available Not Available Not Available triamcinolo ne acetonide 0.1 % topical cream APPLY CREAM EXTERNALL Y TO AFFECTED AREA TWICE DAILY NEEDED active Not Available Not Available No t Available oxycodone-a cetaminophe n 5 mg-325 mg tablet TAKE 1 TABLET BY MOUTH EVERY 4-8 HOURS NEEDED FOR PAIN active Not Available Not Available No t Available cyanocobala min (vit B-12) 500 mcg tablet TAKE 1 TABLET BY MOUTH ONCE DAILY active Not Available Not Available No t Available tamsulosin 0.4 mg capsule Take 1 capsule every day by oral route. active Not Available Not Available No t Available meclizine 25 mg tablet TAKE 1 TABLET BY MOUTH TWICE DAILY NEEDED FOR DIZZINESS active Not Available Not Available No t Available cephalexin 500 mg capsule TAKE 1 CAPSULE BY MOUTH THREE TIMES DAILY 08/28 completed Not Available Not Available Not Available lisinopril 10 mg tablet TAKE 1 TABLET BY MOUTH ONCE DAILY active Not Available Not Available No t Available prednisone 50 mg tablet TAKE 1 TABLET BY MOUTH ONCE DAILY 08/28 completed Not Available Not Available Not Available betamethaso ne, augmented 0.05 % topical ointment APPLY OINTMENT TOPICALLY TWICE DAILY FOR 2 4 WEEKS active Not Available Not Available No t Available furosemide 20 mg tablet TAKE 1 TABLET BY MOUTH EVERY OTHER DAY NEEDED FOR EDEMA/LEG SWELLING. active Not Available Not Available No t Available colchicine 0.6 mg tablet TAKE 1 TABLET BY MOUTH ONCE DAILY active Not Available Not Available No t Available oxybutynin chloride 5 mg tablet TAKE 1 TABLET BY MOUTH EVERY DAY AT BEDTIME active Not Available Not Available No t Available finasteride 5 mg tablet TAKE 1 TABLET BY MOUTH ONCE DAILY 08/28 completed Not Available Not Available Not Available mometasone 0.1 % topical cream APPLY CREAM TOPICALLY TWICE DAILY TO HANDS active Not Available Not Available No t Available amoxicillin 875 mg-potassiu m clavulanate 125 mg tablet TAKE 1 TABLET BY MOUTH TWICE DAILY active Not Available Not Available No t Available nabumetone 500 mg tablet TAKE 1 TABLET BY MOUTH TWICE DAILY NEEDED active Not Available Not Available No t Available alfuzosin ER 10 mg tablet,exte nded release 24 hr TAKE 1 TABLET BY MOUTH ONCE DAILY AFTER THE SAME MEAL EACH DAY. 08/28 completed Not Available Not Available Not Available tadalafil 5 mg tablet TAKE 1 TABLET BY MOUTH ONCE DAILY active Not Available Not Available No t Available GaviLyte-G 236 gram-22.74 gram-6.74 gram-5.86 gram oral solution TAKE 240MLS BY MOUTH EVERY 10 MINUTES UNTIL FECAL EFFLUENT IS CLEAR active Not Available Not Available No t Available Trelegy Ellipta 200 mcg-62.5 mcg-25 mcg powder for inhalation INHALE 1 PUFF BY MOUTH ONCE DAILY active Not Available Not Available No t Available Gemtesa 75 mg tablet Take 1 tablet by mouth once daily 2023 active Not Available Not Available Not Avai lable Vitals Date Recorded Body height Body mass index (BMI) Body weight Provider Name and Address Organization Details Last Updated DateTime 07/28/2023 180.34 cm 32.8 kg/m2 413149.21 g Pily Menjivar [facility] 07/28/2023 12:33:10 Date Recorded Body height Body mass index (BMI) Body weight Provider Name and Address Organization Details Last Updated DateTime 01/07/2021 180.34 cm 36.3 kg/m2 113111.02 g Sophia Borges [facility] 01/07/2021 09:14:55 Date Recorded Body height Body mass index (BMI) Body weight Provider Name and Address Organization Details Last Updated DateTime 08/28/2021 180.34 cm 36.3 kg/m2 915688.02 g Xochitl Ortez [facility] 08/28/2021 14:34:27 Social History Question Answer Notes LastModified by Organizat ion Details LastModified Time Tobacco Smoking Status Former Smoker QUIT: 05/18/16 Sophia ramos [facility] 01/07/2021 09:21:19 What Is Your Level Of Alcohol Consumption? Occasional Information not available 01/07/2021 What Is Your Level Of Caffeine Consumption? Moderate Information not available 01/07/2021 Are You Currently Employed? No Information not available 07/28/2023 When Did You Quit Smoking? 6-10yearssince lastcigarette Information not available 07/28/2023 Ethnicity Not /Latin o Information not available 01/07/2021 Preferred Language Yakut Information not available 01/07/2021 Recreational Drug Use No Information not available 01/07/2021 Could You Be ? No Information not available 01/07/2021 What Was The Date Of Your Most Recent Tobacco Screening? 07/28/2023 Information not available 07/28/2023 What Is Your Relationship Status? Information not available 01/07/2021 Are You Sexually Active? Yes Information not available 07/28/2023 Do You Use Any Illicit Or Recreational Drugs? No Information not available 01/07/2021 Do You Or Have You Ever Used Any Other Forms Of Tobacco Or Nicotine? No Information not available 01/07/2021 How Many Days In The Past Year Have You Consumed 5 Or More Drinks? 0 Information not available 07/28/2023 Sex: Unknown Functional Status None recorded. Mental Status None recorded. Family History Nothing Reported Notes:ADOPTED Medical History Condition Response Sexually Transmitted Infection N Diabetes N Bleeding Disorder N High Blood Pressure Y Kidney Stones N Cancer Y Depression N Lung Disease N High Cholesterol Y GERD/Acid Reflux N Heart Disease Y Past Encounters Encounter ID Performer Location Encounter Start Date Encounter Closed Date Diagnosis/Indication Diagnosis SNOMED-CT Code Diagnosis ICD10 Code [id number] MD SHON Alvarez_Antonella [address] [place] [id number] 12/19/2020 09:43:40 12/20/2020 14:35:46 Increased frequency of urination 367555678 R35.0 [id number] MD Mary Kate Alvarez [address] [place] [id number] 01/07/2021 09:14:00 01/08/2021 13:45:19 Lower urinary tract symptoms due to benign prostatic hypertrophy 3614960230 9101 N40.1 Nocturia 134450937 R35.1 Increased frequency of urination 570034534 R35.0 Urgent elvin ting to urinate 89782303 R39.15 [id number] Mele Decker MD [facility] [address] [place] [address] 08/28/2021 14:10:48 08/29/2021 10:55:25 Lower urinary tract symptoms due to benign prostatic hypertrophy 8617277933 9101 N40.1 Nocturia 355590184 R35.1 Increased frequency of urination 543755471 R35.0 Urgent elvin ting to urinate 95898529 R39.15 [id number] MD SHON [facility] [address] [place] [address] 07/28/2023 12:13:23 07/30/2023 08:55:43 Lower urinary tract symptoms due to benign prostatic hypertrophy 3231339418 9101 N40.1 Nocturia 676552999 R35.1 Increased frequency of urination 964365213 R35.0 Urgent elvin ting to urinate 60717126 R39.15 Health Concerns Section Related Observation LastModified by Organization Detai ls LastModified Time None Recorded Concern Status LastModified by Organization Details LastModified Time None Recorded Advance Directives Directive None Recorded Payers Encounter Date Sequence Insurance Name Policy Number Policy Lopez Covered Member ID Lopez Member ID Guarantor Name 12/19/2020 1 [place] [employer] Mele Curran [id number] Mele Curran 12/19/2020 1 [employer] (MEDICARE SUPPLEMENT) Mele Curran [id number] Mele Curran 01/07/2021 1 [place] [employer] Mele Curran [id number] Mele Curran 01/07/2021 1 [employer] OPTIONS (MEDICARE SUPPLEMENT) Mele Curran [id number] Mele Curran 08/28/2021 1 [facility] (MEDICARE REPLACEMENT/A DVANTAGE - PPO) [id number] Mele Curran [id number] Mele Curran 07/28/2023 1 [facility] (MEDICARE REPLACEMENT/A DVANTAGE - PPO) [id number] Mele Curran [id number] Mele Curran Notes Date Note Type Note Provider Name and Address Organization Details Recorded Time 01/07/2021 text/html HPI Notes: This visit was conducted by telephone due to the COVID-19 crisis. Prior to conducting our telephone visit, the patient was apprised of the risks, benefits and alternatives to telephone visits including but not limited to poor audio quality, interrupted visits due to technological limitations, delays in medical evaluation and treatment due to deficiencies or failures of equipment, failure of security protocols resulting in a breach of privacy of personal medical information and a lack of access to complete medical records resulting in not fully informed decisions. Also, because of the COVID-19 pandemic, it was not possible for the patient to sign the privacy regulations, HIPAA release and assignment of benefits forms. The patient was given the opportunity to ask questions about these policies and gave verbal acknowledgement and approval of these policies as well as to hold this meeting by telephone. Lastly, the patient agreed to allowing their medication history to be pulled from a national pharmacy database to facilitate and coordinate their care. 75 year old male who follows with me in [place] for long history of urinary frequency, urgency, and nocturia. Has tried and failed many anticholinergics/beta agonist, alpha blockers, and 5-Deja. Completed UDS and here for review. The urodynamics shows decreased capacity but normal compliance. Good detrusor contraction with low flow. Mele Decker MD [address] [place] [address],[address], [place], [address], [facility] 01/07/2021 10:33:40 08/28/2021 text/html HPI Notes: 75 ye ar old male who follows with me in [place] for long history of urinary frequency, urgency, and nocturia. Has tried and failed many anticholinergics/beta agonist, alpha blockers, and 5-Deja. Completed UDS and here for review. The urodynamics shows decreased capacity but normal compliance. Good detrusor contraction with low flow. 08/28/2021: Now s/p TURP. Reports good stream and seems to empty efficiently. However he does state that his urinary frequency, urgency, and nocturia have persisted. He was hoping for more improvement in these avilez. Mele Decker MD [address] [place] [address],[address], [place], [address], [facility] 08/28/2021 17:49:56 07/28/2023 text/html HPI Notes: 77 ye ar old male who follows with me in [place] for long history of urinary frequency, urgency, and nocturia. Has tried and failed many anticholinergics/beta agonist, alpha blockers, and 5-Deja. Completed UDS and here for review. The urodynamics shows decreased capacity but normal compliance. Good detrusor contraction with low flow. 08/28/2021: Now s/p TURP. Reports good stream and seems to empty efficiently. However he does state that his urinary frequency, urgency, and nocturia have persisted. He was hoping for more improvement in these avilez. 07/28/2023: Here for follow up urinary frequency, urinary urgency, nocturia. Patient states that his stream is nice and strong but feels like he is voiding every 15 to 30 minutes. Seen today with his provides some of the history Mele Decker MD [address] [facility],[address], [place], [address], [facility] 07/28/2023 14:43:41
--- OUTSIDE RECORDS SUMMARY | 2024-02-22 09:56 | XMS_ITS | Clinical Summary ---
Author Organization [facility] Address [address] [place] [address]. [place] [address] Care Team Providers Care Ccie Name Role Phone Clinic, [facility] Primary Care Provider Allergies No known active allergies Medications lisinopril (ZESTRIL) 20 MG tablet Take 20 mg by mouth daily Active Saw Buskirk, Serenoa repens, (SAW PALMETTO EXTRACT PO) Take [...] on file Legal Sex Male 3:13 AM [employer] Gender Identity Not on file Sexual Orientation [...] per calendar year) 2023 COVID-19 Vaccine ( season) 2023 05/23/2021, 12/09/2020, 11/18/2020 INFLUENZA VACCINE [...] BEAKER POCT Final R esult LABORATORY POC [facility] [address] floor, [address] [place] [address], [place] [phone] from Last 3 Months or Most Recently Relevant to Health Maintenance Insurance [employer] MEDICARE ADVANTAGE Advance Directives For more information, please contact: [phone] * Full Code (Latest Code Status on File) Date Activated Date Inactivated Comments 01/14/2022 2:17 PM 01/19/2022 4:53 PM All basic an d advanced life-sustaining interventions are performed as appropriate Question Answer Comments Code status determined by: Discussion with reynold nt/ legal decision maker Care Teams Ccie Relationship Specialty Start Date End Date Clinic, [address] [address] PCP - General 12/24/21
--- OUTSIDE RECORDS SUMMARY | 2024-02-22 09:56 | XMS_ITS | Clinical Summary ---
Author Organization [facility] Address [place], [place] [address] Care Team Providers Care Skill Labor Name Role Phone Gibson Calix MD Primary Care Provider [phone] Allergies Active Allergy Reactions Criticality Noted Date Comments Quinolones *Unknown 02/04/2024 Due to enlarged aorta. Specific: Fluoroquinolone Medications Medication Sig Dispensed Refills Start Date [...] mouth once daily with a meal. Active Rxwys-[id number]-Fish Oil (Fish Oil) 1,000 mg (120 mg-180 [...] Encounters Date Type Department Care Team Description 02/10/2024 Telephone [facility] Daisha Albarran [address] [place] [address] Dr [address] [phone] Snow Corona MD Results (CT chest) 02/09/2024 Telephone [facility] [place] [address] [facility] [[email or web address]] [id number] [id number] Snow Corona MD Results (CTA ) 02/07/2024 2:00 PM CDT Ancillary Procedure [facility] [place] [address] [place] [address] 02/07/2024 Travel 02/04/2024 9:00 AM CDT Ancillary Procedure [facility] [address] [place] [address] 02/04/2024 Orders Only [address] [address] Snow Corona MD <No scans attached> 02/04/2024 Travel 02/04/[address] Foster [address] [facility] [address] Snow Corona MD Results from Last 3 Months Social History [...] 12/09/2020, 11/18/2020 Influenza for age 65+ 12/26/2023 Procedures Procedure Name Priority Date/Time Associated Diagnosis Comments CTA CHEST - DUAL READ JENNY 02/07/2024 2:26 PM CDT Dilation of aorta (HC) CREATININE,ISTAT Routine 02/04/2024 1:56 PM CDT Dilation of aorta (HC) ECHO TTE COMPLETE WO CONTRAST Routine 02/04/2024 9:31 AM CDT Abnormal electrocardiogram from Last 3 Months Results * CTA CHEST - DUAL READ (02/07/2024 2:26 PM CDT) Anatomical Region Laterality Modality CHEST Computed Tomogra phy Impressions 02/08/2024 4:07 PM CDT 1. Please see separate dictation for all cardiac and arterial structures. 2. Recommend chest CT in 3-6 months for new ground-glass nodules and growing solid nodule. 3. Recommend renal mass protocol CT or MR abdomen without and with IV contrast to evaluate whether there are 2 closely opposed cysts in the right upper pole or whether there is an enhancing septation. Please note that all CT scans at this facility use dose modulation, iterative reconstruction, and/or weight-based dosing when appropriate to reduce radiation dose to as low as reasonably achievable. Dictated by: January Romero MD @ 02/08/2024 04:08:55 (Electronic Signature) Narrative 02/08/2024 4:07 PM CDT STUDY: THORACIC AORTIC CT ANGIOGRAM Study date: 02/07/2024 Indication: 78 year-old male with dilated aorta has been referred for evaluation of thoracic aorta size and morphology. ?? 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 Ongoing surveillance suggested. Retro-esophageal course of right subclavian (variant anatomy) noted. Please see radiology report for nonvascular findings. FINDINGS: Thoracic aorta: Left-sided arch. Moderate atheromatous disease in the arch and descending thoracic aorta. Maximum cross-sectional dimensions are - Aortic sinus: 37 x 33 mm maximum [id number] Ascending aorta: 44 x 43 mm and an area index of 8 cm2/m. Arch: 38 x 39 mm Descending thoracic aorta: 34 x 34 mm. Great arteries: ??Separate origin of the right subclavian, right common carotid, left common carotid and left subclavian vessels. Variant course of right subclavian in the retroesophageal course. Aortic valve: Trileaflet valve. Pericardium: Normal without effusion. Coronary arteries: Moderate calcification noted in the LAD. FOR PATIENT: Results are automatically released to your [employer]) account once available, in compliance with federal regulations. ?? This means that you may see your results before your provider has had a chance to review them. ??Please allow 2-3 business days for your provider to comment on the results. Wai Toribio MD, FACC, [facility] For Patients: As a result of the 21st Century Cures Act, medical imaging exams and procedure reports are released immediately into your electronic medical record. ??You may view this report before your referring provider. ?? If you have questions, please contact your health care provider. OVER-READ ??OVER-READ ??OVER-READ OVER-READ: DETAILED RADIOLOGY EXTRACARDIAC OVER-READ OF CARDIAC CT 02/07/2024 TECHNIQUE: ??Please see cardiology report for technical information. ??100 cc Omnipaque-350 intravenous contrast. ?? This exam is being performed in conjunction with the services provided by the [place] [facility] ([facility]). CLINICAL HISTORY: ?? Cardiac over-read. I FINDINGS: ??Please see separate dictation for all cardiac and arterial structures. Mediastinum and august: No mass or adenopathy. Atrial septal lipoma. Lungs and pleura: 8 millimeter subpleural nodule in the right middle lobe is unchanged since 2013. There are few very small peripheral nodules measuring 2-3 millimeters in both lungs that are stable. 7 millimeter nodule in the lingula on series 6, image 24 is stable. 9 millimeter nodule in the lingula on series 6, image 27 is larger, previously 5 millimeters. 5 millimeter ground-glass nodules in the right lower lobe on series 6, image 46 and 48 are new since 2013. no pleural effusion. Chest wall and axilla: No mass or adenopathy. Upper abdomen: Partially visualized cystic lesion in the right renal fossa, presumably renal cysts. The smaller cyst is anterior and measures 4.0 x 4.4 cm. The larger cyst is posterior and measures 9.5 x 7.5 cm. Only a single cyst was present previously that measured 4.8 x 4.6 cm. Question intervening renal parenchyma versus enhancing septation, measures 4 millimeters. Bones: Unremarkable for age. Snow Corona MD CT * (ABNORMAL) CREATININE,ISTAT (02/04/2024 1:56 PM CDT) POCT,CREATININ E, ISTAT 1.4(H) 0.6 - 1.3 mg/dL [facility] (Urgent Care) Blood BLOOD SPECIMEN / Unknown 02/04/2024 1:56 PM CDT 02/04/2024 1:57 PM CDT Snow Corona MD [facility] [address] [place] [address], [facility] (Urgent Care) [address] [place] [address] * ECHO TTE COMPLETE WO CONTRAST (02/04/2024 9:31 AM CDT) EJECTION FRACTION 61 % LVEDD 4.6 cm EJECTION FRACTION 60 - 65% Anatomical Region Laterality Modality Ultrasound 02/04/2024 8:51 AM CDT Narrative 02/04/2024 10:12 AM CDT ECHOCARDIOGRAM MELE HARRISON ?Accession#: ?? [id number] : ?1945 78 years Study Date: ?? 02/04/2024 8:51:17 AM Gender: M ? BP: ? 191/85 mmHg Height: 180.00 cm ? BSA: ?2.24 m? ? ? Weight: 105.00 kg ? Tech: ? MBF ?Referring MD: SNOW CORONA Site: ? [facility] Reading Location: Mobile OP Patient Location: Outpatient. Procedure: 2D, Color Doppler and Spectral Doppler. Indication for study: Abnormal electrocardiogram Cardiac Rhythm: Irregular and sinus bradycardia.Study quality: Technically limited. Final Impressions: 1. Technically limited exam. 2. LVEF estimate 60-65%. Normal LV size and wall thickness. 3. Normal RV size and global function. 4. No significant valvular abnormalities. 5. Normal RAP estimate. 6. Significantly dilated ascending aorta [5.1 cm]. Chamber Sizes and Function Regional wall motion assessment not well-visualized. Left atrial size is mildly enlarged. Right ventricular cavity size is normal, global systolic RV function is normal. The right atrium is normal. Right atrial volume index is 25 ml/m? ? ?. Right atrial area is 20 cm? ? ?. The pulmonary artery is not well visualized. The sinus of Valsalva is normal sized. The ascending aorta is dilated. Valves, RV Pressures and Diastolic Function The aortic valve is normal in structure and trileaflet, no stenosis and no regurgitation. The mitral valve is normal in structure, trace mitral regurgitation. Indeterminate pattern of LV diastolic filling. The tricuspid valve is normal in structure. Tricuspid regurgitation is trace regurgitation. Unable to assess right ventricular systolic pressure. The pulmonic valve is not well visualized. Unable to determine pulmonary regurgitation. Masses, Effusion, Shunts There is no pericardial effusion. The inferior vena cava is normal sized, respiratory size variation greater than 50%. Interatrial septum is not well visualized. MEASUREMENTS AND CALCULATIONS 2-D Measurements and LV Function: LVID (d) 4.6 cm LVOT diameter 2.2 cm LVPW (d) 1.5 cm HR ?46 bpm Ao Sinus 3.4 cm LA Vol index ??33 ml/m2 Asc Ao ?? 5.1 cm RA Vol index ??25 ml/m2 ?RA area ? 20 cm?RV Max 4C (d) 4.3 cm Diastology: Mitral ?Tissue Doppler E Peak 0.9 m/s ??e', Septum ? 0.05 m/s A Peak 1.2 m/s ??e', Lateral ?0.07 m/s E/A ?0.8 ?E/e' Average ?? 15.44 DT ? 304 msec Mitral Valve: MVA ?2.5 cm? ? ? MV P 1/2 88 msec Tricuspid Valve and estimated PA pressures: TAPSE 2.0 cm . This study was interpreted by an [facility] accredited facility. CC: [facility]. ??Final ?? Procedure Note Herson Sweeney MD - 02/04/2024 ECHOCARDIOGRAM MELE HARRISON : 1945 78 years Study Date: 02/04/2024 8:51:17 AM Gender: M BP: 191/85 mmHg Height: 180.00 cm BSA: 2.24 m? ? ? Weight: 105.00 kg Tech: [facility] Referring MD: SNOW CORONA Site: [facility] Reading Location: Mobile OP Patient Location: Outpatient. Procedure: 2D, Color Doppler and Spectral Doppler. Indication for study: Abnormal electrocardiogram Cardiac Rhythm: Irregular and sinus bradycardia.Study quality: Technicallylimited. Final Impressions: 1. Technically limited exam. 2. LVEF estimate 60-65%. Normal LV size and wall thickness. 3. Normal RV size and global function. 4. No significant valvular abnormalities. 5. Normal RAP estimate. 6. Significantly dilated ascending aorta [5.1 cm]. Chamber Sizes and Function Regional wall motion assessment not well-visualized. Left atrial size ismildly enlarged. Right ventricular cavity size is normal, global systolicRV function is normal. The right atrium is normal. Right atrial volumeindex is 25 ml/m? ? ?. Right atrial area is 20 cm? ? ?. The pulmonary artery isnot well visualized. The sinus of Valsalva is normal sized. The ascendingaorta is dilated. Valves, RV Pressures and Diastolic Function The aortic valve is normal in structure and trileaflet, no stenosis and noregurgitation. The mitral valve is normal in structure, trace mitralregurgitation. Indeterminate pattern of LV diastolic filling. Thetricuspid valve is normal in structure. Tricuspid regurgitation is traceregurgitation. Unable to assess right ventricular systolic pressure. Thepulmonic valve is not well visualized. Unable to determine pulmonaryregurgitation. Masses, Effusion, Shunts There is no pericardial effusion. The inferior vena cava is normal sized,respiratory size variation greater than 50%. Interatrial septum is notwell visualized. MEASUREMENTS AND CALCULATIONS 2-D Measurements and LV Function: LVID (d) 4.6 cm LVOT diameter 2.2 cm LVPW (d) 1.5 cm HR 46 bpm Ao Sinus 3.4 cm LA Vol index 33 ml/m2 Asc Ao 5.1 cm RA Vol index 25 ml/m2 RA area 20 cm? ? ? RV Max 4C (d) 4.3 cm Diastology: Mitral Tissue Doppler E Peak 0.9 m/s e', Septum 0.05 m/s A Peak 1.2 m/s e', Lateral 0.07 m/s E/A 0.8 E/e' Average 15.44 DT 304 msec Mitral Valve: MVA 2.5 cm? ? ? MV P 1/2 88 msec Tricuspid Valve and estimated PA pressures: TAPSE 2.0 cm . This study was interpreted by an [facility] accredited facility. CC: [facility] (med records) [facility]. Final Snow Corona MD ECHO ORD from Last 3 Months Advance Directives * Full Code (Latest Code [...] 6:54 AM 01/07/2007 1:28 PM Care Teams Skill Labor Relationship Specialty Start Date End Date Gibson Calix MD [address] [place] [address] PCP - General Family Practice 10/09/20
--- OUTSIDE RECORDS SUMMARY | 2024-02-22 09:56 | XMS_ITS | Encounter Summary ---
Author Organization [facility] Address [address] [place] [address]. [place] [address] Care Team Providers Care Crepe Laminator Operator Name Role Phone Hawa Razo MD Primary Care Provider [facility], [facility] Primary Care Provider Reason for Referral * Rehab Therapy Cardiac Therapy (Routine) - Closed Specialty Diagnoses / Procedures Referred By Contac t Referred To Contact CARDIAC REHAB Diagnoses COPD (chronic obstructive pulmonary disease) (H) [facility] [address] [place] [address] Phone: tel: fax: Referral ID Status Reason Start Date Expiration Date Visits Re quested Visits Authorized [id number] Closed 07/04/2020 04/25/2021 72 72 Question Answer Preferred Location: [facility] Reason for Referral COPD - Severe Additional Information: Severe COPD, evaluate for home oxygen; optimize care Comments If you have not heard from the scheduling office within 2 business days, please call [phone] for all locations, with the exception of [place], please call [phone] and [facility], please call [phone]. Please be aware that coverage of these services is subject to the terms and limitations of your health insurance plan. Call member services at your health plan with any benefit or coverage questions. 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
--- OUTSIDE RECORDS SUMMARY | 2024-02-22 09:56 | XMS_ITS | Continuity of Care Document ---
Author Organization [facility] Address [address] [place] [address] Phone Care Team Providers Care Awning Craftsperson Name Role Phone Melinda BRAGA, PhD, Dejan [...] C, [address], [place], [place], [id number], [place] tel:[phone] [facility] No Information 0 Melinda Wylie. [facility] [place], [address], [place], [address], [place]. tel: [phone] Office/Outpat ient Visit,[facility], [address], [place], [place], [id number], [place] tel:[phone] [facility] No Information 0 Melinda Wylie. [facility], [address], [place], [address], [place]. tel: [phone] Referring Provider: [facility] [address] [place], [address]. tel:[phone] [facility], [address], [place], [place], [id number], [place] tel:[phone] [facility] Sep-0 [phone] Melinda Wylie. [facility] [place], [address], [place], [address], [place]. tel:[phone] Family History Family Member Type Diagnosis Age At Onset No Information Payers Payer name Insurance type Covered libertarian ID Authoriza tion(s) Medicare [id number] AARP CI [id number] Social History Type Description Quantity Date Captured [...]
--- NOTE | 2024-02-22 11:14 | W.ANESCHARGE ---
Anesthesia Charges Start Date/Time Anesthesia Start Date: 02/22/24 Anesthesia Start Time: 10:46 Stop Date/Time Anesthesia Stop Date: 02/22/24 Anesthesia Stop Time: 11:32 Summary Extremes of Age - Over 70 or under 1: MDA
--- NOTE | 2024-02-22 11:34 | W.ANESCHARGE ---
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
== END 2024-02-22 09:55 | disposition home or self-care (01) ==
LOC: OP CLINIC 09:54
PROVIDERS: PCP Family Medicine; Visit Provider Surgery
DX: Z85.038 Personal history of other malignant neoplasm of large intestine (principal); D12.3 Benign neoplasm of transverse colon; K57.30 Diverticulosis of large intestine without perforation or abscess without bleeding; Z98.0 Intestinal bypass and anastomosis status
CPT/HCPCS: 00811; 45385; 88305; 99100; J2704

== ENCOUNTER 2024-03-13 09:21 | Outpatient (CLI) | payer MEDICARE, SELFPAY ==
--- OUTSIDE RECORDS SUMMARY | 2024-03-17 03:11 | XMS_ITS | Clinical Summary ---
Author Organization [facility] Address [address] [place] [address]. 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 floor, [address] [place] [address], [place] [phone] from Last 3 Months or Most Recently Relevant [place] [id number] [employer] MEDICARE ADVANTAGE Advance Directives For more information, please contact: [phone] * Full Code (Latest Code Status on File) Date Activated Date Inactivated Comments 01/14/2022 2:17 PM 01/19/2022 4:53 PM All basic an d advanced life-sustaining interventions are performed as appropriate Question Answer Comments Code status determined by: Discussion with reynold nt/ legal decision maker Care Teams Exchange Underwriting Consultant Relationship Specialty Start Date End Date Clinic, [address] [address] PCP - General 12/24/21
--- OUTSIDE RECORDS SUMMARY | 2024-03-17 03:11 | XMS_ITS | Continuity of Care Document ---
Author Organization [facility] Address [address] [place] [address] Phone Care Team Providers Care Bingo Usher Name Role Phone Melinda BRAGA, PhD, Dejan [...] - Active Procedures Procedure Date Office/Outpatient Visit,[facility] 2019 Advance Directives Directive Yes / No Effective Date File Name No Information Encounters Encounter Description Practice Location Reason(s) For Visit Diagnoses Date Provider Providers Copied on Encounter [facility], [address], [place], [place], [id number], [place] tel:[phone] [facility] No Information 0 Melinda Wylie. [facility], [address], [place], [address], [place]. tel: [phone] Office/Outpat ient Visit,[facility], [address], [place], [place], [id number], [place] tel:[phone] [facility] No Information 0 Melinda Wylie. [facility], [address], [place], [address], [place]. tel: [phone] Referring Provider: [facility] [address] [place], [address]. tel:[phone] [facility], [address], [place], [place], [id number], [place] tel:[phone] [facility] Sep-0 [phone] Melinda Wylie. [facility], [address], [place], [address], [place]. tel:[phone] Family History Family Member Type Diagnosis Age At Onset No Information Payers Payer name Insurance type Covered democrat ID Authoriza tion(s) Medicare [id number] AARP CI [id number] Social History Type Description Quantity Date Captured [...]
--- OUTSIDE RECORDS SUMMARY | 2024-03-17 03:11 | XMS_ITS | Clinical Summary ---
Author Organization [employer] [facility] Address [place], [place] [address] Care Team Providers Care Chairman And Ceo Name Role Phone Gibson Calix MD Primary Care Provider [phone] Allergies Active Allergy Reactions Criticality Noted Date [...] mouth once daily with a meal. Active [id number]-Fish Oil (Fish Oil) 1,000 mg (120 mg-180 [...] Type Department Care Team Description 02/10/2024 Telephone [facility] [place] Al[place] [address] [place] [address] Dr [address] [id number] Snow Corona MD Results (CT chest) 02/09/2024 Telephone [facility] [place] [address] [facility] [address] [place] [id number] Snow Corona MD Results (CTA ) 02/07/2024 2:00 PM CDT Ancillary Procedure [facility] [place] [address] [place] [address] 02/07/2024 Travel 02/04/2024 9:00 AM CDT Ancillary Procedure [facility] [place] at [facility] [address] [place] [address] 02/04/2024 Orders Only [address] [address] Snow Corona MD <No scans attached> 02/04/2024 Travel 02/04/[address] Foster [address] [facility] [address] Snow Corona MD Results from Last 3 [...] 59 11/19/2021 10:11 AM CDT Temperature 36.4 C (97.6 F) 07/17/2021 8:58 AM CDT Respiratory Rate 16 [...] evaluation of thoracic aorta size and morphology. STUDY PARAMETERS: Scanner: Siemens Definition Force Contrast: [...] Aortic sinus: 37 x 33 mm maximum [id number] Ascending aorta: 44 x 43 mm and an area index of 8 cm2/m. Arch: 38 x 39 mm Descending thoracic aorta: 34 x 34 mm. Great arteries: Separate origin of the right subclavian, right common carotid, left common carotid and left subclavian vessels. Variant course of right subclavian in the retroesophageal course. Aortic valve: Trileaflet valve. Pericardium: Normal without effusion. Coronary arteries: Moderate calcification noted in the LAD. FOR PATIENT: Results are automatically released to your [employer] ([employer]) account once available, in compliance with federal regulations. This means that you may see your results before your provider has had a chance to review them. Please allow 2-3 business days for your provider to comment on the results. Wai Toribio MD, [facility], [facility] For Patients: As a result of the 21st Century Cures Act, medical imaging exams and procedure reports are released immediately into your electronic medical record. You may view this report before your referring provider. If you have questions, please contact your health care provider. OVER-READ OVER-READ OVER-READ OVER-READ: DETAILED RADIOLOGY EXTRACARDIAC OVER-READ OF CARDIAC CT 02/07/2024 TECHNIQUE: Please see cardiology report for technical information. 100 cc Omnipaque-350 intravenous contrast. This exam is being performed in conjunction with the services provided by the [place] [facility] ([facility]). CLINICAL HISTORY: Cardiac over-read. I FINDINGS: Please see separate dictation for all cardiac [...] E, ISTAT 1.4(H) 0.6 - 1.3 mg/dL [facility] Special[facility] (Urgent Care) Blood BLOOD SPECIMEN / Unknown 02/04/2024 1:56 PM CDT 02/04/2024 1:57 PM CDT Snwo Corona MD CHEMISTRY [facility] [address] [place] [address], [facility] Specialty (Urgent Care) [address] [place] [address] * ECHO TTE COMPLETE WO CONTRAST (02/04/2024 9:31 AM CDT) EJECTION FRACTION 61 % LVEDD 4.6 cm EJECTION FRACTION 60 - 65% Anatomical Region Laterality Modality Ultrasound 02/04/2024 8:51 AM CDT Narrative 02/04/2024 10:12 AM CDT ECHOCARDIOGRAM MELE HARRISON : 1945 78 years Study Date: 02/04/2024 8:51:17 AM Gender: M BP: 191/85 mmHg Height: 180.00 cm BSA: 2.24 m Weight: 105.00 kg Tech: [facility] Referring MD: SNOW CORONA Site: [facility] Reading Location: Mobile OP Patient [...] normal. Right atrial volume index is 25 ml/m . Right atrial area is 20 cm . The pulmonary artery is not well visualized. [...] Vol index 25 ml/m2 RA area 20 cm RV Max 4C (d) 4.3 cm Diastology: Mitral Tissue Doppler E Peak 0.9 m/s e', Septum 0.05 m/s A Peak 1.2 m/s e', Lateral 0.07 m/s E/A 0.8 E/e' Average 15.44 DT 304 msec Mitral Valve: MVA 2.5 cm MV P 1/2 88 msec Tricuspid Valve and estimated PA pressures: TAPSE 2.0 cm . This study was interpreted by an [facility] accredited facility. CC: [facility] ([facility]) [facility]. Final Procedure Note Herson Sweeney MD - 02/04/2024 ECHOCARDIOGRAM MELE HARRISON : 1945 78 years Study Date: 02/04/2024 8:51:17 AM Gender: M BP: 191/85 mmHg Height: 180.00 cm BSA: 2.24 m Weight: 105.00 kg Tech: [facility] Referring MD: SNOW CORONA Site: [facility] Reading Location: Mobile OP Patient [...] is normal. Right atrial volumeindex is 25 ml/m . Right atrial area is 20 cm . The pulmonary artery isnot well visualized. The [...] Vol index 25 ml/m2 RA area 20 cm RV Max 4C (d) 4.3 cm Diastology: Mitral Tissue Doppler E Peak 0.9 m/s e', Septum 0.05 m/s A Peak 1.2 m/s e', Lateral 0.07 m/s E/A 0.8 E/e' Average 15.44 DT 304 msec Mitral Valve: MVA 2.5 cm MV P 1/2 88 msec Tricuspid Valve and estimated PA pressures: TAPSE 2.0 cm . This study was interpreted by an [facility] accredited facility. CC: [facility] ([facility]) [facility]. Final Snow Corona MD ECHO ORD from [...] 6:54 AM 01/07/2007 1:28 PM Care Teams Chairman And Ceo Relationship Specialty Start Date End Date Gibson Calix MD [address] [place] [address] PCP - General Family Practice 10/09/20
--- OUTSIDE RECORDS SUMMARY | 2024-03-17 03:12 | XMS_ITS | Referral Summary ---
Author Organization [facility] Address [address] [place] [address]. [place] [address] Care Team Providers Care Tire Service Technician Name Role Phone Clinic, [facility] Primary Care Provider Allergies No known active allergies Medications lisinopril (ZESTRIL) 20 MG tablet Take 20 mg by mouth daily Active Saw [place], Serenoa repens, (SAW PALMETTO EXTRACT PO) Take [...] on file Legal Sex Male 3:13 AM TRANSPORT RN Gender Identity Not on file Sexual Orientation [...] BEAKER POCT Final R esult LABORATORY POC [facility] [address] floor, [address] [place] [address], [facility] [phone] from Last 3 Months or Most Recently Relevant to Health Maintenance Insurance [employer] ADVANTAGE Advance Directives For more information, please contact: [phone] * Full Code (Latest Code Status on File) Date Activated Date Inactivated Comments 01/14/2022 2:17 PM 01/19/2022 4:53 PM All basic an d advanced life-sustaining interventions are performed as appropriate Question Answer Comments Code status determined by: Discussion with reynold corbin/ legal decision maker Care Teams Tire Service Technician Relationship Specialty Start Date End Date Clinic, [address] [address] PCP - General 12/24/21
--- OUTSIDE RECORDS SUMMARY | 2024-03-17 03:12 | XMS_ITS | Encounter Summary ---
Author Organization [facility] Address [address] [place] [address]. [place] [address] Care Team Providers Care Industrial Economics Professor Name Role Phone Hawa Razo MD Primary Care Provider [facility], [facility] Primary Care Provider Reason for Referral * Rehab Therapy Cardiac Therapy (Routine) - Closed Specialty Diagnoses / Procedures Referred By Contac t Referred To Contact CARDIAC REHAB Diagnoses COPD (chronic obstructive pulmonary disease) (H) [facility] [address] [place] [address] Phone: tel: fax: Referral ID Status Reason Start Date Expiration Date Visits Re quested Visits Authorized [id number] Closed 07/04/2020 04/25/2021 72 72 Question Answer Preferred Location: [facility] Reason for Referral COPD - Severe Additional Information: Severe COPD, evaluate for home oxygen; optimize care Comments If you have not heard from the scheduling office within 2 business days, please call [phone] for all locations, with the exception of [place], please call [phone] and [facility], please call [phone]. Please be aware that coverage of these services is subject to the terms and limitations of your health insurance plan. Call member services at your health plan with any benefit or coverage questions. CTURAL STEEL WORKER HELPER Encounter Details Date Type Department Care Team (Latest Contact Info) Description 06/17/2020 Transcribe Orders GENERIC EXTERNAL DATA DEPARTMENT Gibson Calix MD [facility] [address] [address] COPD (chronic obstructive pulmonary disease) (H) (Primary Dx) Social History Tobacco Use Types Packs/Day Years Used Date Smoking Tobacco: Every Day Alcohol Use Standard Drinks/Week Comments Yes 0 (1 standard drink = 0.6 oz pur e alcohol) Sex and Gender Information Value Date Recorded Sex Assigned at Not on file Legal Sex Male 3:13 AM STRUCTURAL STEEL WORKER HELPER Gender Identity Not on file Sexual Orientation [...] classified documented in this encounter Care Teams Industrial Economics Professor Relationship Specialty Start Date End Date Hawa Razo MD PCP - General Family Practice 05/04/13 12/23/[address] [address] PCP - General 12/24/21 documented as of this encounter
--- OUTSIDE RECORDS SUMMARY | 2024-03-17 03:12 | XMS_ITS | Encounter Summary ---
Author Organization [facility] Address [address] [place] [address]. [place] [address] Care Team Providers Care Parking Ramp Attendant Name Role Phone Clinic, [facility] Primary Care Provider Encounter Details Date Type Department Care Team (Late st Contact Info) Description 01/12/2022 External Order Results [facility] [address] [place] [address] Outside, Provider Social History Tobacco Use Types Packs/Day Years Used Date Smoking Tobacco: Every Day Alcohol Use Standard Drinks/Week Comments Yes 0 (1 standard drink = 0.6 oz pur e alcohol) Sex and Gender Information Value Date Recorded Sex Assigned at Not on file Legal Sex Male 3:13 AM SPORTS MANAGEMENT INTERN Gender Identity Not on file Sexual Orientation [...] on filedocumented in this encounter Care Teams Parking Ramp Attendant Relationship Specialty Start Date End Date [facility], [address] [address] PCP - General 12/24/21 documented as of this encounter
== END 2024-03-13 09:22 | disposition home or self-care (01) ==
LOC: NFLDREF 03-17 03:10
PROVIDERS: PCP Family Medicine; Referring Provider Family Medicine; Visit Provider Family Medicine
DX: E11.22 Type 2 diabetes mellitus with diabetic chronic kidney disease (principal); N18.9 Chronic kidney disease, unspecified; I10 Essential (primary) hypertension; E53.8 Deficiency of other specified B group vitamins; R42 Dizziness and giddiness; M10.9 Gout, unspecified; R79.82 Elevated C-reactive protein (CRP); D64.9 Anemia, unspecified; R39.15 Urgency of urination; N40.0 Benign prostatic hyperplasia without lower urinary tract symptoms
CPT/HCPCS: 80053; 80061; 82043; 82570; 84443; 84550

== ENCOUNTER 2024-07-17 14:01 | Outpatient (CLI) | payer MEDICARE, SELFPAY ==
--- NOTE | 2024-07-17 14:30 | CRLHL7_ITS ---
For Patients: As a result of the Century Cures Act, medical imaging exams and procedure reports are released immediately into your electronic medical record. You may view this report before your referring provider. If you have questions, please contact your health care provider. Indication: 2 CLOSELY OPPOSED CYSTS IN RU POLE OR ENHANCING SEPTATION Technique: CT urogram with and without contrast, 124 cc of Omnipaque 370 Comparison: CT angiogram February 07, 2024; CT chest, abdomen and pelvis December 02, 2021 Findings: Lung bases are clear. Simple bilateral kidney cysts are again identified. 4 millimeter nonobstructive left kidney stone is also redemonstrated. The liver, gallbladder, pancreas, spleen, and adrenal glands are unremarkable. Urinary bladder is partially filled and inadequately evaluated. There are no pelvic cysts or masses. Interval postsurgical changes within the right colon. Few scattered colonic diverticula are present and the hollow viscera is without obstruction, focal bowel wall thickening or adjacent inflammatory stranding. There is no free air, ascites or lymphadenopathy. Infrarenal abdominal aortic aneurysm now averages 36 millimeters, previously 34 millimeters. Small fat containing umbilical hernia is identified. Stable diffuse bony demineralization, degenerative changes and postsurgical changes within the lower lumbar spine. IMPRESSION: 1. 36 millimeter infrarenal abdominal aortic aneurysm, recommend follow-up imaging in 2 years. 2. Simple kidney cysts. Please note that all CT scans at this facility use dose modulation, iterative reconstruction, and/or weight-based dosing when appropriate to reduce radiation dose to as low as reasonably achievable. Dictated by Sung Byrne MD @ 07/18/2024 3:17:23 PM (Electronically Signed)
[2024-07-17 14:36] LABS: Creatinine* 1.5 mg/dL (0.5-1.5); Estimated Glomerular Filt Rate 47 ml/min
== END 2024-07-17 14:02 | disposition home or self-care (01) ==
LOC: CT 14:01
PROVIDERS: PCP Family Medicine; Visit Provider Family Medicine
DX: R91.8 Other nonspecific abnormal finding of lung field (principal); I71.40 Abdominal aortic aneurysm, without rupture, unspecified; N28.1 Cyst of kidney, acquired
CPT/HCPCS: 36415; 71250; 74178; 82565; Q9967

== ENCOUNTER 2024-08-01 13:32 | Outpatient (CLI) | payer MEDICARE, SELFPAY ==
--- NOTE | 2024-08-01 14:30 | CRLHL7_ITS ---
For Patients: As a result of the Century Cures Act, medical imaging exams and procedure reports are released immediately into your electronic medical record. You may view this report before your referring provider. If you have questions, please contact your health care provider. INDICATION: Dizziness. TECHNIQUE: Noncontrast Sagittal T1,Axial FSE T2, Flair, DWI images submitted. Compared to prior CT of the head from January 12, 2016 FINDINGS: Worsening moderate cerebral atrophy. 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 The ventricles, sulci and gyri are of normal size, shape and contour for age and degree of atrophy. Midline structures are centrally located. No convincing evidence of suspicious intra- or extra-axial fluid collections. Mild patchy regions of increased T2 signal within the periventricular and subcortical white matter of both cerebral hemispheres. No regions of restricted diffusion. Interval development of near-complete opacification of the maxillary and ethmoid sinuses with mild air-fluid levels in the sphenoid sinuses. IMPRESSION: 1. No radiographic evidence of acute intracranial abnormalities. 2. Worsening moderate cerebral atrophy. 3. Mild supratentorial white matter changes that are non-specific, but statistically most likely related to chronic small vessel ischemic disease. 4. 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 5. Severe ethmoid and maxillary sinusitis with milder inflammatory changes in the sphenoid sinuses. Dictated by Sebas Gonzalez MD @ 08/01/2024 4:08:15 PM (Electronically Signed)
== END 2024-08-01 13:33 | disposition home or self-care (01) ==
LOC: MRI 13:33
PROVIDERS: PCP Family Medicine; Visit Provider Family Medicine
DX: R42 Dizziness and giddiness (principal); G93.9 Disorder of brain, unspecified; I63.81 Other cerebral infarction due to occlusion or stenosis of small artery; J32.0 Chronic maxillary sinusitis; J32.2 Chronic ethmoidal sinusitis; Z91.148 Patient's other noncompliance with medication regimen for other reason; R41.9 Unspecified symptoms and signs involving cognitive functions and awareness
CPT/HCPCS: 70551

== ENCOUNTER 2024-09-22 11:28 | Outpatient (CLI) | payer MEDICARE, SELFPAY | END 2024-09-22 11:29 | disposition home or self-care (01) | LOC: LKVREF 11:29 | PROVIDERS: PCP Family Medicine; Visit Provider Family Medicine | DX: D64.9 Anemia, unspecified (principal) | CPT/HCPCS: 82728; 83540 ==

== ENCOUNTER 2025-01-29 11:36 | Outpatient (CLI) | payer MEDICARE, SELFPAY ==
--- NOTE | 2025-01-29 12:40 | P.ANES_ITS ---
Anesthesia Charges Start Date/Time Anesthesia Start Date: 01/29/25 Anesthesia Start Time: 12:09 Stop Date/Time Anesthesia Stop Date: 01/29/25 Anesthesia Stop Time: 12:31 Summary Extremes of Age - Over 70 or under 1: BLISTER RUST ERADICATOR Coding CPT Codes CPT Codes: ANES LWR INTST SCR COLSC - 57023 ([id number]) P3 - PATIENT W/SEVERE SYS DISEASE, QK - BULK PLANT MANAGER 2-4 CNCRNT ANES PROC, QX - BLISTER RUST ERADICATOR SVC W/ MD MED DIRECTION Additional Codes: Summary - Extremes of Age - Over 70 or under 1: BLISTER RUST ERADICATOR ([id number])
--- NOTE | 2025-01-29 12:40 | W.ANESCHARGE ---
Anesthesia Charges Start Date/Time Anesthesia Start Date: 01/29/25 Anesthesia Start Time: 12:09 Stop Date/Time Anesthesia Stop Date: 01/29/25 Anesthesia Stop Time: 12:31 Summary Extremes of Age - Over 70 or under 1: ACADEMIC COORDINATOR Coding CPT Codes CPT Codes: ANES LWR INTST SCR COLSC - 47763 ([id number]) P3 - PATIENT W/SEVERE SYS DISEASE, QK - MARRIAGE AND FAMILY SOCIAL WORKER 2-4 CNCRNT ANES PROC, QX - ACADEMIC COORDINATOR SVC W/ MD MED DIRECTION Additional Codes: Summary - Extremes of Age - Over 70 or under 1: ACADEMIC COORDINATOR ([id number])
--- NOTE | 2025-01-29 13:03 | P.ANES_ITS ---
Anesthesia Charges Start Date/Time Anesthesia Start Date: 01/29/25 Anesthesia Start Time: 12:09 Stop Date/Time Anesthesia Stop Date: 01/29/25 Anesthesia Stop Time: 12:31 Summary Extremes of Age - Over 70 or under 1: MDA Coding CPT Codes CPT Codes: ANES LWR INTST SCR COLSC - 84049 ([id number]) QK - OUTSIDE MACHINIST HELPER 2-4 CNCRNT ANES PROC, QX - TELEVISION CABLE INSTALLER SVC W/ MD MED DIRECTION, P3 - PATIENT W/SEVERE SYS DISEASE Additional Codes: Summary - Extremes of Age - Over 70 or under 1: MDA ([id number])
== END 2025-01-29 11:37 | disposition home or self-care (01) ==
LOC: OP CLINIC 11:37
PROVIDERS: PCP Family Medicine; Visit Provider Surgery
DX: Z12.11 Encounter for screening for malignant neoplasm of colon (principal); K57.30 Diverticulosis of large intestine without perforation or abscess without bleeding; Z85.038 Personal history of other malignant neoplasm of large intestine; Z98.0 Intestinal bypass and anastomosis status
CPT/HCPCS: 00812; 45378; 99100; J2704

== ENCOUNTER 2025-02-26 08:31 | Outpatient (CLI) | payer MEDICARE, SELFPAY | END 2025-02-26 08:32 | disposition home or self-care (01) | LOC: NFLDREF 03-01 11:08 | PROVIDERS: PCP Family Medicine; Referring Provider Family Medicine; Visit Provider Family Medicine | DX: I12.9 Hypertensive chronic kidney disease with stage 1 through stage 4 chronic kidney disease, or unspecified chronic kidney disease (principal); N18.9 Chronic kidney disease, unspecified; E78.00 Pure hypercholesterolemia, unspecified; Z79.899 Other long term (current) drug therapy | CPT/HCPCS: 80053; 80061 ==